=== PATIENT | male | born 1960 | race Caucasian/White ===

== ENCOUNTER 2016-06-12 07:10 | Inpatient (IN) | payer MEDICAID, OTHER ==
[2016-06-12] VITALS (9 sets, daily range): BP systolic 131–153; BP diastolic 70–92; PULSE 83–140; RESP 18–20; TEMP 97–98.1; O2SAT 92–96
[~2016-06-12] VITALS: Ht 170.2 cm; Wt 97.5 kg
[~2016-06-12 07:10] MED LIST: ACET325T PO; ADVA250A INH; AMOX500T2 PO; APIX5TAB PO; ATOR1TAB18 PO; DILT-64 PO; DOXY100C PO; IPRASOL INH; NITR1SUB2 SL; PRED20 PO; QUET1TAB7 PO; SOTA80TA PO
[2016-06-12] MEDS ORDERED: IPRASOL NEB (17:16)
[2016-06-12] MEDS ORDERED: HALO1TAB PO (17:16)
[2016-06-12] MEDS ORDERED: DOCU1CAP39 PO (17:16)
[2016-06-12] MEDS ORDERED: CLON.1 PO (17:16)
[2016-06-12] MEDS ORDERED: ACETAMINOPHEN 325 MG TAB PO PRN (20:15)
[2016-06-12] MEDS ORDERED: SODIUM CHLORIDE 0.9% FLUSH 5 ML FLUSH FLUSH PRN (20:15)
[2016-06-12] MEDS ORDERED: DILTIAZEM INJ 125 MG in SODIUM CHLORIDE 0.9% INJ 100 ML IV SCH (20:15)
[2016-06-12] MEDS ORDERED: ONDANSETRON HCL 4 MG/2 ML VIAL IVP PRN (20:15)
[2016-06-12] MEDS ORDERED: NALOXONE HCL 0.4 MG/ML AMP IV PRN (20:15)
[2016-06-12] MEDS ORDERED: HALOPERIDOL 1 MG TAB PO PRN (20:30)
[2016-06-12] MEDS ORDERED: cloNIDine HCL 0.1 MG TAB PO PRN (20:30)
[2016-06-12] MEDS ORDERED: RESP: ALBUTEROL 2.5 MG/IPRATROPIUM 0.5 MG NEB (PRN) NEB (20:30)
[2016-06-12] MEDS: BUDESONIDE-FORMOTEROL 160/4.5 MCG INHALER INH SCH (21:08)
[2016-06-12] MEDS: SODIUM CHLORIDE 0.9% FLUSH 5 ML FLUSH FLUSH SCH (21:09)
[2016-06-12] MEDS: DOCUSATE SODIUM 100 MG CAP PO SCH (21:10)
[2016-06-12] MEDS: ATORVASTATIN 80 MG TAB PO SCH (21:10)
[2016-06-12] MEDS: SOTALOL HCL 80 MG TAB PO SCH (21:10)
[2016-06-12] MEDS: APIXABAN 5 MG TABLET PO SCH (21:11)
[2016-06-12] MEDS: predniSONE 20 MG TAB PO SCH (21:11)
[2016-06-12] MEDS: QUEtiapine FUMARATE 25 MG TAB PO SCH (21:11)
[2016-06-13] VITALS (9 sets, daily range): BP systolic 124–157; BP diastolic 71–83; PULSE 65–105; RESP 18–20; TEMP 97.4–98.5; O2SAT 92–96
[2016-06-13] MEDS: DILTIAZEM-CD 240 MG CAP ER PO SCH (08:28)
[2016-06-13] MEDS: APIXABAN 5 MG TABLET PO SCH (08:28)
[2016-06-13] MEDS: DOCUSATE SODIUM 100 MG CAP PO SCH ×2 (08:28→21:09)
[2016-06-13] MEDS: QUEtiapine FUMARATE 25 MG TAB PO SCH (08:28)
[2016-06-13] MEDS: SOTALOL HCL 80 MG TAB PO SCH ×2 (08:28→21:09)
[2016-06-13] MEDS: SODIUM CHLORIDE 0.9% FLUSH 5 ML FLUSH FLUSH SCH ×2 (08:28→21:10)
[2016-06-13] MEDS: predniSONE 20 MG TAB PO SCH (08:28)
[2016-06-13] MEDS: BUDESONIDE-FORMOTEROL 160/4.5 MCG INHALER INH SCH ×2 (08:29→21:10)
[2016-06-13] MEDS ORDERED: ZIPRASIDONE MESYLATE 20 MG VIAL IM PRN (10:00)
--- NOTE | 2016-06-13 10:00 | HHI.HP ---
[facility] No Primary Care Physician Admission Diagnosis RVR Diagnoses: Chief Complaint: RVR Travel History International Travel<30 Days: No Contact w/Intl Traveler <30 Da: No Traveled to Known Affected Are: No History of Present Illness Patient is a 50-year-old male who was transferred from [facility] secondary to A. fib with RVR. Patient was noncompliant with by mouth Cardizem. Patient was started on IV Cardizem drip which was discontinued earlier today 2/2 CVR. I got called by RN this am 2/2 agitation pt swinging at nurses. Ordered IM Haldol and Geodon . Also ordered repeat EKG to evaluate QT duration. Patient has history of COPD, obstructive sleep apnea, anxiety, HTN, HLD, CAD, paroxysmal A. fib on Eliquis, recurrent strokes and ITP. Recent acute stroke with distal occlusion of the left middle cerebral artery 03/17/17 with receptive and expressive aphasia and mild right sided weakness he was seen by Dr. Holden and was transferred to [place] [facility]. On 06/01/16, patient was transferred to [facility] in [place] for history of increasing pain in the chest, shortness of breath and disorientation. Chest x-ray showed opacification of the right lower lobe possible pneumonia bilateral pleural effusions. Patient decompensated, requiring use of Ventimask and underwent urgent thoracentesis on 06/02/16, postprocedural chest x-ray without pneumothorax , and pleural effusion. Blood cultures were negative and patient was treated with course of antibiotic for the suspected pneumonia - doxycycline, Augmentin. The patient had several episodes of confusion and agitation which required Haldol PRN. At that time EEG showed mild encephalopathy but otherwise negative. EKG in normal sinus rhythm. 2-D echo showed 60% to 65% ejection fraction. Patient condition improved. He was then transferred to [place] for comprehensive rehabilitation. Patient also developed decrease in hemoglobin and platelets he was seen by hematology oncologist Dr. Andrew Schofield, bone marrow was completed which was negative and the patient was transfused with both 2 units of packed red cells and a unit of platelets. History includes testicular cancer in his late 40s for which she was treated with radiation therapy. Follow-up x-rays and scans have showed lymph nodes of the thoracic and abdominal area but the patient has remained on Eliquis and has not been able to undergo lymph node biopsy due to recurrent strokes. Patient seen today. Awake alert and calm following simple commands on 4 point restraints. Does know his last name Denies pain and discomfort. Denies SOB/ dyspnea. Denies chest pain, palpitations, headaches, dizziness. Denies fevers, chills, n/v/d. He agrees to behave and promises not to swinging at the nurses. Also discussed with hematology regarding thrombocytopenia. It was agreed to hold Eliquis 2/2 critical thrombocytopenia for the aware risk of recurrent CVA. At this time, risk of anticoagulation outweighs benefits. Discussed with Review of Systems Constitutional: DENIES: Diaphoretic episodes, Fatigue, Fever, Weight gain, Weight loss, Chills, Dizziness, Change in appetite, Night Sweats Endocrine: DENIES: Heat/cold intolerance, Polydipsia, Polyuria, Polyphagia Eyes: DENIES: Blurred vision, Diplopia, Vision loss, Photosensitivity Ears, nose, mouth, throat: DENIES: Tinnitus, Vertigo, Throat pain, Hoarseness, Epistaxis, Odynophagia Respiratory: DENIES: Cough, Wheezing, Hemoptysis, Sputum production, Shortness of breath Cardiovascular: DENIES: Chest pain, Palpitations, Syncope, Dyspnea on Exertion , PND, Lower Extremity Edema, Orthopnea, Claudication Gastrointestinal: DENIES: Abdominal pain, Black stools, Bloody stools, Constipation, Diarrhea, Nausea, Vomiting, Difficulty Swallowing, Anorexia Genitourinary: DENIES: Urinary frequency, Urinary incontinence, Urgency, Hematuria, Dysuria, Nocturia, Penile Discharge Integumentary: DENIES: Rash Neurologic: COMPLAINS OF: Speech Problems, DENIES: Headache, Localized weakness, Seizures, Tremor, Poor Balance Psychiatric: COMPLAINS OF: Confusion, Agitation, DENIES: Anxiety, Depression, Hallucinations, Suicidal Ideation, Homicidal Ideation, Delusions As per history of present illness Past Family Social History Past Medical History COPD Obstructive sleep apnea Anxiety Hypertension Hyperlipidemia CAD Paroxysmal A. fib on Eliquis Recurrent strokes Arthritis ITP Previous testicular cancer with radiation Restless leg syndrome Past Surgical History Cardiac catheterization and bone marrow Reported Medications Prednisone 20 mg twice a day Tylenol 650 mg every 4 hours when necessary Apixaban 5 mg by mouth twice a day Quetiapine 25 mg twice a day Advair discus 250/50 g 2 puffs twice a day DuoNeb 4 times a day nebulization Sotalol 80 mg twice a day Diltiazem CD 240 mg by mouth daily Atorvastatin 80 mg daily at bedtime Nitroglycerin 0.3 mg sublingual when necessary for chest pain Doxycycline 100 mg twice a day Allergies: Coded Allergies: No Known Allergies (Unverified , 04/16/16) Family History CAD and CVA Social History Occasional alcohol use Former smoker Denies illicit drug use Physical Exam Vital Signs Vital Signs Date Time Temp Pulse Resp B/P Pulse Ox O2 Delivery O2 Flow Rate FiO2 06/13/16 08:34 98.4 70 19 124/77 96 06/13/16 04:00 65 06/13/16 04:00 97.4 87 20 145/72 92 06/13/16 00:00 87 06/12/16 23:59 98.1 83 18 146/70 94 06/12/16 23:00 86 18 94 06/12/16 22:45 132 18 145/86 94 06/12/16 22:30 130 18 145/88 95 06/12/16 22:00 133 18 131/87 94 06/12/16 21:40 134 18 140/86 96 06/12/16 21:25 137 18 153/85 96 06/12/16 21:10 138 18 138/88 96 06/12/16 20:00 97.0 140 20 136/92 92 06/12/16 20:00 Nasal Cannula 2.00 06/12/16 20:00 97.0 06/12/16 20:00 140 Physical Exam GENERAL: This is a well-nourished, well-developed patient, in no apparent distress. SKIN: No rashes, ecchymoses or lesions. Cool and dry. HEAD: Atraumatic. Normocephalic. No temporal or scalp tenderness. EYES: Pupils equal round and reactive. Extraocular motions intact. No scleral icterus. No injection or drainage. ENT: Nose without bleeding. Throat without erythema. Uvula midline. Airway patent. NECK: Trachea midline. No JVD or lymphadenopathy. Supple, nontender, no meningeal signs. CARDIOVASCULAR: Rapid Ventricular rate without murmurs, gallops, or rubs. RESPIRATORY: Diminished bases right greater than the left. No wheezes, rales, or rhonchi. GASTROINTESTINAL: Abdomen soft, non-tender, nondistended. No hepato-splenomegaly , or palpable masses. No guarding. MUSCULOSKELETAL: Extremities without clubbing, cyanosis, or edema. No joint tenderness, effusion, or edema noted. No calf tenderness. Negative Homans sign bilaterally. Mild right-sided weakness. NEUROLOGICAL: Awake and alert. Expressive and receptive aphasia. Patient is impulsive. Motor and sensory grossly within normal limits. Assessment and Plan Problem List: (1) Idiopathic thrombocytopenia purpura ICD Code: D69.3 Status: Acute (2) Paroxysmal atrial fibrillation ICD Code: I48.0 Status: Chronic (3) Cognitive communication disorder ICD Code: R41.841 Status: Acute Assessment and Plan A. fib with RVR secondary to noncompliance. TSH unremarkable. Now with controlled response discontinue Cardizem drip and continue sotalol and Cardizem. Telemetry monitoring Thrombocytopenia with history of ITP. Discussed with hematology, hold Eliquis. Risk outweigh benefits at this time. Start IV Solu-Medrol. Discussed with . Repeat CBC in the morning. COPD with PNA. Stable status post doxycycline and Augmentin - DuoNeb's every 6 hours scheduled , every 4 hours when necessary - Continue prednisone taper, Symbicort every 12 hours - Monitor respiratory status CAD. Stable continue outpatient medications as appropriate CVA - expressive and receptive aphasia - PT/OT/ST -Consult rehabilitation medicine Agitation. Continue Seroquel. As needed Geodon and Haldol. Consult psychiatry HTN and HLD - Continue sotalol 80mg BID, clonidine when necessary - Continue atorvastatin 80 mg DVT prop -SCD and early ambulation Discussed Condition With Patient Physician Certification 2 Midnight Certification Type: Admission for Inpatient Services Order for Inpatient Services The services are ordered in accordance with Medicare regulations or non- Medicare payer requirements, as applicable. In the case of services not specified as inpatient-only, they are appropriately provided as inpatient services in accordance with the 2-midnight benchmark. Estimated LOS (days): 2 days is the estimated time the patient will need to remain in the hospital, assuming treatment plan goals are met and no additional complications. Post-Hospital Plan: Inpatient Rehab Gurvinder Noguera MD Jun 13, 2016 10:00 Urine pH 5.0 Urine Specific Moro 1.024 Urine Protein 30 Urine Glucose (UA) NEG Urine Ketones NEG Urine Occult Blood NEG Urine Nitrite NEG Urine Bilirubin NEG Urine Urobilinogen LESS THAN 2.0 Urine Leukocyte Esterase NEG Urine RBC 1 Urine WBC 1 Urine Mucus FEW Microscopic Urinalysis Comment CULT NOT INDICATED Imaging Last Impressions Chest X-Ray 06/11/16 0000 Signed Impressions: Service Date/Time: May 16:16 - CONCLUSION: Basilar airspace disease, right greater than left. Differential diagnosis includes asymmetric edema or pneumonia. Tom Hernandez MD Assessment and Plan Problem List: (1) Pneumonia ICD Code: J18.9 Status: Acute (2) Hx of testicular cancer ICD Code: Z85.47 Status: Chronic (3) Hypertension ICD Code: I10 Status: Chronic (4) Hyperlipemia ICD Code: E78.5 Status: Chronic (5) Anxiety ICD Code: F41.9 Status: Chronic (6) COPD (chronic obstructive pulmonary disease) ICD Code: J44.9 Status: Chronic (7) Impaired mobility and activities of daily living ICD Code: Z74.09 Status: Acute Assessment and Plan Patient is a 50-year-old male with primary medical history of COPD, obstructive sleep apnea, anxiety, HTN, HLD, CAD, paroxysmal A. fib on Eliquis, recurrent strokes. Recent acute stroke with distal occlusion of the left middle cerebral artery 03/17/17 with receptive and expressive aphasia and mild right sided weakness he was seen by Dr. villa and was transferred to [place] [facility]. On 06/01/16, patient was transferred to [facility] in [place] for history of increasing pain in the chest, shortness of breath and disorientation. Chest x-ray showed opacification of the right lower lobe possible pneumonia bilateral pleural effusions. Patient decompensated, requiring use of Ventimask and underwent urgent thoracentesis on 06/02/16, postprocedural chest x-ray without pneumothorax, and pleural effusion was greater juice with remaining atelectasis. Blood cultures were negative and patient was treated with course of antibiotic for the suspected pneumonia - doxycycline, Augmentin. The patient had several episodes of confusion and agitation which required Haldol PRN. At that time EEG showed mild encephalopathy but otherwise negative. EKG in normal sinus rhythm. 2-D echo showed 60% to 65% ejection fraction. Patient condition improved. He is now admitted to [place] for comprehensive rehabilitation. Consulted for medical management. COPD with exacerbation, PNA - continue doxycycline and Augmentin - DuoNeb's every 6 hours scheduled , every 4 hours when necessary - Continue prednisone taper, Symbicort every 12 hours - Monitor respiratory status CAD, paroxysmal A. fib - continue Eliquis - Continue Cardizem, sotalol - Monitor if patient taking medication. CVA - expressive and receptive aphasia - Rehabilitation PT/OT/ST by primary team - Consult neuropsych for impulsiveness may need to be on anxiolytics, antipsychotic HTN HLD - Continue sotalol 80mg BID, clonidine when necessary - Continue atorvastatin 80 mg Agitation DVT prop - Eliquis Past Family Social History Allergies: Coded Allergies: No Known Allergies (Unverified , 04/16/16) Physical Exam Vital Signs Vital Signs Date Time Temp Pulse Resp B/P Pulse Ox O2 Delivery O2 Flow Rate FiO2 06/13/16 08:34 98.4 70 19 124/77 96 06/13/16 04:00 65 06/13/16 04:00 97.4 87 20 145/72 92 06/13/16 00:00 87 06/12/16 23:59 98.1 83 18 146/70 94 06/12/16 23:00 86 18 94 06/12/16 22:45 132 18 145/86 94 06/12/16 22:30 130 18 145/88 95 06/12/16 22:00 133 18 131/87 94 06/12/16 21:40 134 18 140/86 96 06/12/16 21:25 137 18 153/85 96 06/12/16 21:10 138 18 138/88 96 06/12/16 20:00 97.0 140 20 136/92 92 06/12/16 20:00 Nasal Cannula 2.00 06/12/16 20:00 97.0 06/12/16 20:00 140 Physical Exam GENERAL: This is a well-nourished, well-developed patient, in no apparent distress. SKIN: No rashes, ecchymoses or lesions. Cool and dry. HEAD: Atraumatic. Normocephalic. No temporal or scalp tenderness. EYES: Pupils equal round and reactive. Extraocular motions intact. No scleral icterus. No injection or drainage. ENT: Nose without bleeding, purulent drainage or septal hematoma. Throat without erythema, tonsillar hypertrophy or exudate. Uvula midline. Airway patent. NECK: Trachea midline. No JVD or lymphadenopathy. Supple, nontender, no meningeal signs. CARDIOVASCULAR: Regular rate and rhythm without murmurs, gallops, or rubs. RESPIRATORY: Clear to auscultation. Breath sounds equal bilaterally. No wheezes , rales, or rhonchi. GASTROINTESTINAL: Abdomen soft, non-tender, nondistended. No hepato-splenomegaly , or palpable masses. No guarding. MUSCULOSKELETAL: Extremities without clubbing, cyanosis, or edema. No joint tenderness, effusion, or edema noted. No calf tenderness. Negative Homans sign bilaterally. NEUROLOGICAL: Awake and alert. Cranial nerves II through XII intact. Motor and sensory grossly within normal limits. Five out of 5 muscle strength in all muscle groups. Normal speech. Physician Certification Order for Inpatient Services The services are ordered in accordance with Medicare regulations or non- Medicare payer requirements, as applicable. In the case of services not specified as inpatient-only, they are appropriately provided as inpatient services in accordance with the 2-midnight benchmark. days is the estimated time the patient will need to remain in the hospital, assuming treatment plan goals are met and no additional complications. Gurvinder Noguera MD Jun 13, 2016 10:00
[2016-06-13 10:50] LABS: AUTOMATED NEUTROPHIL # 12.3 TH/MM3 (1.8-7.7); BASOPHIL % 0.1 % (0.0-2.0); EOSINOPHIL # 0.1 TH/MM3 (0-0.4); EOSINOPHIL % 0.9 % (0.0-4.0); HEMATOCRIT 35.8 % (39.0-51.0); LYMPH % 9.8 % (9.0-44.0); LYMPHOCYTE # 1.5 TH/MM3 (1.0-4.8); MEAN CELL VOLUME 83.3 FL (80.0-100.0); MEAN CORPUSCULAR HEMOGLOBIN 26.7 PG (27.0-34.0); MONO % 6.2 % (0.0-8.0); RED CELL DISTRIBUTION WIDTH 20.1 % (11.6-17.2); WHITE BLOOD COUNT 14.8 TH/MM3 (4.0-11.0)
[2016-06-13 10:56] LABS: HEMO FLAGS AUTO DIFF
[2016-06-13 11:01] LABS: PLATELET COUNT 15 TH/MM3 (150-450)
[2016-06-13 11:07] LABS: BICARBONATE 27.9 MEQ/L (21.0-32.0); MAGNESIUM 2.4 MG/DL (1.5-2.5); POTASSIUM 3.6 MEQ/L (3.5-5.1)
[2016-06-13 12:02] LABS: HELMET CELLS OCC (NORMAL); KERATOCYTES OCC (NORMAL); PLATELET ESTIMATE SMEAR RARE (NORMAL); PLATELET MORPHOLOGY NORMAL (NORMAL); SCAN/DIFF AUTO DIFF CONFIRMED
[2016-06-13 14:36] LABS: TRANSFERRIN IRON PROFILE 178 MG/DL (200-360)
[2016-06-13 15:01] LABS: FERRITIN 488 NG/ML (26-388); LDH SERUM 722 U/L (87-241)
--- NOTE | 2016-06-13 15:09 | MB ---
cc: EMANI AHUJA M.D., JOSE R. MD DATE OF CONSULTATION: 06/13/[address] Noguera. REASON FOR CONSULTATION Hematology consulted to render an opinion regarding a patient with worsening thrombocytopenia and recurrent stroke on anticoagulation. HISTORY OF PRESENT ILLNESS The patient is a 55-year-old male recently admitted to [facility] after a stroke. However, he developed confusion and atrial fibrillation, he was then transferred to the medical floor. The patient is aphasic and the history is obtained from his chart and from his at the bedside. Apparently the patient had recurrent strokes since January of 2016. She stated this is probably his fifth stroke. Around February he also found to have significant thrombocytopenia. He was seen by Dr. Schofield and had a bone marrow biopsy which reportedly was negative. The patient was diagnosed with idiopathic thrombocytopenic purpura. He has been going to Dr. Schofield's office once a week to get an injection which I assume is Nplate. According to his , the patient's platelet count always runs around 45,000. He also has been on Eliquis for the recurrent strokes. In April he was admitted for another stroke. He eventually was discharged to rehab in early May. He was transferred back to [facility] after he developed mental status change and was found to have pneumonia and pleural effusion. He had a thoracentesis. He recently on prednisone 20 mg twice a day. There is no report of bleeding. He denies any headache or visual changes. PAST MEDICAL HISTORY 1. Recurrent strokes. 2. Chronic obstructive pulmonary disease. 3. Obstructive sleep apnea. 4. Anxiety. 5. Hypertension. 6. Hyperlipidemia. 7. Coronary artery disease. 8. Paroxysmal atrial fibrillation. 9. History of testicular cancer treated in his 40s with radiation. 10. Restless leg syndrome. 11. Arthritis. 12. ITP. PAST SURGICAL HISTORY 1. Orchiectomy. 2. Cardiac cath. FAMILY HISTORY Noncontributory. SOCIAL HISTORY He has quit tobacco. He drinks occasionally. ALLERGIES NO KNOWN DRUG ALLERGIES. CURRENT MEDICATIONS 1. Geodon 2. Cardizem. 3. Haldol. 4. Eliquis. 5. Lipitor. 6. Colace. 7. Prednisone. 8. Seroquel. 9. Sotalol. 10. Symbicort. REVIEW OF SYSTEMS CONSTITUTIONAL: No report of weight loss. EYES: Denies any blurry vision, double vision. ENT: No report of sore throat. CARDIOVASCULAR: As above. RESPIRATORY: Denies shortness of breath or cough. GASTROINTESTINAL: No melena, no hematochezia, no abdominal pain. GENITOURINARY: No dysuria or hematuria. MUSCULOSKELETAL: Mild right-sided weakness. HEMATOLOGIC: As above. ENDOCRINE: Negative. DERMATOLOGIC: Negative. PSYCHIATRIC: Negative. NEUROLOGIC: As above. PHYSICAL EXAMINATION VITAL SIGNS: Temperature 98.5, blood pressure 124/76, O2 saturation 96% on 2 liters nasal cannula. GENERAL: He is awake, he is following commands, he is aphasic. HEENT: Atraumatic, normocephalic. Pupils equal, round and reactive to light. Extraocular muscles intact. No scleral icterus. Oropharynx - dry mucosa, no lesion. NECK: No thyromegaly. No palpable mass. LYMPHATICS: No palpable cervical, clavicular, axillary or inguinal lymph nodes. CARDIOVASCULAR: Irregular irregular. S1, S2 normal. LUNGS: Clear to auscultation bilaterally without wheezing or rhonchi. ABDOMEN: Soft, nontender. I could not palpate liver or spleen. EXTREMITIES: No cyanosis, no clubbing, no edema. BACK: No paravertebral tenderness. SKIN: No rash or petechiae. NEUROLOGIC: Nonfocal. LABORATORY DATA Reviewed. ASSESSMENT 1. Thrombocytopenia. Previous workup reportedly showed he has idiopathic thrombocytopenic purpura. Reportedly he had a bone marrow done in February which was unremarkable. He has been seeing Dr. Schofield and is getting an injection in his office once a week, his last injection was around April before he was admitted for stroke. According to his , the patient's platelet count always runs around 45,000. He is also on prednisone 20 mg twice a day. Yesterday his platelet count was down to 23,000, today it was down to 15,000. Clinically he has no bleeding, I do not appreciate any bruising. He however is on Eliquis and he has a high risk of bleeding. i recommend stopping the Eliquis. I am going to start him on Solu-Medrol. If his platelet count continues to drop, I would consider giving him IVIG. We will try not to give him IVIG at this time as there is a potential risk of clotting especially given his history of recurrent stroke. 2. Recurrent stroke. According to his , the patient has at least five strokes since January of last year. He is currently on Eliquis however his platelet count has trended lower and he has a high risk of bleeding, I think the risk outweighs the benefit, at this time I will stop the Eliquis and put him on subcutaneous heparin. Continue to monitor him closely for sign of bleeding. 3. History of testicular cancer treated with radiation when he was in the 40s. Reportedly he has some adenopathy but not able to biopsy due to the thrombocytopenia, he is being followed by Dr. Schofield 4. Chronic obstructive pulmonary disease. 5. Obstructive sleep apnea. 6. Paroxysmal atrial fibrillation. 7. Coronary artery disease. 8. Restless leg syndrome. 9. Osteoarthritis. RECOMMENDATIONS 1. Extensive discussion with the patient and his . They understand that he is in a difficult situation. He has competing needs. He will need anticoagulation given his recurrent stroke however the risk is high at this time given his severe thrombocytopenia. 2. We will stop his Eliquis and start him on subcutaneous heparin. 3. Start him on Solu-Medrol and stop the prednisone. 4. Consider giving him IVIG if his platelet count continues to trend lower. 5. Monitor CBC and sign of bleeding closely. 6. Discussed the case with Dr. Noguera. Thank you Dr. Noguera for asking me to see this patient. MD FELIPE Barnes/RAMY /1:42 PM /2:19 PM MONICA
[2016-06-13] MEDS: methylPREDNISolone SOD SUCC 40 MG/1 ML VIAL IV PUSH SCH ×2 (15:13→21:09)
--- NOTE | 2016-06-13 15:48 | PD.CONS ---
Provisional Diagnosis Admission Date Jun 12, 2016 at 07:10 [place] I. Adjustment disorder with mixed disturbances of emotion and conduct F 43.25,, cognitive communication disorder r 41.841 History of Present Illness Service Psychiatry Consult Requested By Attending Michaela Reason for Consult Assessment irritability Primary Care Physician No Primary Care Physician HPI Patient is a 55 white male with history of multiple strokes multiple medical issues. Asked to see because of patient's inability lability in context of his severe expressive aphasia. Patient seen in his room with soft restraints on with present throughout session giving much of the information. Patient calm to somewhat irritable with me the expressive aphasia severe consistent leading to what appears to be irritability and anger and depression and patient. Patient's verifies the depressive component of this. She denies any prior psychiatric contact hospitalizations or psychotropic medications. States he has been appear drinker but denies other drug use. Verifies his frustration with inability to do activities that he has the past including riding his motorcycle and driving his truck. Patient times is able to nod and verify his statements. We did discuss medication adjustments with them RN has been present throughout the session she states the small dose of Haldol have calmed him. Will suggest increasing scheduled Haldol to 2 mg 3 times a day and adding Remeron 15 mg at at bedtime. Along with discontinuing the Geodon orders and the Seroquel orders. At this time patient is not a candidate for referral to [facility] thanks for the consult consult will continue to follow Review of Systems Except as stated in HPI: all other systems reviewed are Neg Past Family Social History Coded Allergies: No Known Allergies (Unverified , 04/16/16) Past Medical History See medical assessments Active Scripts Haloperidol 1 Mg Tab1 Mg PO Q8HR PRN (AGITATION) 30 Days Prov:Maria T Shepherd 06/12/16 Docusate Sodium (Dok)100 Mg [id number] Mg PO BID 30 Days Prov:Maria T Shepherd 06/12/16 Clonidine (Catapres)0.1 Mg Tab0.1 Mg PO Q6H PRN (SBP> OR = 180, DBP> OR = 100) 30 Days Prov:Maria T Shepherd 06/12/16 Ipratropium-Albuterol Neb (Duoneb)0.5-2.5 Mg/3 Ml Neb1 Ampule NEB Q4HR NEB PRN ( SHORTNESS OF BREATH) 30 Days Prov:Maria T Shepherd 06/12/16 Reported Medications Sotalol 80 Mg Tab80 Mg PO BID #60 TAB Ref 0 06/11/16 Nitroglycerin SL 0.3 Mg Subl0.3 Mg SL DIRECTED PRN (CHEST PAIN) #100 TAB.SL Ref 0 ONE TABLET UNDER THE TONGUE NEEDED FOR CHEST PAIN, MAY REPEAT EVERY FIVE MINUTES FOR A TOTAL OF 3 DOSES OR CALL 911 IF NO RELIEF 06/11/16 Diltiazem CD 24 HR 240 Mg [id number] Mg PO DAILY #30 CAP Ref 0 06/11/16 Apixaban (Eliquis)5 Mg Tab5 Mg PO BID #60 TAB Ref 0 06/11/16 Atorvastatin 80 Mg Tab80 Mg PO HS #30 TAB Ref 0 06/11/16 Acetaminophen 325 Mg [id number] Mg PO Q4H PRN (FEVER) 06/11/16 Quetiapine 25 Mg Tab25 Mg PO BID #60 TAB Ref 0 06/11/16 Prednisone 20 Mg Tab20 Mg PO BID Ref 0 06/11/16 Fluticasone-Salmeterol Inh (Advair Diskus Inh)250-50 Mcg/Blist Aer2 Puff INH BID #1 INHALER Ref 0 Rinse mouth after use. 06/11/16 Discontinued Reported Medications Amoxicillin-Clavulanate 500-125 mg [id number] Mg PO Q8HR 1 Day Ref 0 06/11/16 Ipratropium-Albuterol Neb (Duoneb)0.5-2.5 Mg/3 Ml Neb1 Nebule INH QID NEB #120 NEBULE Ref 0 06/11/16 Doxycycline Hyclate 100 Mg Kon411 Mg PO BID 1 Day Ref 0 06/11/16 Furosemide 20 Mg Tab20 Mg PO BID #60 TAB Ref 0 04/16/16 Apixaban (Eliquis)5 Mg Tab5 Mg PO BID #60 TAB Ref 0 04/16/16 Metoprolol Tartrate 25 Mg Tab25 Mg PO DAILY #30 TAB Ref 0 04/16/16 Simvastatin 20 Mg Tab20 Mg PO HS #30 TAB Ref 0 04/16/16 Prednisone 10 Mg Tab10 Mg PO Sliding Scale Ref 0 04/16/16 Amiodarone 200 Mg [id number] Mg PO BID #60 TAB Ref 0 04/16/16 Isosorbide Mononitrate 20 Mg Tab30 Mg PO DAILY #60 TAB Ref 0 Take 2 doses 7 hours apart. 04/16/16 Current Medications Medications (Trade) Dose Ordered Sig/Brock Route Start Time Stop Time Status Last Admin (NS Flush) 2 ml UNSCH PRN FLUSH 06/12/16 20:15 (NS Flush) 2 ml BID FLUSH 06/12/16 21:00 06/13/16 08:28 (Tylenol) 650 mg Q4H PRN PO 06/12/16 20:15 (Zofran Inj) 4 mg Q6H PRN IVP 06/12/16 20:15 Naloxone HCl 0.4 mg 0.4 mg UNSCH PRN IV 06/12/16 20:15 (Cardizem Inj/NS Inj) 125 ml @ 0 mls/hr TITRATE IV 06/12/16 20:15 06/12/16 21:04 (Lipitor) 80 mg HS PO 06/12/16 21:00 06/12/16 21:10 (Catapres) 0.1 mg Q6H PRN PO 06/12/16 20:30 (Cardizem Cd) 240 mg DAILY PO 06/13/16 09:00 06/13/16 08:28 (Colace) 100 mg BID PO 06/12/16 21:00 06/13/16 08:28 (Haldol) 1 mg Q8HR PRN PO 06/12/16 20:30 06/13/16 08:28 (SEROquel) 25 mg BID PO 06/12/16 21:00 06/13/16 08:28 (Betapace) 80 mg BID PO 06/12/16 21:00 06/13/16 08:28 (Symbicort 160-4.5 Inh) 2 puff BID INH 06/12/16 21:00 06/13/16 08:29 (Haldol Inj) 2 mg Q6H PRN IM 06/13/16 08:45 (Geodon Inj) 10 mg BID PRN IM 06/13/16 10:00 (SoluMEDROL INJ) 40 mg Q6H IV PUSH 06/13/16 14:00 06/13/16 15:13 (Heparin Inj) 5,000 units Q8HR SQ 06/13/16 22:00 Family History History mental health issues Social History Lives with his was quite supportive Patient's Strengths (min. 2) Patient has supportive family, continued to be cooperative with his cognitive ability Physical Exam Please see med surge assessments Vital Signs Vital Signs Date Time Temp Pulse Resp B/P Pulse Ox O2 Delivery O2 Flow Rate FiO2 06/13/16 12:10 98.5 65 20 124/76 96 06/13/16 11:47 Nasal Cannula 2.00 I/O 06/12/16 06/12/16 06/13/16 08:00 16:00 00:00 Intake Total 480 ml Balance 480 ml Mental Status Examination Alert oriented though significantly impaired indicated skills secondary to his expressive aphasia Appearance Clean the Speech: Incoherent, Other (secondary to expressive aphasia) Orientation: Person, Place Memory: Unremarkable (difficult to ascertain due to his expressive aphasia) Thought Process: Logical (difficult to ascertain due to his expressive aphasia) Thought Content: Unremarkable (difficult to ascertain due to his expressive aphasia) Language Impaired by expressive aphasia Hallucination Type: None Attention and Concentration: Other (fair) Suicidal Ideation: No Previous Suicide Attempts: No Homicidal Ideation: No (denies) Previous Homicide Attempts: No Insight: Poor Judgement: Poor Affect: Other (slight increased range and intensity) Mood: Euthymic (2 dysphoric and irritable) Motor Activity: Normal gait (patient in bed with soft restraints) Assessment & Plan Problem List: (1) Adjustment disorder with mixed disturbance of emotions and conduct ICD Code: F43.25 (2) Cognitive communication disorder ICD Code: R41.841 Assessment & Plan Estimated LOS: days patient shows irritability and anger related to his multiple strokes, and cognitive issues. She medication suggestions above. Would agree with referral to a rehabilitation facility once medically cleared and stable. Thanks for consult will continue to follow on a when necessary basis Discharge Planning To be determined Request HC Surrog/Guard Advoc?: No Filiberto Garcia MD Jun 13, 2016 15:48
--- NOTE | 2016-06-13 16:44 | EKG ---
Date Performed: 06/13/2016 Time Performed: 06:36:00 PTAGE: 55 years EKG: Atrial flutter with controlled ventricular response nonspecific T wave change Compared to p revious tracing, overall HR is slightly slower, otherwise no significant change Abnormal ECG PREVIOUS TRACING : 06/13/2016 06.35 DOCTOR: Agus Rucker Interpretating Date/Time 06/13/2016 16:42:28
[2016-06-13] MEDS: HALOPERIDOL 2 MG TAB PO SCH (17:02)
[2016-06-13 17:27] LABS: APTT (PATIENT) 23.6 SEC (24.3-30.1); INTERNATIONAL NORMALIZED RATIO 1.3 RATIO; PROTHROMBIN TIME - PATIENT 14.6 SEC (9.8-11.6)
[2016-06-13] MEDS: MIRTAZAPINE 15 MG TAB PO SCH (21:09)
[2016-06-13] MEDS: ATORVASTATIN 80 MG TAB PO SCH (21:09)
[2016-06-13] MEDS: HEPARIN SODIUM - SQ 10,000 UNITS/ML VIAL SQ SCH (21:09)
[2016-06-14] VITALS (8 sets, daily range): BP systolic 116–145; BP diastolic 58–87; PULSE 77–125; RESP 16–20; TEMP 97.4–98; O2SAT 90–98
[2016-06-14] MEDS: methylPREDNISolone SOD SUCC 40 MG/1 ML VIAL IV PUSH SCH ×4 (02:11→21:30)
[2016-06-14] MEDS: HEPARIN SODIUM - SQ 10,000 UNITS/ML VIAL SQ SCH ×2 (05:18→21:47)
--- NOTE | 2016-06-14 08:41 | PD.ONC.PN ---
Subjective Subjective Remarks Afebrile overnight. Tachycardic overnight. Patient aphasic and difficult to communicate with. No reported overnight events. Objective Data Date Time Temp Pulse Resp B/P Pulse Ox O2 Delivery O2 Flow Rate FiO2 06/14/16 08:26 97.4 115 18 145/82 90 06/14/16 04:42 97.4 125 20 142/77 95 06/14/16 00:34 97.9 123 20 134/74 95 06/13/16 23:00 103 06/13/16 20:00 98.4 105 18 157/83 95 06/13/16 20:00 Nasal Cannula 2.00 06/13/16 16:33 97.9 96 19 135/71 94 06/13/16 12:10 98.5 65 20 124/76 96 06/13/16 11:47 Nasal Cannula 2.00 06/13/16 09:10 95 Nasal Cannula 2.00 06/13/16 08:34 98.4 70 19 124/77 96 06/14/16 06/14/16 06/14/16 07:00 15:00 23:00 Intake Total 500 ml Output Total 200 ml Balance 300 ml Result Diagram: 06/13/16 1025 06/13/16 1025 Laboratory Results Laboratory Tests Test 06/13/16 06/13/16 10:25 16:46 White Blood Count 14.8 TH/MM3 Red Blood Count 4.30 MIL/MM3 Hemoglobin 11.5 GM/DL Hematocrit 35.8 % Mean Corpuscular Volume 83.3 FL Mean Corpuscular Hemoglobin 26.7 PG Mean Corpuscular Hemoglobin 32.0 % Concent Red Cell Distribution Width 20.1 % Platelet Count 15 TH/MM3 Mean Platelet Volume 9.4 FL Neutrophils (%) (Auto) 83.0 % Lymphocytes (%) (Auto) 9.8 % Monocytes (%) (Auto) 6.2 % Eosinophils (%) (Auto) 0.9 % Basophils (%) (Auto) 0.1 % Neutrophils # (Auto) 12.3 TH/MM3 Lymphocytes # (Auto) 1.5 TH/MM3 Monocytes # (Auto) 0.9 TH/MM3 Eosinophils # (Auto) 0.1 TH/MM3 Basophils # (Auto) 0.0 TH/MM3 CBC Comment AUTO DIFF Differential Comment AUTO DIFF CONFIRMED Platelet Estimate RARE Platelet Morphology Comment NORMAL Helmet Cells OCC Keratocytes OCC Sodium Level 145 MEQ/L Potassium Level 3.6 MEQ/L Chloride Level 109 MEQ/L Carbon Dioxide Level 27.9 MEQ/L Anion Gap 8 MEQ/L Blood Urea Nitrogen 25 MG/DL Creatinine 1.13 MG/DL Estimat Glomerular Filtration 67 ML/MIN Rate Random Glucose 110 MG/DL Calcium Level 8.4 MG/DL Magnesium Level 2.4 MG/DL Iron Level 44 MCG/DL Total Iron Binding Capacity 249 MCG/DL Percent Iron Saturation 17.7 % Ferritin 488 NG/ML Lactate Dehydrogenase 722 U/L Vitamin B12 Level 552 PG/ML Folate 10.1 NG/ML Prothrombin Time 14.6 SEC Prothromb Time International 1.3 RATIO Ratio Activated Partial 23.6 SEC Thromboplast Time Fibrinogen 148 mg/dL Administered Medications Medications (Trade) Dose Ordered Sig/Brock Route PRN Reason Start Time Stop Time Status Last Admin Dose Admin IV Flush (NS Flush) 2 ml BID FLUSH 06/12/16 21:00 06/13/16 21:10 Atorvastatin Calcium (Lipitor) 80 mg HS PO 06/12/16 21:00 06/13/16 21:09 Diltiazem HCl (Cardizem Cd) 240 mg DAILY PO 06/13/16 09:00 06/13/16 08:28 Docusate Sodium (Colace) 100 mg BID PO 06/12/16 21:00 06/13/16 21:09 Sotalol HCl (Betapace) 80 mg BID PO 06/12/16 21:00 06/13/16 21:09 Budesonide/ Formoterol Fumarate (Symbicort 160-4.5 Inh) 2 puff BID INH 06/12/16 21:00 06/13/16 21:10 Methylprednisolone Sodium Succinate (SoluMEDROL INJ) 40 mg Q6H IV PUSH 06/13/16 14:00 06/14/16 02:11 Heparin Sodium (Porcine) (Heparin Inj) 5,000 units Q8HR SQ 06/13/16 22:00 06/14/16 05:18 Haloperidol (Haldol) 2 mg TID PO 06/13/16 18:00 06/13/16 17:02 Mirtazapine (Remeron) 15 mg HS PO 06/13/16 21:00 06/13/16 21:09 Objective Remarks GENERAL: Middle aged male, sitting up in bed in nad. SKIN: Warm and dry. ecchymoses noted along bilateral arms. HEAD: Normocephalic. EYES: No scleral icterus. No injection or drainage. NECK: Supple, trachea midline. CARDIAC: + S1/S2, tachy RESPIRATORY: Breath sounds equal bilaterally. No accessory muscle use. GASTROINTESTINAL: Abdomen soft, non-tender, nondistended. EXTREMITIES: No cyanosis NEUROLOGICAL: +aphasia. able to move extremities. able to ambulate independently Assessment/Plan Problem List: (1) Thrombocytopenia Status: Acute Plan: --on solu-medrol 40mg IV q6 for now, may start IVIG if no improvement --reported h/o ITP h/o thrombocytopenia dating back to 2015--[facility]wal patient--neg. BMB --has been going to Dr. Schofield's office weekly for injection ?Nplate. --baseline reportedly around 45K (per ) (2) Acute ischemic left MCA stroke Status: Acute Plan: --Eliquis d/c d/t thrombocytopenia--Patient has competing needs: h/o stroke vs high risk of bleeding d/t thrombocytopenia --on heparin 5000U q 8 only Assessment 55y/o male s/p stroke. Hematology consulted for thrombocytopenia H[facility] and [facility], transferred to the med/surg +recurrent strokes since January of 2016--was on Eliquis Chronic obstructive pulmonary disease. Obstructive sleep apnea. Hypertension. Hyperlipidemia. Coronary artery disease--h/o cardiac cath Paroxysmal atrial fibrillation. History of testicular cancer treated in his 40s with radiation and orchiectomy Restless leg syndrome. Arthritis. ITP. Plan 1. await CBC today 2. continue solu-medrol Attending Statement The exam, history, and the medical decision-making described in the above note were completed with the assistance of the mid-level provider. I reviewed and agree with the findings presented. I attest that I had a [id number] encounter with the patient on the same day, and personally performed and documented my assessment and findings in the medical record. Patient refused blood draw. No report of bleeding. + bruises. No headache. Still has aphasia. When we talked to him, he agrees to have blood draw. Continue solumedrol and heparin subQ. Restart Eliquis when platelet closer to 50K. Michelle Jerez Jun 14, 2016 08:41 Skyler Limon MD Jun 14, 2016 11:52
[2016-06-14] MEDS: BUDESONIDE-FORMOTEROL 160/4.5 MCG INHALER INH SCH ×2 (09:08→21:00)
[2016-06-14] MEDS: SOTALOL HCL 80 MG TAB PO SCH ×2 (09:08→21:00)
[2016-06-14] MEDS: DILTIAZEM-CD 240 MG CAP ER PO SCH (09:08)
[2016-06-14] MEDS: HALOPERIDOL 2 MG TAB PO SCH ×3 (09:08→18:01)
[2016-06-14] MEDS: DOCUSATE SODIUM 100 MG CAP PO SCH ×2 (09:08→21:30)
--- NOTE | 2016-06-14 09:39 | HHI.PR ---
Subjective Remarks Follow-up for atrial fibrillation, COPD, thrombocytopenia Discussed with RN, no bleeding. Patient still aphasic, very poor historian. No overnight events, afebrile. Appears to be comfortable, not short of breath. Objective Vitals Vital Signs Date Time Temp Pulse Resp B/P Pulse Ox O2 Delivery O2 Flow Rate FiO2 06/14/16 08:26 97.4 115 18 145/82 90 06/14/16 04:42 97.4 125 20 142/77 95 06/14/16 00:34 97.9 123 20 134/74 95 06/13/16 23:00 103 06/13/16 20:00 98.4 105 18 157/83 95 06/13/16 20:00 Nasal Cannula 2.00 06/13/16 16:33 97.9 96 19 135/71 94 06/13/16 12:10 98.5 65 20 124/76 96 06/13/16 11:47 Nasal Cannula 2.00 I/O 06/13/16 06/13/16 06/13/16 06/14/16 06/14/16 06/14/16 07:00 15:00 23:00 07:00 15:00 23:00 Intake Total 120 ml 240 ml 600 ml 500 ml Output Total 150 ml 200 ml Balance 120 ml 90 ml 600 ml 300 ml Intake Oral 120 ml 240 ml 600 ml 500 ml Output Urine Total 150 ml 200 ml # Voids 2 1 3 # Bowel Movements 1 1 0 Result Diagram: 06/13/16 1025 06/13/16 1025 Objective Remarks GENERAL: This is a well-nourished, well-developed patient, in no apparent distress. SKIN: No rash of generalized distribution HEAD: Atraumatic. Normocephalic. No temporal or scalp tenderness. EYES: Pupils equal round and reactive. No scleral icterus. No injection or drainage. ENT: Nose without bleeding. NECK: Trachea midline. CARDIOVASCULAR: Irregular rhythm, borderline tachycardic, no murmurs. RESPIRATORY: Diminished bases right greater than the left. No wheezes, rales, or rhonchi. Poor effort. GASTROINTESTINAL: Abdomen soft, non-tender, obese, nondistended. No hepato- splenomegaly, or palpable masses. No guarding. MUSCULOSKELETAL: Extremities without clubbing, cyanosis, or edema. NEUROLOGICAL: Awake and alert.? Orientation, mild right-sided weakness. Expressive and receptive aphasia. Patient is impulsive. Motor and sensory grossly within normal limits. A/P Problem List: (1) Idiopathic thrombocytopenia purpura ICD Code: D69.3 Status: Acute (2) Paroxysmal atrial fibrillation ICD Code: I48.0 Status: Chronic (3) Cognitive communication disorder ICD Code: R41.841 Status: Acute Assessment and Plan A. fib with RVR secondary to noncompliance - TSH unremarkable. Continue Cardizem long-acting, start metoprolol. Telemetry monitoring Thrombocytopenia with history of ITP- Discussed with hematology, hold Eliquis. Risk outweigh benefits at this time. No note of bleeding, pending repeat labs today, continue Solu-Medrol. Pending hematology input. CBC and BMP tomorrow. COPD with PNA. Stable status post doxycycline and Augmentin, continue duo nebs , steroids for ITP, continue Symbicort. Stable. CAD. Stable continue outpatient medications as appropriate CVA - expressive and receptive aphasia - PT/OT/ST -Consult rehabilitation medicine Agitation. Continue Seroquel. As needed Danieldon and Haldol. Consulted psychiatry, start restraints today. HTN and HLD - - Continue sotalol 80mg BID, clonidine when necessary, Continue atorvastatin 80 mg DVT prop -SCD and early ambulation, pharmacological prophylaxis contraindicated. Discussed with RN and security. Blane Mckee MD Jun 14, 2016 09:39
[2016-06-14] MEDS: SODIUM CHLORIDE 0.9% FLUSH 5 ML FLUSH FLUSH SCH ×2 (10:00→21:30)
[2016-06-14] MEDS: METOPROLOL TARTRATE 25 MG TAB PO SCH ×2 (11:52→21:30)
[2016-06-14 14:02] LABS: AUTOMATED NEUTROPHIL # 12.6 TH/MM3 (1.8-7.7); BASOPHIL # 0.1 TH/MM3 (0-0.2); BASOPHIL % 0.4 % (0.0-2.0); EOSINOPHIL % 0.1 % (0.0-4.0); HEMATOCRIT 36.4 % (39.0-51.0); LYMPH % 7.3 % (9.0-44.0); LYMPHOCYTE # 1.1 TH/MM3 (1.0-4.8); MEAN CELL VOLUME 83.6 FL (80.0-100.0); MEAN CORPUSCULAR HEMOGLOBIN 26.8 PG (27.0-34.0); MEAN CORPUSCULAR HGB CONC 32.1 % (32.0-36.0); MONO % 4.9 % (0.0-8.0); NEUT % 87.3 % (16.0-70.0); PLATELET COUNT 50 TH/MM3 (150-450); RED BLOOD COUNT 4.36 MIL/MM3 (4.50-5.90); WHITE BLOOD COUNT 14.4 TH/MM3 (4.0-11.0)
[2016-06-14 14:04] LABS: HEMO FLAGS AUTO DIFF
[2016-06-14 14:21] LABS: BICARBONATE 26.9 MEQ/L (21.0-32.0); MAGNESIUM 2.6 MG/DL (1.5-2.5)
[2016-06-14 14:22] LABS: POTASSIUM 4.7 MEQ/L (3.5-5.1)
[2016-06-14 14:47] LABS: HELMET CELLS OCC (NORMAL); OVALOCYTES 1+ (NORMAL); PLATELET ESTIMATE SMEAR LOW (NORMAL); PLATELET MORPHOLOGY NORMAL (NORMAL); SCAN/DIFF AUTO DIFF CONFIRMED; TEARDROP RBCS 1+ (NORMAL)
[2016-06-14] MEDS: ATORVASTATIN 80 MG TAB PO SCH (21:30)
[2016-06-14] MEDS: MIRTAZAPINE 15 MG TAB PO SCH (21:30)
[2016-06-15] VITALS (9 sets, daily range): BP systolic 114–141; BP diastolic 57–83; PULSE 90–128; RESP 17–20; TEMP 93.4–97.5; O2SAT 91–97
[2016-06-15] MEDS: methylPREDNISolone SOD SUCC 40 MG/1 ML VIAL IV PUSH SCH ×4 (02:00→21:45)
[2016-06-15] MEDS: HEPARIN SODIUM - SQ 10,000 UNITS/ML VIAL SQ SCH ×3 (05:47→21:50)
[2016-06-15 08:48] LABS: AUTOMATED NEUTROPHIL # 17.9 TH/MM3 (1.8-7.7); BASOPHIL % 0.1 % (0.0-2.0); LYMPH % 6.6 % (9.0-44.0); LYMPHOCYTE # 1.3 TH/MM3 (1.0-4.8); MEAN CELL VOLUME 84.3 FL (80.0-100.0); MEAN CORPUSCULAR HEMOGLOBIN 27.2 PG (27.0-34.0); MEAN CORPUSCULAR HGB CONC 32.3 % (32.0-36.0); MONO % 3.9 % (0.0-8.0); NEUT % 89.4 % (16.0-70.0); RED BLOOD COUNT 4.51 MIL/MM3 (4.50-5.90); RED CELL DISTRIBUTION WIDTH 20.3 % (11.6-17.2)
[2016-06-15 08:49] LABS: HEMO FLAGS AUTO DIFF
[2016-06-15 08:51] LABS: PLATELET COUNT 15 TH/MM3 (150-450)
[2016-06-15] MEDS: BUDESONIDE-FORMOTEROL 160/4.5 MCG INHALER INH SCH ×2 (09:00→21:47)
[2016-06-15] MEDS: SODIUM CHLORIDE 0.9% FLUSH 5 ML FLUSH FLUSH SCH ×2 (09:00→21:45)
[2016-06-15 09:04] LABS: BICARBONATE 21.1 MEQ/L (21.0-32.0); POTASSIUM 4.1 MEQ/L (3.5-5.1)
--- NOTE | 2016-06-15 09:06 | PD.ONC.PN ---
Subjective Subjective Remarks Afebrile overnight. patient resting comfortably. He has difficulty communicating due to aphasia. Objective Data Date Time Temp Pulse Resp B/P Pulse Ox O2 Delivery O2 Flow Rate FiO2 06/15/16 08:00 Nasal Cannula 2.00 06/15/16 04:00 97.3 103 17 124/83 94 06/15/16 00:00 97.4 119 18 131/76 96 06/14/16 20:00 98.0 99 16 116/58 92 06/14/16 19:57 92 06/14/16 16:14 97.4 77 20 124/64 95 06/14/16 15:07 97 Nasal Cannula 2.00 06/14/16 12:05 97.4 100 18 137/87 98 06/15/16 06/15/16 06/15/16 07:00 15:00 23:00 Intake Total 220 ml Balance 220 ml Result Diagram: 06/14/16 1320 06/14/16 1320 Laboratory Results Laboratory Tests Test 06/14/16 13:20 White Blood Count 14.4 TH/MM3 Red Blood Count 4.36 MIL/MM3 Hemoglobin 11.7 GM/DL Hematocrit 36.4 % Mean Corpuscular Volume 83.6 FL Mean Corpuscular Hemoglobin 26.8 PG Mean Corpuscular Hemoglobin 32.1 % Concent Red Cell Distribution Width 20.0 % Platelet Count 50 TH/MM3 Mean Platelet Volume 10.0 FL Neutrophils (%) (Auto) 87.3 % Lymphocytes (%) (Auto) 7.3 % Monocytes (%) (Auto) 4.9 % Eosinophils (%) (Auto) 0.1 % Basophils (%) (Auto) 0.4 % Neutrophils # (Auto) 12.6 TH/MM3 Lymphocytes # (Auto) 1.1 TH/MM3 Monocytes # (Auto) 0.7 TH/MM3 Eosinophils # (Auto) 0.0 TH/MM3 Basophils # (Auto) 0.1 TH/MM3 CBC Comment AUTO DIFF Differential Comment AUTO DIFF CONFIRMED Platelet Estimate LOW Platelet Morphology Comment NORMAL Tear Drop Cells 1+ Ovalocytes 1+ Helmet Cells OCC Sodium Level 146 MEQ/L Potassium Level 4.7 MEQ/L Chloride Level 110 MEQ/L Carbon Dioxide Level 26.9 MEQ/L Anion Gap 9 MEQ/L Blood Urea Nitrogen 34 MG/DL Creatinine 1.12 MG/DL Estimat Glomerular Filtration 68 ML/MIN Rate Random Glucose 129 MG/DL Calcium Level 8.4 MG/DL Magnesium Level 2.6 MG/DL Administered Medications Medications (Trade) Dose Ordered Sig/Brock Route PRN Reason Start Time Stop Time Status Last Admin Dose Admin IV Flush (NS Flush) 2 ml BID FLUSH 06/12/16 21:00 06/14/16 21:30 Atorvastatin Calcium (Lipitor) 80 mg HS PO 06/12/16 21:00 06/14/16 21:30 Diltiazem HCl (Cardizem Cd) 240 mg DAILY PO 06/13/16 09:00 06/14/16 09:08 Docusate Sodium (Colace) 100 mg BID PO 06/12/16 21:00 06/14/16 21:30 Sotalol HCl (Betapace) 80 mg BID PO 06/12/16 21:00 06/14/16 21:00 Budesonide/ Formoterol Fumarate (Symbicort 160-4.5 Inh) 2 puff BID INH 06/12/16 21:00 06/14/16 21:00 Methylprednisolone Sodium Succinate (SoluMEDROL INJ) 40 mg Q6H IV PUSH 06/13/16 14:00 06/14/16 21:30 Haloperidol (Haldol) 2 mg TID PO 06/13/16 18:00 06/14/16 18:01 Mirtazapine (Remeron) 15 mg HS PO 06/13/16 21:00 06/14/16 21:30 Metoprolol Tartrate (Lopressor) 25 mg Q12HR PO 06/14/16 10:00 06/14/16 21:30 Heparin Sodium (Porcine) (Heparin Inj) 5,000 units Q8HR SQ 06/14/16 22:00 06/15/16 05:47 Objective Remarks GENERAL: Middle aged male, sitting up in bed, fully dressed, in nad. SKIN: Warm and dry. ecchymoses noted along bilateral arms. HEAD: Normocephalic. EYES: No injection or drainage. NECK: Supple, trachea midline. CARDIAC: + S1/S2, tachy RESPIRATORY: Breath sounds equal bilaterally. No accessory muscle use. GASTROINTESTINAL: Abdomen soft, non-tender, nondistended. EXTREMITIES: No cyanosis NEUROLOGICAL: awake and alert. +aphasia. independently ambulatory. Assessment/Plan Problem List: (1) Thrombocytopenia Status: Acute Plan: --continue solu-medrol 40mg IV q6 --reported h/o ITP h/o thrombocytopenia dating back to 2015--[facility] patient--neg. BMB --has been going to Dr. Schofield's office weekly for injection ?Nplate. --baseline reportedly around 45K (per ) (2) Acute ischemic left MCA stroke Status: Acute Plan: --Eliquis d/c d/t thrombocytopenia--Patient has competing needs: h/o stroke vs high risk of bleeding d/t thrombocytopenia --on heparin 5000U q 8 only for now, plan to resume Eliquis once plt remain above 50K Assessment 55y/o male s/p stroke. Hematology consulted for thrombocytopenia H[facility] and afib, transferred to the med/surg +recurrent strokes since January of 2016--was on Eliquis Chronic obstructive pulmonary disease. Obstructive sleep apnea. Hypertension. Hyperlipidemia. Coronary artery disease--h/o cardiac cath Paroxysmal atrial fibrillation. History of testicular cancer treated in his 40s with radiation and orchiectomy Restless leg syndrome. Arthritis. ITP. Plan 1. continue prophylactic dose heparin only for now, will wait until platelet count is closer to 50K before resuming Eliquis 2. continue solu-medrol Attending Statement The exam, history, and the medical decision-making described in the above note were completed with the assistance of the mid-level provider. I reviewed and agree with the findings presented. I attest that I had a [id number] encounter with the patient on the same day, and personally performed and documented my assessment and findings in the medical record. Platelet was 50K yesterday but trended back down. No bleeding noted. Continue solumedrol and consider IVIG if platelet continue to trend down. Continue heparin subq. restart Eliquis when platelet close to 50K. Michelle Jerez Jun 15, 2016 09:05 Skyler Limon MD Jun 15, 2016 15:23
[2016-06-15] MEDS: METOPROLOL TARTRATE 25 MG TAB PO SCH ×2 (09:39→21:49)
[2016-06-15] MEDS: SOTALOL HCL 80 MG TAB PO SCH ×2 (09:39→21:50)
[2016-06-15] MEDS: HALOPERIDOL 2 MG TAB PO SCH ×3 (09:39→16:26)
[2016-06-15] MEDS: DILTIAZEM-CD 240 MG CAP ER PO SCH (09:39)
[2016-06-15] MEDS: DOCUSATE SODIUM 100 MG CAP PO SCH ×2 (09:39→21:50)
[2016-06-15 11:00] LABS: ACANTHOCYTES 1+ (NORMAL); OVALOCYTES 1+ (NORMAL)
[2016-06-15 11:01] LABS: PLATELET ESTIMATE SMEAR LOW (NORMAL); PLATELET MORPHOLOGY NORMAL (NORMAL); SCAN/DIFF AUTO DIFF CONFIRMED
--- NOTE | 2016-06-15 15:41 | HHI.PR ---
Subjective Remarks Follow-up for thrombocytopenia and CVA No bleeding, no chest pain or shortness of breath. No new deficits. Aphasia is stable Objective Vitals Vital Signs Date Time Temp Pulse Resp B/P Pulse Ox O2 Delivery O2 Flow Rate FiO2 06/15/16 12:00 93.4 126 20 141/72 91 06/15/16 10:32 97 Nasal Cannula 21 06/15/16 08:00 97.3 125 20 121/57 92 06/15/16 08:00 Nasal Cannula 2.00 06/15/16 04:00 97.3 103 17 124/83 94 06/15/16 00:00 97.4 119 18 131/76 96 06/14/16 20:00 98.0 99 16 116/58 92 06/14/16 19:57 92 06/14/16 16:14 97.4 77 20 124/64 95 I/O 06/14/16 06/14/16 06/14/16 06/15/16 06/15/16 06/15/16 07:00 15:00 23:00 07:00 15:00 23:00 Intake Total 500 ml 600 ml 240 ml 220 ml 0 ml Output Total 200 ml Balance 300 ml 600 ml 240 ml 220 ml 0 ml Intake Oral 500 ml 600 ml 240 ml 220 ml IV Total 0 ml Output Urine Total 200 ml # Voids 3 2 3 # Bowel Movements 0 0 0 Result Diagram: 06/15/16 0802 06/15/16 0802 Objective Remarks GENERAL: This is a well-nourished, well-developed patient, in no apparent distress. SKIN: No rash of generalized distribution HEAD: Atraumatic. Normocephalic. No temporal or scalp tenderness. EYES: Pupils equal round and reactive. No scleral icterus. No injection or drainage. ENT: Nose without bleeding. NECK: Trachea midline. CARDIOVASCULAR: Irregular rhythm, borderline tachycardic, no murmurs. RESPIRATORY: Diminished bases right greater than the left. No wheezes, rales, or rhonchi. Poor effort. GASTROINTESTINAL: Abdomen soft, non-tender, obese, nondistended. No hepato- splenomegaly, or palpable masses. No guarding. MUSCULOSKELETAL: Extremities without clubbing, cyanosis, or edema. NEUROLOGICAL: Awake and alert.? Orientation, mild right-sided weakness. Expressive and receptive aphasia. Patient is impulsive. Motor and sensory grossly within normal limits. A/P Problem List: (1) Idiopathic thrombocytopenia purpura ICD Code: D69.3 Status: Acute (2) Paroxysmal atrial fibrillation ICD Code: I48.0 Status: Chronic (3) Cognitive communication disorder ICD Code: R41.841 Status: Acute Assessment and Plan A. fib with RVR secondary to noncompliance - TSH unremarkable. Continue Cardizem long-acting, start metoprolol. Telemetry monitoring Thrombocytopenia with history of ITP- discussed with hematology, continue heparin. Risk outweigh benefits at this time. No note of bleeding, pending repeat labs today, continue Solu-Medrol. Pending hematology input. Platelets still in today, recheck CBC tomorrow. Start eliquis ones platelet is more than 50. COPD with PNA. Stable status post doxycycline and Augmentin, continue duo nebs , steroids for ITP, continue Symbicort. Stable. CAD. Stable continue outpatient medications as appropriate CVA - expressive and receptive aphasia - PT/OT/ST -Consult rehabilitation medicine Ag[facility]. Continue Seroquel. As needed [facility]. Consulted psychiatry, start restraints today. HTN and HLD - - Continue sotalol 80mg BID, clonidine when necessary, Continue atorvastatin 80 mg DVT prop -SCD and early ambulation, pharmacological prophylaxis contraindicated. Discussed with hematology. Discharge Planning Discharged back to [facility] when stable Blane Mckee MD Jun 15, 2016 15:41
[2016-06-15] MEDS: ATORVASTATIN 80 MG TAB PO SCH (21:49)
[2016-06-15] MEDS: MIRTAZAPINE 15 MG TAB PO SCH (21:49)
[2016-06-16] VITALS (8 sets, daily range): BP systolic 109–160; BP diastolic 56–113; PULSE 60–93; RESP 18–20; TEMP 97.6–98.2; O2SAT 90–97
[2016-06-16] MEDS: HEPARIN SODIUM - SQ 10,000 UNITS/ML VIAL SQ SCH ×3 (03:11→22:23)
[2016-06-16] MEDS: methylPREDNISolone SOD SUCC 40 MG/1 ML VIAL IV PUSH SCH ×4 (04:07→22:24)
[2016-06-16 07:19] LABS: AUTOMATED NEUTROPHIL # 13.2 TH/MM3 (1.8-7.7); BASOPHIL % 0.2 % (0.0-2.0); HEMATOCRIT 32.5 % (39.0-51.0); LYMPH % 5.7 % (9.0-44.0); LYMPHOCYTE # 0.8 TH/MM3 (1.0-4.8); MEAN CELL VOLUME 83.8 FL (80.0-100.0); MEAN CORPUSCULAR HEMOGLOBIN 26.6 PG (27.0-34.0); MEAN CORPUSCULAR HGB CONC 31.7 % (32.0-36.0); MONO % 2.8 % (0.0-8.0); NEUT % 91.3 % (16.0-70.0); RED BLOOD COUNT 3.87 MIL/MM3 (4.50-5.90); RED CELL DISTRIBUTION WIDTH 20.3 % (11.6-17.2); WHITE BLOOD COUNT 14.5 TH/MM3 (4.0-11.0)
[2016-06-16 07:38] LABS: HEMO FLAGS AUTO DIFF; PLATELET COUNT 17 TH/MM3 (150-450)
[2016-06-16 08:24] LABS: ACANTHOCYTES OCC (NORMAL); HELMET CELLS OCC (NORMAL); PLATELET ESTIMATE SMEAR RARE (NORMAL); PLATELET MORPHOLOGY NORMAL (NORMAL); SCAN/DIFF AUTO DIFF CONFIRMED
[2016-06-16] MEDS: SODIUM CHLORIDE 0.9% FLUSH 5 ML FLUSH FLUSH SCH ×2 (09:00→22:25)
[2016-06-16] MEDS: BUDESONIDE-FORMOTEROL 160/4.5 MCG INHALER INH SCH ×2 (09:00→22:25)
--- NOTE | 2016-06-16 10:00 | PD.ONC.PN ---
Subjective Subjective Remarks Afebrile overnight. Patient did not receive his heparin injection overnight. No bleeding. Aphasia improving but still difficult to communicate. Objective Data Date Time Temp Pulse Resp B/P Pulse Ox O2 Delivery O2 Flow Rate FiO2 06/16/16 08:00 97.6 60 20 128/60 92 06/16/16 04:58 97.9 61 18 116/56 97 06/15/16 23:45 97.3 99 20 120/73 95 06/15/16 20:00 Room Air 06/15/16 19:40 97.5 126 18 114/69 93 06/15/16 17:49 128 06/15/16 16:00 97.4 90 20 117/71 97 06/15/16 12:00 93.4 126 20 141/72 91 06/15/16 10:32 97 Nasal Cannula 21 06/16/16 06/16/16 06/16/16 07:00 15:00 23:00 Intake Total 240 ml Balance 240 ml Result Diagram: 06/16/16 0636 06/15/16 0802 Laboratory Results Laboratory Tests Test 06/16/16 06:36 White Blood Count 14.5 TH/MM3 Red Blood Count 3.87 MIL/MM3 Hemoglobin 10.3 GM/DL Hematocrit 32.5 % Mean Corpuscular Volume 83.8 FL Mean Corpuscular Hemoglobin 26.6 PG Mean Corpuscular Hemoglobin 31.7 % Concent Red Cell Distribution Width 20.3 % Platelet Count 17 TH/MM3 Mean Platelet Volume 10.3 FL Neutrophils (%) (Auto) 91.3 % Lymphocytes (%) (Auto) 5.7 % Monocytes (%) (Auto) 2.8 % Eosinophils (%) (Auto) 0.0 % Basophils (%) (Auto) 0.2 % Neutrophils # (Auto) 13.2 TH/MM3 Lymphocytes # (Auto) 0.8 TH/MM3 Monocytes # (Auto) 0.4 TH/MM3 Eosinophils # (Auto) 0.0 TH/MM3 Basophils # (Auto) 0.0 TH/MM3 CBC Comment AUTO DIFF Differential Comment AUTO DIFF CONFIRMED Platelet Estimate RARE Platelet Morphology Comment NORMAL Helmet Cells OCC Acanthocytes OCC Administered Medications Medications (Trade) Dose Ordered Sig/Brock Route PRN Reason Start Time Stop Time Status Last Admin Dose Admin IV Flush (NS Flush) 2 ml BID FLUSH 06/12/16 21:00 06/15/16 21:45 Atorvastatin Calcium (Lipitor) 80 mg HS PO 06/12/16 21:00 06/15/16 21:49 Diltiazem HCl (Cardizem Cd) 240 mg DAILY PO 06/13/16 09:00 06/15/16 09:39 Docusate Sodium (Colace) 100 mg BID PO 06/12/16 21:00 06/15/16 21:50 Sotalol HCl (Betapace) 80 mg BID PO 06/12/16 21:00 06/15/16 21:50 Budesonide/ Formoterol Fumarate (Symbicort 160-4.5 Inh) 2 puff BID INH 06/12/16 21:00 06/15/16 21:47 Methylprednisolone Sodium Succinate (SoluMEDROL INJ) 40 mg Q6H IV PUSH 06/13/16 14:00 06/16/16 04:07 Haloperidol (Haldol) 2 mg TID PO 06/13/16 18:00 06/15/16 16:26 Mirtazapine (Remeron) 15 mg HS PO 06/13/16 21:00 06/15/16 21:49 Metoprolol Tartrate (Lopressor) 25 mg Q12HR PO 06/14/16 10:00 06/15/16 21:49 Heparin Sodium (Porcine) (Heparin Inj) 5,000 units Q8HR SQ 06/14/16 22:00 06/15/16 05:47 Objective Remarks GENERAL: Middle aged male, sitting up on side of bed in NAD SKIN: Warm and dry. HEAD: Normocephalic. EYES: No injection or drainage. NECK: Supple, trachea midline. CARDIO: + S1/S2, tachy RESPIRATORY: Breath sounds equal bilaterally. No accessory muscle use. GASTROINTESTINAL: Abdomen soft, non-tender, nondistended. EXTREMITIES: No cyanosis NEUROLOGICAL: +aphasia. moving extremities. awake and alert. Assessment/Plan Problem List: (1) Thrombocytopenia Status: Acute Plan: --continue solu-medrol 40mg IV q6 --reported h/o ITP --h/o thrombocytopenia dating back to 2015--[facility] patient--neg. BMB --has been going to Dr. Schofield's office weekly for injection ?Nplate. --baseline reportedly around 45K (per ) (2) Acute ischemic left MCA stroke Status: Acute Plan: --Eliquis d/c d/t thrombocytopenia--Patient has competing needs: h/o stroke vs high risk of bleeding d/t thrombocytopenia --on heparin 5000U q 8 only for now, plan to resume Eliquis once plt remain above 50K Assessment 55y/o male s/p stroke. Hematology consulted for thrombocytopenia HPI: recently admitted to [facility] stroke, developed confusion and afib, transferred to the med/surg +recurrent strokes since January of 2016--was on Eliquis Chronic obstructive pulmonary disease. Obstructive sleep apnea. Hypertension. Hyperlipidemia. Coronary artery disease--h/o cardiac cath Paroxysmal atrial fibrillation. History of testicular cancer treated in his 40s with radiation and orchiectomy Restless leg syndrome. Arthritis. ITP. Plan 1. continue prophylactic dose heparin. d/w nurse ok to give heparin injection as long as platelet count 15K or greater. We plan to resume Eliquis when platelet count is closer to 50K. 2. continue solu-medrol. may give IVIG if platelet count does not improve. Attending Statement The exam, history, and the medical decision-making described in the above note were completed with the assistance of the mid-level provider. I reviewed and agree with the findings presented. I attest that I had a [id number] encounter with the patient on the same day, and personally performed and documented my assessment and findings in the medical record. No new symptoms, no report of bleeding. Platelet still low despite solumedrol. Plan to give IVIG tomorrow if platelet does not trend up. Michelle Jerez Jun 16, 2016 10:00 Skyler Limon MD Jun 16, 2016 17:02
[2016-06-16] MEDS: DILTIAZEM-CD 240 MG CAP ER PO SCH (10:16)
[2016-06-16] MEDS: HALOPERIDOL 2 MG TAB PO SCH ×3 (10:16→16:54)
[2016-06-16] MEDS: DOCUSATE SODIUM 100 MG CAP PO SCH ×2 (10:17→22:22)
[2016-06-16] MEDS: SOTALOL HCL 80 MG TAB PO SCH ×2 (10:17→22:19)
[2016-06-16] MEDS: METOPROLOL TARTRATE 25 MG TAB PO SCH ×2 (10:17→22:20)
--- NOTE | 2016-06-16 14:37 | HHI.PR ---
Subjective Remarks Follow-up for trauma cytopenia Platelets are low again today, 17, no bleeding, no chest pain or shortness of breath, afebrile. No new neurologic deficits. Objective Vitals Vital Signs Date Time Temp Pulse Resp B/P Pulse Ox O2 Delivery O2 Flow Rate FiO2 06/16/16 11:51 93 Nasal Cannula 06/16/16 11:39 97.9 61 18 118/70 90 06/16/16 08:00 97.6 60 20 128/60 92 06/16/16 04:58 97.9 61 18 116/56 97 06/15/16 23:45 97.3 99 20 120/73 95 06/15/16 20:00 Room Air 06/15/16 19:40 97.5 126 18 114/69 93 06/15/16 17:49 128 06/15/16 16:00 97.4 90 20 117/71 97 I/O 06/15/16 06/15/16 06/15/16 06/16/16 06/16/16 06/16/16 06:59 14:59 22:59 06:59 14:59 22:59 Intake Total 220 ml 480 ml 240 ml 240 ml Balance 220 ml 480 ml 240 ml 240 ml Intake Oral 220 ml 480 ml 240 ml 240 ml IV Total 0 ml # Voids 3 2 4 2 # Bowel Movements 2 0 0 Result Diagram: 06/16/16 0636 06/15/16 0802 Objective Remarks GENERAL: This is a well-nourished, well-developed patient, in no apparent distress. EYES: Pupils equal round and reactive. No scleral icterus. No injection or drainage. ENT: Nose without bleeding. NECK: Trachea midline. CARDIOVASCULAR: Irregular rhythm, borderline tachycardic, no murmurs. RESPIRATORY: Diminished bases right greater than the left. No wheezes, rales, or rhonchi. Poor effort. GASTROINTESTINAL: Abdomen soft, non-tender, obese, nondistended. No hepato- splenomegaly, or palpable masses. No guarding. MUSCULOSKELETAL: Extremities without clubbing, cyanosis, or edema. NEUROLOGICAL: Awake and alert.? Orientation, mild right-sided weakness. Expressive and receptive aphasia. Patient is impulsive. Motor and sensory grossly within normal limits. A/P Problem List: (1) Idiopathic thrombocytopenia purpura ICD Code: D69.3 Status: Acute (2) Paroxysmal atrial fibrillation ICD Code: I48.0 Status: Chronic (3) Cognitive communication disorder ICD Code: R41.841 Status: Acute Assessment and Plan A. fib with RVR secondary to noncompliance - TSH unremarkable. Continue Cardizem long-acting, start metoprolol. Telemetry monitoring Thrombocytopenia with history of ITP- discussed with hematology, may continue heparin. Risk outweigh benefits at this time. No note of bleeding, continue Solu-Medrol. Platelets still low today, might need IVIG, recheck tomorrow. Hold off on eliquis, start eliquis ones platelet is more than 50. COPD with PNA. Stable status post doxycycline and Augmentin, continue duo nebs , steroids for ITP, continue Symbicort. Stable. CAD. Stable continue outpatient medications as appropriate CVA - expressive and receptive aphasia - PT/OT/ST -Consult rehabilitation medicine Agitation- psychiatry was consulted, continue Haldol and Remeron for now. Geodon and Seroquel were discontinued. HTN and HLD - - Continue sotalol 80mg BID, clonidine when necessary, Continue atorvastatin 80 mg DVT prop -SCD and early ambulation, on heparin. Discharge Planning Discharged back to [place] when stable Blane Mckee MD Jun 16, 2016 14:37 Blane Mckee MD Jun 16, 2016 14:37
[2016-06-16] MEDS: MIRTAZAPINE 15 MG TAB PO SCH (22:21)
[2016-06-16] MEDS: ATORVASTATIN 80 MG TAB PO SCH (22:22)
[2016-06-17] VITALS (8 sets, daily range): BP systolic 110–148; BP diastolic 53–105; PULSE 59–96; RESP 16–20; TEMP 97.1–98.1; O2SAT 53–98
[2016-06-17] MEDS: methylPREDNISolone SOD SUCC 40 MG/1 ML VIAL IV PUSH SCH ×4 (01:25→20:26)
[2016-06-17] MEDS: HEPARIN SODIUM - SQ 10,000 UNITS/ML VIAL SQ SCH ×3 (06:02→20:25)
[2016-06-17] MEDS: DOCUSATE SODIUM 100 MG CAP PO SCH ×2 (09:46→20:22)
[2016-06-17] MEDS: HALOPERIDOL 2 MG TAB PO SCH ×3 (09:47→17:57)
[2016-06-17] MEDS: SOTALOL HCL 80 MG TAB PO SCH ×2 (09:47→20:22)
[2016-06-17] MEDS: METOPROLOL TARTRATE 25 MG TAB PO SCH ×2 (09:47→20:22)
[2016-06-17] MEDS: DILTIAZEM-CD 240 MG CAP ER PO SCH (09:47)
[2016-06-17] MEDS: SODIUM CHLORIDE 0.9% FLUSH 5 ML FLUSH FLUSH SCH ×2 (09:47→20:32)
[2016-06-17] MEDS: BUDESONIDE-FORMOTEROL 160/4.5 MCG INHALER INH SCH ×2 (09:51→20:32)
--- NOTE | 2016-06-17 10:28 | PD.ONC.PN ---
Subjective Subjective Remarks Afebrile overnight. Patient sleeping on approach. No reported overnight events. Objective Data Date Time Temp Pulse Resp B/P Pulse Ox O2 Delivery O2 Flow Rate FiO2 06/17/16 10:07 96 06/17/16 04:00 97.3 89 20 142/71 94 06/17/16 00:00 97.1 81 18 147/105 94 06/16/16 22:45 Nasal Cannula 2.00 06/16/16 20:00 97.6 92 18 109/58 92 06/16/16 20:00 97.6 93 18 160/113 92 06/16/16 19:23 64 06/16/16 15:51 98.2 64 18 118/57 96 06/16/16 11:51 93 Nasal Cannula 06/16/16 11:39 97.9 61 18 118/70 90 Result Diagram: 06/16/16 0636 06/15/16 0802 Administered Medications Medications (Trade) Dose Ordered Sig/Brock Route PRN Reason Start Time Stop Time Status Last Admin Dose Admin IV Flush (NS Flush) 2 ml BID FLUSH 06/12/16 21:00 06/17/16 09:47 Atorvastatin Calcium (Lipitor) 80 mg HS PO 06/12/16 21:00 06/16/16 22:22 Diltiazem HCl (Cardizem Cd) 240 mg DAILY PO 06/13/16 09:00 06/17/16 09:47 Docusate Sodium (Colace) 100 mg BID PO 06/12/16 21:00 06/17/16 09:46 Sotalol HCl (Betapace) 80 mg BID PO 06/12/16 21:00 06/17/16 09:47 Budesonide/ Formoterol Fumarate (Symbicort 160-4.5 Inh) 2 puff BID INH 06/12/16 21:00 06/17/16 09:51 Methylprednisolone Sodium Succinate (SoluMEDROL INJ) 40 mg Q6H IV PUSH 06/13/16 14:00 06/17/16 09:47 Haloperidol (Haldol) 2 mg TID PO 06/13/16 18:00 06/17/16 09:47 Mirtazapine (Remeron) 15 mg HS PO 06/13/16 21:00 06/16/16 22:21 Metoprolol Tartrate (Lopressor) 25 mg Q12HR PO 06/14/16 10:00 06/17/16 09:47 Heparin Sodium (Porcine) (Heparin Inj) 5,000 units Q8HR SQ 06/14/16 22:00 06/17/16 06:02 Objective Remarks GENERAL: Middle aged male, sitting up in bed in nad. SKIN: Warm and dry. HEAD: Normocephalic. EYES: No injection or drainage. NECK: Supple, trachea midline. CARDIO: + S1/S2, tachy RESPIRATORY: Breath sounds equal bilaterally. No accessory muscle use. GASTROINTESTINAL: Abdomen soft, non-tender, nondistended. EXTREMITIES: No cyanosis NEUROLOGICAL: awake and alert, anaphasic speech. Assessment/Plan Problem List: (1) Thrombocytopenia Status: Acute Plan: --continue solu-medrol 40mg IV q6 --reported h/o ITP --h/o thrombocytopenia dating back to 2015--[facility] patient--neg. BMB --has been going to Dr. Schofield's office weekly for injection ?Nplate. --baseline reportedly around 45K (per ) (2) Acute ischemic left MCA stroke Status: Acute Plan: --Eliquis d/c d/t thrombocytopenia--Patient has competing needs: h/o stroke vs high risk of bleeding d/t thrombocytopenia --on heparin 5000U q 8 only for now, plan to resume Eliquis once plt remain above 50K Assessment 55y/o male s/p stroke. Hematology consulted for thrombocytopenia HPI: [facility], developed confusion and afib, transferred to the med/surg +recurrent strokes since January of 2016--was on Eliquis Chronic obstructive pulmonary disease. Obstructive sleep apnea. Hypertension. Hyperlipidemia. Coronary artery disease--h/o cardiac cath Paroxysmal atrial fibrillation. History of testicular cancer treated in his 40s with radiation and orchiectomy Restless leg syndrome. Arthritis. ITP. Plan 1. continue prophylactic dose heparin. 2. continue solu-medrol 3. may give IVIG depending on platelet count today. Attending Statement The exam, history, and the medical decision-making described in the above note were completed with the assistance of the mid-level provider. I reviewed and agree with the findings presented. I attest that I had a [id number] encounter with the patient on the same day, and personally performed and documented my assessment and findings in the medical record. No bleeding. noted. Platelet trended up slightly. Continue solumedrol. IVIG tomorrow if platelet is still low. Michelle Jerez Jun 17, 2016 10:27 Skyler Limon MD Jun 17, 2016 18:20
[2016-06-17 12:34] LABS: AUTOMATED NEUTROPHIL # 13.2 TH/MM3 (1.8-7.7); BASOPHIL % 0.1 % (0.0-2.0); HEMATOCRIT 36.3 % (39.0-51.0); LYMPH % 3.9 % (9.0-44.0); LYMPHOCYTE # 0.6 TH/MM3 (1.0-4.8); MEAN CELL VOLUME 83.6 FL (80.0-100.0); MEAN CORPUSCULAR HEMOGLOBIN 26.4 PG (27.0-34.0); MEAN CORPUSCULAR HGB CONC 31.5 % (32.0-36.0); MONO % 3.4 % (0.0-8.0); NEUT % 92.6 % (16.0-70.0); PLATELET COUNT 29 TH/MM3 (150-450); RED BLOOD COUNT 4.35 MIL/MM3 (4.50-5.90); RED CELL DISTRIBUTION WIDTH 20.2 % (11.6-17.2); WHITE BLOOD COUNT 14.2 TH/MM3 (4.0-11.0)
[2016-06-17 12:35] LABS: HEMO FLAGS AUTO DIFF
[2016-06-17 13:39] LABS: ACANTHOCYTES OCC (NORMAL); PLATELET ESTIMATE SMEAR LOW (NORMAL); PLATELET MORPHOLOGY NORMAL (NORMAL); SCAN/DIFF AUTO DIFF CONFIRMED
--- NOTE | 2016-06-17 16:48 | HHI.PR ---
Subjective Remarks Patient is confused and talking about cars and license plates. Objective Vitals Vital Signs Date Time Temp Pulse Resp B/P Pulse Ox O2 Delivery O2 Flow Rate FiO2 06/17/16 12:01 97.3 84 16 110/53 53 06/17/16 10:07 96 06/17/16 08:05 97.5 92 16 148/85 92 06/17/16 08:00 96 06/17/16 08:00 95 Nasal Cannula 2.00 21 06/17/16 04:00 97.3 89 20 142/71 94 06/17/16 00:00 97.1 81 18 147/105 94 06/16/16 22:45 Nasal Cannula 2.00 06/16/16 20:00 97.6 92 18 109/58 92 06/16/16 20:00 97.6 93 18 160/113 92 06/16/16 19:23 64 I/O 06/16/16 06/16/16 06/16/16 06/17/16 06/17/16 06/17/16 07:00 15:00 23:00 07:00 15:00 23:00 Intake Total 240 ml 360 ml 720 ml Output Total 350 ml Balance 240 ml 360 ml 370 ml Intake Oral 240 ml 360 ml Oral Supplement 720 ml Output Urine Total 350 ml # Voids 2 0 1 5 # Bowel Movements 0 3 0 3 Result Diagram: 06/17/16 1149 06/15/16 0802 Objective Remarks GENERAL: Well-nourished, well-developed pleasant obese male patient. SKIN: Warm and dry. HEAD: Normocephalic. EYES: No scleral icterus. No injection or drainage. NECK: Supple, trachea midline. No JVD or lymphadenopathy. CARDIOVASCULAR: Regular rate and rhythm without murmurs, gallops, or rubs. RESPIRATORY: Breath sounds equal bilaterally. No accessory muscle use. GASTROINTESTINAL: Abdomen soft, non-tender, nondistended. EXTREMITIES: 1+ pedal edema of the feet. NEUROLOGICAL: Awake, alert. 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 Speech is pressured, at times word salad. A/P Problem List: (1) Idiopathic thrombocytopenia purpura ICD Code: D69.3 Status: Acute (2) Paroxysmal atrial fibrillation ICD Code: I48.0 Status: Chronic (3) Cognitive communication disorder ICD Code: R41.841 Status: Acute Assessment and Plan A. fib with RVR secondary to noncompliance - TSH unremarkable. Continue Cardizem long-acting, start metoprolol. Telemetry monitoring. off eliquis for the worsening thrombocytopenia Thrombocytopenia with history of ITP- discussed with hematology john mcclelland, IVIG if platelets decrease. continue Solu-Medrol. Platelets still low today, might need IVIG, recheck tomorrow. COPD -stable. continue duo nebs, Symbicort. CAD. Stable continue outpatient medications as appropriate CVA - expressive and receptive aphasia - PT/OT/ST -Consult rehabilitation medicine Ag[facility]- psychiatry was consulted, continue Haldol and Remeron for now. Geodon and Seroquel were discontinued. HTN - Continue sotalol 80mg BID, clonidine when necessary DVT prop - heparin sq. Shawna Marie MD Jun 17, 2016 16:48
[2016-06-17] MEDS: ATORVASTATIN 80 MG TAB PO SCH (20:22)
[2016-06-17] MEDS: MIRTAZAPINE 15 MG TAB PO SCH (20:23)
[2016-06-18] VITALS (16 sets, daily range): BP systolic 102–158; BP diastolic 55–98; PULSE 66–127; RESP 16–20; TEMP 97.2–98; O2SAT 84–97
[2016-06-18] MEDS: methylPREDNISolone SOD SUCC 40 MG/1 ML VIAL IV PUSH SCH ×4 (03:55→21:39)
[2016-06-18] MEDS: HEPARIN SODIUM - SQ 10,000 UNITS/ML VIAL SQ SCH ×3 (05:27→21:51)
[2016-06-18 08:39] LABS: BASOPHIL % 0.1 % (0.0-2.0); HEMATOCRIT 34.7 % (39.0-51.0); LYMPH % 3.6 % (9.0-44.0); LYMPHOCYTE # 0.5 TH/MM3 (1.0-4.8); MEAN CELL VOLUME 84.8 FL (80.0-100.0); MEAN CORPUSCULAR HEMOGLOBIN 26.8 PG (27.0-34.0); MEAN CORPUSCULAR HGB CONC 31.6 % (32.0-36.0); MONO % 2.6 % (0.0-8.0); NEUT % 93.7 % (16.0-70.0); PLATELET COUNT 27 TH/MM3 (150-450); RED CELL DISTRIBUTION WIDTH 20.4 % (11.6-17.2); WHITE BLOOD COUNT 12.9 TH/MM3 (4.0-11.0)
[2016-06-18 08:46] LABS: HEMO FLAGS AUTO DIFF
[2016-06-18] MEDS: METOPROLOL TARTRATE 25 MG TAB PO SCH ×2 (09:14→21:38)
[2016-06-18] MEDS: DOCUSATE SODIUM 100 MG CAP PO SCH ×2 (09:14→21:38)
[2016-06-18] MEDS: HALOPERIDOL 2 MG TAB PO SCH ×3 (09:14→18:45)
[2016-06-18] MEDS: DILTIAZEM-CD 240 MG CAP ER PO SCH (09:14)
[2016-06-18] MEDS: SOTALOL HCL 80 MG TAB PO SCH ×2 (09:14→21:38)
[2016-06-18] MEDS: SODIUM CHLORIDE 0.9% FLUSH 5 ML FLUSH FLUSH SCH ×2 (09:15→21:39)
[2016-06-18] MEDS: BUDESONIDE-FORMOTEROL 160/4.5 MCG INHALER INH SCH ×2 (09:15→21:39)
[2016-06-18 09:44] LABS: ROULEAUX PRESENT (NORMAL)
[2016-06-18 09:45] LABS: KERATOCYTES OCC (NORMAL)
[2016-06-18 09:46] LABS: PLATELET ESTIMATE SMEAR LOW (NORMAL); PLATELET MORPHOLOGY NORMAL (NORMAL); SCAN/DIFF AUTO DIFF CONFIRMED
[2016-06-18] MEDS ORDERED: SODIUM CHLORID 0.9% 500 ML INJ 500 ML IV ONE (10:45)
[2016-06-18] MEDS ORDERED: diphenhydrAMINE HCL 25 MG CAP PO ONE (10:45)
[2016-06-18] MEDS ORDERED: ACETAMINOPHEN 325 MG TAB PO ONE (10:45)
--- NOTE | 2016-06-18 10:46 | PD.ONC.PN ---
Subjective Subjective Remarks Afebrile overnight. Patient resting comfortably without complaint. No bleeding. Objective Data Date Time Temp Pulse Resp B/P Pulse Ox O2 Delivery O2 Flow Rate FiO2 06/18/16 08:00 97.8 105 20 131/74 84 06/18/16 04:58 84 06/18/16 04:00 97.6 93 18 133/65 97 06/18/16 00:00 98.0 99 18 134/79 96 06/17/16 20:25 Nasal Cannula 2.00 06/17/16 20:01 97.9 94 18 134/55 98 06/17/16 16:00 98.1 59 20 148/65 96 06/17/16 12:01 97.3 84 16 110/53 53 06/18/16 06/18/16 06/18/16 07:00 15:00 23:00 Intake Total 122 ml Balance 122 ml Result Diagram: 06/18/16 0734 06/15/16 0802 Laboratory Results Laboratory Tests Test 06/17/16 06/18/16 11:49 07:34 White Blood Count 14.2 TH/MM3 12.9 TH/MM3 Red Blood Count 4.35 MIL/MM3 4.10 MIL/MM3 Hemoglobin 11.5 GM/DL 11.0 GM/DL Hematocrit 36.3 % 34.7 % Mean Corpuscular Volume 83.6 FL 84.8 FL Mean Corpuscular Hemoglobin 26.4 PG 26.8 PG Mean Corpuscular Hemoglobin 31.5 % 31.6 % Concent Red Cell Distribution Width 20.2 % 20.4 % Platelet Count 29 TH/MM3 27 TH/MM3 Mean Platelet Volume 9.1 FL 8.4 FL Neutrophils (%) (Auto) 92.6 % 93.7 % Lymphocytes (%) (Auto) 3.9 % 3.6 % Monocytes (%) (Auto) 3.4 % 2.6 % Eosinophils (%) (Auto) 0.0 % 0.0 % Basophils (%) (Auto) 0.1 % 0.1 % Neutrophils # (Auto) 13.2 TH/MM3 12.0 TH/MM3 Lymphocytes # (Auto) 0.6 TH/MM3 0.5 TH/MM3 Monocytes # (Auto) 0.5 TH/MM3 0.3 TH/MM3 Eosinophils # (Auto) 0.0 TH/MM3 0.0 TH/MM3 Basophils # (Auto) 0.0 TH/MM3 0.0 TH/MM3 CBC Comment AUTO DIFF AUTO DIFF Differential Comment AUTO DIFF AUTO DIFF CONFIRMED CONFIRMED Platelet Estimate LOW LOW Platelet Morphology Comment NORMAL NORMAL Acanthocytes OCC Rouleau PRESENT Keratocytes OCC Administered Medications Medications (Trade) Dose Ordered Sig/Brock Route PRN Reason Start Time Stop Time Status Last Admin Dose Admin IV Flush (NS Flush) 2 ml BID FLUSH 06/12/16 21:00 06/18/16 09:15 Atorvastatin Calcium (Lipitor) 80 mg HS PO 06/12/16 21:00 06/17/16 20:22 Diltiazem HCl (Cardizem Cd) 240 mg DAILY PO 06/13/16 09:00 06/18/16 09:14 Docusate Sodium (Colace) 100 mg BID PO 06/12/16 21:00 06/18/16 09:14 Sotalol HCl (Betapace) 80 mg BID PO 06/12/16 21:00 06/18/16 09:14 Budesonide/ Formoterol Fumarate (Symbicort 160-4.5 Inh) 2 puff BID INH 06/12/16 21:00 06/18/16 09:15 Methylprednisolone Sodium Succinate (SoluMEDROL INJ) 40 mg Q6H IV PUSH 06/13/16 14:00 06/18/16 09:15 Haloperidol (Haldol) 2 mg TID PO 06/13/16 18:00 06/18/16 09:14 Mirtazapine (Remeron) 15 mg HS PO 06/13/16 21:00 06/17/16 20:23 Metoprolol Tartrate (Lopressor) 25 mg Q12HR PO 06/14/16 10:00 06/18/16 09:14 Heparin Sodium (Porcine) (Heparin Inj) 5,000 units Q8HR SQ 06/14/16 22:00 06/18/16 05:27 Objective Remarks GENERAL: Middle aged male, sitting upright in chair next to bed watching TV SKIN: Warm and dry. HEAD: Normocephalic. EYES: No injection or drainage. NECK: Supple, trachea midline. CARDIO: + S1/S2, tachy RESPIRATORY: Breath sounds equal bilaterally. No accessory muscle use. GASTROINTESTINAL: Abdomen soft, non-tender, nondistended. EXTREMITIES: No cyanosis NEUROLOGICAL: awake and alert, +aphasia Assessment/Plan Problem List: (1) Thrombocytopenia Status: Acute Plan: --continue solu-medrol 40mg IV q6 --reported h/o ITP --h/o thrombocytopenia dating back to 2015--[facility] patient--neg. BMB --has been going to Dr. Schofield's office weekly for injection ?Nplate. --baseline reportedly around 45K (per ) (2) Acute ischemic left MCA stroke Status: Acute Plan: --Eliquis d/c d/t thrombocytopenia--Patient has competing needs: h/o stroke vs high risk of bleeding d/t thrombocytopenia --on heparin 5000U q 8 only for now, plan to resume Eliquis once plt remain above 50K Assessment 55y/o male s/p stroke. Hematology consulted for thrombocytopenia HPI: [facility], developed confusion and afib, transferred to the med/surg +recurrent strokes since January of 2016--was on Eliquis Chronic obstructive pulmonary disease. Obstructive sleep apnea. Hypertension. Hyperlipidemia. Coronary artery disease--h/o cardiac cath Paroxysmal atrial fibrillation. History of testicular cancer treated in his 40s with radiation and orchiectomy Restless leg syndrome. Arthritis. ITP. Plan 1. continue prophylactic dose heparin. 2. continue solu-medrol, start IVIG 400mg/kg x 1 dose today. will reassess with platelet count tomorrow 3. most recent progress note from Dr. Schofield's office obtained and placed in chart. Attending Statement The exam, history, and the medical decision-making described in the above note were completed with the assistance of the mid-level provider. I reviewed and agree with the findings presented. I attest that I had a [id number] encounter with the patient on the same day, and personally performed and documented my assessment and findings in the medical record. No new complaints. No bleeding noted. Platelet still 27k, no good response to steroid. Plan to give IVIG today and monitor him I have reviewed 's note. Michelle Jerez Jun 18, 2016 10:46 Skyler Limon MD Jun 18, 2016 14:59
[2016-06-18] MEDS ORDERED: DEXTROSE 5% IN WATE 500 ML INJ 500 ML OTHER ONE (11:32)
[2016-06-18] MEDS ORDERED: diphenhydrAMINE HCL 50 MG/ML VIAL IV PUSH PRN (11:45)
[2016-06-18] MEDS ORDERED: EPINEPHrine HCL (1:1000) 1 MG/ML VIAL OTHER PRN (11:45)
--- NOTE | 2016-06-18 11:53 | HHI.PR ---
Subjective Remarks resting. Objective Vitals Vital Signs Date Time Temp Pulse Resp B/P Pulse Ox O2 Delivery O2 Flow Rate FiO2 06/18/16 08:00 97.8 105 20 131/74 84 06/18/16 08:00 74 06/18/16 08:00 96 Nasal Cannula 2.00 21 06/18/16 04:58 84 06/18/16 04:00 97.6 93 18 133/65 97 06/18/16 00:00 98.0 99 18 134/79 96 06/17/16 20:25 Nasal Cannula 2.00 06/17/16 20:01 97.9 94 18 134/55 98 06/17/16 16:00 98.1 59 20 148/65 96 06/17/16 12:01 97.3 84 16 110/53 53 I/O 06/17/16 06/17/16 06/17/16 06/18/16 06/18/16 06/18/16 07:00 15:00 23:00 07:00 15:00 23:00 Intake Total 720 ml 240 ml 122 ml Output Total 350 ml Balance 370 ml 240 ml 122 ml Intake Oral 240 ml 120 ml Oral Supplement 720 ml IV Total 2 ml Output Urine Total 350 ml # Voids 5 3 2 1 # Bowel Movements 3 1 0 0 Result Diagram: 06/18/16 0734 06/15/16 0802 Objective Remarks GENERAL: Well-nourished, well-developed pleasant obese male patient. SKIN: Warm and dry. HEAD: Normocephalic. EYES: No scleral icterus. No injection or drainage. NECK: Supple, trachea midline. No JVD or lymphadenopathy. CARDIOVASCULAR: Regular rate and rhythm without murmurs, gallops, or rubs. RESPIRATORY: Breath sounds equal bilaterally. No accessory muscle use. GASTROINTESTINAL: Abdomen soft, non-tender, nondistended. EXTREMITIES: 1+ pedal edema of the feet. NEUROLOGICAL: sleeping A/P Problem List: (1) Idiopathic thrombocytopenia purpura ICD Code: D69.3 Status: Acute (2) Paroxysmal atrial fibrillation ICD Code: I48.0 Status: Chronic (3) Cognitive communication disorder ICD Code: R41.841 Status: Acute Assessment and Plan A. fib with RVR secondary to noncompliance - TSH unremarkable. Continue Cardizem long-acting, metoprolol. Telemetry monitoring. off eliquis for the worsening thrombocytopenia Thrombocytopenia with history of ITP- discussed with hematology john mcclelland, IVIG if platelets decrease. continue Solu-Medrol. Platelets still low today, might need IVIG, recheck tomorrow. COPD -stable. continue duo nebs, Symbicort. CAD. Stable continue outpatient medications as appropriate CVA - expressive and receptive aphasia - PT/OT/ST -Consult rehabilitation medicine Agitation- psychiatry was consulted, continue Haldol and Remeron for now. Geodon and Seroquel were discontinued. HTN - Continue sotalol 80mg BID, clonidine when necessary DVT prop - heparin sq. Shawna Marie MD Jun 18, 2016 11:53
[2016-06-18] MEDS ORDERED: IMMUNE GLOBULIN INJ 35 GM in SYRINGE/BAG 1 EA IV SCH (12:00)
[2016-06-18] MEDS: PANTOPRAZOLE SODIUM 40 MG VIAL IV PUSH SCH (13:26)
[2016-06-18] MEDS: ATORVASTATIN 80 MG TAB PO SCH (21:38)
[2016-06-18] MEDS: MIRTAZAPINE 15 MG TAB PO SCH (21:38)
[2016-06-19] VITALS (9 sets, daily range): BP systolic 126–178; BP diastolic 61–93; PULSE 101–130; RESP 17–20; TEMP 97.5–98.2; O2SAT 93–98
[2016-06-19] MEDS: methylPREDNISolone SOD SUCC 40 MG/1 ML VIAL IV PUSH SCH ×4 (02:52→21:28)
[2016-06-19] MEDS: HEPARIN SODIUM - SQ 10,000 UNITS/ML VIAL SQ SCH ×2 (05:38→13:21)
[2016-06-19] MEDS: PANTOPRAZOLE SODIUM 40 MG VIAL IV PUSH SCH (08:15)
[2016-06-19] MEDS: DOCUSATE SODIUM 100 MG CAP PO SCH ×2 (08:16→21:28)
[2016-06-19] MEDS: METOPROLOL TARTRATE 25 MG TAB PO SCH ×2 (08:16→21:28)
[2016-06-19] MEDS: SODIUM CHLORIDE 0.9% FLUSH 5 ML FLUSH FLUSH SCH ×2 (08:16→21:33)
[2016-06-19] MEDS: BUDESONIDE-FORMOTEROL 160/4.5 MCG INHALER INH SCH ×2 (08:16→21:29)
[2016-06-19] MEDS: SOTALOL HCL 80 MG TAB PO SCH ×2 (08:16→21:27)
[2016-06-19] MEDS: DILTIAZEM-CD 240 MG CAP ER PO SCH (08:16)
[2016-06-19] MEDS: HALOPERIDOL 2 MG TAB PO SCH ×3 (08:16→17:14)
--- NOTE | 2016-06-19 11:03 | PD.ONC.PN ---
Subjective Subjective Remarks Afebrile overnight. Patient resting comfortably. He continues to have aphasia and difficulty communicating. Objective Data Date Time Temp Pulse Resp B/P Pulse Ox O2 Delivery O2 Flow Rate FiO2 06/19/16 10:22 Nasal Cannula 2.00 21 06/19/16 08:18 97.5 128 20 141/84 94 06/19/16 04:00 98.2 112 20 146/83 95 06/19/16 01:00 97.9 124 20 161/88 95 06/19/16 00:00 98.0 125 20 168/93 95 06/18/16 22:00 97.6 126 20 158/89 96 06/18/16 21:00 97.7 127 20 152/98 96 06/18/16 21:00 97.7 127 20 152/98 96 06/18/16 20:15 Nasal Cannula 2.00 06/18/16 20:00 97.5 113 20 157/86 97 06/18/16 18:25 97.6 87 16 119/55 96 06/18/16 17:25 97.7 66 16 138/65 96 06/18/16 16:25 97.2 69 18 115/59 96 06/18/16 16:00 97.7 74 16 132/60 96 06/18/16 15:25 97.6 74 16 132/60 95 06/18/16 15:10 97.5 66 16 102/72 96 06/18/16 14:55 97.6 96 16 112/55 95 06/18/16 14:40 97.4 122 16 119/71 92 06/18/16 12:00 97.4 67 16 110/56 96 Result Diagram: 06/18/16 0734 06/15/16 0802 Administered Medications Medications (Trade) Dose Ordered Sig/Brock Route PRN Reason Start Time Stop Time Status Last Admin Dose Admin IV Flush (NS Flush) 2 ml BID FLUSH 06/12/16 21:00 06/19/16 08:16 Atorvastatin Calcium (Lipitor) 80 mg HS PO 06/12/16 21:00 06/18/16 21:38 Diltiazem HCl (Cardizem Cd) 240 mg DAILY PO 06/13/16 09:00 06/19/16 08:16 Docusate Sodium (Colace) 100 mg BID PO 06/12/16 21:00 06/19/16 08:16 Sotalol HCl (Betapace) 80 mg BID PO 06/12/16 21:00 06/19/16 08:16 Budesonide/ Formoterol Fumarate (Symbicort 160-4.5 Inh) 2 puff BID INH 06/12/16 21:00 06/19/16 08:16 Methylprednisolone Sodium Succinate (SoluMEDROL INJ) 40 mg Q6H IV PUSH 06/13/16 14:00 06/19/16 08:15 Haloperidol (Haldol) 2 mg TID PO 06/13/16 18:00 06/19/16 08:16 Mirtazapine (Remeron) 15 mg HS PO 06/13/16 21:00 06/18/16 21:38 Metoprolol Tartrate (Lopressor) 25 mg Q12HR PO 06/14/16 10:00 06/19/16 08:16 Heparin Sodium (Porcine) (Heparin Inj) 5,000 units Q8HR SQ 06/14/16 22:00 06/19/16 05:38 Pantoprazole Sodium (Protonix Inj) 40 mg DAILY IV PUSH 06/18/16 11:00 06/19/16 08:15 Objective Remarks GENERAL: Middle aged male, lying supine in bed SKIN: Warm and dry. HEAD: Normocephalic. EYES: No injection or drainage. NECK: Supple, trachea midline. CARDIO: + S1/S2 RESPIRATORY: Breath sounds equal bilaterally. No accessory muscle use. GASTROINTESTINAL: Abdomen soft, non-tender, nondistended. EXTREMITIES: No cyanosis NEUROLOGICAL: sleeping on approach but easily awakened. +expressive aphasia Assessment/Plan Problem List: (1) Thrombocytopenia Status: Acute Plan: --continue solu-medrol 40mg IV q6 --reported h/o ITP --h/o thrombocytopenia dating back to 2015--[facility] patient--neg. BMB --has been going to Dr. Schofield's office weekly for injection ?Nplate. --baseline reportedly around 45K (per ) (2) Acute ischemic left MCA stroke Status: Acute Plan: --Eliquis d/c d/t thrombocytopenia--Patient has competing needs: h/o stroke vs high risk of bleeding d/t thrombocytopenia --on heparin 5000U q 8 only for now, plan to resume Eliquis once plt remain above 50K Assessment 55y/o male s/p stroke. Hematology consulted for thrombocytopenia HPI: [facility] developed confusion and afib, transferred to the med/surg +recurrent strokes since January of 2016--was on Eliquis Chronic obstructive pulmonary disease. Obstructive sleep apnea. Hypertension. Hyperlipidemia. Coronary artery disease--h/o cardiac cath Paroxysmal atrial fibrillation. History of testicular cancer treated in his 40s with radiation and orchiectomy Restless leg syndrome. Arthritis. ITP. Plan 1. UPDATE: platelet count 80K today. will give 1 more dose of IVIG 35G (400mg/kg ). 2. stop heparin and resume Eliquis 5mg PO BID tonight. Attending Statement The exam, history, and the medical decision-making described in the above note were completed with the assistance of the mid-level provider. I reviewed and agree with the findings presented. I attest that I had a [id number] encounter with the patient on the same day, and personally performed and documented my assessment and findings in the medical record. No bleeding noted. Tolerated IVIG well yesterday. Platelet up to 80K and he seems to have a good response. Will give another IVIG today. Resume the Eliquis give h/o recurrent stroke. Stop the heparin. Continue solumedrol and consider switching to prednisone if platelet continue to trend up. Michelle Jerez Jun 19, 2016 11:03 Skyler Limon MD Jun 19, 2016 18:07
--- NOTE | 2016-06-19 11:06 | HHI.PR ---
Subjective Remarks Follow up for Atrial flutter with RVR, thrombocytopenia. Mr. Muhammad is not able to communicate effectively. Resting comfortably. No acute concerns. Objective Vitals Vital Signs Date Time Temp Pulse Resp B/P Pulse Ox O2 Delivery O2 Flow Rate FiO2 06/19/16 10:22 Nasal Cannula 2.00 21 06/19/16 08:18 97.5 128 20 141/84 94 06/19/16 04:00 98.2 112 20 146/83 95 06/19/16 01:00 97.9 124 20 161/88 95 06/19/16 00:00 98.0 125 20 168/93 95 06/18/16 22:00 97.6 126 20 158/89 96 06/18/16 21:00 97.7 127 20 152/98 96 06/18/16 21:00 97.7 127 20 152/98 96 06/18/16 20:15 Nasal Cannula 2.00 06/18/16 20:00 97.5 113 20 157/86 97 06/18/16 18:25 97.6 87 16 119/55 96 06/18/16 17:25 97.7 66 16 138/65 96 06/18/16 16:25 97.2 69 18 115/59 96 06/18/16 16:00 97.7 74 16 132/60 96 06/18/16 15:25 97.6 74 16 132/60 95 06/18/16 15:10 97.5 66 16 102/72 96 06/18/16 14:55 97.6 96 16 112/55 95 06/18/16 14:40 97.4 122 16 119/71 92 06/18/16 12:00 97.4 67 16 110/56 96 I/O 06/18/16 06/18/16 06/18/16 06/19/16 06/19/16 06/19/16 06:59 14:59 22:59 06:59 14:59 22:59 Intake Total 122 ml 840 ml 720 ml Balance 122 ml 840 ml 720 ml Intake Oral 120 ml 840 ml 720 ml IV Total 2 ml # Voids 1 1 2 # Bowel Movements 0 1 1 Result Diagram: 06/18/16 0734 06/15/16 0802 Objective Remarks GENERAL: AOx3, NAD. SKIN: Warm and dry. HEAD: Normocephalic. EYES: No scleral icterus. No injection or drainage. NECK: Supple, trachea midline. No JVD or lymphadenopathy. CARDIOVASCULAR: Tachycardic, regularly irregular without murmurs, gallops, or rubs. RESPIRATORY: Breath sounds equal bilaterally. No accessory muscle use. GASTROINTESTINAL: Abdomen soft, non-tender, nondistended. MUSCULOSKELETAL: No cyanosis, or edema. BACK: Nontender without obvious deformity. No CVA tenderness. Procedures None. A/P Problem List: (1) Atrial flutter with rapid ventricular response ICD Code: I48.92 Status: Acute (2) Idiopathic thrombocytopenia purpura ICD Code: D69.3 Status: Acute (3) Cognitive communication disorder ICD Code: R41.841 Status: Acute Assessment and Plan Mr. Muhammad is a 55 year old male with a history of recurrent stroke, ITP who was transferred from [facility] to medical floor due to confusion and atrial flutter with RVR on 06/13/2016. - Atrial flutter with RVR - Currently on Diltiazem 240mg CD Qday, Metoprolol 25mg BID, sotalol 80mg BID. - Was on Apixaban. However, now on hold due to thrombocytopenia - RF ablation may be indicated for this patients Atrial flutter - Discussed with Dr. Duggan (EP) who will evaluate patient on Wednesday. Will place a consult. - Will keep patient NPO midnight on 06/21/2016 for possible Ablation on 2016. - Thrombocytopenia - Platelet count improved from 27K --> 80K. - Hematology is following. No significant response to steroid. IVIG started on 06/18/2016. - History of recurrent CVA - Patient has expressive and receptive aphasia - Continue PT/OT/ST - Continue Heparin SQ 5000 units Q8hrs per hematology recommendations. - COPD Continue DuoNebs, Symbicort - Agitation - On Haloperidol 2mg PO TID and PRN 2mg Q6hrs via IM. Full code. Heparin 5000 units Q8hrs SQ. Fernando West DO Jun 19, 2016 11:06 am
[2016-06-19 12:27] LABS: AUTOMATED NEUTROPHIL # 12.6 TH/MM3 (1.8-7.7); BASOPHIL % 0.2 % (0.0-2.0); EOSINOPHIL % 0.2 % (0.0-4.0); HEMATOCRIT 39.6 % (39.0-51.0); LYMPH % 4.2 % (9.0-44.0); LYMPHOCYTE # 0.6 TH/MM3 (1.0-4.8); MEAN CELL VOLUME 87.4 FL (80.0-100.0); MEAN CORPUSCULAR HEMOGLOBIN 27.4 PG (27.0-34.0); MEAN CORPUSCULAR HGB CONC 31.4 % (32.0-36.0); MONO % 3.6 % (0.0-8.0); NEUT % 91.8 % (16.0-70.0); PLATELET COUNT 80 TH/MM3 (150-450); RED BLOOD COUNT 4.54 MIL/MM3 (4.50-5.90); RED CELL DISTRIBUTION WIDTH 20.6 % (11.6-17.2); WHITE BLOOD COUNT 13.8 TH/MM3 (4.0-11.0)
[2016-06-19 13:01] LABS: HEMO FLAGS AUTO DIFF
[2016-06-19 13:04] LABS: BANDS 1 % (0-6); NEUTROPHIL # MANUAL DIFF 13.4 TH/MM3 (1.8-7.7); POLYS (SEG NEUTROPHILS) 96 % (16-70); WBC DIFF SAMPLE 100
[2016-06-19 13:06] LABS: ACANTHOCYTES 1+ (NORMAL); OVALOCYTES 1+ (NORMAL); PLATELET ESTIMATE SMEAR LOW (NORMAL); PLATELET MORPHOLOGY NORMAL (NORMAL); SCAN/DIFF FINAL DIFF MANUAL
[2016-06-19 13:07] LABS: HYPERSEGMENTED POLYS 1+ (NORMAL)
[2016-06-19] MEDS ORDERED: SODIUM CHLORID 0.9% 500 ML INJ 500 ML IV ONE (13:30)
[2016-06-19] MEDS ORDERED: diphenhydrAMINE HCL 25 MG CAP PO ONE (13:30)
[2016-06-19] MEDS ORDERED: ACETAMINOPHEN 325 MG TAB PO ONE (13:30)
[2016-06-19] MEDS ORDERED: DEXTROSE 5% IN WATE 500 ML INJ 500 ML OTHER ONE (14:27)
[2016-06-19] MEDS ORDERED: EPINEPHrine HCL (1:1000) 1 MG/ML VIAL OTHER PRN (14:30)
[2016-06-19] MEDS ORDERED: diphenhydrAMINE HCL 50 MG/ML VIAL IV PUSH PRN (14:30)
[2016-06-19] MEDS ORDERED: IMMUNE GLOBULIN INJ 35 GM in SYRINGE/BAG 1 EA IV SCH (16:00)
[2016-06-19] MEDS: ATORVASTATIN 80 MG TAB PO SCH (21:27)
[2016-06-19] MEDS: APIXABAN 5 MG TABLET PO SCH (21:28)
[2016-06-19] MEDS: MIRTAZAPINE 15 MG TAB PO SCH (21:28)
[2016-06-20] VITALS (7 sets, daily range): BP systolic 114–164; BP diastolic 56–99; PULSE 51–130; RESP 17–28; TEMP 96.9–98.4; O2SAT 94–97
[2016-06-20] MEDS: methylPREDNISolone SOD SUCC 40 MG/1 ML VIAL IV PUSH SCH ×4 (03:42→20:56)
[2016-06-20] MEDS: DILTIAZEM INJ 125 MG in SODIUM CHLORIDE 0.9% INJ 100 ML IV PRN (05:19)
[2016-06-20 06:11] LABS: AUTOMATED NEUTROPHIL # 8.8 TH/MM3 (1.8-7.7); BASOPHIL % 0.1 % (0.0-2.0); HEMATOCRIT 32.2 % (39.0-51.0); LYMPH % 3.5 % (9.0-44.0); LYMPHOCYTE # 0.3 TH/MM3 (1.0-4.8); MEAN CELL VOLUME 84.1 FL (80.0-100.0); MEAN CORPUSCULAR HEMOGLOBIN 27.6 PG (27.0-34.0); MEAN CORPUSCULAR HGB CONC 32.7 % (32.0-36.0); MONO % 2.9 % (0.0-8.0); NEUT % 93.5 % (16.0-70.0); PLATELET COUNT 45 TH/MM3 (150-450); RED BLOOD COUNT 3.83 MIL/MM3 (4.50-5.90); RED CELL DISTRIBUTION WIDTH 20.5 % (11.6-17.2); WHITE BLOOD COUNT 9.5 TH/MM3 (4.0-11.0)
[2016-06-20 06:18] LABS: HEMO FLAGS AUTO DIFF
--- NOTE | 2016-06-20 08:38 | HHI.PR ---
Subjective Remarks Follow up for Atrial flutter with RVR, thrombocytopenia. Patient is doing well. However, no coherent speech. Resting comfortably. Objective Vitals Vital Signs Date Time Temp Pulse Resp B/P Pulse Ox O2 Delivery O2 Flow Rate FiO2 06/20/16 07:53 97.2 128 20 143/92 95 06/20/16 04:00 98.4 126 18 149/80 96 06/20/16 00:00 98.3 128 17 164/99 97 06/19/16 20:15 Nasal Cannula 2.00 06/19/16 20:03 130 06/19/16 20:00 97.8 130 17 178/84 98 06/19/16 16:02 97.8 101 20 126/61 93 06/19/16 12:02 97.6 126 20 147/86 93 06/19/16 10:22 Nasal Cannula 2.00 21 I/O 06/19/16 06/19/16 06/19/16 06/20/16 06/20/16 06/20/16 07:00 15:00 23:00 07:00 15:00 23:00 Intake Total 720 ml 240 ml 180 ml Output Total 200 ml 100 ml 100 ml Balance 520 ml 140 ml 80 ml Intake Oral 720 ml 240 ml 180 ml Output Urine Total 200 ml 100 ml 100 ml # Bowel Movements 1 0 Result Diagram: 06/20/16 0508 Objective Remarks GENERAL: AOx3, NAD. SKIN: Warm and dry. HEAD: Normocephalic. EYES: No scleral icterus. No injection or drainage. NECK: Supple, trachea midline. No JVD or lymphadenopathy. CARDIOVASCULAR: Tachycardic, regularly irregular without murmurs, gallops, or rubs. RESPIRATORY: Breath sounds equal bilaterally. No accessory muscle use. GASTROINTESTINAL: Abdomen soft, non-tender, nondistended. MUSCULOSKELETAL: No cyanosis, or edema. BACK: Nontender without obvious deformity. No CVA tenderness. Procedures None. A/P Problem List: (1) Atrial flutter with rapid ventricular response ICD Code: I48.92 Status: Acute (2) Idiopathic thrombocytopenia purpura ICD Code: D69.3 Status: Acute (3) Cognitive communication disorder ICD Code: R41.841 Status: Acute Assessment and Plan Mr. Muhammad is a 55 year old male with a history of recurrent stroke, ITP who was transferred from [facility] to medical floor due to confusion and atrial flutter with RVR on 06/13/2016. - Atrial flutter with RVR - Currently on Diltiazem 240mg CD Qday, Metoprolol 50mg BID (Increased today) , sotalol 80mg BID. - Was on Apixaban. However, now on hold due to thrombocytopenia - RF ablation may be indicated for this patients Atrial flutter - Discussed with Dr. Duggan (EP) who will evaluate patient on Wednesday. Will place a consult. - Will keep patient NPO midnight on 06/21/2016 for possible Ablation on 2016. - Thrombocytopenia - Platelet count improved from 27K --> 80K --> 45K - Hematology is following. No significant response to steroid. IVIG started on 06/18/2016. - History of recurrent CVA - Patient has expressive and receptive aphasia - Continue PT/OT/ST - Continue Heparin SQ 5000 units Q8hrs per hematology recommendations. - COPD Continue DuoNebs, Symbicort - Agitation - On Haloperidol 2mg PO TID and PRN 2mg Q6hrs via IM. Full code. Heparin 5000 units Q8hrs SQ. Fernando West DO Jun 20, 2016 8:38 am
[2016-06-20] MEDS: METOPROLOL TARTRATE 25 MG TAB PO SCH (09:35)
[2016-06-20] MEDS: APIXABAN 5 MG TABLET PO SCH (09:35)
[2016-06-20] MEDS: DOCUSATE SODIUM 100 MG CAP PO SCH ×2 (09:35→20:56)
[2016-06-20] MEDS: PANTOPRAZOLE SODIUM 40 MG VIAL IV PUSH SCH (09:35)
[2016-06-20] MEDS: HALOPERIDOL 2 MG TAB PO SCH ×3 (09:35→17:57)
[2016-06-20] MEDS: SOTALOL HCL 80 MG TAB PO SCH ×2 (09:35→20:56)
[2016-06-20] MEDS: DILTIAZEM-CD 240 MG CAP ER PO SCH (09:35)
[2016-06-20] MEDS: SODIUM CHLORIDE 0.9% FLUSH 5 ML FLUSH FLUSH SCH ×2 (09:35→21:00)
[2016-06-20] MEDS: BUDESONIDE-FORMOTEROL 160/4.5 MCG INHALER INH SCH ×2 (09:36→21:00)
[2016-06-20] MEDS ORDERED: METOPROLOL TARTRATE 25 MG TAB PO ONE (11:00)
[2016-06-20 11:06] LABS: ACANTHOCYTES 1+ (NORMAL); OVALOCYTES 1+ (NORMAL); PLATELET ESTIMATE SMEAR LOW (NORMAL); PLATELET MORPHOLOGY NORMAL (NORMAL); SCAN/DIFF AUTO DIFF CONFIRMED
--- NOTE | 2016-06-20 14:53 | PD.ONC.PN ---
Subjective Subjective Remarks Afebrile overnight. Pt resting in bed asleep with at bedside. Per spouse, he has just received some haldol. He awakens easily but falls back to sleep. Objective Data Date Time Temp Pulse Resp B/P Pulse Ox O2 Delivery O2 Flow Rate FiO2 06/20/16 12:30 Nasal Cannula 2.00 21 06/20/16 12:00 97.4 65 28 114/60 94 06/20/16 07:53 97.2 128 20 143/92 95 06/20/16 04:00 98.4 126 18 149/80 96 06/20/16 00:00 98.3 128 17 164/99 97 06/19/16 20:15 Nasal Cannula 2.00 06/19/16 20:03 130 06/19/16 20:00 97.8 130 17 178/84 98 06/19/16 16:02 97.8 101 20 126/61 93 06/20/16 06/20/16 06/20/16 07:00 15:00 23:00 Intake Total 180 ml Output Total 100 ml Balance 80 ml Result Diagram: 06/20/16 0508 Laboratory Results Laboratory Tests Test 06/20/16 05:08 White Blood Count 9.5 TH/MM3 Red Blood Count 3.83 MIL/MM3 Hemoglobin 10.5 GM/DL Hematocrit 32.2 % Mean Corpuscular Volume 84.1 FL Mean Corpuscular Hemoglobin 27.6 PG Mean Corpuscular Hemoglobin 32.7 % Concent Red Cell Distribution Width 20.5 % Platelet Count 45 TH/MM3 Mean Platelet Volume 10.7 FL Neutrophils (%) (Auto) 93.5 % Lymphocytes (%) (Auto) 3.5 % Monocytes (%) (Auto) 2.9 % Eosinophils (%) (Auto) 0.0 % Basophils (%) (Auto) 0.1 % Neutrophils # (Auto) 8.8 TH/MM3 Lymphocytes # (Auto) 0.3 TH/MM3 Monocytes # (Auto) 0.3 TH/MM3 Eosinophils # (Auto) 0.0 TH/MM3 Basophils # (Auto) 0.0 TH/MM3 CBC Comment AUTO DIFF Differential Comment AUTO DIFF CONFIRMED Platelet Estimate LOW Platelet Morphology Comment NORMAL Ovalocytes 1+ Acanthocytes 1+ Administered Medications Medications (Trade) Dose Ordered Sig/Brock Route PRN Reason Start Time Stop Time Status Last Admin Dose Admin IV Flush (NS Flush) 2 ml BID FLUSH 06/12/16 21:00 06/20/16 09:35 Atorvastatin Calcium (Lipitor) 80 mg HS PO 06/12/16 21:00 06/19/16 21:27 Diltiazem HCl (Cardizem Cd) 240 mg DAILY PO 06/13/16 09:00 06/20/16 09:35 Docusate Sodium (Colace) 100 mg BID PO 06/12/16 21:00 06/20/16 09:35 Sotalol HCl (Betapace) 80 mg BID PO 06/12/16 21:00 06/20/16 09:35 Budesonide/ Formoterol Fumarate (Symbicort 160-4.5 Inh) 2 puff BID INH 06/12/16 21:00 06/20/16 09:36 Methylprednisolone Sodium Succinate (SoluMEDROL INJ) 40 mg Q6H IV PUSH 06/13/16 14:00 06/20/16 14:27 Haloperidol (Haldol) 2 mg TID PO 06/13/16 18:00 06/20/16 11:33 Mirtazapine 15 mg 15 mg HS PO 06/13/16 21:00 06/19/16 21:28 Diltiazem HCl/ Sodium Chloride (Cardizem Inj/NS Inj) 125 ml @ 0 mls/hr TITRATE PRN IV RVR > 120 for 20 mins 06/13/16 16:00 06/20/16 05:19 Pantoprazole Sodium (Protonix Inj) 40 mg DAILY IV PUSH 06/18/16 11:00 06/20/16 09:35 Apixaban (Eliquis) 5 mg BID PO 06/19/16 21:00 Hold 06/20/16 09:35 Objective Remarks GENERAL: Overweight male, lying in bed asleep. SKIN: Warm and dry. Multiple bruises noted to BUE. HEAD: Normocephalic. EYES: No injection or drainage. NECK: Supple, trachea midline. CARDIOVASCULAR: +S1/S2. RESPIRATORY: Lungs clear anteriorly. GASTROINTESTINAL: Abdomen soft, non-tender, nondistended. EXTREMITIES: No cyanosis. NEUROLOGICAL: Lethargic. Awakens to verbal stimuli. Moves all extremities. Assessment/Plan Problem List: (1) Thrombocytopenia Status: Acute Plan: --continue solu-medrol 40mg IV q6 -- Hold Eliquis due to worsened thrombocytopenia. 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 BMB --has been going to Dr. Schofield's office weekly for injection ?Nplate. --baseline reportedly around 45K (per ) (2) Acute ischemic left MCA stroke Status: Acute Plan: --Eliquis d/c d/t thrombocytopenia--Patient has competing needs: h/o stroke vs high risk of bleeding d/t thrombocytopenia --on heparin 5000U q 8 only for now, plan to resume Eliquis once plt remain above 50K Assessment 55y/o male s/p stroke. Hematology consulted for thrombocytopenia HPI: [facility], developed confusion and afib, transferred to the med/surg +recurrent strokes since January of 2016--was on Eliquis Chronic obstructive pulmonary disease. Obstructive sleep apnea. Hypertension. Hyperlipidemia. Coronary artery disease--h/o cardiac cath Paroxysmal atrial fibrillation. History of testicular cancer treated in his 40s with radiation and orchiectomy Restless leg syndrome. Arthritis. ITP. Plan 1. Platelets down today to 45k. Will hold Eliquis. 2. Pt with high risk of recurrent CVA, will place back on SQ heparin for now. 3. Labs in am. Attending Statement The exam, history, and the medical decision-making described in the above note were completed with the assistance of the mid-level provider. I reviewed and agree with the findings presented. I attest that I had a [id number] encounter with the patient on the same day, and personally performed and documented my assessment and findings in the medical record. Pt seen and examined. at bedside. Noted decreased platelet, hold Eliquis, monitor for bleeding. SQ heparin for DVt prophylaxis. Repeat LDH. Diamond Avendano Jun 20, 2016 14:53 Melinda Perdomo MD Jun 20, 2016 17:00 Diamond Avendano Jun 20, 2016 14:53 Melinda Perdomo MD Jun 20, 2016 17:00
[2016-06-20] MEDS: HEPARIN SODIUM - SQ 10,000 UNITS/ML VIAL SQ SCH (20:55)
[2016-06-20] MEDS: ATORVASTATIN 80 MG TAB PO SCH (20:56)
[2016-06-20] MEDS: MIRTAZAPINE 15 MG TAB PO SCH (20:56)
[2016-06-20] MEDS: METOPROLOL TARTRATE 50 MG TAB PO SCH (20:56)
[2016-06-21] VITALS (8 sets, daily range): BP systolic 120–161; BP diastolic 59–92; PULSE 63–131; RESP 18–22; TEMP 96–98; O2SAT 94–98
[2016-06-21] MEDS: methylPREDNISolone SOD SUCC 40 MG/1 ML VIAL IV PUSH SCH ×4 (01:10→21:14)
[2016-06-21] MEDS: DILTIAZEM INJ 125 MG in SODIUM CHLORIDE 0.9% INJ 100 ML IV PRN ×3 (03:27→21:00)
[2016-06-21] MEDS: HALOPERIDOL LACTATE 5 MG/ML AMP IM PRN (03:42)
[2016-06-21] MEDS: HEPARIN SODIUM - SQ 10,000 UNITS/ML VIAL SQ SCH ×3 (05:57→21:13)
[2016-06-21] MEDS: PANTOPRAZOLE SODIUM 40 MG VIAL IV PUSH SCH (08:07)
[2016-06-21] MEDS: SODIUM CHLORIDE 0.9% FLUSH 5 ML FLUSH FLUSH SCH ×2 (08:07→21:00)
--- NOTE | 2016-06-21 08:10 | HHI.PR ---
Subjective Remarks Follow up for Atrial flutter with RVR, thrombocytopenia. Mr. Muhammad does not say much but his answers appear to be appropriate. Denies any acute concerns. His heart rate remains in the 120s range. Objective Vitals Vital Signs Date Time Temp Pulse Resp B/P Pulse Ox O2 Delivery O2 Flow Rate FiO2 06/21/16 04:00 97.5 127 22 120/70 94 06/21/16 00:00 96.0 67 18 136/63 98 06/21/16 00:00 96.0 67 18 136/63 98 06/20/16 20:00 96.9 61 20 115/56 94 06/20/16 20:00 51 06/20/16 20:00 Nasal Cannula 2.00 06/20/16 16:00 97.3 63 20 140/63 94 06/20/16 12:30 Nasal Cannula 2.00 21 06/20/16 12:00 97.4 65 28 114/60 94 I/O 06/20/16 06/20/16 06/20/16 06/21/16 06/21/16 06/21/16 07:00 15:00 23:00 07:00 15:00 23:00 Intake Total 180 ml 600 ml 240 ml 198 ml Output Total 100 ml 400 ml 250 ml Balance 80 ml 200 ml 240 ml -52 ml Intake Oral 180 ml 600 ml 240 ml 50 ml IV Total 148 ml Output Urine Total 100 ml 400 ml 250 ml # Voids 60 # Bowel Movements 0 1 Result Diagram: 06/20/16 0508 Objective Remarks GENERAL: AOx3, NAD. SKIN: Warm and dry. HEAD: Normocephalic. EYES: No scleral icterus. No injection or drainage. NECK: Supple, trachea midline. No JVD or lymphadenopathy. CARDIOVASCULAR: Tachycardic, regularly irregular without murmurs, gallops, or rubs. RESPIRATORY: Breath sounds equal bilaterally. No accessory muscle use. GASTROINTESTINAL: Abdomen soft, non-tender, nondistended. MUSCULOSKELETAL: No cyanosis, or edema. BACK: Nontender without obvious deformity. No CVA tenderness. Procedures None. A/P Problem List: (1) Atrial flutter with rapid ventricular response ICD Code: I48.92 Status: Acute (2) Idiopathic thrombocytopenia purpura ICD Code: D69.3 Status: Acute (3) Cognitive communication disorder ICD Code: R41.841 Status: Acute Assessment and Plan Mr. Muhammad is a 55 year old male with a history of recurrent stroke, ITP who was transferred from [facility] to medical floor due to confusion and atrial flutter with RVR on 06/13/2016. - Atrial flutter with RVR - Currently on Metoprolol 50mg BID, sotalol 80mg BID. - Patient is also on Cardizem drip. Will d/c Cardizem 240mg CD and start on short acting PO Cardizem - 90mg QID. - Was on Apixaban. However, now on hold due to thrombocytopenia - RF ablation may be indicated for this patients Atrial flutter - Discussed with Dr. Duggan (EP) who will evaluate patient on Wednesday. Will place a consult. - Will keep patient NPO midnight on 06/21/2016 for possible Ablation on 2016. - Thrombocytopenia - Platelet count improved from 27K --> 80K --> 45K. CBC pending this AM. - Hematology is following. No significant response to steroid. IVIG started on 06/18/2016. - History of recurrent CVA - Patient has expressive and receptive aphasia - Continue PT/OT/ST - Continue Heparin SQ 5000 units Q8hrs per hematology recommendations. - COPD Continue DuoNebs, Symbicort - Agitation - On Haloperidol 2mg PO TID and PRN 2mg Q6hrs via IM. Full code. Heparin 5000 units Q8hrs SQ. Fernando West DO Jun 21, 2016 8:10 am
[2016-06-21] MEDS: DOCUSATE SODIUM 100 MG CAP PO SCH ×2 (08:11→21:14)
[2016-06-21] MEDS: HALOPERIDOL 2 MG TAB PO SCH ×3 (08:11→17:07)
[2016-06-21] MEDS: BUDESONIDE-FORMOTEROL 160/4.5 MCG INHALER INH SCH ×2 (08:11→21:00)
[2016-06-21] MEDS: METOPROLOL TARTRATE 50 MG TAB PO SCH ×2 (08:12→21:14)
[2016-06-21] MEDS: SOTALOL HCL 80 MG TAB PO SCH ×2 (08:12→21:14)
[2016-06-21] MEDS: DILTIAZEM HCL 90 MG TAB PO SCH ×4 (08:18→21:14)
[2016-06-21 10:42] LABS: AUTOMATED NEUTROPHIL # 8.8 TH/MM3 (1.8-7.7); HEMATOCRIT 33.3 % (39.0-51.0); LYMPH % 3.2 % (9.0-44.0); LYMPHOCYTE # 0.3 TH/MM3 (1.0-4.8); MEAN CELL VOLUME 84.8 FL (80.0-100.0); MEAN CORPUSCULAR HEMOGLOBIN 27.1 PG (27.0-34.0); MEAN CORPUSCULAR HGB CONC 31.9 % (32.0-36.0); MONO % 3.4 % (0.0-8.0); NEUT % 93.4 % (16.0-70.0); PLATELET COUNT 43 TH/MM3 (150-450); RED BLOOD COUNT 3.93 MIL/MM3 (4.50-5.90); RED CELL DISTRIBUTION WIDTH 20.1 % (11.6-17.2); WHITE BLOOD COUNT 9.4 TH/MM3 (4.0-11.0)
[2016-06-21 10:55] LABS: HEMO FLAGS AUTO DIFF
[2016-06-21] MEDS ORDERED: ZIPRASIDONE MESYLATE 20 MG VIAL IM ONE ×2 (11:00→14:00)
[2016-06-21] MEDS ORDERED: ZIPRASIDONE HCL 40 MG CAP PO ONE (13:45)
[2016-06-21] MEDS ORDERED: HALOPERIDOL LACTATE 5 MG/ML AMP IM PRN (14:00)
--- NOTE | 2016-06-21 14:14 | PD.ONC.PN ---
Subjective Subjective Remarks Afebrile overnight. Pt in 4-pt restraints. He is confused and yelling out. Per RN he pulled out an IV and it took an extended time of holding pressure to get bleeding to stop. Objective Data Date Time Temp Pulse Resp B/P Pulse Ox O2 Delivery O2 Flow Rate FiO2 06/21/16 13:21 115 06/21/16 12:01 97.5 63 22 128/59 95 06/21/16 10:24 95 Nasal Cannula 3.00 06/21/16 08:05 Nasal Cannula 2.00 21 06/21/16 08:01 98.0 128 22 161/82 95 06/21/16 04:00 97.5 127 22 120/70 94 06/21/16 00:00 96.0 67 18 136/63 98 06/21/16 00:00 96.0 67 18 136/63 98 06/20/16 20:00 96.9 61 20 115/56 94 06/20/16 20:00 51 06/20/16 20:00 Nasal Cannula 2.00 06/20/16 16:00 97.3 63 20 140/63 94 06/21/16 06/21/16 06/21/16 07:00 15:00 23:00 Intake Total 198 ml Output Total 250 ml Balance -52 ml Result Diagram: 06/21/16 0944 Laboratory Results Laboratory Tests Test 06/21/16 09:44 White Blood Count 9.4 TH/MM3 Red Blood Count 3.93 MIL/MM3 Hemoglobin 10.6 GM/DL Hematocrit 33.3 % Mean Corpuscular Volume 84.8 FL Mean Corpuscular Hemoglobin 27.1 PG Mean Corpuscular Hemoglobin 31.9 % Concent Red Cell Distribution Width 20.1 % Platelet Count 43 TH/MM3 Mean Platelet Volume 10.4 FL Neutrophils (%) (Auto) 93.4 % Lymphocytes (%) (Auto) 3.2 % Monocytes (%) (Auto) 3.4 % Eosinophils (%) (Auto) 0.0 % Basophils (%) (Auto) 0.0 % Neutrophils # (Auto) 8.8 TH/MM3 Lymphocytes # (Auto) 0.3 TH/MM3 Monocytes # (Auto) 0.3 TH/MM3 Eosinophils # (Auto) 0.0 TH/MM3 Basophils # (Auto) 0.0 TH/MM3 CBC Comment AUTO DIFF Lactate Dehydrogenase 547 U/L Administered Medications Medications (Trade) Dose Ordered Sig/Brock Route PRN Reason Start Time Stop Time Status Last Admin Dose Admin IV Flush (NS Flush) 2 ml BID FLUSH 06/12/16 21:00 06/21/16 08:07 Atorvastatin Calcium (Lipitor) 80 mg HS PO 06/12/16 21:00 06/20/16 20:56 Docusate Sodium (Colace) 100 mg BID PO 06/12/16 21:00 06/21/16 08:11 Sotalol HCl (Betapace) 80 mg BID PO 06/12/16 21:00 06/21/16 08:12 Budesonide/ Formoterol Fumarate (Symbicort 160-4.5 Inh) 2 puff BID INH 06/12/16 21:00 06/21/16 08:11 Haloperidol Lactate (Haldol Inj) 2 mg Q6H PRN IM AGITATION 06/13/16 08:45 06/21/16 03:42 Methylprednisolone Sodium Succinate (SoluMEDROL INJ) 40 mg Q6H IV PUSH 06/13/16 14:00 06/21/16 12:20 Haloperidol (Haldol) 2 mg TID PO 06/13/16 18:00 06/21/16 12:20 Mirtazapine 15 mg 15 mg HS PO 06/13/16 21:00 06/20/16 20:56 Diltiazem HCl/ Sodium Chloride (Cardizem Inj/NS Inj) 125 ml @ 0 mls/hr TITRATE PRN IV RVR > 120 for 20 mins 06/13/16 16:00 06/21/16 11:50 Pantoprazole Sodium (Protonix Inj) 40 mg DAILY IV PUSH 06/18/16 11:00 06/21/16 08:07 Apixaban (Eliquis) 5 mg BID PO 06/19/16 21:00 Hold 06/20/16 09:35 Metoprolol Tartrate (Lopressor) 50 mg Q12HR PO 06/20/16 21:00 06/21/16 08:12 Heparin Sodium (Porcine) (Heparin Inj) 5,000 units Q8HR SQ 06/20/16 22:00 06/21/16 05:57 Diltiazem HCl (Cardizem) 90 mg QID PO 06/21/16 09:00 06/21/16 12:20 Ziprasidone (Geodon Inj) 10 mg ONCE ONCE IM 06/21/16 14:00 06/21/16 14:01 06/21/16 13:57 Objective Remarks GENERAL: Older disheveled male lying in bed calling out. SKIN: Warm and dry. Multiple bruises to arms, abdomen. HEAD: Normocephalic. EYES: No injection or drainage. NECK: Supple, trachea midline. No JVD or lymphadenopathy. CARDIOVASCULAR: +S1/S2. RESPIRATORY: Lungs clear anteriorly. GASTROINTESTINAL: Abdomen soft, non-tender, nondistended. EXTREMITIES: No edema. NEUROLOGICAL: Awake, moving all extremities. Speech sometimes unintelligible. Assessment/Plan Problem List: (1) Thrombocytopenia Status: Acute Plan: --continue solu-medrol 40mg IV q6 -- Hold Eliquis due to worsened thrombocytopenia. 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 BMB --has been going to Dr. Schofield's office weekly for injection ?Nplate. --baseline reportedly around 45K (per ) (2) Acute ischemic left MCA stroke Status: Acute Plan: -- Continue to hold Eliquis today; platelets low. -- Multiple bruises to arms. Assessment 55y/o male s/p stroke. Hematology consulted for thrombocytopenia HPI: recently admitted to [facility] stroke, developed confusion and afib, transferred to the med/surg +recurrent strokes since January of 2016--was on Eliquis Chronic obstructive pulmonary disease. Obstructive sleep apnea. Hypertension. Hyperlipidemia. Coronary artery disease--h/o cardiac cath Paroxysmal atrial fibrillation. History of testicular cancer treated in his 40s with radiation and orchiectomy Restless leg syndrome. Arthritis. ITP. Plan 1. Platelets 43k today. Hold Eliquis. 2. Pt with high risk of recurrent CVA; heparin SQ continues. 3. Monitor for bleeding. Attending Statement The exam, history, and the medical decision-making described in the above note were completed with the assistance of the mid-level provider. I reviewed and agree with the findings presented. I attest that I had a [id number] encounter with the patient on the same day, and personally performed and documented my assessment and findings in the medical record. Pt seen and examined, confused today, saying yes to all questions. at bedside. ITP with failure to respond to steroids. Consider pulse dose decadron but pt already confused and in 4 pt restraints. NOAC held due to risk of bleeding. UFH tolerated fairly, nursing notes alot of bleeding, oozing at IV site that was DC'd. advised to stop bleeding first before giving next dose of prophylactic UFH. Bruising R toe with tracts down, consult podiatry, poor pulses, check doppler. notes new bruising L dorsum foot. Consider alternative to tx ITP, consider cyclosporine, colchicine, danazole less favored due to history testicular ca. Defer ultimately to Dr. Limon. Diamond Avendano Jun 21, 2016 14:14 Melinda Perdomo MD Jun 21, 2016 15:17
[2016-06-21 14:18] LABS: ACANTHOCYTES 1+ (NORMAL); OVALOCYTES 1+ (NORMAL); PLATELET ESTIMATE SMEAR LOW (NORMAL); PLATELET MORPHOLOGY NORMAL (NORMAL); SCAN/DIFF FINAL DIFF MANUAL
[2016-06-21] MEDS ORDERED: ZIPRASIDONE MESYLATE 20 MG VIAL IM PRN (21:00)
[2016-06-21 21:01] LABS: BLOOD, URINE LARGE (NEG); COMMENT (UR) CULTURE INDICATED; CULTURE IF INDICATED CULTURE INDICATED; GLUCOSE,URINE NEG (NEG); KETONE, URINE NEG (NEG); MUCUS URINE FEW /lpf (OCC); NITRITE,URINE NEG (NEG); URINE COLOR RED (YELLW/STRAW)
[2016-06-21] MEDS: ATORVASTATIN 80 MG TAB PO SCH (21:14)
[2016-06-21] MEDS: MIRTAZAPINE 15 MG TAB PO SCH (21:14)
[2016-06-22] VITALS (9 sets, daily range): BP systolic 94–143; BP diastolic 50–85; PULSE 52–95; RESP 16–20; TEMP 97.2–98.4; O2SAT 93–96
[2016-06-22] MEDS: methylPREDNISolone SOD SUCC 40 MG/1 ML VIAL IV PUSH SCH ×4 (01:27→21:24)
[2016-06-22] MEDS: HALOPERIDOL LACTATE 5 MG/ML AMP IM PRN (02:00)
[2016-06-22] MEDS: HEPARIN SODIUM - SQ 10,000 UNITS/ML VIAL SQ SCH ×3 (05:26→21:24)
[2016-06-22 07:40] LABS: AUTOMATED NEUTROPHIL # 11.5 TH/MM3 (1.8-7.7); BASOPHIL % 0.1 % (0.0-2.0); HEMATOCRIT 34.8 % (39.0-51.0); LYMPH % 2.2 % (9.0-44.0); LYMPHOCYTE # 0.3 TH/MM3 (1.0-4.8); MEAN CELL VOLUME 84.5 FL (80.0-100.0); MEAN CORPUSCULAR HEMOGLOBIN 26.8 PG (27.0-34.0); MEAN CORPUSCULAR HGB CONC 31.7 % (32.0-36.0); MONO % 2.8 % (0.0-8.0); NEUT % 94.9 % (16.0-70.0); PLATELET COUNT 46 TH/MM3 (150-450); RED BLOOD COUNT 4.12 MIL/MM3 (4.50-5.90); RED CELL DISTRIBUTION WIDTH 20.2 % (11.6-17.2); WHITE BLOOD COUNT 12.1 TH/MM3 (4.0-11.0)
[2016-06-22 07:46] LABS: HEMO FLAGS AUTO DIFF
[2016-06-22 08:02] LABS: APTT (PATIENT) 23.4 SEC (24.3-30.1); INTERNATIONAL NORMALIZED RATIO 1.3 RATIO; PROTHROMBIN TIME - PATIENT 14.8 SEC (9.8-11.6)
[2016-06-22 09:07] LABS: ACANTHOCYTES OCC (NORMAL); HELMET CELLS OCC (NORMAL)
[2016-06-22 09:08] LABS: OVALOCYTES 1+ (NORMAL); PLATELET ESTIMATE SMEAR LOW (NORMAL); PLATELET MORPHOLOGY NORMAL (NORMAL); SCAN/DIFF AUTO DIFF CONFIRMED
[2016-06-22] MEDS: SOTALOL HCL 80 MG TAB PO SCH (09:23)
[2016-06-22] MEDS: HALOPERIDOL 2 MG TAB PO SCH ×2 (09:23→12:38)
[2016-06-22] MEDS: DOCUSATE SODIUM 100 MG CAP PO SCH ×2 (09:23→21:24)
[2016-06-22] MEDS: DILTIAZEM HCL 90 MG TAB PO SCH ×4 (09:23→21:24)
[2016-06-22] MEDS: PANTOPRAZOLE SODIUM 40 MG VIAL IV PUSH SCH (09:23)
[2016-06-22] MEDS: METOPROLOL TARTRATE 50 MG TAB PO SCH ×2 (09:23→21:24)
[2016-06-22] MEDS: SODIUM CHLORIDE 0.9% FLUSH 5 ML FLUSH FLUSH SCH ×2 (09:24→21:25)
[2016-06-22] MEDS: BUDESONIDE-FORMOTEROL 160/4.5 MCG INHALER INH SCH ×2 (09:24→21:24)
[2016-06-22 10:11] LABS: BICARBONATE 25.6 MEQ/L (21.0-32.0)
--- NOTE | 2016-06-22 10:36 | PD.ONC.PN ---
Subjective Subjective Remarks Afebrile overnight. Patient in restraints. + aphasia. difficulty communicating. Objective Data Date Time Temp Pulse Resp B/P Pulse Ox O2 Delivery O2 Flow Rate FiO2 06/22/16 08:16 97.2 95 20 99/68 93 06/22/16 04:00 97.6 63 20 142/82 93 06/22/16 00:00 98.4 66 20 133/67 96 06/21/16 20:00 97.8 129 22 155/92 94 06/21/16 20:00 131 06/21/16 20:00 96 Nasal Cannula 2.00 21 06/21/16 16:01 97.8 64 20 159/69 95 06/21/16 13:21 115 06/21/16 12:01 97.5 63 22 128/59 95 06/22/16 06/22/16 06/22/16 07:00 15:00 23:00 Intake Total 287 ml Balance 287 ml Result Diagram: 06/22/16 0659 06/22/16 0935 Laboratory Results Laboratory Tests Test 06/21/16 06/22/16 06/22/16 20:24 06:59 09:35 Urine Color RED Urine Turbidity CLOUDY Urine pH 5.0 Urine Specific [place] 1.024 Urine Protein 30 mg/dL Urine Glucose (UA) NEG mg/dL Urine Ketones NEG mg/dL Urine Occult Blood LARGE Urine Nitrite NEG Urine Bilirubin NEG Urine Urobilinogen LESS THAN 2.0 MG/DL Urine Leukocyte Esterase TRACE Urine RBC /hpf Urine WBC 62 /hpf Urine WBC Clumps FEW Urine Mucus FEW /lpf Microscopic Urinalysis Comment CULTURE INDICATED White Blood Count 12.1 TH/MM3 Red Blood Count 4.12 MIL/MM3 Hemoglobin 11.0 GM/DL Hematocrit 34.8 % Mean Corpuscular Volume 84.5 FL Mean Corpuscular Hemoglobin 26.8 PG Mean Corpuscular Hemoglobin 31.7 % Concent Red Cell Distribution Width 20.2 % Platelet Count 46 TH/MM3 Mean Platelet Volume 10.3 FL Neutrophils (%) (Auto) 94.9 % Lymphocytes (%) (Auto) 2.2 % Monocytes (%) (Auto) 2.8 % Eosinophils (%) (Auto) 0.0 % Basophils (%) (Auto) 0.1 % Neutrophils # (Auto) 11.5 TH/MM3 Lymphocytes # (Auto) 0.3 TH/MM3 Monocytes # (Auto) 0.3 TH/MM3 Eosinophils # (Auto) 0.0 TH/MM3 Basophils # (Auto) 0.0 TH/MM3 CBC Comment AUTO DIFF Differential Comment AUTO DIFF CONFIRMED Platelet Estimate LOW Platelet Morphology Comment NORMAL Ovalocytes 1+ Helmet Cells OCC Acanthocytes OCC Prothrombin Time 14.8 SEC Prothromb Time International 1.3 RATIO Ratio Activated Partial 23.4 SEC Thromboplast Time Fibrinogen 55 mg/dL Sodium Level 145 MEQ/L Potassium Level 4.0 MEQ/L Chloride Level 111 MEQ/L Carbon Dioxide Level 25.6 MEQ/L Anion Gap 8 MEQ/L Blood Urea Nitrogen 48 MG/DL Creatinine 1.23 MG/DL Estimat Glomerular Filtration 61 ML/MIN Rate Random Glucose 123 MG/DL Calcium Level 8.0 MG/DL Culture Results Microbiology Date/Time Procedure Status Source Growth 06/21/16 20:24 Urine Culture Received Urine Clean Catch Pending Administered Medications Medications (Trade) Dose Ordered Sig/Brock Route PRN Reason Start Time Stop Time Status Last Admin Dose Admin IV Flush (NS Flush) 2 ml BID FLUSH 06/12/16 21:00 06/22/16 09:24 Atorvastatin Calcium (Lipitor) 80 mg HS PO 06/12/16 21:00 06/21/16 21:14 Docusate Sodium (Colace) 100 mg BID PO 06/12/16 21:00 06/22/16 09:23 Sotalol HCl (Betapace) 80 mg BID PO 06/12/16 21:00 06/22/16 09:23 Budesonide/ Formoterol Fumarate (Symbicort 160-4.5 Inh) 2 puff BID INH 06/12/16 21:00 06/22/16 09:24 Haloperidol Lactate (Haldol Inj) 2 mg Q6H PRN IM AGITATION 06/13/16 08:45 06/22/16 02:00 Methylprednisolone Sodium Succinate (SoluMEDROL INJ) 40 mg Q6H IV PUSH 06/13/16 14:00 06/22/16 09:24 Haloperidol (Haldol) 2 mg TID PO 06/13/16 18:00 06/22/16 09:23 Mirtazapine 15 mg 15 mg HS PO 06/13/16 21:00 06/21/16 21:14 Diltiazem HCl/ Sodium Chloride (Cardizem Inj/NS Inj) 125 ml @ 0 mls/hr TITRATE PRN IV RVR > 120 for 20 mins 06/13/16 16:00 06/21/16 21:00 Pantoprazole Sodium (Protonix Inj) 40 mg DAILY IV PUSH 06/18/16 11:00 06/22/16 09:23 Apixaban (Eliquis) 5 mg BID PO 06/19/16 21:00 Hold 06/20/16 09:35 Metoprolol Tartrate (Lopressor) 50 mg Q12HR PO 06/20/16 21:00 06/22/16 09:23 Heparin Sodium (Porcine) (Heparin Inj) 5,000 units Q8HR SQ 06/20/16 22:00 06/22/16 05:26 Diltiazem HCl (Cardizem) 90 mg QID PO 06/21/16 09:00 06/22/16 09:23 Objective Remarks GENERAL: Middle aged male, lying in bed in restraints. SKIN: Warm and dry. ecchymoses noted on abdomen and a few on arms HEAD: Normocephalic. EYES: No injection or drainage. NECK: Supple, trachea midline. CARDIO: + S1/S2 RESPIRATORY: Breath sounds equal bilaterally. No accessory muscle use. GASTROINTESTINAL: Abdomen soft, non-tender, nondistended. EXTREMITIES: No cyanosis NEUROLOGICAL: awake and alert. +expressive aphasia. Assessment/Plan Problem List: (1) Thrombocytopenia Status: Acute Plan: --continue solu-medrol 40mg IV q6 -- Hold Eliquis due to worsened thrombocytopenia. 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 BMB --has been going to Dr. Schofield's office weekly for injection ?Nplate. --baseline reportedly around 45K (per ) (2) Acute ischemic left MCA stroke Status: Acute Plan: -- hold Eliquis, continue heparin prophylaxis -- Multiple bruises to arms. Assessment 55y/o male s/p stroke. Hematology consulted for thrombocytopenia HPI: [facility], developed confusion and afib, transferred to the med/surg +recurrent strokes since January of 2016--was on Eliquis Chronic obstructive pulmonary disease. Obstructive sleep apnea. Hypertension. Hyperlipidemia. Coronary artery disease--h/o cardiac cath Paroxysmal atrial fibrillation. History of testicular cancer treated in his 40s with radiation and orchiectomy Restless leg syndrome. Arthritis. ITP. Plan 1. continue solu-medrol 2. may consider giving Rituxan 3. monitor CBC Attending Statement The exam, history, and the medical decision-making described in the above note were completed with the assistance of the mid-level provider. I reviewed and agree with the findings presented. I attest that I had a [id number] encounter with the patient on the same day, and personally performed and documented my assessment and findings in the medical record. Platelet trended down to around 40K. +bruises but no bleeding. Eliquis was d/c. Fibrinogen trended lower, likely has DIC. Continue to monitor and transfuse cryoprecipitate. Michelle eJrez Jun 22, 2016 10:36 Skyler Limon MD Jun 22, 2016 15:03
--- NOTE | 2016-06-22 10:57 | HHI.PR ---
Subjective Remarks Follow up for Atrial flutter with RVR, thrombocytopenia. Mr. Muhammad appears to be calm at the time of this interview. He gives appropriate short answers. But often times he says incoherent stuff. He was extremely agitated yesterday and today he is on restraints. Objective Vitals Vital Signs Date Time Temp Pulse Resp B/P Pulse Ox O2 Delivery O2 Flow Rate FiO2 06/22/16 08:16 97.2 95 20 99/68 93 06/22/16 04:00 97.6 63 20 142/82 93 06/22/16 00:00 98.4 66 20 133/67 96 06/21/16 20:00 97.8 129 22 155/92 94 06/21/16 20:00 131 06/21/16 20:00 96 Nasal Cannula 2.00 21 06/21/16 16:01 97.8 64 20 159/69 95 06/21/16 13:21 115 06/21/16 12:01 97.5 63 22 128/59 95 I/O 06/21/16 06/21/16 06/21/16 06/22/16 06/22/16 06/22/16 07:00 15:00 23:00 07:00 15:00 23:00 Intake Total 198 ml 696 ml 240 ml 287 ml Output Total 250 ml 250 ml 500 ml Balance -52 ml 446 ml -260 ml 287 ml Intake Oral 50 ml 600 ml 240 ml 120 ml IV Total 148 ml 96 ml 167 ml Output Urine Total 250 ml 250 ml 500 ml # Voids 1 0 # Bowel Movements 1 0 0 Result Diagram: 06/22/16 0659 06/22/16 0935 Objective Remarks GENERAL: AOx3, NAD. SKIN: Warm and dry. HEAD: Normocephalic. EYES: No scleral icterus. No injection or drainage. NECK: Supple, trachea midline. No JVD or lymphadenopathy. CARDIOVASCULAR: Tachycardic, regularly irregular without murmurs, gallops, or rubs. RESPIRATORY: Breath sounds equal bilaterally. No accessory muscle use. GASTROINTESTINAL: Abdomen soft, non-tender, nondistended. MUSCULOSKELETAL: No cyanosis, or edema. BACK: Nontender without obvious deformity. No CVA tenderness. Procedures None. A/P Problem List: (1) Atrial flutter with rapid ventricular response ICD Code: I48.92 Status: Acute (2) Idiopathic thrombocytopenia purpura ICD Code: D69.3 Status: Acute (3) Cognitive communication disorder ICD Code: R41.841 Status: Acute Assessment and Plan Mr. Muhammad is a 55 year old male with a history of recurrent stroke, ITP who was transferred from [facility] to medical floor due to confusion and atrial flutter with RVR on 06/13/2016. - Atrial flutter with RVR - Currently on Metoprolol 50mg BID, sotalol 80mg BID. - Patient is also on Cardizem drip. Continue Cardizem - 90mg QID. - Was on Apixaban. However, now on hold due to thrombocytopenia - Discussed with Dr. Duggan (EP) today. Patient has been agitated and currently restraints. - Will maintain medical management for now. Once more stable, we can consider Ablation. - Thrombocytopenia - Platelet count improved from 27K --> 80K --> 43K --> 46K. - Hematology is following. No significant response to steroid. IVIG started on 06/18/2016. - History of recurrent CVA - Patient has expressive and receptive aphasia - Continue PT/OT/ST - Continue Heparin SQ 5000 units Q8hrs per hematology recommendations. - COPD Continue DuoNebs, Symbicort - Agitation - Psychiatry service evaluated patient today. Cont Haldol 2mg PO TID, Geodon 10mg IM Q12hrs PRN. Full code. Heparin 5000 units Q8hrs SQ. Fernando West DO Jun 22, 2016 10:57 am
--- NOTE | 2016-06-22 12:25 | MB ---
cc: LESLIE SEGURA HANSCY M.D. DATE OF CONSULTATION 06/22/2016 REASON FOR CONSULTATION Atrial flutter, unable to control with medication. HISTORY OF PRESENT ILLNESS Mr. Muhammad is a 55-year-old gentleman with history of recurrent stroke, COPD, anxiety, hyperlipidemia, coronary artery disease, testicular cancer in his 40s, arthritis, recently admitted from [facility] due to a possible stroke and atrial flutter with fast biventricular response. During hospitalization he was found to be in thrombocytopenia. That was addressed by Hematology. He was also on anticoagulation. He has bruises all over his body. His atrial flutter is very difficult to control. I was consulted for evaluation and management and possible ablation. The chart was reviewed. The patient was evaluated. I discussed the case extensively with Dr. West. ALLERGIES None. SOCIAL HISTORY The gentleman currently drinks occasionally. Quit smoking previously. FAMILY HISTORY Noncontributory to his current medical condition. MEDICATIONS Mr. Muhammad on is currently taking - 1. Cardizem IV. 2. He is on Eliquis at 5 mg twice. That was put on hold. 3. Lipitor. 4. Cardizem p.o. 90 mg 4 x per day. 5. He is on Haldol. He is on methylprednisone. 6. He is on metoprolol 50 mg twice a day. 7. He is on Reglan. 8. Protonix. 9. Sotalol. REVIEW OF SYSTEMS Review of systems cannot be performed. The patient is disoriented and combative. PHYSICAL EXAMINATION GENERAL: Disoriented, combative, in four extremity restraints. SKIN: The patient has bruises on the abdomen and the legs and the chest, all over the body. VITAL SIGNS: Blood pressure 99/68, pulse around 130 when I was there. Respiratory rate is around 20. LUNGS: Ventilated. CARDIOVASCULAR: S1-S2, tachycardiac. ABDOMEN: Obese. No mass. No bruit. As mentioned before, there area bruises all over the abdomen. EXTREMITIES: No edema. ELECTROCARDIOGRAM EKG showed atrial flutter. LABORATORY DATA Hemoglobin is 11, white blood cell 12.1, platelet count coming down; it was on admission 27, kristine to around 80 on the 24th and since then coming down, currently stable at 46. Potassium 4.0, creatinine 1.23. INR is 1.3. Fibrinogen is 55. APTT is 23.4. ASSESSMENT AND RECOMMENDATIONS Mr. Muhammad has atrial flutter, very difficult to control. The patient is on sotalol, Cardizem, metoprolol and in spite of all of those, heart rate very difficult to control. His blood pressure is very low. He has somewhat of a coagulation issue. Platelets 46. Eliquis was held and Lovenox subcu was discontinued. He has a previous history of thrombocytopenia. He is completely disoriented. The patient has to be restrained. At this point my recommendation is to continue with medical management. When the patient is stable and also cleared by Hematology, then I will consider ablation. The gentleman's condition is critical. His prognosis is of care. I will monitor him during hospitalization. As mentioned before, medical management for now. MD CHENCHO Keating/SSB /11:41 AM /12:07 PM
--- NOTE | 2016-06-22 13:35 | EKG ---
Date Performed: 06/21/2016 Time Performed: 14:31:56 PTAGE: 55 years EKG: ATRIAL FLUTTER/TACHYCARDIA WITH ABERRANT CONDUCTION OR VENTRICULAR PREMATURE COMPLEXES ST D EVIATION AND MODERATE T-WAVE ABNORMALITY, CONSIDER INFERIOR ISCHEMIA ABNORMAL ECG Compared to prior t racing no significant change PREVIOUS TRACING : 06/13/2016 06.36 DOCTOR: Ken Huizar Interpretating Date/Time 06/22/2016 13:32:45
--- NOTE | 2016-06-22 13:58 | HHI.PYPN ---
Subjective Remarks Patient was seen for psychiatric reevaluation today, he was found restrained in 4 points in bed, he was not agitated, not aggressive, but very perseverant and disorganized, he would answer to all the questions "yesterday". As per nurse in charge and primary physician, patient has been very aggressive, difficult to manage in the floor, but at the same time there have been some fear to be aggressive with antipsychotics due to QTC prolongation issues, however QTc interval is within the normal limits at this moment. Review of Systems ROS Limitations: Uncooperative Objective Alert: Yes [place]: Person Mood: Agitated Affect: Labile Memory Intact: Comment (impaired) Hallucinations: Other (none) Delusions: No Delusion Type: Other (none) Suicidal: Ideation (no voiced ) Homicidal: Ideation (no voiced ) Insight/Judgement poor Labs Test 06/21/16 06/22/16 06/22/16 20:24 06:59 09:35 Urine Color RED Urine Turbidity CLOUDY Urine pH 5.0 Urine Specific [place] 1.024 Urine Protein 30 mg/dL Urine Glucose (UA) NEG mg/dL Urine Ketones NEG mg/dL Urine Occult Blood LARGE Urine Nitrite NEG Urine Bilirubin NEG Urine Urobilinogen LESS THAN 2.0 MG/DL Urine Leukocyte Esterase TRACE Urine RBC /hpf Urine WBC 62 /hpf Urine WBC Clumps FEW Urine Mucus FEW /lpf Microscopic Urinalysis Comment CULTURE INDICATED White Blood Count 12.1 TH/MM3 Red Blood Count 4.12 MIL/MM3 Hemoglobin 11.0 GM/DL Hematocrit 34.8 % Mean Corpuscular Volume 84.5 FL Mean Corpuscular Hemoglobin 26.8 PG Mean Corpuscular Hemoglobin 31.7 % Concent Red Cell Distribution Width 20.2 % Platelet Count 46 TH/MM3 Mean Platelet Volume 10.3 FL Neutrophils (%) (Auto) 94.9 % Lymphocytes (%) (Auto) 2.2 % Monocytes (%) (Auto) 2.8 % Eosinophils (%) (Auto) 0.0 % Basophils (%) (Auto) 0.1 % Neutrophils # (Auto) 11.5 TH/MM3 Lymphocytes # (Auto) 0.3 TH/MM3 Monocytes # (Auto) 0.3 TH/MM3 Eosinophils # (Auto) 0.0 TH/MM3 Basophils # (Auto) 0.0 TH/MM3 CBC Comment AUTO DIFF Differential Comment AUTO DIFF CONFIRMED Platelet Estimate LOW Platelet Morphology Comment NORMAL Ovalocytes 1+ Helmet Cells OCC Acanthocytes OCC Prothrombin Time 14.8 SEC Prothromb Time International 1.3 RATIO Ratio Activated Partial 23.4 SEC Thromboplast Time Fibrinogen 55 mg/dL Sodium Level 145 MEQ/L Potassium Level 4.0 MEQ/L Chloride Level 111 MEQ/L Carbon Dioxide Level 25.6 MEQ/L Anion Gap 8 MEQ/L Blood Urea Nitrogen 48 MG/DL Creatinine 1.23 MG/DL Estimat Glomerular Filtration 61 ML/MIN Rate Random Glucose 123 MG/DL Calcium Level 8.0 MG/DL Date/Time Procedure Status Source Growth 06/21/16 20:24 Urine Culture - Preliminary Resulted Urine Clean Catch Gram Negative Dequan Vitals/IOs Vital Signs Date Time Temp Pulse Resp B/P Pulse Ox O2 Delivery O2 Flow Rate FiO2 06/22/16 12:00 98.0 64 20 135/85 94 06/22/16 08:00 Nasal Cannula 2.00 06/21/16 20:00 21 Intake and Output 06/21/16 06/21/16 06/22/16 08:00 16:00 00:00 Intake Total 198 ml 696 ml 240 ml Output Total 250 ml 250 ml 500 ml Balance -52 ml 446 ml -260 ml Assessment & Plan Problem List: (1) Adjustment disorder with mixed disturbance of emotions and conduct Assessment & Plan: Patient continues to be agitated, difficult to manage in the floor, disoriented, confused, he has to remain restrained. Will increase Haldol to 5 mg IM every 8 hours when necessary aggressive behavior and agitation , also will increase Haldol to 5 mg twice a day by mouth every 12 hours for better impulse control. Continue mirtazapine 30 mg for sleep. We will discontinue Geodon IM . We'll follow-up ICD Code: F43.25 (2) Cognitive communication disorder ICD Code: R41.841 Assessment & Plan Estimated LOS: days Justification for Cont. Inpt. Patient does not meet criteria for psychiatric admission Request HC Surrog/Guard Advoc?: Yevgeniy Crouch MD Jun 22, 2016 13:57
[2016-06-22] MEDS ORDERED: HALOPERIDOL LACTATE 5 MG/ML AMP IM PRN (15:00)
[2016-06-22] MEDS ORDERED: ACETAMINOPHEN 325 MG TAB PO PRN (15:15)
[2016-06-22] MEDS ORDERED: SODIUM CHLOR 0.9% 250 ML INJ 250 ML IV ONE (15:15)
[2016-06-22] MEDS ORDERED: diphenhydrAMINE HCL 25 MG CAP PO PRN (15:15)
--- NOTE | 2016-06-22 16:57 | RADRPT ---
EXAM DATE/TIME: 06/22/2016 11:21 [facility] COMPARISON: No previous studies available for comparison. INDICATIONS : Right foot pain. MEDICAL HISTORY : Chronic obstructive pulmonary disease. Hypercholesterolemia. Gastroesophageal reflux disease. Cerebro vascular accident. Migraines. Myocardial infarction. Atrial fibrillation. Coronary artery disease. Hy pertension. Sleep apnea. Testicular cancer. Restless leg syndrome. Arthritis. Thrombocytopenia. SURGICAL HISTORY : Heart catheterization. Bone marrow biopsy ENCOUNTER: Initial ACUITY: 1 day PAIN SCORE: Non-responsive LOCATION: Right foot. FINDINGS: The examination is severely limited because the patient is uncooperative. There is no fluid collecti on. Generalized soft tissue swelling is evident. CONCLUSION: Soft-tissue swelling evident without fluid collection to suggest an abscess. Sheldon Mccrary MD FACR on June 22, 2016 at 16:17 Board Certified Radiologist. This report was verified electronically.
[2016-06-22] MEDS: SODIUM CHLOR 0.9% 1000 ML INJ 1,000 ML IV SCH (18:35)
[2016-06-22] MEDS: DILTIAZEM INJ 125 MG in SODIUM CHLORIDE 0.9% INJ 100 ML IV PRN (21:23)
[2016-06-22] MEDS: ATORVASTATIN 80 MG TAB PO SCH (21:24)
[2016-06-22] MEDS: HALOPERIDOL 5 MG TAB PO SCH (21:24)
[2016-06-22] MEDS: MIRTAZAPINE 15 MG TAB PO SCH (21:24)
[2016-06-23] VITALS (8 sets, daily range): BP systolic 119–165; BP diastolic 66–88; PULSE 61–131; RESP 18–22; TEMP 96–97.8; O2SAT 91–100
[2016-06-23] MEDS: methylPREDNISolone SOD SUCC 40 MG/1 ML VIAL IV PUSH SCH ×3 (01:18→21:53)
[2016-06-23] MEDS: SODIUM CHLOR 0.9% 1000 ML INJ 1,000 ML IV SCH ×3 (03:05→18:31)
[2016-06-23] MEDS: HEPARIN SODIUM - SQ 10,000 UNITS/ML VIAL SQ SCH ×3 (05:20→21:53)
--- NOTE | 2016-06-23 08:11 | MB ---
cc: DEYSI CELAYA DATE OF CONSULTATION 06/22/2016 HISTORY OF PRESENT ILLNESS The patient was admitted on June 12 of this year after being transferred from a rehab facility for atrial fibrillation. He was treated with Eliquis outpatient. He apparently became violent and agitated in his facility. He was also noted to have decrease in hemoglobin and platelets. I was consulted for possible bruising versus embolic events on the right foot. The patient was seen at bedside in restraints. Minimally verbal at this time but denies any pain. States that he never walks barefoot. States that feet do not feel cold. States that he has no complaints at this time. PAST MEDICAL HISTORY 1. COPD. 2. Obstructive sleep apnea. 3. Anxiety. 4. Hypertension. 5. Hyperlipidemia. 6. Coronary artery disease. 7. A-fib. 8. Recurrent strokes. 9. Arthritis. 10. Previous testicular cancer with radiation. 11. Restless leg syndrome. PAST SURGICAL HISTORY Cardiac catheterization. MEDICATIONS Please see list. ALLERGIES No known drug allergies. FAMILY HISTORY Non-contributory. SOCIAL HISTORY The patient denies illicit drug use. Former smoker. Current alcohol user. PHYSICAL EXAMINATION The patient's feet are very cool to touch with no appreciable palpable pulses despite having an abundance of leg hair and pedal hair. The patient does not appear to have good circulation to distal extremities. On the right foot on the dorsal first metatarsal head and along the medial column of the foot and the medial ankle there are several small areas of purpura. Very cool to touch. No pain with palpation. One is also noted on the distal tip of the hallux. There are several similar purpura noted on the left foot. Gross sensation is intact. Cap fill time is less than 3 seconds. No biomechanical abnormalities. ASSESSMENT AND PLAN 1. Bilateral foot lesions -These are not consistent with bruises as they are not on pressure points and not painful. Being that they are cool to touch, most likely they are indicative of an embolic event. -Suggest vascular consultation pending results of ABIs/PVRs. -No podiatric intervention needed at this time as the skin integrity is not compromised. -We will check patient periodically while in house. Thank you for this consultation. Deysi Celaya LMW/SSB /5:15 PM /8:11 AM MONICA
[2016-06-23] MEDS: DILTIAZEM HCL 90 MG TAB PO SCH ×4 (08:45→21:53)
[2016-06-23] MEDS: SODIUM CHLORIDE 0.9% FLUSH 5 ML FLUSH FLUSH SCH ×2 (08:45→21:54)
[2016-06-23] MEDS: HALOPERIDOL 5 MG TAB PO SCH ×2 (08:45→21:53)
[2016-06-23] MEDS: METOPROLOL TARTRATE 50 MG TAB PO SCH ×2 (08:45→18:15)
[2016-06-23] MEDS: PANTOPRAZOLE SODIUM 40 MG VIAL IV PUSH SCH (08:45)
[2016-06-23] MEDS: DOCUSATE SODIUM 100 MG CAP PO SCH ×2 (08:45→21:53)
[2016-06-23] MEDS: BUDESONIDE-FORMOTEROL 160/4.5 MCG INHALER INH SCH ×2 (08:45→21:54)
[2016-06-23 09:10] LABS: AUTOMATED NEUTROPHIL # 10.2 TH/MM3 (1.8-7.7); BASOPHIL % 0.1 % (0.0-2.0); HEMATOCRIT 33.8 % (39.0-51.0); LYMPH % 2.7 % (9.0-44.0); LYMPHOCYTE # 0.3 TH/MM3 (1.0-4.8); MEAN CELL VOLUME 84.2 FL (80.0-100.0); MEAN CORPUSCULAR HEMOGLOBIN 27.4 PG (27.0-34.0); MEAN CORPUSCULAR HGB CONC 32.6 % (32.0-36.0); MONO % 2.7 % (0.0-8.0); NEUT % 94.5 % (16.0-70.0); PLATELET COUNT 38 TH/MM3 (150-450); RED BLOOD COUNT 4.01 MIL/MM3 (4.50-5.90); RED CELL DISTRIBUTION WIDTH 20.3 % (11.6-17.2); WHITE BLOOD COUNT 10.8 TH/MM3 (4.0-11.0)
[2016-06-23 09:20] LABS: HEMO FLAGS AUTO DIFF
--- NOTE | 2016-06-23 09:31 | PD.ONC.PN ---
Subjective Subjective Remarks Afebrile overnight. No bleeding events. Patient resting without outburst this AM. Remains in restraints. Objective Data Date Time Temp Pulse Resp B/P Pulse Ox O2 Delivery O2 Flow Rate FiO2 06/23/16 08:00 97.8 128 20 159/88 93 06/23/16 07:29 98 Nasal Cannula 2.00 06/23/16 01:54 Nasal Cannula 2.00 06/23/16 00:00 97.6 88 18 155/81 100 06/22/16 23:05 98.1 65 20 134/59 06/22/16 23:01 98.1 64 20 143/65 95 06/22/16 20:00 60 06/22/16 20:00 98.0 64 16 128/59 93 06/22/16 16:00 98.1 52 20 94/50 94 06/22/16 12:00 98.0 64 20 135/85 94 Result Diagram: 06/23/16 0820 06/22/16 0935 Laboratory Results Laboratory Tests Test 06/22/16 06/22/16 06/23/16 09:35 19:40 08:20 Sodium Level 145 MEQ/L Potassium Level 4.0 MEQ/L Chloride Level 111 MEQ/L Carbon Dioxide Level 25.6 MEQ/L Anion Gap 8 MEQ/L Blood Urea Nitrogen 48 MG/DL Creatinine 1.23 MG/DL Estimat Glomerular Filtration 61 ML/MIN Rate Random Glucose 123 MG/DL Calcium Level 8.0 MG/DL Blood Type O POSITIVE Blood Bank Comment White Blood Count 10.8 TH/MM3 Red Blood Count 4.01 MIL/MM3 Hemoglobin 11.0 GM/DL Hematocrit 33.8 % Mean Corpuscular Volume 84.2 FL Mean Corpuscular Hemoglobin 27.4 PG Mean Corpuscular Hemoglobin 32.6 % Concent Red Cell Distribution Width 20.3 % Platelet Count 38 TH/MM3 Mean Platelet Volume 9.3 FL Neutrophils (%) (Auto) 94.5 % Lymphocytes (%) (Auto) 2.7 % Monocytes (%) (Auto) 2.7 % Eosinophils (%) (Auto) 0.0 % Basophils (%) (Auto) 0.1 % Neutrophils # (Auto) 10.2 TH/MM3 Lymphocytes # (Auto) 0.3 TH/MM3 Monocytes # (Auto) 0.3 TH/MM3 Eosinophils # (Auto) 0.0 TH/MM3 Basophils # (Auto) 0.0 TH/MM3 CBC Comment AUTO DIFF Culture Results Microbiology Date/Time Procedure Status Source Growth 06/21/16 20:24 Urine Culture - Preliminary Resulted Urine Clean Catch Gram Negative Dequan Administered Medications Medications (Trade) Dose Ordered Sig/Brock Route PRN Reason Start Time Stop Time Status Last Admin Dose Admin IV Flush (NS Flush) 2 ml BID FLUSH 06/12/16 21:00 06/23/16 08:45 Atorvastatin Calcium (Lipitor) 80 mg HS PO 06/12/16 21:00 06/22/16 21:24 Docusate Sodium (Colace) 100 mg BID PO 06/12/16 21:00 06/23/16 08:45 Budesonide/ Formoterol Fumarate (Symbicort 160-4.5 Inh) 2 puff BID INH 06/12/16 21:00 06/23/16 08:45 Mirtazapine 15 mg 15 mg HS PO 06/13/16 21:00 06/22/16 21:24 Diltiazem HCl/ Sodium Chloride (Cardizem Inj/NS Inj) 125 ml @ 0 mls/hr TITRATE PRN IV RVR > 120 for 20 mins 06/13/16 16:00 06/22/16 21:23 Pantoprazole Sodium (Protonix Inj) 40 mg DAILY IV PUSH 06/18/16 11:00 06/23/16 08:45 Apixaban (Eliquis) 5 mg BID PO 06/19/16 21:00 Hold 06/20/16 09:35 Metoprolol Tartrate (Lopressor) 50 mg Q12HR PO 06/20/16 21:00 06/23/16 08:45 Heparin Sodium (Porcine) (Heparin Inj) 5,000 units Q8HR SQ 06/20/16 22:00 06/23/16 05:20 Diltiazem HCl (Cardizem) 90 mg QID PO 06/21/16 09:00 06/23/16 08:45 Haloperidol Lactate (Haldol Inj) 5 mg Q6H PRN IM AGITATION 06/22/16 15:00 06/23/16 00:43 Haloperidol 5 mg 5 mg BID PO 06/22/16 21:00 06/23/16 08:45 Sodium Chloride (NS 1000 ml Inj) 1,000 ml @ 125 mls/hr Q8H IV 06/22/16 19:00 06/23/16 08:46 Objective Remarks GENERAL: Middle aged male, sitting upright in bed. In restraints. On 2L O2 via nc. SKIN: Warm and dry. bruising noted on bilateral arms. HEAD: Normocephalic. EYES: No injection or drainage. NECK: Supple, trachea midline. CARDIO: + S1/S2 RESPIRATORY: Breath sounds equal bilaterally. No accessory muscle use. GASTROINTESTINAL: Abdomen soft, non-tender, nondistended. EXTREMITIES: No cyanosis NEUROLOGICAL: awake and alert. + aphasia. able to move extremities. Assessment/Plan Problem List: (1) Thrombocytopenia Status: Acute Plan: --reduce solu-medrol 40mg IV to q8 -- Hold Eliquis due to worsened thrombocytopenia. 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 BMB --baseline reportedly around 45K (per ) (2) Acute ischemic left MCA stroke Status: Acute Plan: -- hold Eliquis, continue heparin prophylaxis -- Multiple bruises to arms. (3) Consumption coagulopathy Status: Acute Plan: --monitor coags --check antiphospholipid antibodies, MMA Assessment 55y/o male s/p stroke. Hematology consulted for thrombocytopenia HPI: [facility], developed confusion and afib, transferred to the med/surg +recurrent strokes since January of 2016--was on Eliquis Chronic obstructive pulmonary disease. Obstructive sleep apnea. Hypertension. Hyperlipidemia. Coronary artery disease--h/o cardiac cath Paroxysmal atrial fibrillation. History of testicular cancer treated in his 40s with radiation and orchiectomy Restless leg syndrome. Arthritis. ITP. Plan 1. reduce solu-medrol to 40mg IV q 8 hours instead of 6 2. check antiphospholipid antibodies 3. check u/s liver 4. pathologist smear review Attending Statement The exam, history, and the medical decision-making described in the above note were completed with the assistance of the mid-level provider. I reviewed and agree with the findings presented. I attest that I had a [id number] encounter with the patient on the same day, and personally performed and documented my assessment and findings in the medical record. No bleeding noted. +bruising. Appear to have DIC maybe due to UTI. Had cryoprecipitate 2/ 27. Clinical course is unusual for ITP. Will check liver disease/ splenomegaly. Get abdominal US. Check antiphospholipid antibody. Monitor coags and CBC. Taper Steroid. Continue heparin subq. Michelle Jerez Jun 23, 2016 09:31 Skyler Limon MD Jun 23, 2016 17:25
[2016-06-23 09:35] LABS: APTT (PATIENT) 24.1 SEC (24.3-30.1); INTERNATIONAL NORMALIZED RATIO 1.1 RATIO
[2016-06-23 09:44] LABS: INDIRECT BILIRUBIN 0.8 MG/DL (0.0-0.8); TOTAL BILIRUBIN ADULT 1.1 MG/DL (0.2-1.0)
[2016-06-23 09:51] LABS: ACANTHOCYTES OCC (NORMAL); KERATOCYTES OCC (NORMAL)
[2016-06-23 09:52] LABS: HELMET CELLS OCC (NORMAL); PLATELET ESTIMATE SMEAR LOW (NORMAL); PLATELET MORPHOLOGY NORMAL (NORMAL); SCAN/DIFF AUTO DIFF CONFIRMED
--- NOTE | 2016-06-23 13:22 | RADRPT ---
EXAM DATE/TIME: 06/23/2016 10:19 [facility] COMPARISON: No previous studies available for comparison. INDICATIONS : Abnormal labs. MEDICAL HISTORY : Hypercholesterolemia. Myocardial infarction. Chronic obstructive pulmonary disease. CVA. A-Fib. GERD. Sleep apnea. Arthritis. Testicular cancer. Thrombocytopenia. SURGICAL HISTORY : None. ENCOUNTER: Initial ACUITY: 1 day PAIN SCORE: 10/10 LOCATION: Right upper quadrant MEASUREMENTS: LIVER: 14.4 cm length COMMON DUCT: Non-visualized RIGHT KIDNEY: 10.1 x 5.4 x 6.9 cm SPLEEN: Not visualized. FINDINGS: Limited study as patient became agitated and combative. LIVER: Slightly nodular without focal lesion or ductal dilatation. COMMON DUCT: Nonvisualized. GALLBLADDER: Contains no stones, demonstrates no wall thickening or pericholecystic fluid. PANCREAS: The visualized portions are within normal limits. RIGHT KIDNEY: No hydronephrosis, stone or mass. SPLEEN: Not visualized. CONCLUSION: 1. Limited right upper quadrant sonogram. 2. Liver is slightly nodular could be related to early cirrhosis. 3. Spleen and common bile duct not seen. 4. Small right pleural effusion. sonogram. Johnathon Monterroso MD on June 23, 2016 at 13:17 Board Certified Radiologist. This report was verified electronically.
--- NOTE | 2016-06-23 13:43 | RADRPT ---
EXAM DATE/TIME: 06/22/2016 00:00 [facility] COMPARISON: No previous studies available for comparison. INDICATIONS : Restless leg syndrome, hypertension, bilateral foot lesions TECHNIQUE: Five-station segmental examination of the lower extremities was performed. Pulsed-cuff waveform tracings and pressures were recorded. Ankle-brachial indices and toe-brachial indices were calculated. PRESSURES (mmHg): Brachial (arm): Right IV SITE Left 146 Lower Thigh: Right 179 Left 155 Calf: Right 183 Left 125 Ankle: Right 142 Left 85 Toe: Right 46 Left 0 DEVAUGHN: Right 0.97 Left 0.58 TBI: Right 0.32 Left 0 PULSED CUFF WAVEFORMS: There is blunting of the waveform at the level of the left ankle. CONCLUSION: Findings of moderate disease on the left. Diminished toe brachial indices bilaterally characteristic of small vessel disease. CT angiography of the abdominal aorta and lower extremities is recommended f or further evaluation if clinically indicated. Ken Bradford MD on June 23, 2016 at 13:41 Board Certified Radiologist. This report was verified electronically.
--- NOTE | 2016-06-23 15:37 | PD.CARD.PN ---
Subjective Subjective Remarks Sitting up in bed, eating, confused. Objective Medications Current Medications Medications (Trade) Dose Ordered Sig/Brock Route Start Time Stop Time Status Last Admin (NS Flush) 2 ml UNSCH PRN FLUSH 06/12/16 20:15 (NS Flush) 2 ml BID FLUSH 06/12/16 21:00 06/23/16 08:45 (Tylenol) 650 mg Q4H PRN PO 06/12/16 20:15 (Zofran Inj) 4 mg Q6H PRN IVP 06/12/16 20:15 (Narcan Inj) 0.4 mg UNSCH PRN IV 06/12/16 20:15 (Lipitor) 80 mg HS PO 06/12/16 21:00 06/22/16 21:24 (Catapres) 0.1 mg Q6H PRN PO 06/12/16 20:30 (Colace) 100 mg BID PO 06/12/16 21:00 06/23/16 08:45 (Symbicort 160-4.5 Inh) 2 puff BID INH 06/12/16 21:00 06/23/16 08:45 Mirtazapine 15 mg 15 mg HS PO 06/13/16 21:00 06/22/16 21:24 (Cardizem Inj/NS Inj) 125 ml @ 0 mls/hr TITRATE PRN IV 06/13/16 16:00 06/22/16 21:23 (Protonix Inj) 40 mg DAILY IV PUSH 06/18/16 11:00 06/23/16 08:45 (Eliquis) 5 mg BID PO 06/19/16 21:00 Hold 06/20/16 09:35 (Heparin Inj) 5,000 units Q8HR SQ 06/20/16 22:00 06/23/16 14:21 (Cardizem) 90 mg QID PO 06/21/16 09:00 06/23/16 14:21 (Haldol Inj) 5 mg Q6H PRN IM 06/22/16 15:00 06/23/16 00:43 Haloperidol 5 mg 5 mg BID PO 06/22/16 21:00 06/23/16 08:45 (NS 1000 ml Inj) 1,000 ml @ 125 mls/hr Q8H IV 06/22/16 19:00 06/23/16 08:46 (SoluMEDROL INJ) 40 mg Q8HR IV PUSH 06/23/16 14:00 06/23/16 14:22 (Lopressor) 50 mg Q8H PO 06/23/16 17:00 Vital Signs / I&O Vital Signs Date Time Temp Pulse Resp B/P Pulse Ox O2 Delivery O2 Flow Rate FiO2 06/23/16 12:00 97.6 121 22 165/87 91 06/23/16 11:35 97.6 131 20 165/87 06/23/16 08:00 97.8 128 20 159/88 93 06/23/16 07:29 98 Nasal Cannula 2.00 06/23/16 01:54 Nasal Cannula 2.00 06/23/16 00:00 97.6 88 18 155/81 100 06/22/16 23:05 98.1 65 20 134/59 06/22/16 23:01 98.1 64 20 143/65 95 06/22/16 20:00 60 06/22/16 20:00 98.0 64 16 128/59 93 06/22/16 16:00 98.1 52 20 94/50 94 I/O 06/22/16 06/22/16 06/22/16 06/23/16 06/23/16 06/23/16 07:00 15:00 23:00 07:00 15:00 23:00 Intake Total 287 ml 240 ml 966 ml Output Total 700 ml Balance 287 ml -460 ml 966 ml Intake Oral 120 ml 240 ml IV Total 167 ml 966 ml Output Urine Total 700 ml # Voids 0 # Bowel Movements 0 Physical Exam GENERAL: Well-nourished, obese, well-developed patient. SKIN: Warm and dry. HEAD: Normocephalic. EYES: No scleral icterus. No injection or drainage. NECK: Supple, trachea midline. No JVD or lymphadenopathy. CARDIOVASCULAR: Irregular rhythm, tachycardic rate without murmurs, gallops, or rubs. RESPIRATORY: Breath sounds with scattered rhonchi. No accessory muscle use. GASTROINTESTINAL: Abdomen obese, soft, non-tender, nondistended. EXTREMITIES: No cyanosis, or edema. NEUROLOGICAL: Awake, alert, not oriented. Laboratory Laboratory Tests Test 06/22/16 06/23/16 06/23/16 19:40 08:10 08:20 Blood Type O POSITIVE Blood Bank Comment Blood Smear Pathologist Review White Blood Count 10.8 TH/MM3 Red Blood Count 4.01 MIL/MM3 Hemoglobin 11.0 GM/DL Hematocrit 33.8 % Mean Corpuscular Volume 84.2 FL Mean Corpuscular Hemoglobin 27.4 PG Mean Corpuscular Hemoglobin 32.6 % Concent Red Cell Distribution Width 20.3 % Platelet Count 38 TH/MM3 Mean Platelet Volume 9.3 FL Neutrophils (%) (Auto) 94.5 % Lymphocytes (%) (Auto) 2.7 % Monocytes (%) (Auto) 2.7 % Eosinophils (%) (Auto) 0.0 % Basophils (%) (Auto) 0.1 % Neutrophils # (Auto) 10.2 TH/MM3 Lymphocytes # (Auto) 0.3 TH/MM3 Monocytes # (Auto) 0.3 TH/MM3 Eosinophils # (Auto) 0.0 TH/MM3 Basophils # (Auto) 0.0 TH/MM3 CBC Comment AUTO DIFF Differential Comment AUTO DIFF CONFIRMED Platelet Estimate LOW Platelet Morphology Comment NORMAL Helmet Cells OCC Acanthocytes OCC Keratocytes OCC Prothrombin Time 12.0 SEC Prothromb Time International 1.1 RATIO Ratio Activated Partial 24.1 SEC Thromboplast Time Fibrinogen 170 mg/dL Total Bilirubin 1.1 MG/DL Direct Bilirubin 0.3 MG/DL Indirect Bilirubin 0.8 MG/DL Aspartate Amino Transf 45 U/L (AST/SGOT) Alanine Aminotransferase 124 U/L (ALT/SGPT) Alkaline Phosphatase 74 U/L Total Protein 6.6 GM/DL Albumin 3.0 GM/DL Imaging Last Impressions Liver Ultrasound 06/23/16 0000 Signed Impressions: Service Date/Time: Thursday, June 23, 2016 10:19 - CONCLUSION: 1. Limited right upper quadrant sonogram. 2. Liver is slightly nodular could be related to early cirrhosis. 3. Spleen and common bile duct not seen. 4. Small right pleural effusion. sonogram. Johnathon Monterroso MD Soft Tissue Ultrasound 06/22/16 0600 Signed Impressions: Service Date/Time: Wednesday, June 22, 2016 11:21 - CONCLUSION: Soft-tissue swelling evident without fluid collection to suggest an abscess. Sheldon Mccrary MD FACR Assessment and Plan Problem List: (1) Aphasia Assessment and Plan: Speaks with difficulty, no clear words. (2) Atrial flutter with rapid ventricular response Assessment and Plan: On cardizem, metoprolol. HR 88-130. Continue medical management for now. (3) Idiopathic thrombocytopenia purpura Assessment and Plan: Hematology following, history of ITP. Eliquis stopped. Assessment and Plan Continue with medical management per my d/w Dr. Duggan. Destiny De Los Santos Jun 23, 2016 15:37
[2016-06-23] MEDS: DILTIAZEM INJ 125 MG in SODIUM CHLORIDE 0.9% INJ 100 ML IV PRN (18:16)
--- NOTE | 2016-06-23 18:27 | HHI.PR ---
Subjective Remarks Follow up for Atrial flutter with RVR, thrombocytopenia. Mr. Muhammad has been on two point soft restraints. His speech is very incoherent and no clear words. However, short answers are appropriate. He requested to take the restraints off. We took it off and he was thankful and cooperative. Short time later, he tried to get up but he was not combative. We talked to him and he went back to bed. Objective Vitals Vital Signs Date Time Temp Pulse Resp B/P Pulse Ox O2 Delivery O2 Flow Rate FiO2 06/23/16 16:00 96.0 116 22 145/72 95 06/23/16 12:00 97.6 121 22 165/87 91 06/23/16 11:35 97.6 131 20 165/87 06/23/16 08:00 97.8 128 20 159/88 93 06/23/16 08:00 Nasal Cannula 2.00 06/23/16 08:00 128 06/23/16 07:29 98 Nasal Cannula 2.00 06/23/16 01:54 Nasal Cannula 2.00 06/23/16 00:00 97.6 88 18 155/81 100 06/22/16 23:05 98.1 65 20 134/59 06/22/16 23:01 98.1 64 20 143/65 95 06/22/16 20:00 60 06/22/16 20:00 98.0 64 16 128/59 93 I/O 06/22/16 06/22/16 06/22/16 06/23/16 06/23/16 06/23/16 06:59 14:59 22:59 06:59 14:59 22:59 Intake Total 287 ml 240 ml 966 ml 240 ml Output Total 700 ml Balance 287 ml -460 ml 966 ml 240 ml Intake Oral 120 ml 240 ml 240 ml IV Total 167 ml 966 ml Output Urine Total 700 ml # Voids 0 3 # Bowel Movements 0 0 Result Diagram: 06/23/16 0820 06/22/16 0935 Imaging Last Impressions Liver Ultrasound 06/23/16 0000 Signed Impressions: Service Date/Time: Thursday, June 23, 2016 10:19 - CONCLUSION: 1. Limited right upper quadrant sonogram. 2. Liver is slightly nodular could be related to early cirrhosis. 3. Spleen and common bile duct not seen. 4. Small right pleural effusion. sonogram. Johnathon Monterroso MD Soft Tissue Ultrasound 06/22/16 0600 Signed Impressions: Service Date/Time: Wednesday, June 22, 2016 11:21 - CONCLUSION: Soft-tissue swelling evident without fluid collection to suggest an abscess. Sheldon Mccrary MD FACR Objective Remarks GENERAL: AOx3, NAD. SKIN: Warm and dry. HEAD: Normocephalic. EYES: No scleral icterus. No injection or drainage. NECK: Supple, trachea midline. No JVD or lymphadenopathy. CARDIOVASCULAR: Tachycardic, regularly irregular without murmurs, gallops, or rubs. RESPIRATORY: Breath sounds equal bilaterally. No accessory muscle use. GASTROINTESTINAL: Abdomen soft, non-tender, nondistended. MUSCULOSKELETAL: No cyanosis, or edema. BACK: Nontender without obvious deformity. No CVA tenderness. Procedures None. A/P Problem List: (1) Atrial flutter with rapid ventricular response ICD Code: I48.92 Status: Acute (2) Idiopathic thrombocytopenia purpura ICD Code: D69.3 Status: Acute (3) Cognitive communication disorder ICD Code: R41.841 Status: Acute Assessment and Plan Mr. Muhammad is a 55 year old male with a history of recurrent stroke, ITP who was transferred from [facility] to medical floor due to confusion and atrial flutter with RVR on 06/13/2016. - Atrial flutter with RVR - Currently on Metoprolol 50mg BID - will increase to 50mg Q8hrs - Patient is on Cardizem drip. Continue Cardizem - 90mg QID. - Was on Apixaban. However, now on hold due to thrombocytopenia - Discussed with Dr. Duggan (EP). Patient has been agitated and currently on restraints. - Will maintain medical management for now. Once more stable, we can consider Ablation. - Thrombocytopenia - Platelet count improved from 27K --> 80K --> 43K --> 46K --> 38K - Hematology is following. No significant response to steroid. IVIG started on 06/18/2016. - History of recurrent CVA - Patient has expressive and receptive aphasia - Continue PT/OT/ST - Continue Heparin SQ 5000 units Q8hrs per hematology recommendations. - COPD Continue DuoNebs, Symbicort - Agitation - Psychiatry service evaluated pt. Continue Haldol and Seroquel. Full code. Heparin 5000 units Q8hrs SQ. Fernando West DO Jun 23, 2016 18:27
[2016-06-23] MEDS: MIRTAZAPINE 15 MG TAB PO SCH (21:53)
[2016-06-23] MEDS: ATORVASTATIN 80 MG TAB PO SCH (21:53)
[2016-06-24] VITALS (9 sets, daily range): BP systolic 117–144; BP diastolic 60–81; PULSE 62–131; RESP 16–20; TEMP 97.3–97.8; O2SAT 94–97
[2016-06-24] MEDS: DILTIAZEM INJ 125 MG in SODIUM CHLORIDE 0.9% INJ 100 ML IV PRN (00:52)
[2016-06-24] MEDS: SODIUM CHLOR 0.9% 1000 ML INJ 1,000 ML IV SCH ×3 (00:53→18:07)
[2016-06-24] MEDS: METOPROLOL TARTRATE 50 MG TAB PO SCH ×3 (00:53→18:07)
[2016-06-24] MEDS: methylPREDNISolone SOD SUCC 40 MG/1 ML VIAL IV PUSH SCH ×3 (05:06→21:15)
[2016-06-24] MEDS: HEPARIN SODIUM - SQ 10,000 UNITS/ML VIAL SQ SCH ×3 (05:06→21:16)
[2016-06-24 07:48] LABS: AUTOMATED NEUTROPHIL # 10.8 TH/MM3 (1.8-7.7); HEMATOCRIT 32.3 % (39.0-51.0); LYMPH % 2.1 % (9.0-44.0); LYMPHOCYTE # 0.2 TH/MM3 (1.0-4.8); MEAN CELL VOLUME 85.6 FL (80.0-100.0); MEAN CORPUSCULAR HGB CONC 31.6 % (32.0-36.0); MONO % 2.7 % (0.0-8.0); NEUT % 95.2 % (16.0-70.0); PLATELET COUNT 43 TH/MM3 (150-450); RED BLOOD COUNT 3.78 MIL/MM3 (4.50-5.90); RED CELL DISTRIBUTION WIDTH 20.3 % (11.6-17.2); WHITE BLOOD COUNT 11.3 TH/MM3 (4.0-11.0)
[2016-06-24 07:53] LABS: APTT (PATIENT) 24.7 SEC (24.3-30.1); HEMO FLAGS AUTO DIFF; INTERNATIONAL NORMALIZED RATIO 1.1 RATIO; PROTHROMBIN TIME - PATIENT 12.2 SEC (9.8-11.6)
[2016-06-24] MEDS: SODIUM CHLORIDE 0.9% FLUSH 5 ML FLUSH FLUSH SCH ×2 (09:00→21:00)
[2016-06-24] MEDS: BUDESONIDE-FORMOTEROL 160/4.5 MCG INHALER INH SCH ×2 (09:00→21:15)
[2016-06-24 09:22] LABS: PLATELET ESTIMATE SMEAR LOW (NORMAL); PLATELET MORPHOLOGY NORMAL (NORMAL); SCAN/DIFF AUTO DIFF CONFIRMED
[2016-06-24] MEDS: PANTOPRAZOLE SODIUM 40 MG VIAL IV PUSH SCH (09:31)
[2016-06-24] MEDS: DOCUSATE SODIUM 100 MG CAP PO SCH ×2 (09:32→21:14)
[2016-06-24] MEDS: HALOPERIDOL 5 MG TAB PO SCH ×2 (09:32→21:14)
[2016-06-24] MEDS: DILTIAZEM HCL 90 MG TAB PO SCH ×4 (09:32→21:14)
[2016-06-24] MEDS ORDERED: IOHEXOL 350 MG/ML 10 ML VIAL (for RAD DIAG) IV ONE (10:26)
--- NOTE | 2016-06-24 10:53 | HHI.PR ---
Subjective Remarks Follow up for Atrial flutter with RVR, thrombocytopenia. Mr. Muhammad is sleeping. Wakes up on verbal commands. No acute concerns. Objective Vitals Vital Signs Date Time Temp Pulse Resp B/P Pulse Ox O2 Delivery O2 Flow Rate FiO2 06/24/16 08:22 97.7 86 16 144/74 96 06/24/16 04:00 97.3 93 18 139/81 94 06/24/16 00:00 97.5 62 18 144/62 97 06/23/16 20:10 Nasal Cannula 2.00 06/23/16 20:10 63 06/23/16 20:00 97.1 61 18 119/66 96 06/23/16 16:00 96.0 116 22 145/72 95 06/23/16 12:00 97.6 121 22 165/87 91 06/23/16 11:35 97.6 131 20 165/87 I/O 06/23/16 06/23/16 06/23/16 06/24/16 06/24/16 06/24/16 06:59 14:59 22:59 06:59 14:59 22:59 Intake Total 240 ml 360 ml 1100 ml Balance 240 ml 360 ml 1100 ml Intake Oral 240 ml 360 ml 100 ml IV Total 1000 ml # Voids 3 1 1 # Bowel Movements 0 0 0 Result Diagram: 06/24/16 0720 06/22/16 0935 Imaging Last Impressions Abdomen/Pelvis CT 06/24/16 0000 Signed Impressions: Service Date/Time: Friday, June 24, 2016 10:13 - CONCLUSION: 1. Bilateral effusions larger on the right than the left with dense consolidation in the right lower lobe and middle lobe concerning for pneumonia. CT imaging of the thorax is warranted for further assessment. 2. Small, lobulated spleen with areas of decreased attenuation suggesting prior splenic infarcts. 3. No free air or free fluid seen within the abdomen. Didier Mccarry MD Liver Ultrasound 06/23/16 0000 Signed Impressions: Service Date/Time: Thursday, June 23, 2016 10:19 - CONCLUSION: 1. Limited right upper quadrant sonogram. 2. Liver is slightly nodular could be related to early cirrhosis. 3. Spleen and common bile duct not seen. 4. Small right pleural effusion. sonogram. Johnathon Monterroso MD Soft Tissue Ultrasound 06/22/16 0600 Signed Impressions: Service Date/Time: Wednesday, June 22, 2016 11:21 - CONCLUSION: Soft-tissue swelling evident without fluid collection to suggest an abscess. Sheldon Mccrary MD FACR Objective Remarks GENERAL: AOx3, NAD. SKIN: Warm and dry. HEAD: Normocephalic. EYES: No scleral icterus. No injection or drainage. NECK: Supple, trachea midline. No JVD or lymphadenopathy. CARDIOVASCULAR: Tachycardic, regularly irregular without murmurs, gallops, or rubs. RESPIRATORY: Breath sounds equal bilaterally. No accessory muscle use. GASTROINTESTINAL: Abdomen soft, non-tender, nondistended. MUSCULOSKELETAL: No cyanosis, or edema. BACK: Nontender without obvious deformity. No CVA tenderness. Procedures None. A/P Problem List: (1) Atrial flutter with rapid ventricular response ICD Code: I48.92 Status: Acute (2) Idiopathic thrombocytopenia purpura ICD Code: D69.3 Status: Acute (3) Cognitive communication disorder ICD Code: R41.841 Status: Acute Assessment and Plan Mr. Muhammad is a 55 year old male with a history of recurrent stroke, ITP who was transferred from [facility] to medical floor due to confusion and atrial flutter with RVR on 06/13/2016. - Atrial flutter with RVR - Currently on Metoprolol 50mg Q8hrs. Currently HR < 100 - Patient is on Cardizem drip. Continue Cardizem - 90mg QID. Will try to wean off Cardizem drip. - Was on Apixaban. However, now on hold due to thrombocytopenia - Currently on restraints. Once patient is more cooperative, Cardioversion or Ablation may be considered. - Thrombocytopenia - Platelet count improved from 27K --> 80K --> 43K --> 46K --> 38K -- 43K. - Hematology is following. - History of recurrent CVA - Patient has expressive and receptive aphasia - Continue PT/OT/ST - Continue Heparin SQ 5000 units Q8hrs per hematology recommendations. - COPD Continue DuoNebs, Symbicort - Agitation - Psychiatry service evaluated pt. Continue Haldol and Seroquel. Full code. Heparin 5000 units Q8hrs SQ. Fernando West DO Jun 24, 2016 10:53 am
--- NOTE | 2016-06-24 10:55 | RADRPT ---
EXAM DATE/TIME: 06/24/2016 10:13 [place] COMPARISON: No previous studies available for comparison. INDICATIONS : Liver disease, splenomegaly. IV CONTRAST: 96 cc Omnipaque 350 (iohexol) IV ORAL CONTRAST: No oral contrast ingested. RADIATION DOSE: 17.6 CTDIvol (mGy) MEDICAL HISTORY : Cardiovascular disease. Hypertension. SURGICAL HISTORY : None. ENCOUNTER: Initial ACUITY: 1 day PAIN SCALE: Non-responsive LOCATION: abdomen TECHNIQUE: Volumetric scanning of the abdomen and pelvis was performed. Using automated exposure control and ad justment of the mA and/or kV according to patient size, radiation dose was kept as low as reasonably achievable to obtain optimal diagnostic quality images. FINDINGS: The limited portion of the lung base visualized demonstrate a moderate-sized effusion on the right an d minimal effusion on the left. There is a sizable area of consolidation in the right middle right lo wer lobe. This is only partially visualized but is concerning for a pneumonia. CT imaging of the thor ax would be of benefit for further assessment. The appearance of the liver, pancreas, adrenal glands and kidneys is within normal limits. The spleen is lobulated in appearance with areas of decreased attenuation consistent with old areas of splenic infarct. The abdominal aorta is normal in caliber. There is diffuse atherosclerotic plaquing. There is no retr operitoneal adenopathy. The visualized loops of small and large bowel in the upper abdomen are unremarkable. Graft there is n o free fluid within the pelvis. No iliac or inguinal adenopathy is seen. The visualized bony structures demonstrate degenerative changes but are otherwise intact. CONCLUSION: 1. Bilateral effusions larger on the right than the left with dense consolidation in the right lower lobe and middle lobe concerning for pneumonia. CT imaging of the thorax is warranted for further asse ssment. 2. Small, lobulated spleen with areas of decreased attenuation suggesting prior splenic infarcts. 3. No free air or free fluid seen within the abdomen. Didier Mccrary MD on June 24, 2016 at 10:45 Board Certified Radiologist. This report was verified electronically.
--- NOTE | 2016-06-24 15:21 | PD.ONC.PN ---
Subjective Subjective Remarks Afebrile overnight. Patient resting comfortably. at bedside. Objective Data Date Time Temp Pulse Resp B/P Pulse Ox O2 Delivery O2 Flow Rate FiO2 06/24/16 11:07 97.8 95 18 143/65 96 06/24/16 08:22 97.7 86 16 144/74 96 06/24/16 04:00 97.3 93 18 139/81 94 06/24/16 00:00 97.5 62 18 144/62 97 06/23/16 20:10 Nasal Cannula 2.00 06/23/16 20:10 63 06/23/16 20:00 97.1 61 18 119/66 96 06/23/16 16:00 96.0 116 22 145/72 95 06/24/16 06/24/16 06/24/16 07:00 15:00 23:00 Intake Total 1100 ml Balance 1100 ml Result Diagram: 06/24/16 0720 06/22/16 0935 Laboratory Results Laboratory Tests Test 06/24/16 07:20 White Blood Count 11.3 TH/MM3 Red Blood Count 3.78 MIL/MM3 Hemoglobin 10.2 GM/DL Hematocrit 32.3 % Mean Corpuscular Volume 85.6 FL Mean Corpuscular Hemoglobin 27.0 PG Mean Corpuscular Hemoglobin 31.6 % Concent Red Cell Distribution Width 20.3 % Platelet Count 43 TH/MM3 Mean Platelet Volume 10.3 FL Neutrophils (%) (Auto) 95.2 % Lymphocytes (%) (Auto) 2.1 % Monocytes (%) (Auto) 2.7 % Eosinophils (%) (Auto) 0.0 % Basophils (%) (Auto) 0.0 % Neutrophils # (Auto) 10.8 TH/MM3 Lymphocytes # (Auto) 0.2 TH/MM3 Monocytes # (Auto) 0.3 TH/MM3 Eosinophils # (Auto) 0.0 TH/MM3 Basophils # (Auto) 0.0 TH/MM3 CBC Comment AUTO DIFF Differential Comment AUTO DIFF CONFIRMED Platelet Estimate LOW Platelet Morphology Comment NORMAL Prothrombin Time 12.2 SEC Prothromb Time International 1.1 RATIO Ratio Activated Partial 24.7 SEC Thromboplast Time Fibrinogen 145 mg/dL Culture Results Microbiology Date/Time Procedure Status Source Growth 06/21/16 20:24 Urine Culture - Final Complete Urine Clean Catch Kluyvera Cryocrescens Proteus Mirabilis Imaging Studies Last 24 hours Impressions Abdomen/Pelvis CT 06/24/16 0000 Signed Impressions: Service Date/Time: Friday, June 24, 2016 10:13 - CONCLUSION: 1. Bilateral effusions larger on the right than the left with dense consolidation in the right lower lobe and middle lobe concerning for pneumonia. CT imaging of the thorax is warranted for further assessment. 2. Small, lobulated spleen with areas of decreased attenuation suggesting prior splenic infarcts. 3. No free air or free fluid seen within the abdomen. Didier Mccrary MD Administered Medications Medications (Trade) Dose Ordered Sig/Brock Route PRN Reason Start Time Stop Time Status Last Admin Dose Admin IV Flush (NS Flush) 2 ml BID FLUSH 06/12/16 21:00 06/24/16 09:00 Atorvastatin Calcium (Lipitor) 80 mg HS PO 06/12/16 21:00 06/23/16 21:53 Docusate Sodium (Colace) 100 mg BID PO 06/12/16 21:00 06/24/16 09:32 Budesonide/ Formoterol Fumarate (Symbicort 160-4.5 Inh) 2 puff BID INH 06/12/16 21:00 06/24/16 09:00 Mirtazapine 15 mg 15 mg HS PO 06/13/16 21:00 06/23/16 21:53 Diltiazem HCl/ Sodium Chloride (Cardizem Inj/NS Inj) 125 ml @ 0 mls/hr TITRATE PRN IV RVR > 120 for 20 mins 06/13/16 16:00 06/24/16 00:52 Pantoprazole Sodium (Protonix Inj) 40 mg DAILY IV PUSH 06/18/16 11:00 06/24/16 09:31 Apixaban (Eliquis) 5 mg BID PO 06/19/16 21:00 Hold 06/20/16 09:35 Heparin Sodium (Porcine) (Heparin Inj) 5,000 units Q8HR SQ 06/20/16 22:00 06/24/16 12:59 Diltiazem HCl (Cardizem) 90 mg QID PO 06/21/16 09:00 06/24/16 12:59 Haloperidol Lactate (Haldol Inj) 5 mg Q6H PRN IM AGITATION 06/22/16 15:00 06/23/16 00:43 Haloperidol 5 mg 5 mg BID PO 06/22/16 21:00 06/24/16 09:32 Sodium Chloride (NS 1000 ml Inj) 1,000 ml @ 125 mls/hr Q8H IV 06/22/16 19:00 06/24/16 10:31 Methylprednisolone Sodium Succinate (SoluMEDROL INJ) 40 mg Q8HR IV PUSH 06/23/16 14:00 06/24/16 12:59 Metoprolol Tartrate (Lopressor) 50 mg Q8H PO 06/23/16 17:00 06/24/16 09:32 Objective Remarks GENERAL: Middle aged male, sitting up in bed in nad. SKIN: Warm and dry. occasional bruising noted on arms and legs HEAD: Normocephalic. EYES: No injection or drainage. NECK: Supple, trachea midline. CARDIO: + S1/S2 RESPIRATORY: Breath sounds equal bilaterally. No accessory muscle use. GASTROINTESTINAL: Abdomen soft, non-tender, nondistended. EXTREMITIES: No cyanosis NEUROLOGICAL: awake and alert. expressive aphasia noted. Assessment/Plan Problem List: (1) Thrombocytopenia Status: Acute Plan: --continue colu-medrol 40mg IV to q8 --awaiting APA panel, CT ab/pelvis, ceruloplasmin --reported h/o ITP --h/o thrombocytopenia dating back to 2015--[facility] patient--neg. BMB --baseline reportedly around 45K (per ) (2) Acute ischemic left MCA stroke Status: Acute Plan: -- hold Eliquis, continue heparin prophylaxis -- Multiple bruises to arms. (3) Consumption coagulopathy Status: Acute Plan: --monitor coags --await antiphospholipid antibody panel Assessment 55y/o male s/p stroke. Hematology consulted for thrombocytopenia HPI: [facility] developed confusion and afib, transferred to the med/surg +recurrent strokes since January of 2016--was on Eliquis Chronic obstructive pulmonary disease. Obstructive sleep apnea. Hypertension. Hyperlipidemia. Coronary artery disease--h/o cardiac cath Paroxysmal atrial fibrillation. History of testicular cancer treated in his 40s with radiation and orchiectomy Restless leg syndrome. Arthritis. ITP. Plan 1. check CT ab/pelvis today 2. continue solu-medrol 3. monitor CBC, coags Attending Statement The exam, history, and the medical decision-making described in the above note were completed with the assistance of the mid-level provider. I reviewed and agree with the findings presented. I attest that I had a [id number] encounter with the patient on the same day, and personally performed and documented my assessment and findings in the medical record. No bleeding noted. Platelet are stable. US showed nodular liver. Get CT to evaluate liver and spleen. Check hepatitis panel and ceruloplasmin. Slowly taper steroid. Continue heparin. Michelle Jerez Jun 24, 2016 15:21 Skyler Limon MD Jun 24, 2016 16:45
[2016-06-24] MEDS: MIRTAZAPINE 15 MG TAB PO SCH (21:14)
[2016-06-24] MEDS: ATORVASTATIN 80 MG TAB PO SCH (21:14)
[2016-06-25] VITALS (7 sets, daily range): BP systolic 144–153; BP diastolic 67–78; PULSE 124–134; RESP 20–24; TEMP 97–98.3; O2SAT 93–94
[2016-06-25] MEDS: METOPROLOL TARTRATE 50 MG TAB PO SCH ×3 (00:14→18:05)
[2016-06-25] MEDS: SODIUM CHLOR 0.9% 1000 ML INJ 1,000 ML IV SCH ×3 (00:15→18:05)
[2016-06-25] MEDS: DILTIAZEM INJ 125 MG in SODIUM CHLORIDE 0.9% INJ 100 ML IV PRN (00:18)
[2016-06-25] MEDS: methylPREDNISolone SOD SUCC 40 MG/1 ML VIAL IV PUSH SCH ×3 (06:23→21:13)
[2016-06-25] MEDS: HEPARIN SODIUM - SQ 10,000 UNITS/ML VIAL SQ SCH ×3 (06:24→21:13)
[2016-06-25 07:56] LABS: AUTOMATED NEUTROPHIL # 12.8 TH/MM3 (1.8-7.7); BASOPHIL % 0.1 % (0.0-2.0); EOSINOPHIL % 0.1 % (0.0-4.0); HEMATOCRIT 33.4 % (39.0-51.0); LYMPH % 2.1 % (9.0-44.0); LYMPHOCYTE # 0.3 TH/MM3 (1.0-4.8); MEAN CELL VOLUME 86.9 FL (80.0-100.0); MEAN CORPUSCULAR HEMOGLOBIN 27.7 PG (27.0-34.0); MEAN CORPUSCULAR HGB CONC 31.9 % (32.0-36.0); MONO % 3.4 % (0.0-8.0); NEUT % 94.3 % (16.0-70.0); PLATELET COUNT 46 TH/MM3 (150-450); RED BLOOD COUNT 3.85 MIL/MM3 (4.50-5.90); RED CELL DISTRIBUTION WIDTH 20.1 % (11.6-17.2); WHITE BLOOD COUNT 13.6 TH/MM3 (4.0-11.0)
[2016-06-25 08:03] LABS: APTT (PATIENT) 24.4 SEC (24.3-30.1); INTERNATIONAL NORMALIZED RATIO 1.1 RATIO; PROTHROMBIN TIME - PATIENT 11.9 SEC (9.8-11.6)
[2016-06-25 08:06] LABS: HEMO FLAGS AUTO DIFF
[2016-06-25] MEDS: DILTIAZEM HCL 90 MG TAB PO SCH ×4 (08:35→21:14)
[2016-06-25] MEDS: HALOPERIDOL 5 MG TAB PO SCH ×2 (08:35→21:14)
[2016-06-25] MEDS: SODIUM CHLORIDE 0.9% FLUSH 5 ML FLUSH FLUSH SCH ×2 (08:36→21:16)
[2016-06-25] MEDS: PANTOPRAZOLE SODIUM 40 MG VIAL IV PUSH SCH (08:36)
[2016-06-25] MEDS: BUDESONIDE-FORMOTEROL 160/4.5 MCG INHALER INH SCH ×2 (08:36→21:14)
[2016-06-25] MEDS: DOCUSATE SODIUM 100 MG CAP PO SCH ×2 (08:36→21:14)
[2016-06-25 09:22] LABS: HELMET CELLS OCC (NORMAL)
[2016-06-25 09:23] LABS: ACANTHOCYTES OCC (NORMAL); BURR CELLS 1+ (NORMAL); KERATOCYTES OCC (NORMAL); OVALOCYTES 1+ (NORMAL)
[2016-06-25 09:24] LABS: PLATELET ESTIMATE SMEAR LOW (NORMAL); PLATELET MORPHOLOGY NORMAL (NORMAL); SCAN/DIFF AUTO DIFF CONFIRMED
--- NOTE | 2016-06-25 10:29 | PD.ONC.PN ---
Subjective Subjective Remarks Afebrile overnight. patient resting upright in bed, watching TV. No family members at bedside. Objective Data Date Time Temp Pulse Resp B/P Pulse Ox O2 Delivery O2 Flow Rate FiO2 06/25/16 09:00 Nasal Cannula 2.00 06/25/16 08:00 97.0 130 20 153/77 94 06/25/16 04:07 97.4 131 24 153/71 94 06/24/16 23:32 97.5 71 18 137/64 95 06/24/16 21:23 Nasal Cannula 2.00 06/24/16 20:20 88 06/24/16 19:25 97.5 100 18 117/61 95 06/24/16 16:00 97.3 63 20 127/60 95 06/24/16 11:07 97.8 95 18 143/65 96 06/25/16 06/25/16 06/25/16 07:00 15:00 23:00 Intake Total 0 ml Balance 0 ml Result Diagram: 06/25/16 0620 06/22/16 0935 Laboratory Results Laboratory Tests Test 06/24/16 06/25/16 11:41 06:20 Hepatitis A IgM Antibody NEGATIVE Hepatitis B Surface Antigen NEGATIVE Hepatitis B Core IgM Antibody NEGATIVE Hepatitis C Antibody NEGATIVE White Blood Count 13.6 TH/MM3 Red Blood Count 3.85 MIL/MM3 Hemoglobin 10.7 GM/DL Hematocrit 33.4 % Mean Corpuscular Volume 86.9 FL Mean Corpuscular Hemoglobin 27.7 PG Mean Corpuscular Hemoglobin 31.9 % Concent Red Cell Distribution Width 20.1 % Platelet Count 46 TH/MM3 Mean Platelet Volume 10.4 FL Neutrophils (%) (Auto) 94.3 % Lymphocytes (%) (Auto) 2.1 % Monocytes (%) (Auto) 3.4 % Eosinophils (%) (Auto) 0.1 % Basophils (%) (Auto) 0.1 % Neutrophils # (Auto) 12.8 TH/MM3 Lymphocytes # (Auto) 0.3 TH/MM3 Monocytes # (Auto) 0.5 TH/MM3 Eosinophils # (Auto) 0.0 TH/MM3 Basophils # (Auto) 0.0 TH/MM3 CBC Comment AUTO DIFF Differential Comment AUTO DIFF CONFIRMED Platelet Estimate LOW Platelet Morphology Comment NORMAL Ovalocytes 1+ Helmet Cells OCC Nicky Cells 1+ Acanthocytes OCC Keratocytes OCC Prothrombin Time 11.9 SEC Prothromb Time International 1.1 RATIO Ratio Activated Partial 24.4 SEC Thromboplast Time Fibrinogen 146 mg/dL Administered Medications Medications (Trade) Dose Ordered Sig/Brock Route PRN Reason Start Time Stop Time Status Last Admin Dose Admin IV Flush (NS Flush) 2 ml BID FLUSH 06/12/16 21:00 06/24/16 09:00 Atorvastatin Calcium (Lipitor) 80 mg HS PO 06/12/16 21:00 06/24/16 21:14 Docusate Sodium (Colace) 100 mg BID PO 06/12/16 21:00 06/25/16 08:36 Budesonide/ Formoterol Fumarate (Symbicort 160-4.5 Inh) 2 puff BID INH 06/12/16 21:00 06/25/16 08:36 Mirtazapine 15 mg 15 mg HS PO 06/13/16 21:00 06/24/16 21:14 Diltiazem HCl/ Sodium Chloride (Cardizem Inj/NS Inj) 125 ml @ 0 mls/hr TITRATE PRN IV RVR > 120 for 20 mins 06/13/16 16:00 06/25/16 00:18 Pantoprazole Sodium (Protonix Inj) 40 mg DAILY IV PUSH 06/18/16 11:00 06/25/16 08:36 Apixaban (Eliquis) 5 mg BID PO 06/19/16 21:00 Hold 06/20/16 09:35 Heparin Sodium (Porcine) (Heparin Inj) 5,000 units Q8HR SQ 06/20/16 22:00 06/25/16 06:24 Diltiazem HCl (Cardizem) 90 mg QID PO 06/21/16 09:00 06/25/16 08:35 Haloperidol Lactate (Haldol Inj) 5 mg Q6H PRN IM AGITATION 06/22/16 15:00 06/23/16 00:43 Haloperidol 5 mg 5 mg BID PO 06/22/16 21:00 06/25/16 08:35 Sodium Chloride (NS 1000 ml Inj) 1,000 ml @ 125 mls/hr Q8H IV 06/22/16 19:00 06/25/16 08:41 Methylprednisolone Sodium Succinate (SoluMEDROL INJ) 40 mg Q8HR IV PUSH 06/23/16 14:00 06/25/16 06:23 Metoprolol Tartrate (Lopressor) 50 mg Q8H PO 06/23/16 17:00 06/25/16 08:35 Objective Remarks GENERAL: MIddle aged male, sitting up in bed in nad SKIN: Warm and dry. HEAD: Normocephalic. EYES: No scleral icterus. No injection or drainage. NECK: Supple, trachea midline. CARDIOVASCULAR: Regular rate and rhythm RESPIRATORY: anterior garcia clear. GASTROINTESTINAL: Abdomen soft, non-tender, nondistended. EXTREMITIES: No cyanosis NEUROLOGICAL: awake. expressive aphasia. able to move extremities. Assessment/Plan Problem List: (1) Thrombocytopenia Status: Acute Plan: --continue solu-medrol 40mg IV to q8--will consider decreasing this tomorrow if no bleeding/symptoms and platelet count remaining around baseline --awaiting APA panel, ceruloplasmin --reported h/o ITP --h/o thrombocytopenia dating back to 2015--[facility] patient--neg. BMB --baseline reportedly around 45K (per ) (2) Acute ischemic left MCA stroke Status: Acute Plan: -- hold Eliquis, continue heparin prophylaxis -- Multiple bruises to arms. (3) Consumption coagulopathy Status: Acute Plan: --monitor coags --await antiphospholipid antibody panel Assessment 55y/o male s/p stroke. Hematology consulted for thrombocytopenia H[facility] developed [facility] and af[facility], transferred to the med/surg +recurrent strokes since January of 2016--was on Eliquis Chronic obstructive pulmonary disease. Obstructive sleep apnea. Hypertension. Hyperlipidemia. Coronary artery disease--h/o cardiac cath Paroxysmal atrial fibrillation. History of testicular cancer treated in his 40s with radiation and orchiectomy Restless leg syndrome. Arthritis. ITP. Plan 1. continue solu-medrol 2. monitor CBC, coags Attending Statement The exam, history, and the medical decision-making described in the above note were completed with the assistance of the mid-level provider. I reviewed and agree with the findings presented. I attest that I had a [id number] encounter with the patient on the same day, and personally performed and documented my assessment and findings in the medical record. CT did not show splenomegaly or cirrhosis. Platelet is stable. Fibrinogen trended up after the transfusion. Get CT chest. Continue heparin. Monitor CBC. Slowly taper solumedrol Michelle Jerez Jun 25, 2016 10:29 Skyler Limon MD Jun 25, 2016 17:22
--- NOTE | 2016-06-25 17:14 | HHI.PR ---
Subjective Remarks Follow up for Atrial flutter with RVR, thrombocytopenia. Mr. Muhammad gets frustrated, understandably, while trying to communicate. He mumbles words but extremely difficult to understand. Remains afebrile. Heart rate has been higher than 110 again. Objective Vitals Vital Signs Date Time Temp Pulse Resp B/P Pulse Ox O2 Delivery O2 Flow Rate FiO2 06/25/16 16:00 98.3 130 22 144/67 94 06/25/16 12:00 97.0 130 20 146/67 94 06/25/16 09:00 124 06/25/16 09:00 Nasal Cannula 2.00 06/25/16 08:00 97.0 130 20 153/77 94 06/25/16 04:07 97.4 131 24 153/71 94 06/24/16 23:32 97.5 71 18 137/64 95 06/24/16 21:23 Nasal Cannula 2.00 06/24/16 20:20 88 06/24/16 19:25 97.5 100 18 117/61 95 I/O 06/24/16 06/24/16 06/24/16 06/25/16 06/25/16 06/25/16 07:00 15:00 23:00 07:00 15:00 23:00 Intake Total 1100 ml 1223 ml 240 ml 0 ml 240 ml Balance 1100 ml 1223 ml 240 ml 0 ml 240 ml Intake Oral 100 ml 120 ml 240 ml 0 ml 240 ml IV Total 1000 ml 1103 ml # Voids 1 2 2 3 3 # Bowel Movements 0 0 0 0 0 Result Diagram: 06/25/16 0620 06/22/16 0935 Imaging Last Impressions Abdomen/Pelvis CT 06/24/16 0000 Signed Impressions: Service Date/Time: Friday, June 24, 2016 10:13 - CONCLUSION: 1. Bilateral effusions larger on the right than the left with dense consolidation in the right lower lobe and middle lobe concerning for pneumonia. CT imaging of the thorax is warranted for further assessment. 2. Small, lobulated spleen with areas of decreased attenuation suggesting prior splenic infarcts. 3. No free air or free fluid seen within the abdomen. Didier Mccrary MD Liver Ultrasound 06/23/16 0000 Signed Impressions: Service Date/Time: Thursday, June 23, 2016 10:19 - CONCLUSION: 1. Limited right upper quadrant sonogram. 2. Liver is slightly nodular could be related to early cirrhosis. 3. Spleen and common bile duct not seen. 4. Small right pleural effusion. sonogram. Johnathon Monterroso MD Soft Tissue Ultrasound 06/22/16 0600 Signed Impressions: Service Date/Time: Wednesday, June 22, 2016 11:21 - CONCLUSION: Soft-tissue swelling evident without fluid collection to suggest an abscess. Sheldon Mccrary MD FACR Objective Remarks GENERAL: AOx3, NAD. SKIN: Warm and dry. HEAD: Normocephalic. EYES: No scleral icterus. No injection or drainage. NECK: Supple, trachea midline. No JVD or lymphadenopathy. CARDIOVASCULAR: Tachycardic, regularly irregular without murmurs, gallops, or rubs. RESPIRATORY: Breath sounds equal bilaterally. No accessory muscle use. GASTROINTESTINAL: Abdomen soft, non-tender, nondistended. MUSCULOSKELETAL: No cyanosis, or edema. BACK: Nontender without obvious deformity. No CVA tenderness. Procedures None. A/P Problem List: (1) Atrial flutter with rapid ventricular response ICD Code: I48.92 Status: Acute (2) Idiopathic thrombocytopenia purpura ICD Code: D69.3 Status: Acute (3) Cognitive communication disorder ICD Code: R41.841 Status: Acute Assessment and Plan Mr. Muhammad is a 55 year old male with a history of recurrent stroke, ITP who was transferred from [facility] to medical floor due to confusion and atrial flutter with RVR on 06/13/2016. - Atrial flutter with RVR - Currently on Metoprolol 50mg Q8hrs. Currently HR < 100 - Patient is on Cardizem drip. Continue Cardizem - 90mg QID. Will try to wean off Cardizem drip. - Will discuss with Dr. Duggan to see if digoxin can be introduced to control heart rate. - Was on Apixaban. However, now on hold due to thrombocytopenia - Currently on restraints. Once patient is more cooperative, Cardioversion or Ablation may be considered. - Thrombocytopenia - Platelet count improved from 27K --> 80K --> 43K --> 46K --> 38K -- 43K -- > 46K. - Hematology is following. - History of recurrent CVA - Patient has expressive and receptive aphasia - Continue PT/OT/ST - Continue Heparin SQ 5000 units Q8hrs per hematology recommendations. - COPD Continue DuoNebs, Symbicort - Agitation - Psychiatry service evaluated pt. Continue Haldol and Seroquel. Patient is still requiring bilateral wrist restraints. Full code. Heparin 5000 units Q8hrs SQ. Fernando West DO Jun 25, 2016 5:14 pm
[2016-06-25] MEDS: ATORVASTATIN 80 MG TAB PO SCH (21:13)
[2016-06-25] MEDS: MIRTAZAPINE 15 MG TAB PO SCH (21:14)
[2016-06-26] VITALS (8 sets, daily range): BP systolic 117–143; BP diastolic 67–88; PULSE 128–134; RESP 16–20; TEMP 97.1–97.9; O2SAT 91–94
[2016-06-26] MEDS: METOPROLOL TARTRATE 50 MG TAB PO SCH ×3 (01:45→17:27)
[2016-06-26] MEDS: SODIUM CHLOR 0.9% 1000 ML INJ 1,000 ML IV SCH ×2 (01:50→11:00)
[2016-06-26] MEDS: methylPREDNISolone SOD SUCC 40 MG/1 ML VIAL IV PUSH SCH ×2 (05:59→17:27)
[2016-06-26] MEDS: HEPARIN SODIUM - SQ 10,000 UNITS/ML VIAL SQ SCH ×3 (06:02→21:25)
[2016-06-26 08:03] LABS: AUTOMATED NEUTROPHIL # 11.3 TH/MM3 (1.8-7.7); BASOPHIL % 0.1 % (0.0-2.0); HEMATOCRIT 32.9 % (39.0-51.0); LYMPH % 1.8 % (9.0-44.0); LYMPHOCYTE # 0.2 TH/MM3 (1.0-4.8); MEAN CORPUSCULAR HEMOGLOBIN 27.4 PG (27.0-34.0); MEAN CORPUSCULAR HGB CONC 32.2 % (32.0-36.0); MONO % 2.6 % (0.0-8.0); NEUT % 95.5 % (16.0-70.0); PLATELET COUNT 43 TH/MM3 (150-450); RED BLOOD COUNT 3.87 MIL/MM3 (4.50-5.90); RED CELL DISTRIBUTION WIDTH 20.9 % (11.6-17.2); WHITE BLOOD COUNT 11.8 TH/MM3 (4.0-11.0)
[2016-06-26 08:04] LABS: HEMO FLAGS AUTO DIFF
[2016-06-26 08:07] LABS: ANION GAP 11 MEQ/L (5-15); AST (GOT) 54 U/L (15-37); BICARBONATE 22.5 MEQ/L (21.0-32.0); BLOOD UREA NITROGEN 35 MG/DL (7-18); CHLORIDE 117 MEQ/L (98-107); GLOMERULAR FILTRATION RATE 89 ML/MIN (>89); POTASSIUM 3.6 MEQ/L (3.5-5.1); SODIUM (NA) 150 MEQ/L (136-145)
[2016-06-26 08:10] LABS: ALKALINE PHOSPHATASE 93 U/L (45-117); ALT (GPT) 193 U/L (12-78)
[2016-06-26 09:00] LABS: KERATOCYTES OCC (NORMAL)
[2016-06-26] MEDS: BUDESONIDE-FORMOTEROL 160/4.5 MCG INHALER INH SCH ×2 (09:00→21:26)
[2016-06-26] MEDS: SODIUM CHLORIDE 0.9% FLUSH 5 ML FLUSH FLUSH SCH ×2 (09:00→21:26)
[2016-06-26 09:01] LABS: OVALOCYTES 1+ (NORMAL); PLATELET ESTIMATE SMEAR LOW (NORMAL); PLATELET MORPHOLOGY NORMAL (NORMAL); SCAN/DIFF AUTO DIFF CONFIRMED
[2016-06-26] MEDS: DOCUSATE SODIUM 100 MG CAP PO SCH ×2 (09:41→21:25)
[2016-06-26] MEDS: PANTOPRAZOLE SODIUM 40 MG VIAL IV PUSH SCH (09:41)
[2016-06-26] MEDS: HALOPERIDOL 5 MG TAB PO SCH ×2 (09:41→21:25)
[2016-06-26] MEDS: DILTIAZEM HCL 90 MG TAB PO SCH ×4 (09:41→21:25)
--- NOTE | 2016-06-26 11:10 | HHI.PR ---
Objective Vitals Vital Signs Date Time Temp Pulse Resp B/P Pulse Ox O2 Delivery O2 Flow Rate FiO2 06/26/16 10:20 93 Nasal Cannula 4.00 06/26/16 09:00 133 06/26/16 08:00 Nasal Cannula 4.00 06/26/16 08:00 97.1 134 20 143/88 93 06/26/16 04:00 97.9 132 20 136/85 92 06/26/16 00:00 97.3 134 20 136/84 92 06/25/16 20:00 97.1 133 20 144/78 93 06/25/16 20:00 Nasal Cannula 4.00 06/25/16 19:59 134 06/25/16 16:00 98.3 130 22 144/67 94 06/25/16 12:00 97.0 130 20 146/67 94 I/O 06/25/16 06/25/16 06/25/16 06/26/16 06/26/16 06/26/16 07:00 15:00 23:00 07:00 15:00 23:00 Intake Total 0 ml 1205 ml 240 ml 240 ml Balance 0 ml 1205 ml 240 ml 240 ml Intake Oral 0 ml 240 ml 240 ml 240 ml IV Total 965 ml # Voids 3 3 2 2 # Bowel Movements 0 0 0 Result Diagram: 06/26/16 0727 06/26/16726 Imaging Last Impressions Chest CT 06/26/16 0000 Signed Impressions: Service Date/Time: Sunday, June 26, 2016 11:53 - CONCLUSION: 1. Bilateral pleural effusions larger on the right than the left. 2. Patchy air space disease in the right lower lobe. Sheldon Mccrary MD FACR Abdomen/Pelvis CT 06/24/16 0000 Signed Impressions: Service Date/Time: Friday, June 24, 2016 10:13 - CONCLUSION: 1. Bilateral effusions larger on the right than the left with dense consolidation in the right lower lobe and middle lobe concerning for pneumonia. CT imaging of the thorax is warranted for further assessment. 2. Small, lobulated spleen with areas of decreased attenuation suggesting prior splenic infarcts. 3. No free air or free fluid seen within the abdomen. Didier Mccrary MD Liver Ultrasound 06/23/16 0000 Signed Impressions: Service Date/Time: Thursday, June 23, 2016 10:19 - CONCLUSION: 1. Limited right upper quadrant sonogram. 2. Liver is slightly nodular could be related to early cirrhosis. 3. Spleen and common bile duct not seen. 4. Small right pleural effusion. sonogram. Johnathon Monterroso MD Soft Tissue Ultrasound 06/22/16 0600 Signed Impressions: Service Date/Time: Wednesday, June 22, 2016 11:21 - CONCLUSION: Soft-tissue swelling evident without fluid collection to suggest an abscess. Sheldon Mccrary MD FACR Objective Remarks GENERAL: AOx3, NAD. SKIN: Warm and dry. HEAD: Normocephalic. EYES: No scleral icterus. No injection or drainage. NECK: Supple, trachea midline. No JVD or lymphadenopathy. CARDIOVASCULAR: Tachycardic, regularly irregular without murmurs, gallops, or rubs. RESPIRATORY: Breath sounds equal bilaterally. No accessory muscle use. GASTROINTESTINAL: Abdomen soft, non-tender, nondistended. MUSCULOSKELETAL: No cyanosis, or edema. BACK: Nontender without obvious deformity. No CVA tenderness. Procedures None. A/P Problem List: (1) Atrial flutter with rapid ventricular response ICD Code: I48.92 Status: Acute (2) Idiopathic thrombocytopenia purpura ICD Code: D69.3 Status: Acute (3) Cognitive communication disorder ICD Code: R41.841 Status: Acute (4) Pneumonia ICD Code: J18.9 Status: Acute Assessment and Plan Mr. Muhammad is a 55 year old male with a history of recurrent stroke, ITP who was transferred from [facility] to medical floor due to confusion and atrial flutter with RVR on 06/13/2016. - Atrial flutter with RVR - Currently on Metoprolol 50mg Q8hrs. Currently HR < 100 - Patient is on Cardizem drip. Continue Cardizem - 90mg QID. Will try to wean off Cardizem drip. - Discussed with Dr. Duggan - will start patient on Amiodarone 400mg BID. - Was on Apixaban. However, now on hold due to thrombocytopenia - Currently on restraints. Once patient is more cooperative, Cardioversion or Ablation may be considered. - Possible aspiration pneumonia. - CT chest reviewed by me. Shows bilateral pleural effusion R>L. Right sided consolidation. - Will start patient on IV Clindamycin 600mg Q8hrs and Levaquin 750mg Qday. - Hypernatremia - Na 150 today. - D/C NS and start D5W @84cc/hour. - CBC, BMP in the AM. - Thrombocytopenia - Platelet count improved from 27K --> 80K --> 43K --> 46K --> 38K -- 43K -- > 46K. - Hematology is following. - History of recurrent CVA - Patient has expressive and receptive aphasia - Continue PT/OT/ST - Continue Heparin SQ 5000 units Q8hrs per hematology recommendations. - COPD Continue DuoNebs, Symbicort - Agitation - Psychiatry service evaluated pt. Continue Haldol and Seroquel. Patient is still requiring bilateral wrist restraints. Full code. Heparin 5000 units Q8hrs SQ. Fernando West DO Jun 26, 2016 11:10 am
--- NOTE | 2016-06-26 11:24 | PD.ONC.PN ---
Subjective Subjective Remarks Afebrile overnight. Patient resting in bed. No bleeding. No reported overnight events. Objective Data Date Time Temp Pulse Resp B/P Pulse Ox O2 Delivery O2 Flow Rate FiO2 06/26/16 10:20 93 Nasal Cannula 4.00 06/26/16 09:00 133 06/26/16 08:00 Nasal Cannula 4.00 06/26/16 08:00 97.1 134 20 143/88 93 06/26/16 04:00 97.9 132 20 136/85 92 06/26/16 00:00 97.3 134 20 136/84 92 06/25/16 20:00 97.1 133 20 144/78 93 06/25/16 20:00 Nasal Cannula 4.00 06/25/16 19:59 134 06/25/16 16:00 98.3 130 22 144/67 94 06/25/16 12:00 97.0 130 20 146/67 94 06/26/16 06/26/16 06/26/16 07:00 15:00 23:00 Intake Total 240 ml Balance 240 ml Result Diagram: 06/26/1672606/26/16 0727 Laboratory Results Laboratory Tests Test 06/26/16 07:27 White Blood Count 11.8 TH/MM3 Red Blood Count 3.87 MIL/MM3 Hemoglobin 10.6 GM/DL Hematocrit 32.9 % Mean Corpuscular Volume 85.0 FL Mean Corpuscular Hemoglobin 27.4 PG Mean Corpuscular Hemoglobin 32.2 % Concent Red Cell Distribution Width 20.9 % Platelet Count 43 TH/MM3 Mean Platelet Volume 10.4 FL Neutrophils (%) (Auto) 95.5 % Lymphocytes (%) (Auto) 1.8 % Monocytes (%) (Auto) 2.6 % Eosinophils (%) (Auto) 0.0 % Basophils (%) (Auto) 0.1 % Neutrophils # (Auto) 11.3 TH/MM3 Lymphocytes # (Auto) 0.2 TH/MM3 Monocytes # (Auto) 0.3 TH/MM3 Eosinophils # (Auto) 0.0 TH/MM3 Basophils # (Auto) 0.0 TH/MM3 CBC Comment AUTO DIFF Differential Comment AUTO DIFF CONFIRMED Platelet Estimate LOW Platelet Morphology Comment NORMAL Ovalocytes 1+ Keratocytes OCC Haptoglobin 196 MG/DL Fibrinogen 147 mg/dL Sodium Level 150 MEQ/L Potassium Level 3.6 MEQ/L Chloride Level 117 MEQ/L Carbon Dioxide Level 22.5 MEQ/L Anion Gap 11 MEQ/L Blood Urea Nitrogen 35 MG/DL Creatinine 0.88 MG/DL Estimat Glomerular Filtration 89 ML/MIN Rate Random Glucose 124 MG/DL Calcium Level 7.6 MG/DL Total Bilirubin 1.0 MG/DL Aspartate Amino Transf 54 U/L (AST/SGOT) Alanine Aminotransferase 193 U/L (ALT/SGPT) Alkaline Phosphatase 93 U/L Total Protein 5.9 GM/DL Albumin 2.7 GM/DL Imaging Studies Last Impressions Abdomen/Pelvis CT 06/24/16 0000 Signed Impressions: Service Date/Time: Friday, June 24, 2016 10:13 - CONCLUSION: 1. Bilateral effusions larger on the right than the left with dense consolidation in the right lower lobe and middle lobe concerning for pneumonia. CT imaging of the thorax is warranted for further assessment. 2. Small, lobulated spleen with areas of decreased attenuation suggesting prior splenic infarcts. 3. No free air or free fluid seen within the abdomen. Didier Mccrary MD Liver Ultrasound 06/23/16 0000 Signed Impressions: Service Date/Time: Thursday, June 23, 2016 10:19 - CONCLUSION: 1. Limited right upper quadrant sonogram. 2. Liver is slightly nodular could be related to early cirrhosis. 3. Spleen and common bile duct not seen. 4. Small right pleural effusion. sonogram. Johnathon Monterroso MD Soft Tissue Ultrasound 06/22/16 0600 Signed Impressions: Service Date/Time: Wednesday, June 22, 2016 11:21 - CONCLUSION: Soft-tissue swelling evident without fluid collection to suggest an abscess. Sheldon Mccrary MD FACR Administered Medications Medications (Trade) Dose Ordered Sig/Brock Route PRN Reason Start Time Stop Time Status Last Admin Dose Admin IV Flush (NS Flush) 2 ml BID FLUSH 06/12/16 21:00 06/26/16 09:00 Acetaminophen (Tylenol) 650 mg Q4H PRN PO TEMP > 100.4 06/12/16 20:15 06/25/16 12:44 Atorvastatin Calcium (Lipitor) 80 mg HS PO 06/12/16 21:00 06/25/16 21:13 Docusate Sodium (Colace) 100 mg BID PO 06/12/16 21:00 06/26/16 09:41 Budesonide/ Formoterol Fumarate (Symbicort 160-4.5 Inh) 2 puff BID INH 06/12/16 21:00 06/26/16 09:00 Mirtazapine 15 mg 15 mg HS PO 06/13/16 21:00 06/25/16 21:14 Diltiazem HCl/ Sodium Chloride (Cardizem Inj/NS Inj) 125 ml @ 0 mls/hr TITRATE PRN IV RVR > 120 for 20 mins 06/13/16 16:00 06/25/16 00:18 Pantoprazole Sodium (Protonix Inj) 40 mg DAILY IV PUSH 06/18/16 11:00 06/26/16 09:41 Apixaban (Eliquis) 5 mg BID PO 06/19/16 21:00 Hold 06/20/16 09:35 Heparin Sodium (Porcine) (Heparin Inj) 5,000 units Q8HR SQ 06/20/16 22:00 06/26/16 06:02 Diltiazem HCl (Cardizem) 90 mg QID PO 06/21/16 09:00 06/26/16 09:41 Haloperidol Lactate (Haldol Inj) 5 mg Q6H PRN IM AGITATION 06/22/16 15:00 06/23/16 00:43 Haloperidol 5 mg 5 mg BID PO 06/22/16 21:00 06/26/16 09:41 Sodium Chloride (NS 1000 ml Inj) 1,000 ml @ 125 mls/hr Q8H IV 06/22/16 19:00 06/26/16 11:00 Metoprolol Tartrate (Lopressor) 50 mg Q8H PO 06/23/16 17:00 06/26/16 09:41 Objective Remarks GENERAL: Chronically ill male, sitting upright in bed in [facility]. SKIN: Warm and dry. scattered bruising on lower extremities. HEAD: Normocephalic. EYES: No injection or drainage. NECK: Supple, trachea midline. CARDIOVASCULAR: Regular rate and rhythm RESPIRATORY: anterior garcia clear. GASTROINTESTINAL: Abdomen soft, non-tender, nondistended. EXTREMITIES: No cyanosis NEUROLOGICAL: awake and alert. continues to have expressive aphasia. 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 BMB --baseline reportedly around 45K (per ) (2) Acute ischemic left MCA stroke Status: Acute Plan: -- hold Eliquis, continue heparin prophylaxis -- Multiple bruises to arms. (3) Consumption coagulopathy Status: Acute Plan: --monitor coags --await antiphospholipid antibody panel Assessment 55y/o male s/p stroke. Hematology consulted for thrombocytopenia HPI: [facility], developed confusion and afib, transferred to the med/surg +recurrent strokes since January of 2016--was on Eliquis Chronic obstructive pulmonary disease. Obstructive sleep apnea. Hypertension. Hyperlipidemia. Coronary artery disease--h/o cardiac cath Paroxysmal atrial fibrillation. History of testicular cancer treated in his 40s with radiation and orchiectomy Restless leg syndrome. Arthritis. ITP. Plan 1. reduce solu-medrol to BID 2. monitor CBC, coags 3. CT chest today Attending Statement The exam, history, and the medical decision-making described in the above note were completed with the assistance of the mid-level provider. I reviewed and agree with the findings presented. I attest that I had a [id number] encounter with the patient on the same day, and personally performed and documented my assessment and findings in the medical record. No bleeding noted. Platelet is stable. May have ITP and DIC. Ct showed possible PNA which maybe the cause for DIC. Recommend treatment. Taper solumedrol. Continue to monitor platelet and coags. Michelle Jerez Jun 26, 2016 11:24 Skyler Limon MD Jun 26, 2016 15:44
[2016-06-26] MEDS ORDERED: IOHEXOL 350 MG/ML 10 ML VIAL (for RAD DIAG) IV ONE (12:14)
--- NOTE | 2016-06-26 12:37 | RADRPT ---
EXAM DATE/TIME: 06/26/2016 11:53 [place] COMPARISON: No previous studies available for comparison. INDICATIONS: Pleural effusions. IV CONTRAST: 71 cc Omnipaque 350 (iohexol) IV RADIATION DOSE: 8.36 CTDIvol (mGy) MEDICAL HISTORY: Chronic obstructive pulmonary disease. Cerebrovascular disease. Hypertension. Testicular cancer SURGICAL HISTORY: None. ENCOUNTER: Initial ACUITY: 1 day PAIN SCALE: 0/10 LOCATION: Bilateral chest TECHNIQUE: Volumetric scanning of the chest was performed. Using automated exposure control and adjustment of t he mA and/or kV according to patient size, radiation dose was kept as low as reasonably achievable to obtain optimal diagnostic quality images. FINDINGS: There are small bilateral pleural effusions larger on the right than the left. Patchy air space dise ase is seen in the right lung. Left lung is reasonably clear. Minimal nonspecific mediastinal adenopathy is present. Heart is enlarged. There is no axillary adenopathy. There is no central pulmonary emboli. Portion of liver and spleen identified are free of focal defects. CONCLUSION: 1. Bilateral pleural effusions larger on the right than the left. 2. Patchy air space disease in the right lower lobe. Sheldon Mccrary MD FACR on June 26, 2016 at 12:20 Board Certified Radiologist. This report was verified electronically.
[2016-06-26] MEDS: AMIODARONE 200 MG TAB PO SCH ×2 (12:51→21:25)
[2016-06-26] MEDS ORDERED: LEVOFLOXACIN 750 MG PREMIX INJ 150 ML IV SCH (15:00)
[2016-06-26] MEDS: DILTIAZEM INJ 125 MG in SODIUM CHLORIDE 0.9% INJ 100 ML IV PRN (15:08)
[2016-06-26] MEDS ORDERED: CLINDAMYCIN INJ 300 MG in SODIUM CHLORIDE 0.9% INJ 100 ML IV SCH (16:00)
[2016-06-26] MEDS: DEXTROSE 5% IN WATE 1000ML INJ 1,000 ML IV SCH (16:21)
[2016-06-26 17:51] LABS: THROMBIN TIME FOR LA ND sec (13-19)
[2016-06-26] MEDS: MIRTAZAPINE 15 MG TAB PO SCH (21:25)
[2016-06-26] MEDS: ATORVASTATIN 80 MG TAB PO SCH (21:25)
[2016-06-27] VITALS (14 sets, daily range): BP systolic 72–134; BP diastolic 48–79; PULSE 45–129; RESP 18–22; TEMP 97.4–98.3; O2SAT 76–100
[2016-06-27] MEDS: CLINDAMYCIN INJ 600 MG in SODIUM CHLORIDE 0.9% INJ 100 ML IV SCH ×2 (00:43→08:56)
[2016-06-27] MEDS: METOPROLOL TARTRATE 50 MG TAB PO SCH ×2 (00:44→08:55)
[2016-06-27] MEDS: DILTIAZEM INJ 125 MG in SODIUM CHLORIDE 0.9% INJ 100 ML IV PRN (01:25)
[2016-06-27] MEDS: DEXTROSE 5% IN WATE 1000ML INJ 1,000 ML IV SCH (01:28)
[2016-06-27] MEDS: HEPARIN SODIUM - SQ 10,000 UNITS/ML VIAL SQ SCH ×3 (05:35→21:22)
[2016-06-27] MEDS: methylPREDNISolone SOD SUCC 40 MG/1 ML VIAL IV PUSH SCH ×2 (05:35→18:14)
[2016-06-27 07:02] LABS: AUTOMATED NEUTROPHIL # 11.4 TH/MM3 (1.8-7.7); BASOPHIL % 0.2 % (0.0-2.0); HEMATOCRIT 30.3 % (39.0-51.0); LYMPH % 1.8 % (9.0-44.0); LYMPHOCYTE # 0.2 TH/MM3 (1.0-4.8); MEAN CELL VOLUME 85.5 FL (80.0-100.0); MEAN CORPUSCULAR HEMOGLOBIN 27.8 PG (27.0-34.0); MEAN CORPUSCULAR HGB CONC 32.5 % (32.0-36.0); MONO % 3.5 % (0.0-8.0); NEUT % 94.5 % (16.0-70.0); PLATELET COUNT 41 TH/MM3 (150-450); RED BLOOD COUNT 3.54 MIL/MM3 (4.50-5.90)
[2016-06-27 07:05] LABS: HEMO FLAGS AUTO DIFF; WHITE BLOOD COUNT 12.1 TH/MM3 (4.0-11.0)
[2016-06-27 07:06] LABS: BICARBONATE 16.9 MEQ/L (21.0-32.0); POTASSIUM 3.9 MEQ/L (3.5-5.1)
[2016-06-27 07:39] LABS: PLATELET ESTIMATE SMEAR LOW (NORMAL); PLATELET MORPHOLOGY ENLARGED (NORMAL); SCAN/DIFF AUTO DIFF CONFIRMED
[2016-06-27] MEDS: DILTIAZEM HCL 90 MG TAB PO SCH (08:54)
[2016-06-27] MEDS: HALOPERIDOL 5 MG TAB PO SCH (08:54)
[2016-06-27] MEDS: BUDESONIDE-FORMOTEROL 160/4.5 MCG INHALER INH SCH ×2 (08:55→21:00)
[2016-06-27] MEDS: DOCUSATE SODIUM 100 MG CAP PO SCH ×2 (08:55→21:00)
[2016-06-27] MEDS: PANTOPRAZOLE SODIUM 40 MG VIAL IV PUSH SCH (08:55)
[2016-06-27] MEDS: AMIODARONE 200 MG TAB PO SCH (08:55)
[2016-06-27] MEDS: SODIUM CHLORIDE 0.9% FLUSH 5 ML FLUSH FLUSH SCH ×2 (08:56→21:23)
--- NOTE | 2016-06-27 11:30 | HHI.PR ---
Subjective Remarks Follow up for Atrial flutter with RVR, thrombocytopenia, pneumonia. Mr. Muhammad resting in bed. Very difficult to communicate. No fever, chills. This morning, his heart rate is better controlled. He has been off any restraints since 7PM 06/26/2016. Objective Vitals Vital Signs Date Time Temp Pulse Resp B/P Pulse Ox O2 Delivery O2 Flow Rate FiO2 06/27/16 08:00 97.5 81 18 134/70 93 06/27/16 04:00 127 06/27/16 04:00 97.4 127 20 119/79 93 06/27/16 00:00 97.4 128 20 126/73 95 06/27/16 00:00 129 06/26/16 20:45 Nasal Cannula 4.00 06/26/16 20:00 97.4 128 20 117/67 94 06/26/16 16:00 97.5 132 16 130/74 94 06/26/16 12:00 97.2 130 20 124/73 91 I/O 06/26/16 06/26/16 06/26/16 06/27/16 06/27/16 06/27/16 07:00 15:00 23:00 07:00 15:00 23:00 Intake Total 240 ml 2014 ml 240 ml 100 ml Balance 240 ml 2014 ml 240 ml 100 ml Intake Oral 240 ml 780 ml 240 ml 100 ml IV Total 1234 ml # Voids 2 2 1 2 # Bowel Movements 0 1 0 0 Result Diagram: 06/27/16 0615 06/27/16 0615 Imaging Last Impressions Chest CT 06/26/16 0000 Signed Impressions: Service Date/Time: Sunday, June 26, 2016 11:53 - CONCLUSION: 1. Bilateral pleural effusions larger on the right than the left. 2. Patchy air space disease in the right lower lobe. Sheldon Mccrary MD FACR Abdomen/Pelvis CT 06/24/16 0000 Signed Impressions: Service Date/Time: Friday, June 24, 2016 10:13 - CONCLUSION: 1. Bilateral effusions larger on the right than the left with dense consolidation in the right lower lobe and middle lobe concerning for pneumonia. CT imaging of the thorax is warranted for further assessment. 2. Small, lobulated spleen with areas of decreased attenuation suggesting prior splenic infarcts. 3. No free air or free fluid seen within the abdomen. Didier Mccrary MD Liver Ultrasound 06/23/16 0000 Signed Impressions: Service Date/Time: Thursday, June 23, 2016 10:19 - CONCLUSION: 1. Limited right upper quadrant sonogram. 2. Liver is slightly nodular could be related to early cirrhosis. 3. Spleen and common bile duct not seen. 4. Small right pleural effusion. sonogram. Johnathon Monterroso MD Soft Tissue Ultrasound 06/22/16 0600 Signed Impressions: Service Date/Time: Wednesday, June 22, 2016 11:21 - CONCLUSION: Soft-tissue swelling evident without fluid collection to suggest an abscess. Sheldon Mccrary MD FACR Objective Remarks GENERAL: AOx3, NAD. SKIN: Warm and dry. HEAD: Normocephalic. EYES: No scleral icterus. No injection or drainage. NECK: Supple, trachea midline. No JVD or lymphadenopathy. CARDIOVASCULAR: Tachycardic, regularly irregular without murmurs, gallops, or rubs. RESPIRATORY: Breath sounds equal bilaterally. No accessory muscle use. GASTROINTESTINAL: Abdomen soft, non-tender, nondistended. MUSCULOSKELETAL: No cyanosis, or edema. BACK: Nontender without obvious deformity. No CVA tenderness. Procedures None. A/P Problem List: (1) Atrial flutter with rapid ventricular response ICD Code: I48.92 Status: Acute (2) Idiopathic thrombocytopenia purpura ICD Code: D69.3 Status: Acute (3) Cognitive communication disorder ICD Code: R41.841 Status: Acute (4) Pneumonia ICD Code: J18.9 Status: Acute Assessment and Plan Mr. Muhammad is a 55 year old male with a history of recurrent stroke, ITP who was transferred from [facility] to medical floor due to confusion and atrial flutter with RVR on 06/13/2016. - Atrial flutter with RVR - Currently on Metoprolol 50mg Q8hrs. Currently HR < 100 - Patient is on Cardizem drip. Continue Cardizem - 90mg QID. Will try to wean off Cardizem drip. - Discussed with Dr. Duggan on 06/26/2016 - Continue Amiodarone 400mg BID. - Was on Apixaban. However, now on hold due to thrombocytopenia - Currently on restraints. Once patient is more cooperative, Cardioversion or Ablation may be considered. - Possible aspiration pneumonia. - CT chest reviewed by me on 06/26/2016. Shows bilateral pleural effusion R>L. Right sided consolidation. - Continue IV Clindamycin 600mg Q8hrs and Levaquin 750mg Qday. - Labs today --> WBC 12.1, Neutrophil 94.5%. - Hypernatremia - Continue D5W @84cc/hour. - Sodium 150 --> 147. Continue D5W. - Thrombocytopenia - Platelet count 41K today. - Hematology is following. - History of recurrent CVA - Patient has expressive and receptive aphasia - Continue PT/OT/ST - Continue Heparin SQ 5000 units Q8hrs per hematology recommendations. - COPD Continue DuoNebs, Symbicort - Agitation - Psychiatry service evaluated pt. Continue Haldol and Seroquel. Full code. Heparin 5000 units Q8hrs SQ. Fernando West DO Jun 27, 2016 11:30 am
[2016-06-27] MEDS ORDERED: ATROPINE SULFATE 1 MG/ML VIAL ONE ×2 (12:06→12:07)
[2016-06-27] MEDS ORDERED: GLUCAGON 1 MG/ML VIAL ONE (12:09)
[2016-06-27] MEDS ORDERED: EPINEPHrine HCL (1:1000) 1 MG/ML VIAL ONE (12:13)
[2016-06-27 12:28] LABS: BLOOD GAS BASE EXCESS -14.5 mmol/L (-2-2); BLOOD GAS CARBOXYHEMOGLOBIN 1.6 % (0-4); BLOOD GAS HCO3 10 mmol/L (22-26); BLOOD GAS METHEMOGLOBIN 1.4 % (0-2); BLOOD GAS O2 HGB SATURATION 89 % (90-100); BLOOD GAS OXYGEN CONTENT 11.8 Vol % (12.0-20.0); BLOOD GAS PCO2 19 mmHg (38-42); BLOOD GAS PO2 77 mmHg (61-120); BLOOD GAS TOTAL HGB 9.3 G/DL (12.0-16.0); TEMP CORR TO 98.6
[2016-06-27 12:29] LABS: CRITICAL VALUE YES; DRAW SITE LT RADIAL; FIO2 100 %; LITER FLOW 15 L/M; NUMBER OF ARTERIAL PUNCTURES 2; STAT YES; ULNAR PULSE PRESENT
[2016-06-27] MEDS ORDERED: SODIUM BICARBONATE 8.4% INJ 50 ML ONE (12:29)
[2016-06-27] MEDS ORDERED: ATROPINE SULFATE 1 MG/10 ML SYRINGE ONE (12:29)
[2016-06-27 13:41] LABS: BLOOD GAS BASE EXCESS -10.7 mmol/L (-2-2); BLOOD GAS CARBOXYHEMOGLOBIN 2.1 % (0-4); BLOOD GAS HCO3 13 mmol/L (22-26); BLOOD GAS METHEMOGLOBIN 0.7 % (0-2); BLOOD GAS O2 HGB SATURATION 95 % (90-100); BLOOD GAS OXYGEN CONTENT 12.7 Vol % (12.0-20.0); BLOOD GAS PCO2 22 mmHg (38-42); BLOOD GAS PO2 94 mmHg (61-120); BLOOD GAS TOTAL HGB 9.4 G/DL (12.0-16.0); CRITICAL VALUE YES; DRAW SITE ART LINE; FIO2 100 %; LITER FLOW 15 L/M; STAT YES; TEMP CORR TO 98.6; ULNAR PULSE PRESENT
[2016-06-27 13:44] LABS: HEMATOCRIT 31.2 % (39.0-51.0); MEAN CELL VOLUME 86.6 FL (80.0-100.0); MEAN CORPUSCULAR HEMOGLOBIN 27.5 PG (27.0-34.0); MEAN CORPUSCULAR HGB CONC 31.7 % (32.0-36.0); PLATELET COUNT 29 TH/MM3 (150-450); RED BLOOD COUNT 3.61 MIL/MM3 (4.50-5.90)
[2016-06-27] MEDS ORDERED: Vancomycin Consult Pharmacy 1 EA OTHER SCH (13:45)
[2016-06-27 13:50] LABS: REVIEW FLAG FINAL
[2016-06-27 13:58] LABS: BICARBONATE 16.8 MEQ/L (21.0-32.0); MAGNESIUM 2.7 MG/DL (1.5-2.5); POTASSIUM 3.9 MEQ/L (3.5-5.1)
[2016-06-27] MEDS ORDERED: MAGNESIUM OXIDE 400 MG TAB PO PRN (14:00)
[2016-06-27] MEDS ORDERED: MAGNESIUM SULFATE INJ 2 GM in SODIUM CHLORIDE 0.9% INJ 96 ML IV PRN (14:00)
[2016-06-27] MEDS ORDERED: POTASSIUM PHOSPHATE MONOBASIC 500 MG TAB PO/TUBE PRN (14:00)
[2016-06-27] MEDS ORDERED: POTASSIUM CHLOR 20 MEQ PREMIX 100 ML IV PRN ×2 (14:00)
[2016-06-27] MEDS ORDERED: POTASSIUM CHLOR 40 MEQ PREMIX 100 ML IV PRN ×2 (14:00)
[2016-06-27] MEDS ORDERED: MAGNESIUM SULFATE INJ 4 GM in SODIUM CHLORIDE 0.9% INJ 92 ML IV PRN (14:00)
[2016-06-27] MEDS ORDERED: RESP: ALBUTEROL 2.5 MG/IPRATROPIUM 0.5 MG NEB (PRN) INH (14:00)
[2016-06-27] MEDS ORDERED: POTASSIUM CL 40 MEQ/30 ML LIQ UDC PO/TUBE PRN ×2 (14:00)
[2016-06-27] MEDS ORDERED: SODIUM PHOSPHATE INJ 30 MMOL in SODIUM CHLOR 0.9% 250 ML INJ 240 ML IV PRN (14:00)
[2016-06-27] MEDS ORDERED: DEXTROSE 50% IN WATER 50 ML VIAL(D50) IV PUSH PRN (14:00)
[2016-06-27] MEDS ORDERED: POTASSIUM PHOSPHATE INJ 30 MMOL in SODIUM CHLOR 0.9% 250 ML INJ 250 ML IV PRN (14:00)
[2016-06-27] MEDS ORDERED: DOPamine INJ PREMIX 500 ML IV SCH (14:00)
[2016-06-27] MEDS ORDERED: POTASSIUM PHOSPHATE MONOBASIC 500 MG TAB PO PRN (14:00)
--- NOTE | 2016-06-27 14:00 | PD.CONS ---
[facility] Service Critical Care Medicine Consult Requested By Dr. West Reason for Consult symptomatic bradycardia Primary Care Physician No Primary Care Physician History of Present Illness This is a 50-year-old male who has had a chronic downtrending course since January when he sustained 6 strokes. He was most recently admitted from rehabilitation on 04/11 for worsening agitation, altered mental status, atrial fibrillation with rapid ventricular response. Since that time, his mental status is not improved and to his his declined. This morning he is agitated, pulling off his clothes. His states that he is more cooperative usually. He is also more hypoxic today, requiring increasing FiO2. In discussing the case with Dr. West, his rapid ventricular response is been very difficult to control the last few days. Dr. James has been increasing his AV lissa blocking agents and added amiodarone to his diltiazem and metoprolol. He presents as a rapid response for a HR in the 30s with hypotension. When I evaluated the patient when he arrived in the [facility], he was agitated. His HR was in the 30s. Atropine and epinephrine were given to raise the heart rate and a dopamine drip was started. We also emergently gave glucagon with only mild improvements in HR. At that time we could not obtain a NIBP, so I placed a radial arterial line (please see separate procedure note for details). Critical care medicine is consulted to evaluate and manage his symptomatic bradycardia and acute agitated delirium. Review of Systems ROS Limitations: Clinical Condition, Altered Mental Status, Uncooperative, Combative Past Family Social History Allergies: Coded Allergies: No Known Allergies (Unverified , 04/16/16) Past Medical History Patient is unable to provide a past medical history. Per chart review: COPD Obstructive sleep apnea Anxiety Hypertension Hyperlipidemia CAD Paroxysmal A. fib on Eliquis Recurrent strokes Arthritis ITP Previous testicular cancer with radiation Restless leg syndrome Past Surgical History Patient is unable to provide a past surgical history. Per chart review: Cardiac catheterization and bone marrow Reported Medications Patient is unable to provide a list of home medications. Per chart review: Prednisone 20 mg twice a day Tylenol 650 mg every 4 hours when necessary Apixaban 5 mg by mouth twice a day Quetiapine 25 mg twice a day Advair discus 250/50 g 2 puffs twice a day DuoNeb 4 times a day nebulization Sotalol 80 mg twice a day Diltiazem CD 240 mg by mouth daily Atorvastatin 80 mg daily at bedtime Nitroglycerin 0.3 mg sublingual when necessary for chest pain Doxycycline 100 mg twice a day Active Ordered Medications See MAR Family History CAD and CVA Social History Patient is unable to provide past social history. Per chart review: Occasional alcohol use Former smoker Denies illicit drug use Physical Exam Vital Signs Vital Signs Date Time Temp Pulse Resp B/P Pulse Ox O2 Delivery O2 Flow Rate FiO2 06/27/16 13:53 Non-Rebreather 15.00 100 06/27/16 12:05 76 Nasal Cannula 3.00 06/27/16 12:00 90 15.00 100 06/27/16 11:50 45 22 72/48 80 06/27/16 08:00 110 06/27/16 08:00 115 06/27/16 08:00 93 Nasal Cannula 4.00 21 06/27/16 08:00 97.5 81 18 134/70 93 06/27/16 04:00 127 06/27/16 04:00 97.4 127 20 119/79 93 06/27/16 00:00 97.4 128 20 126/73 95 06/27/16 00:00 129 06/26/16 20:45 Nasal Cannula 4.00 06/26/16 20:00 97.4 128 20 117/67 94 06/26/16 16:00 97.5 132 16 130/74 94 Physical Exam GENERAL: Middle-aged male, lying in bed, severe distress HEENT: Pupils 3 mm, equal, reactive, conjugate. Mucous membranes are moist. NECK: Appeared prevents evaluation of JVD. Trachea is midline. CHEST: Moderate tachypnea. Using some accessory muscles. On partial nonrebreather. Lungs are clear to auscultation. CARDIOVASCULAR: Bradycardic rate irregularly irregular rhythm. No appreciable murmurs. ABDOMEN: Soft, obese, nontender, nondistended. No guarding. Ecchymosis over right lower quadrant. MUSCULOSKELETAL: Distal pulses 1+. 2+ edema. NEUROLOGICAL: RASS +1. Does not follow commands. Will nod his head to some questions with much prompting. Very agitated. Moves all extremities spontaneously. Laboratory Laboratory Tests Test 06/27/16 06/27/16 06/27/16 06/27/16 06:15 12:20 13:00 13:35 White Blood Count 12.1 14.0 Red Blood Count 3.54 3.61 Hemoglobin 9.8 9.9 Hematocrit 30.3 31.2 Mean Corpuscular Volume 85.5 86.6 Mean Corpuscular Hemoglobin 27.8 27.5 Mean Corpuscular Hemoglobin 32.5 31.7 Concent Red Cell Distribution Width 21.0 21.0 Platelet Count 41 29 Mean Platelet Volume 9.1 9.6 Neutrophils (%) (Auto) 94.5 Lymphocytes (%) (Auto) 1.8 Monocytes (%) (Auto) 3.5 Eosinophils (%) (Auto) 0.0 Basophils (%) (Auto) 0.2 Neutrophils # (Auto) 11.4 Lymphocytes # (Auto) 0.2 Monocytes # (Auto) 0.4 Eosinophils # (Auto) 0.0 Basophils # (Auto) 0.0 CBC Comment AUTO DIFF Differential Comment AUTO DIFF CONFIRMED Platelet Estimate LOW Platelet Morphology Comment ENLARGED Sodium Level 147 Potassium Level 3.9 Chloride Level 118 Carbon Dioxide Level 16.9 Anion Gap 12 Blood Urea Nitrogen 40 Creatinine 0.90 Estimat Glomerular Filtration 87 Rate Random Glucose 122 Calcium Level 7.5 Blood Gas Puncture Site LT RADIAL ART LINE Blood Gas Patient Temperature 98.6 98.6 Blood Gas HCO3 10 13 Blood Gas Base Excess -14.5 -10.7 Blood Gas Oxygen Saturation 89 95 Arterial Blood pH 7.35 7.39 Arterial Blood Partial 19 22 Pressure CO2 Arterial Blood Partial 77 94 Pressure O2 Arterial Blood Oxygen Content 11.8 12.7 Arterial Blood 1.6 2.1 Carboxyhemoglobin Arterial Blood Methemoglobin 1.4 0.7 Blood Gas Hemoglobin 9.3 9.4 Oxygen Delivery Device Non-Rebreathing Non-Rebreathing Mask Mask Blood Gas Liter Flow 15 15 Blood Gas Inspired Oxygen 100 100 Result Diagram: 06/27/16 1300 06/27/16 0615 Assessment and Plan Assessment and Plan Assessment: 55yM s/p multiple prior ischemic strokes, now with acute and worsening agitated delirium and symptomatic bradycardia. From a cardiovascular standpoint, it appears that the bradycardia is related to AV lissa blockade. We will hold his AV lissa blockers and continue dopamine as this is adequately improving his HR and BP. From a delirium standpoint, this is likely multifactorial: he could have a new stroke, although he is nonfocal at this time. He is also significantly thrombocytopenic, so could have an ICH. we will order non-contrasted head CT to evaluate. Could also be from sepsis from a probable healthcare associated pneumonia, or from his acute illness in general. I agree with symptomatic control with haldol for the time being and restraints to keep the patient safe. I also had a long discussion with his at bedside. She states that he has previously had expressed that he would not want life-prolonging measures such as intubation, CPR, or permanent feeding tubes, given that his multiple strokes have left him with a quality of life he previously expressed was not optimal. She requests that he be DNR/DNI, which given my understanding of his acute and chronic course, is appropriate given his prior expressed wishes. She also states that he has been out of the hospital for less than 3 weeks since January, given his multiple acute medical problems. I did discuss the option of non-invasive PPV such as BiPAP. He is currently restrained, and I discussed the fact that if we use BiPAP as an alternative to intubation given his wishes to be DNI, he is at an increased risk of aspiration, but it may be a way to mitigate his hypoxia. She expressed understanding of the increased risk of aspiration with BiPAP and accepts that increased risk. Certainly, his multiple medical problems at this point are life-threatening, and though he is DNR/DNI, the overall medical goals remain aggressive. He remains critically ill. Active Problems: Symptomatic Bradycardia Thrombocytopenia Acute Life-threatening Agitated Delirium Acute Encephalopathy Probable Health Care Associated Pneumonia Possible Sepsis Plan: -- CT head -- 2 amps bicarb for significant metabolic acidosis with respiratory compensation and respiratory distress -- repeat ABG -- DNR/DNI -- wean o2 for goal spo2 > 90% -- broaden abx to Vanc, Cefepime, Flagyl -- send sputum, urine, blood cultures -- place gallo catheter -- send stat cbc, bmp, coags, lactate -- continue dopamine for goal HR > 60, map > 65 -- stat 2d echo to eval global function and for valvular pathology. -- hold all av lissa blocking agents. -- haldol 5mg iv q1h prn for agitation. -- avoid benzos and sedating medications as this may worsen his respiratory status. -- will not transfuse platelets unless we have a new intracerebral hemorrhage or other signs of bleeding. follow up cbc. appreciate hematology consult. This patient remains critically ill with one or more organ systems which are or may become a threat to life. I have spent in excess of 52 minutes discontinuously in the care and management of this patient. This time is exclusive of procedures, and includes, but is not limited to, evaluation of the patient, review of the medical record, discussions with family, consultants, nursing staff, or respiratory therapy, and documentation in the medical record. Code Status DNR/DNI Discussed Condition With at bedside, Dr. West, bedside RN. Rufino Stearns MD Jun 27, 2016 14:00
--- NOTE | 2016-06-27 14:07 | EC ---
Study Study Date:06/27/2016 STUDY CONCLUSIONS SUMMARY - Left ventricle: The cavity size was normal. Wall thickness was normal. Systolic function was mildly reduced. The estimated ejection fraction was in the range of 45% to 50%. Wall motion was normal; there were no regional wall motion abnormalities. - Aortic valve: Mild regurgitation. Valve area: 1.38cm^2(VTI). Valve area: 1.54cm^2 (Vmax). - Tricuspid valve: Mild regurgitation. - Pulmonary arteries: PA peak pressure: 70mm Hg (S). If LV function is below 40, please consider prescribing an ACEI or ARB or document rationale for non-use. PROCEDURE DATA STUDY STATUS: Elective. Procedure: Transthoracic echocardiography. Image quality was good. Scanning was performed from the parasternal, apical, and subcostal acoustic windows. Study completion: The patient tolerated the procedure well. Transthoracic echocardiography. M-mode, complete 2D, complete spectral Doppler, and color Doppler. Patient status: Inpatient. CARDIAC ANATOMY LEFT VENTRICLE: The cavity size was normal. Wall thickness was normal. Systolic function was mildly reduced. The estimated ejection fraction was in the range of 45% to 50%. Wall motion was normal; there were no regional wall motion abnormalities. AORTIC VALVE: mean gradient = 13 mm hg c/w mild aortic valve stenosis Trileaflet; mildly thickened, mildly calcified leaflets. Doppler: Transvalvular velocity was within the normal range. There was no stenosis. Mild regurgitation. Valve area: 1.38cm^2(VTI). Valve area: 1.54cm^2 (Vmax). Mean gradient: 17mm Hg (S). Peak gradient: 28mm Hg (S). AORTA: Aortic root: The aortic root was normal in size. MITRAL VALVE: Structurally normal valve. Doppler: Transvalvular velocity was within the normal range. There was no evidence for stenosis. Trace regurgitation. LEFT ATRIUM: The atrium was normal in size. RIGHT VENTRICLE: The cavity size was normal. Wall thickness was normal. PULMONIC VALVE: Doppler: Transvalvular velocity was within the normal range. There was no evidence for stenosis. No regurgitation. TRICUSPID VALVE: Structurally normal valve. Doppler: Transvalvular velocity was within the normal range. Mild regurgitation. PULMONARY ARTERY: The main pulmonary artery was normal-sized. Systolic pressure was within the normal range. RIGHT ATRIUM: The atrium was normal in size. PERICARDIUM: There was no pericardial effusion. SYSTEMIC VEINS: Inferior vena cava: The vessel was normal in size. BASIC MEASUREMENTS ADULT Normal Left ventricle LV internal dimension, ED, chordal level, 51.5 mm 43-52 PLAX LV internal dimension, ES, chordal level, *41.1 mm 23-38 PLAX Fractional shortening, chordal level, PLAX *20 % >29 LV posterior wall thickness, ED 13.6 mm IVS/LVPW ratio, ED 1.05 <1.3 Ventricular septum Septal thickness, ED 14.3 mm Aortic valve Leaflet separation 23 mm 15-26 Right ventricle RV internal dimension, ED, PLAX 31 mm 19-38 BASIC MEASUREMENTS ADULT Normal Aortic valve Leaflet separation 23 mm 15-26 Aorta Root diameter, ED 30 mm 20-37 Left atrium Anterior-posterior dimension, ES 37 mm 19-40 LA/aortic root ratio 1.23 DOPPLER MEASUREMENTS ADULT Normal Main pulmonary artery Pressure, S *70 mm Hg =30 Aortic valve Peak velocity, S 265 cm/s Mean velocity, S 192 cm/s VTI, S 46.8 cm Mean gradient, S 17 mm Hg Peak gradient, S 28 mm Hg Valve area, VTI 1.38 cm^2 Valve area, Vmax 1.54 cm^2 Regurgitant velocity, ED 349 cm/s Regurgitant deceleration 2290 cm/s^2 Regurgitant pressure half-time 446 ms Regurgitant gradient, ED 49 mm Hg Tricuspid valve Regurgitant peak velocity 352 cm/s Peak RV-RA gradient, S 50 mm Hg Maximal regurgitant velocity 352 cm/s Systemic veins Estimated CVP 10 mm Hg Right ventricle RV pressure, S *70 mm Hg <30 LEGEND: Mean values are shown as u=mean value. Asterisk (*) smith values outside specified normal range. Prepared and signed by Juma Flynn [id number]
[2016-06-27 14:10] LABS: BETA-HYDROXYBUTYRATE 0.17 MMOL/L (0.00-0.39); CALCIUM-PROTEIN CORRECTED 8.2 MG/DL (8.5-10.1)
[2016-06-27] MEDS ORDERED: SODIUM BICARBONATE 8.4% INJ 50 MEQ/50 ML SYR IV PUSH ONE (14:15)
--- NOTE | 2016-06-27 14:15 | PD.ONC.PN ---
Subjective Subjective Remarks Afebrile overnight. Pt currently under [facility]. Critical care team at bedside. Per RN his O2 sats and HR dropped. HR in the 30-40's and O2 sats in the 70's. BP 70/50. He is being transferred to [facility]. Objective Data Date Time Temp Pulse Resp B/P Pulse Ox O2 Delivery O2 Flow Rate FiO2 06/27/16 13:53 Non-Rebreather 15.00 100 06/27/16 12:05 76 Nasal Cannula 3.00 06/27/16 12:00 90 15.00 100 06/27/16 11:50 45 22 72/48 80 06/27/16 08:00 110 06/27/16 08:00 115 06/27/16 08:00 93 Nasal Cannula 4.00 21 06/27/16 08:00 97.5 81 18 134/70 93 06/27/16 04:00 127 06/27/16 04:00 97.4 127 20 119/79 93 06/27/16 00:00 97.4 128 20 126/73 95 06/27/16 00:00 129 06/26/16 20:45 Nasal Cannula 4.00 06/26/16 20:00 97.4 128 20 117/67 94 06/26/16 16:00 97.5 132 16 130/74 94 06/27/16 06/27/16 06/27/16 07:00 15:00 23:00 Intake Total 100 ml Balance 100 ml Result Diagram: 06/27/16 1300 06/27/16 1300 Laboratory Results Laboratory Tests Test 06/27/16 06/27/16 06/27/16 06/27/16 06:15 12:20 13:00 13:35 White Blood Count 12.1 TH/MM3 14.0 TH/MM3 Red Blood Count 3.54 MIL/MM3 3.61 MIL/MM3 Hemoglobin 9.8 GM/DL 9.9 GM/DL Hematocrit 30.3 % 31.2 % Mean Corpuscular Volume 85.5 FL 86.6 FL Mean Corpuscular Hemoglobin 27.8 PG 27.5 PG Mean Corpuscular Hemoglobin 32.5 % 31.7 % Concent Red Cell Distribution Width 21.0 % 21.0 % Platelet Count 41 TH/MM3 29 TH/MM3 Mean Platelet Volume 9.1 FL 9.6 FL Neutrophils (%) (Auto) 94.5 % Lymphocytes (%) (Auto) 1.8 % Monocytes (%) (Auto) 3.5 % Eosinophils (%) (Auto) 0.0 % Basophils (%) (Auto) 0.2 % Neutrophils # (Auto) 11.4 TH/MM3 Lymphocytes # (Auto) 0.2 TH/MM3 Monocytes # (Auto) 0.4 TH/MM3 Eosinophils # (Auto) 0.0 TH/MM3 Basophils # (Auto) 0.0 TH/MM3 CBC Comment AUTO DIFF Differential Comment AUTO DIFF CONFIRMED Platelet Estimate LOW Platelet Morphology Comment ENLARGED Sodium Level 147 MEQ/L 147 MEQ/L Potassium Level 3.9 MEQ/L 3.9 MEQ/L Chloride Level 118 MEQ/L 115 MEQ/L Carbon Dioxide Level 16.9 MEQ/L 16.8 MEQ/L Anion Gap 12 MEQ/L 15 MEQ/L Blood Urea Nitrogen 40 MG/DL 47 MG/DL Creatinine 0.90 MG/DL 1.78 MG/DL Estimat Glomerular Filtration 87 ML/MIN 40 ML/MIN Rate Random Glucose 122 MG/DL 213 MG/DL Calcium Level 7.5 MG/DL 7.2 MG/DL Blood Gas Puncture Site LT RADIAL ART LINE Blood Gas Patient Temperature 98.6 98.6 Blood Gas HCO3 10 mmol/L 13 mmol/L Blood Gas Base Excess -14.5 mmol/L -10.7 mmol/L Blood Gas Oxygen Saturation 89 % 95 % Arterial Blood pH 7.35 7.39 Arterial Blood Partial 19 mmHg 22 mmHg Pressure CO2 Arterial Blood Partial 77 mmHg 94 mmHg Pressure O2 Arterial Blood Oxygen Content 11.8 Vol % 12.7 Vol % Arterial Blood 1.6 % 2.1 % Carboxyhemoglobin Arterial Blood Methemoglobin 1.4 % 0.7 % Blood Gas Hemoglobin 9.3 G/DL 9.4 G/DL Oxygen Delivery Device Non-Rebreathing Non-Rebreathing Mask Mask Blood Gas Liter Flow 15 L/M 15 L/M Blood Gas Inspired Oxygen 100 % 100 % Magnesium Level 2.7 MG/DL Administered Medications Medications (Trade) Dose Ordered Sig/Brock Route PRN Reason Start Time Stop Time Status Last Admin Dose Admin IV Flush (NS Flush) 2 ml BID FLUSH 06/12/16 21:00 06/27/16 08:56 Acetaminophen (Tylenol) 650 mg Q4H PRN PO TEMP > 100.4 06/12/16 20:15 3/2/17 12:44 Atorvastatin Calcium (Lipitor) 80 mg HS PO 06/12/16 21:00 Hold 06/26/16 21:25 Docusate Sodium (Colace) 100 mg BID PO 06/12/16 21:00 06/27/16 08:55 Budesonide/ Formoterol Fumarate (Symbicort 160-4.5 Inh) 2 puff BID INH 06/12/16 21:00 06/27/16 08:55 Mirtazapine (Remeron) 15 mg HS PO 06/13/16 21:00 Hold 06/26/16 21:25 Pantoprazole Sodium (Protonix Inj) 40 mg DAILY IV PUSH 06/18/16 11:00 06/27/16 08:55 Apixaban (Eliquis) 5 mg BID PO 06/19/16 21:00 Hold 06/20/16 09:35 Heparin Sodium (Porcine) (Heparin Inj) 5,000 units Q8HR SQ 06/20/16 22:00 06/27/16 05:35 Diltiazem HCl (Cardizem) 90 mg QID PO 06/21/16 09:00 Hold 06/27/16 08:54 Haloperidol Lactate (Haldol Inj) 5 mg Q6H PRN IM AGITATION 06/22/16 15:00 Hold 06/23/16 00:43 Haloperidol (Haldol) 5 mg BID PO 06/22/16 21:00 Hold 06/27/16 08:54 Metoprolol Tartrate (Lopressor) 50 mg Q8H PO 06/23/16 17:00 Hold 06/27/16 08:55 Methylprednisolone Sodium Succinate (SoluMEDROL INJ) 40 mg Q12H IV PUSH 06/26/16 18:00 06/27/16 05:35 Amiodarone HCl (Cordarone) 400 mg Q12HR PO 06/26/16 12:00 Hold 06/27/16 08:55 Objective Remarks GENERAL: Acutely ill pt supine in bed. SKIN: Warm and dry. Multiple ecchymoses to BUE. HEAD: Normocephalic. EYES: No injection or drainage. NECK: Supple, trachea midline. CARDIOVASCULAR: Bradycardic RESPIRATORY: Lungs clear, decreased. GASTROINTESTINAL: Abdomen soft, non-tender, nondistended. EXTREMITIES: No cyanosis, or edema. NEUROLOGICAL: Not following commands. Pt being transferred to [facility] under [facility]. 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 BMB --baseline reportedly around 45K (per ) (2) Acute ischemic left MCA stroke Status: Acute Plan: -- hold Eliquis -- Multiple bruises to arms. (3) Consumption coagulopathy Status: Acute Plan: --monitor coags --await antiphospholipid antibody panel Assessment 55y/o male s/p stroke. Hematology consulted for thrombocytopenia HPI[facility] developed confusion and [facility]ib, transferred to the med/surg +recurrent strokes since January of 2016--was on Eliquis Chronic obstructive pulmonary disease. Obstructive sleep apnea. Hypertension. Hyperlipidemia. Coronary artery disease--h/o cardiac cath Paroxysmal atrial fibrillation. History of testicular cancer treated in his 40s with radiation and orchiectomy Restless leg syndrome. Arthritis. ITP. Plan 1. Continue solu-medrol for ITP 2. Monitor CBC, coags 3. No obvious bleeding 4. Supportive care Diamond Avendano Jun 27, 2016 14:14 Florian López MD Jun 28, 2016 13:05
[2016-06-27 14:25] LABS: APTT (PATIENT) 29.9 SEC (24.3-30.1); INTERNATIONAL NORMALIZED RATIO 1.2 RATIO; PROTHROMBIN TIME - PATIENT 13.8 SEC (9.8-11.6)
[2016-06-27] MEDS: CEFEPIME INJ 1,000 MG in SODIUM CHLORIDE 0.9% INJ 100 ML IV SCH ×2 (14:32→21:22)
[2016-06-27] MEDS: metroNIDAZOLE 500 MG INJ 100 ML IV SCH ×2 (14:32→21:23)
[2016-06-27] MEDS ORDERED: VANCOMYCIN INJ 1,950 MG in SODIUM CHLORID 0.9% 500 ML INJ 500 ML IV ONE (15:00)
[2016-06-27] MEDS ORDERED: VANCOMYCIN INJ 2,000 MG in SODIUM CHLORID 0.9% 500 ML INJ 500 ML IV ONE (16:00)
[2016-06-27] MEDS: RESP: ALBUTEROL 2.5 MG/IPRATROPIUM 0.5 MG NEB (SCH) INH ×2 (16:01→21:26)
--- NOTE | 2016-06-27 17:04 | RADRPT ---
EXAM DATE/TIME: 06/27/2016 16:30 [facility] COMPARISON: No previous studies available for comparison. INDICATIONS : Altered mental status. RADIATION DOSE: 69.15 CTDIvol (mGy) MEDICAL HISTORY : Stroke. Cardiovascular disease Carcinoma, testicular. SURGICAL HISTORY : None. ENCOUNTER: Initial ACUITY: 1 day PAIN SCALE: 5/10 LOCATION: cranial TECHNIQUE: Multiple contiguous axial images were obtained of the head. Using automated exposure control and adj ustment of the mA and/or kV according to patient size, radiation dose was kept as low as reasonably a chievable to obtain optimal diagnostic quality images. FINDINGS: There is a remote left frontal, temporal and occipital infarct with encephalomalacia seen. No signs o f acute infarct, hemorrhage or mass. Remote lacunar infarcts in the bilateral centrum semiovale A. No fractures. CONCLUSION: No acute disease. Yao Cordero MD on June 27, 2016 at 17:02 Board Certified Radiologist. This report was verified electronically.
[2016-06-27] MEDS: INSULIN NovoLIN REGULAR SUPPLEMENTAL SCALE SQ SCH (18:00)
[2016-06-27 18:35] LABS: BACTERIA, URINE RARE /hpf; MUCUS URINE MOD /lpf (OCC); SQUAMOUS EPITHELIAL CELL URINE 3 /hpf (0-5)
[2016-06-27 18:41] LABS: BLOOD, URINE MOD (NEG); COMMENT (UR) CATH-CULTURE IND; CULTURE IF INDICATED CATH CULTURE IND; GLUCOSE,URINE TRACE mg/dL (NEG); KETONE, URINE NEG (NEG); NITRITE,URINE NEG (NEG); URINE COLOR YELLOW (YELLW/STRAW)
[2016-06-27] MEDS: HALOPERIDOL LACTATE 5 MG/ML AMP IV PUSH PRN (23:09)
[2016-06-28] VITALS (15 sets, daily range): BP systolic 129–139; BP diastolic 62–71; PULSE 124–132; RESP 15–27; TEMP 97.5–99.1; O2SAT 92–100
[2016-06-28] MEDS: HALOPERIDOL LACTATE 5 MG/ML AMP IV PUSH PRN ×3 (02:07→16:04)
[2016-06-28] MEDS: metroNIDAZOLE 500 MG INJ 100 ML IV SCH ×4 (02:15→20:49)
[2016-06-28] MEDS: RESP: ALBUTEROL 2.5 MG/IPRATROPIUM 0.5 MG NEB (SCH) INH ×4 (04:27→21:10)
[2016-06-28 04:30] LABS: HEMATOCRIT 27.7 % (39.0-51.0); MEAN CORPUSCULAR HEMOGLOBIN 27.9 PG (27.0-34.0); MEAN CORPUSCULAR HGB CONC 32.4 % (32.0-36.0); PLATELET COUNT 30 TH/MM3 (150-450); RED BLOOD COUNT 3.22 MIL/MM3 (4.50-5.90); RED CELL DISTRIBUTION WIDTH 21.5 % (11.6-17.2); WHITE BLOOD COUNT 9.2 TH/MM3 (4.0-11.0)
[2016-06-28 04:33] LABS: REVIEW FLAG FINAL
[2016-06-28 05:30] LABS: BICARBONATE 22.8 MEQ/L (21.0-32.0); POTASSIUM 3.5 MEQ/L (3.5-5.1)
[2016-06-28] MEDS: INSULIN NovoLIN REGULAR SUPPLEMENTAL SCALE SQ SCH ×4 (06:00→18:00)
[2016-06-28] MEDS: methylPREDNISolone SOD SUCC 40 MG/1 ML VIAL IV PUSH SCH ×2 (06:03→18:06)
[2016-06-28] MEDS: CEFEPIME INJ 1,000 MG in SODIUM CHLORIDE 0.9% INJ 100 ML IV SCH ×3 (06:03→21:49)
[2016-06-28] MEDS: HEPARIN SODIUM - SQ 10,000 UNITS/ML VIAL SQ SCH (06:03)
--- NOTE | 2016-06-28 07:29 | HHI.CCPN ---
Subjective Remarks/Hospital Course This is a 50-year-old male who has had a chronic downtrending course since January when he sustained 6 strokes. He was most recently admitted from rehabilitation on 04/11 for worsening agitation, altered mental status, atrial fibrillation with rapid ventricular response. Since that time, his mental status is not improved and to his his declined. This morning he is agitated, pulling off his clothes. His states that he is more cooperative usually. He is also more hypoxic today, requiring increasing FiO2. In discussing the case with Dr. West, his rapid ventricular response is been very difficult to control the last few days. Dr. James has been increasing his AV lissa blocking agents and added amiodarone to his diltiazem and metoprolol. He presents as a rapid response for a HR in the 30s with hypotension. When I evaluated the patient when he arrived in the [facility], he was agitated. His HR was in the 30s. Atropine and epinephrine were given to raise the heart rate and a dopamine drip was started. We also emergently gave glucagon with only mild improvements in HR. At that time we could not obtain a NIBP, so I placed a radial arterial line (please see separate procedure note for details). Critical care medicine is consulted to evaluate and manage his symptomatic bradycardia and acute agitated delirium. Subjective 06/28: Currently on nonrebreather mask saturations 97%. Arousable but does not follow commands. Heart rate currently in the 120s/A. fib with RVR but hemodynamically stable. Objective Vital Signs Date Time Temp Pulse Resp B/P Pulse Ox O2 Delivery O2 Flow Rate FiO2 06/28/16 05:00 126 06/28/16 04:00 97.5 15 129/62 100 06/27/16 21:32 Non-Rebreather 15.00 06/27/16 19:00 100 Intake and Output 06/27/16 06/27/16 06/28/16 08:00 16:00 00:00 Intake Total 100 ml 620 ml 1193 ml Output Total 300 ml Balance 100 ml 620 ml 893 ml Result Diagram: 06/28/16 0420 06/28/16 0420 Other Results Microbiology Date/Time Procedure Status Source Growth 06/27/16 19:28 Aerobic Blood Culture Received Blood Peripheral Pending 06/27/16 19:28 Anaerobic Blood Culture Received Blood Peripheral Pending 06/27/16 18:00 Urine Culture Received Urine Catheterized Urine Pending Imaging Last Impressions Head CT 06/27/16 0000 Signed Impressions: Service Date/Time: Monday, June 27, 2016 16:30 - CONCLUSION: No acute disease. Yao Cordero MD Chest CT 06/26/16 0000 Signed Impressions: Service Date/Time: Sunday, June 26, 2016 11:53 - CONCLUSION: 1. Bilateral pleural effusions larger on the right than the left. 2. Patchy air space disease in the right lower lobe. Sheldon Mccrary MD FACR Abdomen/Pelvis CT 06/24/16 0000 Signed Impressions: Service Date/Time: Friday, June 24, 2016 10:13 - CONCLUSION: 1. Bilateral effusions larger on the right than the left with dense consolidation in the right lower lobe and middle lobe concerning for pneumonia. CT imaging of the thorax is warranted for further assessment. 2. Small, lobulated spleen with areas of decreased attenuation suggesting prior splenic infarcts. 3. No free air or free fluid seen within the abdomen. Didier Mccrary MD Liver Ultrasound 06/23/16 0000 Signed Impressions: Service Date/Time: Thursday, June 23, 2016 10:19 - CONCLUSION: 1. Limited right upper quadrant sonogram. 2. Liver is slightly nodular could be related to early cirrhosis. 3. Spleen and common bile duct not seen. 4. Small right pleural effusion. sonogram. Johnathon Monterroso MD Soft Tissue Ultrasound 06/22/16 0600 Signed Impressions: Service Date/Time: Wednesday, June 22, 2016 11:21 - CONCLUSION: Soft-tissue swelling evident without fluid collection to suggest an abscess. Sheldon Mccrary MD FACR Objective Remarks GENERAL: 55-year-old male, critically ill currently on nonrebreather mask SKIN: Warm and dry. No rash HEAD: Atraumatic. Normocephalic. EYES: Pupils equal and round about 4 mm bilaterally and reactive. No scleral icterus. No injection or drainage. ENT: No nasal bleeding or discharge. Mucous membranes pink and moist. Oropharynx without erythema or exudates NECK: Trachea midline. No JVD. CARDIOVASCULAR: Tachycardia, IR. S1, S2. No S4. Without murmur RESPIRATORY: Tachypnea, diminished breath sounds due to body habitus. No wheezing appreciated. Breath sounds equal bilaterally. GASTROINTESTINAL: Abdomen soft, non-tender, slightly protuberant. Hypoactive bowel sounds are appreciated. Hepatic and splenic margins not palpable. MUSCULOSKELETAL: Extremities with trace lower extremity edema. No obvious deformities. NEUROLOGICAL: A phasic. Upward toes bilaterally. Withdraws to pain right greater than left upper and lower extremity. Protecting airway adequately. Procedures None. A/P Assessment and Plan Neuro/Psych: Acute encephalopathy likely toxic metabolic secondary to underlying infection History of CVA 5 with expressive and receptive aphasia Restless leg syndrome Anxiety CT head 06/27 revealed no acute intracranial findings Received 1 dose of Haldol 5 mg 1 yesterday. Present 1 mg every 8 hours as needed Seen by psychiatrists during this hospitalization. Seroquel currently being held. CV: A. fib with RVR Symptomatic bradycardia likely secondary to AV blocking agents Dyslipidemia NOCAD PVD Will restart Cardizem drip Previously on amiodarone 400 mg twice a day, Cardizem and Lopressor during this hospitalization Home medications are sotalol 80 twice a day, diltiazem 240 mg daily and Lopressor 50 mg by mouth every 8 hours. Holding home medication Lipitor 80 mg a night for dyslipidemia. Resume when clinically indicated 2-D echocardiogram 06/27/16 revealed EF 45%. Mild AR/TR. YULIYA 70 mmHg Gentle diuresis Noted ABIs revealed possible left moderate peripheral vascular disease. Recommended CTA when stable Resp: Acute hypoxic respiratory failure History COPD PIYUSH Chronic right pleural effusion Currently a nonrebreather mask to maintain saturations greater or equal to 92% Not a candidate for BiPAP secondary to AMS Bronchodilator therapy every 6 hours and as needed Currently on Symbicort 160/4.52 puffs twice a day. Solu-Medrol 40 mg IV every 12 hours Not a candidate for thoracentesis due to platelets of 30. GI: Gastroesophageal reflux disease Currently nothing by mouth due to altered mental status Consider tube feedings if continues altered Protonix for GI prophylaxis Dulcolax suppository s as needed for bowel regimen : Carmona will be placed for accurate I's nose any critically ill patient Endo: Sliding-scale insulin with Accu-Cheks to maintain euglycemia/low regimen every 6 hours Renal: Creatinine currently 1.3. Around baseline. Accurate I/os Monitor urine output Heme: ITP Normocytic anemia Heterozygous gene for MTHFR History of testicular cancer On chronic prednisone 20 mg daily for ITP. Currently on Solu-Medrol 40 mg IV every 8 hours Hematology actively following. Currently not bleeding. Eliquis is currently being held in light of severe thrombocytopenia Hypercoagulable workup currently in process ID: Possible HCAP/UTI Day #2 vancomycin, cefepime and Flagyl. Previously on Levaquin. This was discontinued as possible AV blocking agent for symptomatically bradycardic. Pertinent cultures 06/21 - urine culture - Kluyvera Cryoscens/Proteus Mirabillis 06/27 - blood cultures 2 - pending 06/27 - urine culture - pending MSk: Osteoarthritis PT/OT evaluate and treat/range of motion FEN: Hypernatremia Hyper magnesium Hyperphosphatemia Gentle diuresis/D5 water with KCl at 50 cc an hour Recheck labs in a.m. Access - Peripheral IV. Central line if indicated - Left radial arterial line day #2 placed 3 Prophylaxis - GI - Protonix - DVT - heparin subcutaneous okayed by hematology. Off Eliquis due to severe thrombocytopenia from ITP Critical Care: The total critical care time was 35 minutes. Time to perform other separately billable procedures was not included in the critical care time. Agustín Sousa MD Jun 28, 2016 07:29
[2016-06-28] MEDS ORDERED: GLUCAGON 1 MG/ML VIAL OTHER PRN (08:00)
[2016-06-28] MEDS ORDERED: DEXTROSE 50% IN WATER 50 ML VIAL(D50) IV PUSH PRN (08:00)
[2016-06-28] MEDS ORDERED: DILTIAZEM HCL 25 MG/5 ML VIAL IVP ONE (08:00)
[2016-06-28] MEDS: PANTOPRAZOLE SODIUM 40 MG VIAL IV PUSH SCH (08:19)
[2016-06-28] MEDS: FUROSEMIDE 20 MG/2 ML VIAL IV PUSH SCH ×2 (08:21→18:05)
[2016-06-28] MEDS: BISACODYL 10 MG SUPP RECTAL SCH (08:21)
[2016-06-28] MEDS: DOCUSATE SODIUM 100 MG CAP PO SCH ×2 (08:21→20:50)
[2016-06-28] MEDS: SODIUM CHLORIDE 0.9% FLUSH 5 ML FLUSH FLUSH SCH ×2 (08:22→20:50)
[2016-06-28] MEDS: DEXTROSE 5% IV SCH ×2 (08:50)
[2016-06-28] MEDS: WATE IV SCH ×2 (08:50)
[2016-06-28] MEDS: POTASSIUM CHLORIDE IV SCH ×2 (08:50)
[2016-06-28] MEDS: DILTIAZEM INJ 125 MG in SODIUM CHLORIDE 0.9% INJ 100 ML IV SCH ×2 (08:51→16:54)
[2016-06-28] MEDS: POTASSIUM CHLOR 10 MEQ PREMIX 100 ML IV SCH ×3 (08:51→15:51)
[2016-06-28] MEDS: BUDESONIDE-FORMOTEROL 160/4.5 MCG INHALER INH SCH ×2 (09:00→21:00)
--- NOTE | 2016-06-28 11:10 | PD.ONC.PN ---
Subjective Subjective Remarks Afebrile overnight. Pt supine in bed on partial NRB. Sitter at bedside. Per RN they have had difficulty weaning the O2. He mumbles "no" when asked about pain. Objective Data Date Time Temp Pulse Resp B/P Pulse Ox O2 Delivery O2 Flow Rate FiO2 06/28/16 05:00 126 06/28/16 04:00 97.5 125 15 129/62 100 06/28/16 03:00 124 06/28/16 01:00 124 06/27/16 23:00 125 06/27/16 23:00 97.7 125 19 131/66 100 06/27/16 21:32 96 Non-Rebreather 15.00 06/27/16 21:00 125 06/27/16 20:00 125 06/27/16 19:00 98.1 125 20 132/67 06/27/16 19:00 Non-Rebreather 15.00 100 06/27/16 17:00 68 06/27/16 15:00 69 06/27/16 15:00 98.3 68 20 126/58 06/27/16 14:00 79 06/27/16 13:53 Non-Rebreather 15.00 100 06/27/16 12:05 76 Nasal Cannula 3.00 06/27/16 12:00 90 15.00 100 06/27/16 11:50 45 22 72/48 80 06/28/16 06/28/16 06/28/16 07:00 15:00 23:00 Intake Total 808 ml Output Total 450 ml Balance 358 ml Result Diagram: 06/28/16 0420 06/28/16 0420 Laboratory Results Laboratory Tests Test 06/27/16 06/27/16 06/27/16 06/27/16 12:20 13:00 13:35 18:00 Blood Gas Puncture Site LT RADIAL ART LINE Blood Gas Patient Temperature 98.6 98.6 Blood Gas HCO3 10 mmol/L 13 mmol/L Blood Gas Base Excess -14.5 mmol/L -10.7 mmol/L Blood Gas Oxygen Saturation 89 % 95 % Arterial Blood pH 7.35 7.39 Arterial Blood Partial 19 mmHg 22 mmHg Pressure CO2 Arterial Blood Partial 77 mmHg 94 mmHg Pressure O2 Arterial Blood Oxygen Content 11.8 Vol % 12.7 Vol % Arterial Blood 1.6 % 2.1 % Carboxyhemoglobin Arterial Blood Methemoglobin 1.4 % 0.7 % Blood Gas Hemoglobin 9.3 G/DL 9.4 G/DL Oxygen Delivery Device Non-Rebreathing Non-Rebreathing Mask Mask Blood Gas Liter Flow 15 L/M 15 L/M Blood Gas Inspired Oxygen 100 % 100 % White Blood Count 14.0 TH/MM3 Red Blood Count 3.61 MIL/MM3 Hemoglobin 9.9 GM/DL Hematocrit 31.2 % Mean Corpuscular Volume 86.6 FL Mean Corpuscular Hemoglobin 27.5 PG Mean Corpuscular Hemoglobin 31.7 % Concent Red Cell Distribution Width 21.0 % Platelet Count 29 TH/MM3 Mean Platelet Volume 9.6 FL Prothrombin Time 13.8 SEC Prothromb Time International 1.2 RATIO Ratio Activated Partial 29.9 SEC Thromboplast Time Sodium Level 147 MEQ/L Potassium Level 3.9 MEQ/L Chloride Level 115 MEQ/L Carbon Dioxide Level 16.8 MEQ/L Anion Gap 15 MEQ/L Blood Urea Nitrogen 47 MG/DL Creatinine 1.78 MG/DL Estimat Glomerular Filtration 40 ML/MIN Rate Random Glucose 213 MG/DL Lactic Acid Level 6.6 mmol/L Calcium Level 7.2 MG/DL Protein Corrected Calcium 8.2 MG/DL Phosphorus Level 5.4 MG/DL Magnesium Level 2.7 MG/DL Total Protein 5.3 GM/DL B-Hydroxybutyrate 0.17 MMOL/L Urine Color YELLOW Urine Turbidity CLOUDY Urine pH 5.0 Urine Specific [place] 1.023 Urine Protein 30 mg/dL Urine Glucose (UA) TRACE mg/dL Urine Ketones NEG mg/dL Urine Occult Blood MOD Urine Nitrite NEG Urine Bilirubin NEG Urine Urobilinogen 2.0 MG/DL Urine Leukocyte Esterase NEG Urine RBC /hpf Urine WBC 16 /hpf Urine WBC Clumps FEW Urine Squamous Epithelial 3 /hpf Cells Urine Bacteria RARE /hpf Urine Mucus MOD /lpf Microscopic Urinalysis Comment CATH-CULTURE IND Test 06/28/16 04:20 White Blood Count 9.2 TH/MM3 Red Blood Count 3.22 MIL/MM3 Hemoglobin 9.0 GM/DL Hematocrit 27.7 % Mean Corpuscular Volume 86.0 FL Mean Corpuscular Hemoglobin 27.9 PG Mean Corpuscular Hemoglobin 32.4 % Concent Red Cell Distribution Width 21.5 % Platelet Count 30 TH/MM3 Mean Platelet Volume 9.4 FL Sodium Level 152 MEQ/L Potassium Level 3.5 MEQ/L Chloride Level 119 MEQ/L Carbon Dioxide Level 22.8 MEQ/L Anion Gap 10 MEQ/L Blood Urea Nitrogen 52 MG/DL Creatinine 1.26 MG/DL Estimat Glomerular Filtration 59 ML/MIN Rate Random Glucose 109 MG/DL Calcium Level 7.6 MG/DL Random Vancomycin Level 16.3 COMMENT Culture Results Microbiology Date/Time Procedure Status Source Growth 06/27/16 18:00 Urine Culture Received Urine Catheterized Urine Pending 06/27/16 19:20 Aerobic Blood Culture Received Blood Peripheral Pending 06/27/16 19:20 Anaerobic Blood Culture Received Blood Peripheral Pending 06/27/16 19:28 Aerobic Blood Culture Received Blood Peripheral Pending 06/27/16 19:28 Anaerobic Blood Culture Received Blood Peripheral Pending Administered Medications Medications (Trade) Dose Ordered Sig/Brock Route PRN Reason Start Time Stop Time Status Last Admin Dose Admin IV Flush (NS Flush) 2 ml BID FLUSH 06/12/16 21:00 06/28/16 08:22 Acetaminophen (Tylenol) 650 mg Q4H PRN PO TEMP > 100.4 06/12/16 20:15 06/25/16 12:44 Atorvastatin Calcium (Lipitor) 80 mg HS PO 06/12/16 21:00 Hold 06/26/16 21:25 Docusate Sodium (Colace) 100 mg BID PO 06/12/16 21:00 06/28/16 08:21 Budesonide/ Formoterol Fumarate (Symbicort 160-4.5 Inh) 2 puff BID INH 06/12/16 21:00 06/27/16 08:55 Mirtazapine (Remeron) 15 mg HS PO 06/13/16 21:00 Hold 06/26/16 21:25 Pantoprazole Sodium (Protonix Inj) 40 mg DAILY IV PUSH 06/18/16 11:00 06/28/16 08:19 Apixaban (Eliquis) 5 mg BID PO 06/19/16 21:00 Hold 06/20/16 09:35 Heparin Sodium (Porcine) (Heparin Inj) 5,000 units Q8HR SQ 06/20/16 22:00 06/28/16 06:03 Diltiazem HCl (Cardizem) 90 mg QID PO 06/21/16 09:00 Hold 06/27/16 08:54 Haloperidol Lactate (Haldol Inj) 5 mg Q6H PRN IM AGITATION 06/22/16 15:00 Hold 06/23/16 00:43 Haloperidol (Haldol) 5 mg BID PO 06/22/16 21:00 Hold 06/27/16 08:54 Metoprolol Tartrate (Lopressor) 50 mg Q8H PO 06/23/16 17:00 Hold 06/27/16 08:55 Methylprednisolone Sodium Succinate (SoluMEDROL INJ) 40 mg Q12H IV PUSH 06/26/16 18:00 06/28/16 06:03 Amiodarone HCl (Cordarone) 400 mg Q12HR PO 06/26/16 12:00 Hold 06/27/16 08:55 Haloperidol Lactate 5 mg 5 mg Q1H PRN IV PUSH severe agitation 06/27/16 13:45 06/28/16 08:21 Cefepime HCl 1000 mg/Sodium Chloride 100 ml @ 200 mls/hr Q8H IV 06/27/16 14:00 06/28/16 06:03 Metronidazole 100 ml @ 100 mls/hr Q6H IV 06/27/16 15:00 06/28/16 08:20 Potassium Chloride 100 ml @ 100 mls/hr Q1H IV 06/28/16 09:00 06/28/16 11:59 06/28/16 08:51 Diltiazem HCl/ Sodium Chloride (Cardizem Inj/NS Inj) 125 ml @ 0 mls/hr TITRATE IV 06/28/16 09:00 06/28/16 08:51 Bisacodyl 10 mg 10 mg DAILY RECTAL 06/28/16 09:00 06/28/16 08:21 Potassium Chloride/Dextrose (KCl Inj/D5W 1000 ml Inj) 1,005 ml @ 42 mls/hr [id number] IV 06/28/16 08:00 06/28/16 08:50 Furosemide (Lasix Inj) 20 mg BID@09,18 IV PUSH 06/28/16 09:00 06/28/16 08:21 Objective Remarks GENERAL: Obese chronically ill appearing older male. SKIN: Warm and dry. Multiple ecchymoses, purpura noted to BUE, Abdomen. HEAD: Normocephalic. EYES: No injection or drainage. NECK: Supple, trachea midline. LYMPHATIC: No adenopathy. CARDIOVASCULAR: Tachycardic. +S1/S2. RESPIRATORY: Lungs with occasional rhonchi. GASTROINTESTINAL: Abdomen soft, non-tender. EXTREMITIES: SCD's to BLE. NEUROLOGICAL: Lethargic. Pt not following commands. Answers simple yes/no questions. Assessment/Plan Problem List: (1) Thrombocytopenia Status: Acute Plan: --40mg Solumedrol Q12h. --APA positive --reported h/o ITP --h/o thrombocytopenia dating back to 2015--[facility] patient--neg. BMB --baseline reportedly around 45K (per ) (2) Acute ischemic left MCA stroke Status: Acute Plan: -- hold Eliquis -- Multiple ecchymoses to BUE, abdomen -- Hold heparin until platelets greater than 50K. (3) Consumption coagulopathy Status: Acute Plan: --monitor coags (4) Antiphospholipid antibody positive Status: Acute Plan: -- Positive for one copy of the C677T variant and one copy of the [id number] variant. -- Pt with recurrent CVA's. -- Difficult to anticoagulate due to ITP. Assessment 55y/o male s/p stroke. Hematology consulted for thrombocytopenia HPI: [facility], developed confusion and afib, transferred to the med/surg +recurrent strokes since January of 2016--was on Eliquis Chronic obstructive pulmonary disease. Obstructive sleep apnea. Hypertension. Hyperlipidemia. Coronary artery disease--h/o cardiac cath Paroxysmal atrial fibrillation. History of testicular cancer treated in his 40s with radiation and orchiectomy Restless leg syndrome. Arthritis. ITP. Plan 1. Pt with recurrent strokes and ITP. He is noted to have some minor oozing around [place] cath insertion. Transfuse with 1 unit platelets today. 2. Monitor blood counts daily. Check fibrinogen today. 3. We will hold SQ heparin until platelets back in the 50k range. Continue solu- medrol. 4. Supportive care Attending Statement The exam, history, and the medical decision-making described in the above note were completed with the assistance of the mid-level provider. I reviewed and agree with the findings presented. I attest that I had a [id number] encounter with the patient on the same day, and personally performed and documented my assessment and findings in the medical record. Mr. Muhammad was seen and examined, his peripheral blood smear from 06/27/2016 was also reviewed. He has had Afib with with persistent RVR. Oxygen requirements have been increasing. PLT counts are at about 30K today. I have recommended 1 unit PLT transfusion. I would avoid IVIG infusion for management of refractory ITP due to the increased risk of thrombosis. I would avoid the use of rituximab due to it's immunosuppressive nature. His thrombocytopenia may be multifactoral; ITP with a superimposed consumptive process. Continue ongoing care. Diamond Avendano Jun 28, 2016 11:10 Florian López MD Jun 28, 2016 13:03
[2016-06-28] MEDS ORDERED: SODIUM CHLOR 0.9% 250 ML INJ 250 ML IV ONE (11:45)
[2016-06-28] MEDS ORDERED: METOPROLOL TARTRATE 5 MG/5 ML VIAL IV PUSH SCH (12:30)
[2016-06-28] MEDS ORDERED: LABETALOL HCL 100 MG/20 ML VIAL IV PUSH PRN (13:45)
[2016-06-28] MEDS ORDERED: NITROGLYCERIN 2% OINT 1 GM PACKET TOPICAL PRN (14:00)
[2016-06-28] MEDS: VANCOMYCIN INJ 1,500 MG in SODIUM CHLORID 0.9% 500 ML INJ 500 ML IV SCH (15:52)
[2016-06-28] MEDS ORDERED: METOPROLOL TARTRATE 5 MG/5 ML VIAL IV PUSH ONE ×2 (17:45→23:15)
--- NOTE | 2016-06-28 17:53 | EKG ---
Date Performed: 06/27/2016 Time Performed: 12:03:32 PTAGE: 55 years EKG: Atrial fibrillation Inferior/lateral ST-T changes may be due to myocardial ischemia Abnorma l ECG PREVIOUS TRACING : 06/21/2016 14.31 DOCTOR: Juma Flynn Interpretating Date/Time 06/28/2016 17:52:44
[2016-06-28] MEDS: METOPROLOL TARTRATE 5 MG/5 ML VIAL IV PUSH SCH (18:00)
[2016-06-28] MEDS: ARTIFICIAL TEARS OPTH OINT 3.5 APPLIC/3.5 GM TUBO EACH EYE SCH (21:00)
[2016-06-28] MEDS ORDERED: DIGOXIN 0.5 MG/2 ML VIAL IV PUSH ONE (23:15)
[2016-06-29] VITALS (15 sets, daily range): BP systolic 126–148; BP diastolic 50–71; PULSE 70–135; RESP 9–16; TEMP 97.5–99; O2SAT 93–98
[2016-06-29] MEDS: DILTIAZEM INJ 125 MG in SODIUM CHLORIDE 0.9% INJ 100 ML IV SCH ×3 (00:36→21:29)
[2016-06-29] MEDS: metroNIDAZOLE 500 MG INJ 100 ML IV SCH ×4 (03:30→20:06)
[2016-06-29] MEDS: RESP: ALBUTEROL 2.5 MG/IPRATROPIUM 0.5 MG NEB (SCH) INH ×4 (03:37→20:54)
[2016-06-29 04:07] LABS: AUTOMATED NEUTROPHIL # 9.1 TH/MM3 (1.8-7.7); BASOPHIL % 0.2 % (0.0-2.0); HEMATOCRIT 27.9 % (39.0-51.0); LYMPH % 1.9 % (9.0-44.0); LYMPHOCYTE # 0.2 TH/MM3 (1.0-4.8); MEAN CELL VOLUME 86.7 FL (80.0-100.0); MEAN CORPUSCULAR HEMOGLOBIN 28.5 PG (27.0-34.0); MEAN CORPUSCULAR HGB CONC 32.9 % (32.0-36.0); MONO % 2.4 % (0.0-8.0); NEUT % 95.5 % (16.0-70.0); PLATELET COUNT 55 TH/MM3 (150-450); RED BLOOD COUNT 3.22 MIL/MM3 (4.50-5.90); RED CELL DISTRIBUTION WIDTH 21.8 % (11.6-17.2); WHITE BLOOD COUNT 9.6 TH/MM3 (4.0-11.0)
[2016-06-29 04:22] LABS: ANION GAP 10 MEQ/L (5-15); AST (GOT) 79 U/L (15-37); BICARBONATE 24.9 MEQ/L (21.0-32.0); CHLORIDE 118 MEQ/L (98-107); GLOMERULAR FILTRATION RATE 87 ML/MIN (>89); MAGNESIUM 2.5 MG/DL (1.5-2.5); POTASSIUM 3.7 MEQ/L (3.5-5.1); SODIUM (NA) 153 MEQ/L (136-145)
[2016-06-29 04:25] LABS: HEMO FLAGS AUTO DIFF
[2016-06-29 04:34] LABS: ALKALINE PHOSPHATASE 83 U/L (45-117); ALT (GPT) 249 U/L (12-78); BLOOD UREA NITROGEN 40 MG/DL (7-18); TOTAL BILIRUBIN ADULT 1.1 MG/DL (0.2-1.0)
[2016-06-29] MEDS: INSULIN NovoLIN REGULAR SUPPLEMENTAL SCALE SQ SCH ×4 (06:00→18:00)
[2016-06-29 06:44] LABS: PLATELET ESTIMATE SMEAR LOW (NORMAL); PLATELET MORPHOLOGY ENLARGED (NORMAL); SCAN/DIFF AUTO DIFF CONFIRMED
[2016-06-29] MEDS: METOPROLOL TARTRATE 5 MG/5 ML VIAL IV PUSH SCH ×5 (06:52→23:14)
[2016-06-29] MEDS: CEFEPIME INJ 1,000 MG in SODIUM CHLORIDE 0.9% INJ 100 ML IV SCH ×3 (06:52→21:30)
[2016-06-29] MEDS: methylPREDNISolone SOD SUCC 40 MG/1 ML VIAL IV PUSH SCH ×2 (06:52→17:46)
[2016-06-29] MEDS: DEXTROSE 5% IV SCH ×2 (07:56)
[2016-06-29] MEDS: WATE IV SCH ×2 (07:56)
[2016-06-29] MEDS: POTASSIUM CHLORIDE IV SCH ×2 (07:56)
[2016-06-29] MEDS: BUDESONIDE-FORMOTEROL 160/4.5 MCG INHALER INH SCH ×2 (09:00→21:00)
[2016-06-29] MEDS: DOCUSATE SODIUM 100 MG CAP PO SCH ×2 (09:00→20:08)
[2016-06-29] MEDS: BISACODYL 10 MG SUPP RECTAL SCH (09:13)
[2016-06-29] MEDS: VANCOMYCIN INJ 1,500 MG in SODIUM CHLORID 0.9% 500 ML INJ 500 ML IV SCH (09:13)
[2016-06-29] MEDS: FUROSEMIDE 20 MG/2 ML VIAL IV PUSH SCH ×2 (09:13→17:46)
[2016-06-29] MEDS: PANTOPRAZOLE SODIUM 40 MG VIAL IV PUSH SCH (09:13)
[2016-06-29] MEDS: ARTIFICIAL TEARS OPTH OINT 3.5 APPLIC/3.5 GM TUBO EACH EYE SCH ×2 (09:14→20:08)
[2016-06-29] MEDS: SODIUM CHLORIDE 0.9% FLUSH 5 ML FLUSH FLUSH SCH ×2 (09:14→20:07)
--- NOTE | 2016-06-29 11:23 | PD.ONC.PN ---
Subjective Subjective Remarks Afebrile overnight. Patient obtunded this AM. Per nursing staff he has received no sedating medications. He is on partial non-rebreather. Objective Data Date Time Temp Pulse Resp B/P Pulse Ox O2 Delivery O2 Flow Rate FiO2 06/29/16 09:41 94 Partial Rebreather 06/29/16 05:00 75 06/29/16 04:00 99.0 70 10 126/50 94 06/29/16 03:00 75 06/29/16 01:00 79 06/29/16 00:00 98.4 130 12 141/71 94 06/28/16 23:00 132 06/28/16 21:10 94 Partial Rebreather 13.00 06/28/16 21:00 132 06/28/16 20:00 99.1 132 27 132/70 94 06/28/16 19:00 131 06/28/16 19:00 91 Partial Non-Rebreather 13.00 06/28/16 18:00 96 Partial Non-Rebreather 8.00 06/28/16 18:00 131 06/28/16 16:00 98.6 130 20 138/68 92 06/28/16 16:00 96 Partial Non-Rebreather 8.00 06/28/16 16:00 130 06/28/16 16:00 130 06/28/16 14:00 131 06/28/16 14:00 131 06/28/16 14:00 96 Partial Non-Rebreather 8.00 06/28/16 12:00 98.2 129 26 139/71 95 06/28/16 12:00 129 06/28/16 12:00 129 06/28/16 12:00 96 Partial Non-Rebreather 8.00 06/29/16 06/29/16 06/29/16 07:00 15:00 23:00 Intake Total 528 ml Output Total 375 ml Balance 153 ml Result Diagram: 06/29/16 0355 06/29/16 0355 Laboratory Results Laboratory Tests Test 06/28/16 06/28/16 06/28/16 06/29/16 11:47 12:18 12:24 03:55 Blood Bank Comment Blood Type O POSITIVE Fibrinogen 214 mg/dL White Blood Count 9.6 TH/MM3 Red Blood Count 3.22 MIL/MM3 Hemoglobin 9.2 GM/DL Hematocrit 27.9 % Mean Corpuscular Volume 86.7 FL Mean Corpuscular Hemoglobin 28.5 PG Mean Corpuscular Hemoglobin 32.9 % Concent Red Cell Distribution Width 21.8 % Platelet Count 55 TH/MM3 Mean Platelet Volume 10.0 FL Neutrophils (%) (Auto) 95.5 % Lymphocytes (%) (Auto) 1.9 % Monocytes (%) (Auto) 2.4 % Eosinophils (%) (Auto) 0.0 % Basophils (%) (Auto) 0.2 % Neutrophils # (Auto) 9.1 TH/MM3 Lymphocytes # (Auto) 0.2 TH/MM3 Monocytes # (Auto) 0.2 TH/MM3 Eosinophils # (Auto) 0.0 TH/MM3 Basophils # (Auto) 0.0 TH/MM3 CBC Comment AUTO DIFF Differential Comment AUTO DIFF CONFIRMED Platelet Estimate LOW Platelet Morphology Comment ENLARGED Sodium Level 153 MEQ/L Potassium Level 3.7 MEQ/L Chloride Level 118 MEQ/L Carbon Dioxide Level 24.9 MEQ/L Anion Gap 10 MEQ/L Blood Urea Nitrogen 40 MG/DL Creatinine 0.90 MG/DL Estimat Glomerular Filtration 87 ML/MIN Rate Random Glucose 143 MG/DL Calcium Level 7.5 MG/DL Phosphorus Level 2.5 MG/DL Magnesium Level 2.5 MG/DL Total Bilirubin 1.1 MG/DL Aspartate Amino Transf 79 U/L (AST/SGOT) Alanine Aminotransferase 249 U/L (ALT/SGPT) Alkaline Phosphatase 83 U/L Troponin I 0.29 NG/ML Total Protein 5.4 GM/DL Albumin 2.6 GM/DL Thyroid Stimulating Hormone 0.038 uIU/ML 3rd Gen Culture Results Microbiology Date/Time Procedure Status Source Growth 06/27/16 18:00 Urine Culture - Final Complete Urine Catheterized Urine NO GROWTH IN 48 HOURS. 06/27/16 19:20 Aerobic Blood Culture - Preliminary Resulted Blood Peripheral NO GROWTH IN 1 DAY 06/27/16 19:20 Anaerobic Blood Culture - Preliminary Resulted Blood Peripheral NO GROWTH IN 1 DAY 06/27/16 19:28 Aerobic Blood Culture - Preliminary Resulted Blood Peripheral NO GROWTH IN 1 DAY 06/27/16 19:28 Anaerobic Blood Culture - Preliminary Resulted Blood Peripheral NO GROWTH IN 1 DAY Administered Medications Medications (Trade) Dose Ordered Sig/Brock Route PRN Reason Start Time Stop Time Status Last Admin Dose Admin IV Flush (NS Flush) 2 ml BID FLUSH 06/12/16 21:00 06/29/16 09:14 Acetaminophen (Tylenol) 650 mg Q4H PRN PO TEMP > 100.4 06/12/16 20:15 06/25/16 12:44 Atorvastatin Calcium (Lipitor) 80 mg HS PO 06/12/16 21:00 Hold 06/26/16 21:25 Docusate Sodium (Colace) 100 mg BID PO 06/12/16 21:00 06/28/16 08:21 Budesonide/ Formoterol Fumarate (Symbicort 160-4.5 Inh) 2 puff BID INH 06/12/16 21:00 06/27/16 08:55 Mirtazapine (Remeron) 15 mg HS PO 06/13/16 21:00 Hold 06/26/16 21:25 Pantoprazole Sodium (Protonix Inj) 40 mg DAILY IV PUSH 06/18/16 11:00 06/29/16 09:13 Apixaban (Eliquis) 5 mg BID PO 06/19/16 21:00 Hold 06/20/16 09:35 Heparin Sodium (Porcine) (Heparin Inj) 5,000 units Q8HR SQ 06/20/16 22:00 Hold 06/28/16 06:03 Diltiazem HCl (Cardizem) 90 mg QID PO 06/21/16 09:00 Hold 06/27/16 08:54 Haloperidol Lactate (Haldol Inj) 5 mg Q6H PRN IM AGITATION 06/22/16 15:00 Hold 06/23/16 00:43 Haloperidol (Haldol) 5 mg BID PO 06/22/16 21:00 Hold 06/27/16 08:54 Metoprolol Tartrate (Lopressor) 50 mg Q8H PO 06/23/16 17:00 Hold 06/27/16 08:55 Methylprednisolone Sodium Succinate (SoluMEDROL INJ) 40 mg Q12H IV PUSH 06/26/16 18:00 06/29/16 06:52 Amiodarone HCl (Cordarone) 400 mg Q12HR PO 06/26/16 12:00 Hold 06/27/16 08:55 Haloperidol Lactate 5 mg 5 mg Q1H PRN IV PUSH severe agitation 06/27/16 13:45 06/28/16 16:04 Cefepime HCl 1000 mg/Sodium Chloride 100 ml @ 200 mls/hr Q8H IV 06/27/16 14:00 06/29/16 06:52 Metronidazole 100 ml @ 100 mls/hr Q6H IV 06/27/16 15:00 06/29/16 09:14 Diltiazem HCl/ Sodium Chloride (Cardizem Inj/NS Inj) 125 ml @ 0 mls/hr TITRATE IV 06/28/16 09:00 06/29/16 07:18 Bisacodyl 10 mg 10 mg DAILY RECTAL 06/28/16 09:00 06/29/16 09:13 Potassium Chloride/Dextrose (KCl Inj/D5W 1000 ml Inj) 1,005 ml @ 42 mls/hr [id number] IV 06/28/16 08:00 06/28/16 08:50 Furosemide (Lasix Inj) 20 mg BID@09,18 IV PUSH 06/28/16 09:00 06/29/16 09:13 Artificial Tears 1 applic 1 applic Q12HR EACH EYE 06/28/16 21:00 06/29/16 09:14 Vancomycin HCl/ Sodium Chloride (Vancomycin Inj/ NS 500 ml Inj) 515 ml @ 250 mls/hr Q18H IV 06/28/16 16:00 06/29/16 09:13 Metoprolol Tartrate (Lopressor Inj) 5 mg Q6HR IV PUSH 06/28/16 18:00 06/29/16 06:52 Objective Remarks GENERAL: Middle aged male, lying supine in bed, obtunded. SKIN: Warm and dry. HEAD: Normocephalic. EYES: No injection or drainage. NECK: Supple, trachea midline. CARDIOVASCULAR: Regular rate and rhythm RESPIRATORY: anterior garcia with occasional rhonchi. on partial NRB GASTROINTESTINAL: Abdomen soft, non-tender, nondistended. ecchymoses noted on abdomen. EXTREMITIES: No cyanosis NEUROLOGICAL: obtunded. Assessment/Plan Problem List: (1) Thrombocytopenia Status: Acute Plan: --40mg Solumedrol Q12h. --APA positive --reported h/o ITP --h/o thrombocytopenia dating back to 2015--[facility] patient--neg. BMB --baseline reportedly around 45K (per ) (2) Acute ischemic left MCA stroke Status: Acute Plan: -- hold Eliquis -- Multiple ecchymoses to BUE, abdomen -- Hold heparin until platelets greater than 50K. (3) Consumption coagulopathy Status: Acute Plan: --monitor coags (4) Antiphospholipid antibody positive Status: Acute Plan: -- Positive for one copy of the C677T variant and one copy of the [id number] variant. -- Pt with recurrent CVA's. -- Difficult to anticoagulate due to ITP. Assessment 55y/o male s/p stroke. Hematology consulted for thrombocytopenia HPI: recently admitted to [facility] stroke, developed confusion and afib, transferred to the med/surg +recurrent strokes since January of 2016--was on Eliquis Chronic obstructive pulmonary disease. Obstructive sleep apnea. Hypertension. Hyperlipidemia. Coronary artery disease--h/o cardiac cath Paroxysmal atrial fibrillation. History of testicular cancer treated in his 40s with radiation and orchiectomy Restless leg syndrome. Arthritis. ITP. Plan 1. check CT brain re: AMS, patient obtunded 2. will resume SQ heparin if CT brain ok 3. consult GI re: abnormal ceruloplasmin Attending Statement The exam, history, and the medical decision-making described in the above note were completed with the assistance of the mid-level provider. I reviewed and agree with the findings presented. I attest that I had a [id number] encounter with the patient on the same day, and personally performed and documented my assessment and findings in the medical record.Has mental status changed. No bleeding noted. Had platelet transfusion yesterday and platelet is up to 55K. Low ceruloplasmin and elevated LFT, will consult GI. Continue heparin if CT brain showed no bleeding. Michelle Jerez Jun 29, 2016 11:23 Skyler Limon MD Jun 29, 2016 15:42
[2016-06-29 13:51] LABS: PHOSPHATIDYLSERINE AB IGA LESS THAN 20.0 U/mL (()); PHOSPHATIDYLSERINE AB IGM LESS THAN 25.0 U/mL (())
--- NOTE | 2016-06-29 14:25 | PD.CONS ---
Consult Service Palliative Care Consult Requested By Dr. Merry MD. Primary Care Physician No Primary Care Physician Reason for Consultation a. To assist with evaluation and management of symptoms including: debility. b. To assist medical decision maker(s) with: better understanding of current medical conditions; weighing benefits/burdens of medical treatment options; making medical treatment decisions. . HPI History of Present Illness Mr. Muhammad is a 55-year-old male with a medical history significant of multiple CVA since January 2016, COPD, obstructive sleep apnea, anxiety, hypertension, CAD, A. fib on Eliquis, ITP and history of testicular cancer in his late 40's status post radiation therapy. In 06/13/16, patient was transfer from [facility] secondary to A. fib with RVR. Upon arrival, patient was started on IV Cardizem drip. As per medical history, most recent acute stroke on with residual expressive aphasia and right-sided weakness. Patient at that time was transferred to [facility]. On 06/01/16, patient was transferred to [facility] secondary to chest pain, shortness of breath and disorientation. Chest x-ray showed right lower lobe opacification and bilateral pleural effusions likely secondary to pneumonia. Patient continued to decompensate requiring Ventimask and underwent thoracentesis on 06/02. Patient was treated with antibiotic for suspected pneumonia. His condition improved and was subsequently transferred to [facility] for comprehensive rehabilitation. As per medical records, patient with history of decreased hemoglobin and platelets and was seen by hematology oncology. He underwent bone marrow which was negative. Follow-up x-rays and scans have shown lymph nodes of the thoracic and abdominal area but the patient has been unable to undergo lymph node biopsy as he remain on Eliquis secondary to recurrent strokes. Hematology oncology consulted on 06/13/16 -Dr. Limon for evaluation of thrombocytopenia, platelet count of 15,000. 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 Eliquis was stopped and patient was started on subcutaneous heparin. Plan was to resume Eliquis ones platelet remained above 50,000. Psychiatry -Dr. Garcia consulted on 06/12/16 secondary to irritability. Patient showed irritability and anger issues related to his multiple strokes and cognitive issues. He was found to have poor insight and judgment. This hospitalization, patient remained confused. Geodon and Seroquel were discontinued, he was placed on Haldol and Remeron. He continue with aphasia and difficulty communicating and requiring intermittent wrist restraints. Urine culture 06/21/16 growing Kluyvera C. and Proteus Mirabilis. Abdomen/pelvis CT 06/24/16 showing bilateral effusions concerning for pneumonia. Small lobulated spleen with areas of decreased attenuation suggesting prior splenic infarct. EKG 06/21/16 showing atrial flutter/tachycardia. Liver ultrasound 06/15/16 showing slightly nodular liver suggesting early cirrhosis. Cardiology -Dr. Duggan consulted on 06/22/16 secondary to atrial flutter, unable to control and medication. Medical management recommended. Podiatry -Dr. Ramos consulted on 06/22/16 to evaluate her lateral foot lesions. Vascular consultation suggested. Chest CT on 06/26/16 showing bilateral pleural effusions larger on the right than the left. Patient's clinical condition continued to worsen. On 06/27/16, presented as a rapid response for heart rate in the 30s and hypotension. Patient was transfer to ICU secondary bradycardia an acute agitated delirium. Atropine and epinephrine were given, patient was subsequently started on dopamine drip. Lactic acid 6.6 on 06/27/16. Patient was placed on BiPAP secondary to hypoxia with increased oxygen requirement. Echocardiogram 06/27/16 showing EF of 45-50%, mild aortic and tricuspid regurgitation. CT of the head on 06/27/16 negative for acute process. Patient remains in ICU, currently on a nonrebreather mask. Palliative care has been consulted for further clarifications of goals of care given patient's worsening clinical condition. Patient is currently DNR/DNI. Patient seen in ICU. He was resting in bed in no acute distress. Unresponsive to verbal or tactile stimuli, not following any commands. O2 via nonrebreather mask at 8 L. no facial grimacing noted. Patient remains febrile, A. fib for controlled rate in the 70s. Blood pressure stable in the 130s. This morning patient reported as obtunded. Pending CT of the brain to evaluate altered mental status. Currently Eliquis is on hold, heparin on hold until platelets greater than 50,000. Laboratory today showing WBC 9.6, Hgb 9.2, platelet count 55 s/p platelet transfusion 06/28/16. Sodium 153, potassium 3.7, BUN/creatinine 40/0.90. GI has been consulted for evaluation. Pilar at bedside. In this first visit discussed the role of palliative care in advanced illness in regards to symptom management as well as support surrounding goals of care and advance care planning. Reviewed patients general health, functional status, and cognitive changes in the months leading up to the current hospitalization. tells me that prior to December 2015 patient was in a fair state of health. He had and an acute [place] in December followed by acute CVA in February 15, 2016. Patient with multiple hospitalizations and intermittent rehabilitation placement since January 2016. tell me that after the first stroke patient had multiple subsequent strokes leaving him in a worse state of health. with a good understanding of patient's critical condition to include acute hypoxemic respiratory failure, encephalopathy, thrombocytopenia, profound physical deconditioning and multiple acute strokes. also aware CT of the chest results showing enlarged lymph nodes of the thoracic and abdominal area likely representing malignancy. tells me that she knows that patient is "not coming back home". She understands the severity of his illness and has elected for DNR/DNI, no invasive procedures in the setting ecchymoses worsening clinical condition. electing to allow an additional 24-48 hours for clinical improvement, and wish to transition to comfort measures only in the event his condition does not improve or worsen. Ongoing emotional support and active listening provided to . appreciative of this visit. . Function/Cognitive Trajectory Functional decline since NJ in December 2015. Worsening functional decline since first stroke in February 15, 2016 with expressive and receptive aphasia. reports that patient was independent on all ADLs prior to December 2015. . Review of Systems ROS Limitations: Clinical Condition, Intubated, Unresponsive Constitutional: COMPLAINS OF: Generalized weakness Endocrine: DENIES: Heat/cold intolerance Eyes: DENIES: Blurred vision Ears, nose, mouth, throat: DENIES: Hearing loss Respiratory: COMPLAINS OF: Apneas, Shortness of breath Cardiovascular: COMPLAINS OF: Dyspnea on Exertion, Lower Extremity Edema Gastrointestinal: DENIES: Abdominal pain, Nausea, Vomiting Musculoskeletal: COMPLAINS OF: Decreased range of motion Hematologic/Lymphatics: COMPLAINS OF: Bruising, Prolonged bleed w/ proced, History of transfusions Neurologic: COMPLAINS OF: Abnormal gait, Speech Problems, Poor Balance Psychiatric: COMPLAINS OF: Anxiety, Mood changes, Hallucinations, Agitation Other ROS: Limited ROS secondary to clinical condition, patient unresponsive. ROS obtained from medical records, family and clinical observation. Past Family Social History Coded Allergies: No Known Allergies (Unverified , 04/16/16) Past Medical History History of multiple CVA Paroxysmal A. fib on Eliquis COPD Obstructive sleep apnea Anxiety Hypertension Hyperlipidemia CAD Arthritis ITP Previous testicular cancer with radiation Restless leg syndrome . Past Surgical History Orchiectomy Cardiac catheterization Bone marrow . Reported Medications Prednisone 20 mg twice a day Tylenol 650 mg every 4 hours when necessary Apixaban 5 mg by mouth twice a day Quetiapine 25 mg twice a day Advair discus 250/50 g 2 puffs twice a day DuoNeb 4 times a day nebulization Sotalol 80 mg twice a day Diltiazem CD 240 mg by mouth daily Atorvastatin 80 mg daily at bedtime Nitroglycerin 0.3 mg sublingual when necessary for chest pain Doxycycline 100 mg twice a day . Current Medications Medications (Trade) Dose Ordered Sig/Brock Route Start Time Stop Time Status Last Admin (NS Flush) 2 ml UNSCH PRN FLUSH 06/12/16 20:15 (NS Flush) 2 ml BID FLUSH 06/12/16 21:00 06/29/16 09:14 (Tylenol) 650 mg Q4H PRN PO 06/12/16 20:15 06/25/16 12:44 (Zofran Inj) 4 mg Q6H PRN IVP 06/12/16 20:15 (Narcan Inj) 0.4 mg UNSCH PRN IV 06/12/16 20:15 (Lipitor) 80 mg HS PO 06/12/16 21:00 Hold 06/26/16 21:25 (Colace) 100 mg BID PO 06/12/16 21:00 06/28/16 08:21 (Symbicort 160-4.5 Inh) 2 puff BID INH 06/12/16 21:00 06/27/16 08:55 (Remeron) 15 mg HS PO 06/13/16 21:00 Hold 06/26/16 21:25 (Protonix Inj) 40 mg DAILY IV PUSH 06/18/16 11:00 06/29/16 09:13 (Eliquis) 5 mg BID PO 06/19/16 21:00 Hold 06/20/16 09:35 (Heparin Inj) 5,000 units Q8HR SQ 06/20/16 22:00 Hold 06/28/16 06:03 (Cardizem) 90 mg QID PO 06/21/16 09:00 Hold 06/27/16 08:54 (Haldol Inj) 5 mg Q6H PRN IM 06/22/16 15:00 Hold 06/23/16 00:43 (Haldol) 5 mg BID PO 06/22/16 21:00 Hold 06/27/16 08:54 (Lopressor) 50 mg Q8H PO 06/23/16 17:00 Hold 06/27/16 08:55 (SoluMEDROL INJ) 40 mg Q12H IV PUSH 06/26/16 18:00 06/29/16 06:52 (Cordarone) 400 mg Q12HR PO 06/26/16 12:00 Hold 06/27/16 08:55 Haloperidol Lactate 5 mg 5 mg Q1H PRN IV PUSH 06/27/16 13:45 06/28/16 16:04 Pharmacy Profile Note 0 ml @ 0 mls/hr UNSCH OTHER 06/27/16 13:45 Cefepime HCl 1000 mg/Sodium Chloride 100 ml @ 200 mls/hr Q8H IV 06/27/16 14:00 06/29/16 13:27 (Flagyl 500 Mg Inj) 100 ml @ 100 mls/hr Q6H IV 06/27/16 15:00 06/29/16 13:28 Magnesium Oxide 800 mg 800 mg UNSCH PRN PO 06/27/16 14:00 Magnesium Sulfate 4 gm/Sodium Chloride 100 ml @ 50 mls/hr UNSCH PRN IV 06/27/16 14:00 Magnesium Sulfate 2 gm/Sodium Chloride 100 ml @ 50 mls/hr UNSCH PRN IV 06/27/16 14:00 Potassium Chloride 100 ml @ 50 mls/hr Q2H PRN IV 06/27/16 14:00 Potassium Chloride 100 ml @ 50 mls/hr Q2H PRN IV 06/27/16 14:00 Potassium Chloride 100 ml @ 50 mls/hr Q2H PRN IV 06/27/16 14:00 (KCl 40 Meq Premix Inj) 100 ml @ 25 mls/hr UNSCH PRN IV 06/27/16 14:00 (KCl 40 Meq/30 ml Liq) 40 meq UNSCH PRN PO/TUBE 06/27/16 14:00 (KCl 40 Meq/30 ml Liq) 40 meq UNSCH PRN PO/TUBE 06/27/16 14:00 (K-Phos) 2,000 mg Q4H PRN PO 06/27/16 14:00 Potassium Phosphate 2000 mg 2,000 mg UNSCH PRN PO/TUBE 06/27/16 14:00 Potassium Phosphate 30 mmol/ Sodium Chloride 260 ml @ 42 mls/hr UNSCH PRN IV 06/27/16 14:00 Sodium Phosphate 30 mmol/Sodium Chloride 250 ml @ 42 mls/hr UNSCH PRN IV 06/27/16 14:00 (Cardizem Inj/NS Inj) 125 ml @ 0 mls/hr TITRATE IV 06/28/16 09:00 06/29/16 07:18 (Dulcolax Supp) 10 mg DAILY RECTAL 06/28/16 09:00 06/29/16 09:13 (D50w (Vial) Inj) 25 ml UNSCH PRN IV PUSH 06/28/16 08:00 (Glucagon Inj) 1 mg UNSCH PRN OTHER 06/28/16 08:00 Insulin Human Regular 1 1 Q6HR SQ 06/28/16 12:00 06/29/16 12:06 (KCl Inj/D5W 1000 ml Inj) 1,005 ml @ 42 mls/hr [id number] IV 06/28/16 08:00 06/28/16 08:50 (Lasix Inj) 20 mg BID@09,18 IV PUSH 06/28/16 09:00 06/29/16 09:13 Artificial Tears 1 applic 1 applic Q12HR EACH EYE 06/28/16 21:00 06/29/16 09:14 (Vancomycin Inj/ NS 500 ml Inj) 515 ml @ 250 mls/hr Q18H IV 06/28/16 16:00 06/29/16 09:13 Miscellaneous Information SPECIFIC LAB TO BE DRAWN:VANCOMY... ONCE ONCE XX 06/30/16 03:45 06/30/16 03:46 (Trandate Inj) 10 mg Q1HR PRN IV PUSH 06/28/16 13:45 (Nitroglycerin 2% Oint) 2 inch Q6HR PRN TOPICAL 06/28/16 14:00 (Lopressor Inj) 5 mg Q6HR IV PUSH 06/28/16 18:00 06/29/16 06:52 Family History History of psychiatry illnesses. CAD and CVA. . Substance Use Tobacco: Former smoker. Alcohol: Socially. Prescription med abuse: Denies. Illicits: Denies. . Psychosocial History . Resides with prior to hospitalization in February 2016. Spiritual/Cultural Factors No orthodoxy affiliation. . Living Will: Never completed Health Care Surrogate: Never completed Durable Power of Company Secretary: Never completed Health Care Surrogate(s): As per [place] statute, medical decision maker falls to patient's . . Documented care wishes: No living will has been completed. . Family/friends goals: DNR/DNI. Continue aggressive care short of no code/no invasive procedures in order to allow additional 24-48h for clinical improvement. . Ethical and Legal Issues No living will has been completed. . Physical Exam Vital Signs Date Time Temp Pulse Resp B/P Pulse Ox O2 Delivery O2 Flow Rate FiO2 06/29/16 09:41 94 Partial Rebreather 06/29/16 05:00 75 06/29/16 04:00 99.0 70 10 126/50 94 06/29/16 03:00 75 06/29/16 01:00 79 06/29/16 00:00 98.4 130 12 141/71 94 06/28/16 23:00 132 06/28/16 21:10 94 Partial Rebreather 13.00 06/28/16 21:00 132 06/28/16 20:00 99.1 132 27 132/70 94 06/28/16 19:00 131 06/28/16 19:00 91 Partial Non-Rebreather 13.00 06/28/16 18:00 96 Partial Non-Rebreather 8.00 06/28/16 18:00 131 06/28/16 16:00 98.6 130 20 138/68 92 06/28/16 16:00 96 Partial Non-Rebreather 8.00 06/28/16 16:00 130 06/28/16 16:00 130 06/28/16 14:00 131 06/28/16 14:00 131 06/28/16 14:00 96 Partial Non-Rebreather 8.00 06/28/16 06/29/16 19:00 07:00 Intake Total 762 ml 1484 ml Output Total 1850 ml 1825 ml Balance -1088 ml -341 ml IV Total 762 ml 1287 ml Platelets 197 ml Output Urine Total 1850 ml 1825 ml # Bowel Movements 1 1 Exam CONSTITUTIONAL/GENERAL: This is an obese male patient in no acute distress. TUBES/LINES/DRAINS: PIV's, Carmona catheter, SCDs, nonrebreather. SKIN: No jaundice, rashes, or lesions. Large areas of ecchymoses on upper extremities. No wounds seen anteriorly. Skin temperature appropriate. Not diaphoretic. HEAD: Atraumatic. Normocephalic. EYES: Pupils equal and round and reactive. No scleral icterus. No injection or drainage. ENT: Unable to evaluate hearing secondary to clinical condition. Nose without bleeding or purulent drainage. Mouth close. NECK: Trachea midline. Supple. CARDIOVASCULAR: Irregular rate and rhythm. Heart rate in the 70s. Peripheral pulses symmetric. RESPIRATORY/CHEST: Symmetric. Increased work of breathing. Coarse breath sounds bilaterally. O2 via nonrebreather mask. GASTROINTESTINAL: Abdomen large, round. Unable to appreciate hepato- splenomegaly secondary to body habitus. Bowel sounds present. GENITOURINARY: Without palpable bladder distension. Carmona catheter in place. Moderate amount of yellow urinary output in Carmona bag. MUSCULOSKELETAL: Extremities without clubbing, cyanosis. Edema to bilateral lower extremities No mottling or clubbing. NEUROLOGICAL: Obtunded.. Not tracking with eyes. Not following any commands. PSYCHIATRIC: Unable to assess secondary to clinical condition, with on that. Appears calm. . Diagnostic Tests Laboratory Laboratory Tests Test 06/27/16 06/27/16 06/27/16 06/27/16 06:15 12:20 13:00 13:35 White Blood Count 12.1 TH/MM3 14.0 TH/MM3 (4.0-11.0) (4.0-11.0) Red Blood Count 3.54 MIL/MM3 3.61 MIL/MM3 (4.50-5.90) (4.50-5.90) Hemoglobin 9.8 GM/DL 9.9 GM/DL (13.0-17.0) (13.0-17.0) Hematocrit 30.3 % 31.2 % (39.0-51.0) (39.0-51.0) Mean Corpuscular Volume 85.5 FL 86.6 FL (80.0-100.0) (80.0-100.0) Mean Corpuscular Hemoglobin 27.8 PG 27.5 PG (27.0-34.0) (27.0-34.0) Mean Corpuscular Hemoglobin 32.5 % 31.7 % Concent (32.0-36.0) (32.0-36.0) Red Cell Distribution Width 21.0 % 21.0 % (11.6-17.2) (11.6-17.2) Platelet Count 41 TH/MM3 29 TH/MM3 (150-450) (150-450) Mean Platelet Volume 9.1 FL 9.6 FL (7.0-11.0) (7.0-11.0) Neutrophils (%) (Auto) 94.5 % (16.0-70.0) Lymphocytes (%) (Auto) 1.8 % (9.0-44.0) Monocytes (%) (Auto) 3.5 % (0.0-8.0) Eosinophils (%) (Auto) 0.0 % (0.0-4.0) Basophils (%) (Auto) 0.2 % (0.0-2.0) Neutrophils # (Auto) 11.4 TH/MM3 (1.8-7.7) Lymphocytes # (Auto) 0.2 TH/MM3 (1.0-4.8) Monocytes # (Auto) 0.4 TH/MM3 (0-0.9) Eosinophils # (Auto) 0.0 TH/MM3 (0-0.4) Basophils # (Auto) 0.0 TH/MM3 (0-0.2) CBC Comment AUTO DIFF Differential Comment AUTO DIFF CONFIRMED Platelet Estimate LOW (NORMAL) Platelet Morphology Comment ENLARGED (NORMAL) Sodium Level 147 MEQ/L 147 MEQ/L (136-145) (136-145) Potassium Level 3.9 MEQ/L 3.9 MEQ/L (3.5-5.1) (3.5-5.1) Chloride Level 118 MEQ/L 115 MEQ/L (98-107) (98-107) Carbon Dioxide Level 16.9 MEQ/L 16.8 MEQ/L (21.0-32.0) (21.0-32.0) Anion Gap 12 MEQ/L (5-15) 15 MEQ/L (5-15) Blood Urea Nitrogen 40 MG/DL (7-18) 47 MG/DL (7-18) Creatinine 0.90 MG/DL 1.78 MG/DL (0.60-1.30) (0.60-1.30) Estimat Glomerular Filtration 87 ML/MIN (>89) 40 ML/MIN (>89) Rate Random Glucose 122 MG/DL 213 MG/DL (74-106) (74-106) Calcium Level 7.5 MG/DL 7.2 MG/DL (8.5-10.1) (8.5-10.1) Blood Gas Puncture Site LT RADIAL ART LINE Blood Gas Patient Temperature 98.6 98.6 Blood Gas HCO3 10 mmol/L 13 mmol/L (22-26) (22-26) Blood Gas Base Excess -14.5 mmol/L -10.7 mmol/L (-2-2) (-2-2) Blood Gas Oxygen Saturation 89 % (90-100) 95 % (90-100) Arterial Blood pH 7.35 7.39 (7.380-7.420) (7.380-7.420) Arterial Blood Partial 19 mmHg (38-42) 22 mmHg (38-42) Pressure CO2 Arterial Blood Partial 77 mmHg 94 mmHg Pressure O2 (61-120) (61-120) Arterial Blood Oxygen Content 11.8 Vol % 12.7 Vol % (12.0-20.0) (12.0-20.0) Arterial Blood 1.6 % (0-4) 2.1 % (0-4) Carboxyhemoglobin Arterial Blood Methemoglobin 1.4 % (0-2) 0.7 % (0-2) Blood Gas Hemoglobin 9.3 G/DL 9.4 G/DL (12.0-16.0) (12.0-16.0) Oxygen Delivery Device Non-Rebreathing Non-Rebreathing Mask Mask Blood Gas Liter Flow 15 L/M 15 L/M Blood Gas Inspired Oxygen 100 % 100 % Prothrombin Time 13.8 SEC (9.8-11.6) Prothromb Time International 1.2 RATIO Ratio Activated Partial 29.9 SEC Thromboplast Time (24.3-30.1) Lactic Acid Level 6.6 mmol/L (0.4-2.0) Protein Corrected Calcium 8.2 MG/DL (8.5-10.1) Phosphorus Level 5.4 MG/DL (2.5-4.9) Magnesium Level 2.7 MG/DL (1.5-2.5) Total Protein 5.3 GM/DL (6.4-8.2) B-Hydroxybutyrate 0.17 MMOL/L (0.00-0.39) Test 06/27/16 06/28/16 06/28/16 06/28/16 18:00 04:20 11:47 12:18 Urine Color YELLOW (YELLW/STRAW) Urine Turbidity CLOUDY (CLEAR) Urine pH 5.0 (5.0-8.5) Urine Specific Ashley 1.023 (1.002-1.035) Urine Protein 30 mg/dL (NEG-TRACE) Urine Glucose (UA) TRACE mg/dL (NEG) Urine Ketones NEG mg/dL (NEG) Urine Occult Blood MOD (NEG) Urine Nitrite NEG (NEG) Urine Bilirubin NEG (NEG) Urine Urobilinogen 2.0 MG/DL (LESS THAN 2.0) Urine Leukocyte Esterase NEG (NEG) Urine RBC /hpf (0-3) Urine WBC 16 /hpf (0-5) Urine WBC Clumps FEW (NONE) Urine Squamous Epithelial 3 /hpf (0-5) Cells Urine Bacteria RARE /hpf (NONE) Urine Mucus MOD /lpf (OCC) Microscopic Urinalysis Comment CATH-CULTURE IND White Blood Count 9.2 TH/MM3 (4.0-11.0) Red Blood Count 3.22 MIL/MM3 (4.50-5.90) Hemoglobin 9.0 GM/DL (13.0-17.0) Hematocrit 27.7 % (39.0-51.0) Mean Corpuscular Volume 86.0 FL (80.0-100.0) Mean Corpuscular Hemoglobin 27.9 PG (27.0-34.0) Mean Corpuscular Hemoglobin 32.4 % Concent (32.0-36.0) Red Cell Distribution Width 21.5 % (11.6-17.2) Platelet Count 30 TH/MM3 (150-450) Mean Platelet Volume 9.4 FL (7.0-11.0) Sodium Level 152 MEQ/L (136-145) Potassium Level 3.5 MEQ/L (3.5-5.1) Chloride Level 119 MEQ/L (98-107) Carbon Dioxide Level 22.8 MEQ/L (21.0-32.0) Anion Gap 10 MEQ/L (5-15) Blood Urea Nitrogen 52 MG/DL (7-18) Creatinine 1.26 MG/DL (0.60-1.30) Estimat Glomerular Filtration 59 ML/MIN (>89) Rate Random Glucose 109 MG/DL (74-106) Calcium Level 7.6 MG/DL (8.5-10.1) Random Vancomycin Level 16.3 COMMENT Blood Bank Comment Blood Type O POSITIVE Test 06/28/16 06/29/16 12:24 03:55 Fibrinogen 214 mg/dL (181-393) White Blood Count 9.6 TH/MM3 (4.0-11.0) Red Blood Count 3.22 MIL/MM3 (4.50-5.90) Hemoglobin 9.2 GM/DL (13.0-17.0) Hematocrit 27.9 % (39.0-51.0) Mean Corpuscular Volume 86.7 FL (80.0-100.0) Mean Corpuscular Hemoglobin 28.5 PG (27.0-34.0) Mean Corpuscular Hemoglobin 32.9 % Concent (32.0-36.0) Red Cell Distribution Width 21.8 % (11.6-17.2) Platelet Count 55 TH/MM3 (150-450) Mean Platelet Volume 10.0 FL (7.0-11.0) Neutrophils (%) (Auto) 95.5 % (16.0-70.0) Lymphocytes (%) (Auto) 1.9 % (9.0-44.0) Monocytes (%) (Auto) 2.4 % (0.0-8.0) Eosinophils (%) (Auto) 0.0 % (0.0-4.0) Basophils (%) (Auto) 0.2 % (0.0-2.0) Neutrophils # (Auto) 9.1 TH/MM3 (1.8-7.7) Lymphocytes # (Auto) 0.2 TH/MM3 (1.0-4.8) Monocytes # (Auto) 0.2 TH/MM3 (0-0.9) Eosinophils # (Auto) 0.0 TH/MM3 (0-0.4) Basophils # (Auto) 0.0 TH/MM3 (0-0.2) CBC Comment AUTO DIFF Differential Comment AUTO DIFF CONFIRMED Platelet Estimate LOW (NORMAL) Platelet Morphology Comment ENLARGED (NORMAL) Sodium Level 153 MEQ/L (136-145) Potassium Level 3.7 MEQ/L (3.5-5.1) Chloride Level 118 MEQ/L (98-107) Carbon Dioxide Level 24.9 MEQ/L (21.0-32.0) Anion Gap 10 MEQ/L (5-15) Blood Urea Nitrogen 40 MG/DL (7-18) Creatinine 0.90 MG/DL (0.60-1.30) Estimat Glomerular Filtration 87 ML/MIN (>89) Rate Random Glucose 143 MG/DL (74-106) Calcium Level 7.5 MG/DL (8.5-10.1) Phosphorus Level 2.5 MG/DL (2.5-4.9) Magnesium Level 2.5 MG/DL (1.5-2.5) Total Bilirubin 1.1 MG/DL (0.2-1.0) Aspartate Amino Transf 79 U/L (15-37) (AST/SGOT) Alanine Aminotransferase 249 U/L (12-78) (ALT/SGPT) Alkaline Phosphatase 83 U/L (45-117) Troponin I 0.29 NG/ML (0.02-0.05) Total Protein 5.4 GM/DL (6.4-8.2) Albumin 2.6 GM/DL (3.4-5.0) Thyroid Stimulating Hormone 0.038 uIU/ML 3rd Gen (0.358-3.740) Result Diagram: 06/29/16 0355 06/29/16 0355 Microbiology Microbiology Date/Time Procedure Status Source Growth 06/27/16 18:00 Urine Culture - Final Complete Urine Catheterized Urine NO GROWTH IN 48 HOURS. 06/27/16 19:20 Aerobic Blood Culture - Preliminary Resulted Blood Peripheral NO GROWTH IN 2 DAYS 06/27/16 19:20 Anaerobic Blood Culture - Preliminary Resulted Blood Peripheral NO GROWTH IN 2 DAYS 06/27/16 19:28 Aerobic Blood Culture - Preliminary Resulted Blood Peripheral NO GROWTH IN 2 DAYS 06/27/16 19:28 Anaerobic Blood Culture - Preliminary Resulted Blood Peripheral NO GROWTH IN 2 DAYS Imaging Last Impressions Head CT 06/27/16 0000 Signed Impressions: Service Date/Time: Monday, June 27, 2016 16:30 - CONCLUSION: No acute disease. Yao Cordero MD Chest CT 06/26/16 0000 Signed Impressions: Service Date/Time: Sunday, June 26, 2016 11:53 - CONCLUSION: 1. Bilateral pleural effusions larger on the right than the left. 2. Patchy air space disease in the right lower lobe. Sheldon Mccrary MD FACR Abdomen/Pelvis CT 06/24/16 0000 Signed Impressions: Service Date/Time: Friday, June 24, 2016 10:13 - CONCLUSION: 1. Bilateral effusions larger on the right than the left with dense consolidation in the right lower lobe and middle lobe concerning for pneumonia. CT imaging of the thorax is warranted for further assessment. 2. Small, lobulated spleen with areas of decreased attenuation suggesting prior splenic infarcts. 3. No free air or free fluid seen within the abdomen. Didier Mccrary MD Liver Ultrasound 06/23/16 0000 Signed Impressions: Service Date/Time: Thursday, June 23, 2016 10:19 - CONCLUSION: 1. Limited right upper quadrant sonogram. 2. Liver is slightly nodular could be related to early cirrhosis. 3. Spleen and common bile duct not seen. 4. Small right pleural effusion. sonogram. Johnathon Monterroso MD Soft Tissue Ultrasound 06/22/16 0600 Signed Impressions: Service Date/Time: Wednesday, June 22, 2016 11:21 - CONCLUSION: Soft-tissue swelling evident without fluid collection to suggest an abscess. Sheldon Mccrary MD FACR Patient/Family Conference Present at Family Conference: Pilar Muhammad. Family Conference Time (mins): 55 Family Conference Location: Bedside Issues Discussed: * Palliative care role, purpose, approach * Additional medical, psychosocial, and spiritual history * Patients general health, functional status, and cognitive changes in the months leading up to the current hospitalization * Patient/family understanding of the current medical problems * Patient/family understanding of prognosis * Patients goals of care as best understood from advance directives and/or conversations and/or values * Current medical treatment options and benefits/burdens of those options * Likely scenarios comparing ongoing aggressive care with a transition to comfort measures only * Questions answered to the best of my ability * Palliative care contact information provided . Assessment and Plan Disease Oriented Problem List: (1) Acute hypoxemic respiratory failure (2) Acute ischemic left MCA stroke (3) Paroxysmal atrial fibrillation (4) Thrombocytopenia Symptom Scale: (1) Anxiety (2) Debility (3) Dysphagia Pertinent Non-Medical Issues Psychosocial: Spiritual: Legal: Ethical issues impacting care: Important Contacts Pilar Muhammad [phone] and . . Prognosis Mr. Muhammad is a 55-year-old male with a medical history significant of multiple CVA since January 2016, COPD, acute NJ in 2016, obstructive sleep apnea, anxiety , hypertension, CAD, A. fib on Eliquis, ITP and history of testicular cancer in his late 40's status post radiation therapy. Patient presents with acute hypoxemic respiratory failure, is obtunded and not following any commands. Remains thrombocytopenic requiring platelet transfusions. Questionable recurrence of malignancy per CT scan of chest, unable to biopsy secondary to thrombocytopenia. Patient's overall prognosis is poor given her prior CVA history, acute NJ, multiple comorbidities, profound physical deconditioning and acute events. Patient is a high risk for continued decline, further complications and . . Code Status: No Code Plan * CODE STATUS: No code. DNR/DNI. * DECISION-MAKING CAPACITY: Patient incapacitated secondary to clinical condition. Psych consult on 06/12/16, patient was found to have poor insight and judgment. As per [place] statute, medical decision-making falls to patient' s Pilar Muhammad. * GOALS OF CARE: Continue aggressive care short of no code/no invasive procedures/no peg tube and allow an additional 24-48h for clinical improvement. If patient's clinical condition continues to worsen, family electing to transition patient to comfort-directed care given his poor prognosis for a meaningful recovery. with a very good understanding of patient's current critical condition. verbalized "not wanting him to suffer". She feels that patient currently has no quality of life secondary to multiple strokes, profound physical deconditioning and current acute events. * Anticipatory guidance provided. * SYMPTOMS: == Shortness of breath, multifactorial. History of COPD and acute pneumonia. Remains on O2 via nonrebreather. Polysomnographer to manage. == Debility , multifactorial secondary to multiple CVA, prolonged hospitalizations and multiple comorbidities. Likely to worsen. * Case discussed with Dr. Haywood -palliative care and bedside RN. * Spiritual services offered but declined by . Ongoing emotional support and active listening provided. * Palliative care contact information has been provided to patient's family. * Palliative care will continue to follow-up for further clarifications of goals of care as clinical course continues to evolve. . Time Spent Total Floor Time (mins): 120 (Total time to include review and summarization of available medical records to include prior hospitalizations, physical exam, goals of care discussion with , case discussion with Dr. Haywood with palliative care and bedside RN.) >50% Counseling/Coord of Care: Yes Thank you for the opportunity to participate in the care of Mr. Muhammad. Attestation To help prompt me to consider important information that might be impacting today's encounter and assessment, information from prior notes written by myself or my colleagues may have been "brought forward" into today's note. My signature on this note, however, is an attestation that I personally performed the exam, history, and/or decision-making noted today, and, unless otherwise indicated, the interactions with patient, family, and staff as well as the review of records all occurred today. I also attest that the listed assessment and stated plan reflect my best clinical judgment today based on the combination of historical information, prior notes, and today's exam/ interactions. When time spent is documented, it refers only to time spent today by the signer, or if indicated, combined time spent today by collaborating physician/nurse practitioner. Cathy Hurst Jun 29, 2016 14:25
--- NOTE | 2016-06-29 15:21 | PD.CONS ---
HPI History of Present Illness This is a 55 year old male with past medical history significant for heart attack, a total of 6 strokes since last January, A-fib on Eliquis, CAD, who [facility] for a decline in status, becoming more agitated with AMS. He was found to have thrombocytopenia and hematology consulted, work up revealed low ceruloplasmin levels and that promoted GI consult. Patient currently on C-pap, very lethargic, nonverbal, there fore, HPI was obtained from nurse, , and EMR. Ct of abd (06/24/16) showed Bilateral effusions larger on the right than the left with dense consolidation in the right lower lobe and middle lobe concerning for pneumonia. CT imaging of the thorax is warranted for further assessment. 2. Small, lobulated spleen with areas of decreased attenuation suggesting prior splenic infarcts. US (06/23/16) showed Limited right upper quadrant sonogram. 2. Liver is slightly nodular could be related to early cirrhosis. 3. Spleen and common bile duct not seen. 4. Small right pleural effusion. denies previous history of liver cirrhosis, patient doesn't drink alcohol, he used to. States patient has been in good health up till he started having the strokes. AST 79, ALT 249, ALP normal, bili 1.1. Hepatitis panel negative. No nausea, no vomiting, abdomen pain, melena or hematochezia reported. states, patient was passing blood in the stools in April but that has subsided, and was thought secondary to hemorrhoids. Last colonoscopy was with Dr. marvin in 2011. states, patient had a poor appetite lately and wt loss of 30 ibs in one month. PFSH Past Medical History History of multiple CVA Paroxysmal A. fib on Eliquis COPD Obstructive sleep apnea Anxiety Hypertension Hyperlipidemia CAD Arthritis ITP Previous testicular cancer with radiation Restless leg syndrome . Past Surgical History Orchiectomy Cardiac catheterization Bone marrow . Coded Allergies: No Known Allergies (Unverified , 04/16/16) Medications Current Medications Medications (Trade) Dose Ordered Sig/Brock Route Start Time Stop Time Status Last Admin (NS Flush) 2 ml UNSCH PRN FLUSH 06/12/16 20:15 (NS Flush) 2 ml BID FLUSH 06/12/16 21:00 06/29/16 09:14 (Tylenol) 650 mg Q4H PRN PO 06/12/16 20:15 06/25/16 12:44 (Zofran Inj) 4 mg Q6H PRN IVP 06/12/16 20:15 (Narcan Inj) 0.4 mg UNSCH PRN IV 06/12/16 20:15 (Lipitor) 80 mg HS PO 06/12/16 21:00 Hold 06/26/16 21:25 (Colace) 100 mg BID PO 06/12/16 21:00 06/28/16 08:21 (Symbicort 160-4.5 Inh) 2 puff BID INH 06/12/16 21:00 06/27/16 08:55 (Remeron) 15 mg HS PO 06/13/16 21:00 Hold 06/26/16 21:25 (Protonix Inj) 40 mg DAILY IV PUSH 06/18/16 11:00 06/29/16 09:13 (Eliquis) 5 mg BID PO 06/19/16 21:00 Hold 06/20/16 09:35 (Heparin Inj) 5,000 units Q8HR SQ 06/20/16 22:00 Hold 06/28/16 06:03 (Cardizem) 90 mg QID PO 06/21/16 09:00 Hold 06/27/16 08:54 (Haldol Inj) 5 mg Q6H PRN IM 06/22/16 15:00 Hold 06/23/16 00:43 (Haldol) 5 mg BID PO 06/22/16 21:00 Hold 06/27/16 08:54 (Lopressor) 50 mg Q8H PO 06/23/16 17:00 Hold 06/27/16 08:55 (SoluMEDROL INJ) 40 mg Q12H IV PUSH 06/26/16 18:00 06/29/16 06:52 (Cordarone) 400 mg Q12HR PO 06/26/16 12:00 Hold 06/27/16 08:55 Haloperidol Lactate 5 mg 5 mg Q1H PRN IV PUSH 06/27/16 13:45 06/28/16 16:04 Pharmacy Profile Note 0 ml @ 0 mls/hr UNSCH OTHER 06/27/16 13:45 Cefepime HCl 1000 mg/Sodium Chloride 100 ml @ 200 mls/hr Q8H IV 06/27/16 14:00 06/29/16 13:27 (Flagyl 500 Mg Inj) 100 ml @ 100 mls/hr Q6H IV 06/27/16 15:00 06/29/16 13:28 Magnesium Oxide 800 mg 800 mg UNSCH PRN PO 06/27/16 14:00 Magnesium Sulfate 4 gm/Sodium Chloride 100 ml @ 50 mls/hr UNSCH PRN IV 06/27/16 14:00 Magnesium Sulfate 2 gm/Sodium Chloride 100 ml @ 50 mls/hr UNSCH PRN IV 06/27/16 14:00 Potassium Chloride 100 ml @ 50 mls/hr Q2H PRN IV 06/27/16 14:00 Potassium Chloride 100 ml @ 50 mls/hr Q2H PRN IV 06/27/16 14:00 Potassium Chloride 100 ml @ 50 mls/hr Q2H PRN IV 06/27/16 14:00 (KCl 40 Meq Premix Inj) 100 ml @ 25 mls/hr UNSCH PRN IV 06/27/16 14:00 (KCl 40 Meq/30 ml Liq) 40 meq UNSCH PRN PO/TUBE 06/27/16 14:00 (KCl 40 Meq/30 ml Liq) 40 meq UNSCH PRN PO/TUBE 06/27/16 14:00 (K-Phos) 2,000 mg Q4H PRN PO 06/27/16 14:00 Potassium Phosphate 2000 mg 2,000 mg UNSCH PRN PO/TUBE 06/27/16 14:00 Potassium Phosphate 30 mmol/ Sodium Chloride 260 ml @ 42 mls/hr UNSCH PRN IV 06/27/16 14:00 Sodium Phosphate 30 mmol/Sodium Chloride 250 ml @ 42 mls/hr UNSCH PRN IV 06/27/16 14:00 (Cardizem Inj/NS Inj) 125 ml @ 0 mls/hr TITRATE IV 06/28/16 09:00 06/29/16 07:18 (Dulcolax Supp) 10 mg DAILY RECTAL 06/28/16 09:00 06/29/16 09:13 (D50w (Vial) Inj) 25 ml UNSCH PRN IV PUSH 06/28/16 08:00 (Glucagon Inj) 1 mg UNSCH PRN OTHER 06/28/16 08:00 Insulin Human Regular 1 1 Q6HR SQ 06/28/16 12:00 06/29/16 12:06 (KCl Inj/D5W 1000 ml Inj) 1,005 ml @ 42 mls/hr [id number] IV 06/28/16 08:00 06/28/16 08:50 (Lasix Inj) 20 mg BID@09,18 IV PUSH 06/28/16 09:00 06/29/16 09:13 Artificial Tears 1 applic 1 applic Q12HR EACH EYE 06/28/16 21:00 06/29/16 09:14 (Vancomycin Inj/ NS 500 ml Inj) 515 ml @ 250 mls/hr Q18H IV 06/28/16 16:00 06/29/16 09:13 Miscellaneous Information SPECIFIC LAB TO BE DRAWN:VANCOMY... ONCE ONCE XX 06/30/16 03:45 06/30/16 03:46 (Trandate Inj) 10 mg Q1HR PRN IV PUSH 06/28/16 13:45 (Nitroglycerin 2% Oint) 2 inch Q6HR PRN TOPICAL 06/28/16 14:00 (Lopressor Inj) 5 mg Q6HR IV PUSH 06/28/16 18:00 06/29/16 06:52 Family History History of psychiatry illnesses. CAD and CVA. . Social History Occasional alcohol use Former smoker Denies illicit drug use Review of Systems Constitutional: DENIES: Fever, Chills Endocrine: DENIES: Polyuria Eyes: DENIES: Double Vision Ears, nose, mouth, throat: DENIES: Hoarseness Respiratory: COMPLAINS OF: Shortness of breath Cardiovascular: COMPLAINS OF: Lower Extremity Edema Gastrointestinal: DENIES: Abdominal pain, Black stools, Bloody stools, Constipation, Nausea, Vomiting, Difficulty Swallowing, Odynophagia, Swelling of Abdomen, Heartburn, Hematemesis Musculoskeletal: DENIES: Neck pain Integumentary: DENIES: Jaundice Hematologic/lymphatic: DENIES: Bruising Immunologic/allergic: DENIES: Eczema Neurologic: DENIES: Abnormal gait Psychiatric: COMPLAINS OF: Confusion ROS ROS obtained from , patient not verbal GI Exam Vitals I&O Vital Signs Date Time Temp Pulse Resp B/P Pulse Ox O2 Delivery O2 Flow Rate FiO2 06/29/16 14:00 77 06/29/16 12:00 78 06/29/16 10:00 77 06/29/16 09:41 94 Partial Rebreather 06/29/16 08:00 96 Partial Non-Rebreather 8.00 06/29/16 08:00 78 06/29/16 08:00 97.8 72 9 131/57 96 06/29/16 05:00 75 06/29/16 04:00 99.0 70 10 126/50 94 06/29/16 03:00 75 06/29/16 01:00 79 06/29/16 00:00 98.4 130 12 141/71 94 06/28/16 23:00 132 06/28/16 21:10 94 Partial Rebreather 13.00 06/28/16 21:00 132 06/28/16 20:00 99.1 132 27 132/70 94 06/28/16 19:00 131 06/28/16 19:00 91 Partial Non-Rebreather 13.00 06/28/16 18:00 96 Partial Non-Rebreather 8.00 06/28/16 18:00 131 06/28/16 16:00 98.6 130 20 138/68 92 06/28/16 16:00 96 Partial Non-Rebreather 8.00 06/28/16 16:00 130 06/28/16 16:00 130 I/O 06/28/16 06/28/16 06/28/16 06/29/16 06/29/16 06/29/16 07:00 15:00 23:00 07:00 15:00 23:00 Intake Total 808 ml 762 ml 956 ml 528 ml Output Total 450 ml 1850 ml 1450 ml 375 ml Balance 358 ml -1088 ml -494 ml 153 ml IV Total 808 ml 762 ml 759 ml 528 ml Platelets 197 ml Output Urine Total 450 ml 1850 ml 1450 ml 375 ml # Bowel Movements 0 1 1 0 Imaging Last Impressions Head CT 06/27/16 0000 Signed Impressions: Service Date/Time: Monday, June 27, 2016 16:30 - CONCLUSION: No acute disease. Yao Cordero MD Chest CT 06/26/16 0000 Signed Impressions: Service Date/Time: Sunday, June 26, 2016 11:53 - CONCLUSION: 1. Bilateral pleural effusions larger on the right than the left. 2. Patchy air space disease in the right lower lobe. Sheldon Mccrary MD FACR Abdomen/Pelvis CT 06/24/16 0000 Signed Impressions: Service Date/Time: Friday, June 24, 2016 10:13 - CONCLUSION: 1. Bilateral effusions larger on the right than the left with dense consolidation in the right lower lobe and middle lobe concerning for pneumonia. CT imaging of the thorax is warranted for further assessment. 2. Small, lobulated spleen with areas of decreased attenuation suggesting prior splenic infarcts. 3. No free air or free fluid seen within the abdomen. Didier Mccrary MD Liver Ultrasound 06/23/16 0000 Signed Impressions: Service Date/Time: Thursday, June 23, 2016 10:19 - CONCLUSION: 1. Limited right upper quadrant sonogram. 2. Liver is slightly nodular could be related to early cirrhosis. 3. Spleen and common bile duct not seen. 4. Small right pleural effusion. sonogram. Johnathon Monterroso MD Soft Tissue Ultrasound 06/22/16 0600 Signed Impressions: Service Date/Time: Wednesday, June 22, 2016 11:21 - CONCLUSION: Soft-tissue swelling evident without fluid collection to suggest an abscess. Sheldon Mccrary MD FACR Laboratory Test 06/29/16 03:55 White Blood Count 9.6 TH/MM3 Red Blood Count 3.22 MIL/MM3 Hemoglobin 9.2 GM/DL Hematocrit 27.9 % Mean Corpuscular Volume 86.7 FL Mean Corpuscular Hemoglobin 28.5 PG Mean Corpuscular Hemoglobin 32.9 % Concent Red Cell Distribution Width 21.8 % Platelet Count 55 TH/MM3 Mean Platelet Volume 10.0 FL Neutrophils (%) (Auto) 95.5 % Lymphocytes (%) (Auto) 1.9 % Monocytes (%) (Auto) 2.4 % Eosinophils (%) (Auto) 0.0 % Basophils (%) (Auto) 0.2 % Neutrophils # (Auto) 9.1 TH/MM3 Lymphocytes # (Auto) 0.2 TH/MM3 Monocytes # (Auto) 0.2 TH/MM3 Eosinophils # (Auto) 0.0 TH/MM3 Basophils # (Auto) 0.0 TH/MM3 CBC Comment AUTO DIFF Differential Comment AUTO DIFF CONFIRMED Platelet Estimate LOW Platelet Morphology Comment ENLARGED Sodium Level 153 MEQ/L Potassium Level 3.7 MEQ/L Chloride Level 118 MEQ/L Carbon Dioxide Level 24.9 MEQ/L Anion Gap 10 MEQ/L Blood Urea Nitrogen 40 MG/DL Creatinine 0.90 MG/DL Estimat Glomerular Filtration 87 ML/MIN Rate Random Glucose 143 MG/DL Calcium Level 7.5 MG/DL Phosphorus Level 2.5 MG/DL Magnesium Level 2.5 MG/DL Total Bilirubin 1.1 MG/DL Aspartate Amino Transf 79 U/L (AST/SGOT) Alanine Aminotransferase 249 U/L (ALT/SGPT) Alkaline Phosphatase 83 U/L Troponin I 0.29 NG/ML Total Protein 5.4 GM/DL Albumin 2.6 GM/DL Thyroid Stimulating Hormone 0.038 uIU/ML 3rd Gen Date/Time Procedure Status Source Growth 06/27/16 19:28 Aerobic Blood Culture - Preliminary Resulted Blood Peripheral NO GROWTH IN 2 DAYS 06/27/16 19:28 Anaerobic Blood Culture - Preliminary Resulted Blood Peripheral NO GROWTH IN 2 DAYS 06/27/16 18:00 Urine Culture - Final Complete Urine Catheterized Urine NO GROWTH IN 48 HOURS. Physical Examination HEENT: normocephalic; atraumatic; no jaundice. NECK: Neck is supple, no JVD, no lymphadenopathy. CHEST: Diminished breath sounds CARDIAC: Regular rate and rhythm with no murmur gallop or rubs. ABDOMEN: Soft, nondistended, nontender; bowel sounds are present in all four quadrants. EXTREMITIES: Gen. edema. CHECK GRADER: Lethargic Assessment and Plan Plan - Cirrhosis (new diagnosis)- No previous history of this. used to drink, but it has been a while according to . Hepatitis panel negative, Iron sats 17.7, ferritin 488, ceruloplasmin 7 Ct of abd (06/24/16) showed Bilateral effusions larger on the right than the left with dense consolidation in the right lower lobe and middle lobe concerning for pneumonia. CT imaging of the thorax is warranted for further assessment. 2. Small, lobulated spleen with areas of decreased attenuation suggesting prior splenic infarcts. US (06/23/16) showed Limited right upper quadrant sonogram. 2. Liver is slightly nodular could be related to early cirrhosis. 3. Spleen and common bile duct not seen. 4. Small right pleural effusion. denies previous history of liver cirrhosis, patient doesn't drink alcohol, he used to. States patient has been in good health up till he started having the strokes. AST 79, ALT 249, ALP normal, bili 1.1. No nausea , no vomiting, abdomen pain, melena or hematochezia reported. - Low ceruloplasmin of 16 - MARIBETH Anemia 9.2, base line around 11, no bleeding reported. states, patient was passing blood in the stools in April but that has subsided, and was thought secondary to hemorrhoids. Last colonoscopy was with Dr. marvin in 2011. - Thrombocytopenia 55, hematology on the case - Poor appetite/wt loss of 30 ibs in one month - Pleural effusion - Solumedrol, not a candidate for thoracentesis due to low plt. - AMS- CT head 06/27 revealed no acute intracranial findings, blood cx, urine cx no growth. Palliative care on the case - A-fib with RVR per CCM - Acute hypoxic respiratory failure per CCM - hx of CVA X 6, HTN, PIYUSH, COPD per attending Plan: - NPO - ZOHRA, ASMA, AMA, celiac, AFP, ammonia - 24 urine for copper - Copper levels - Pending results above, consider slit lamp test - Will need EGD/colonoscopy once medically stable - Monitor hh - Transfuse as needed - Supportive care - Patient seen and examined by dr. Arreola and myself and this note is written on his behalf. Brendan Sauceda Jun 29, 2016 15:21
--- NOTE | 2016-06-29 17:55 | RADRPT ---
EXAM DATE/TIME: 06/29/2016 16:43 [facility] COMPARISON: CT BRAIN W/O CONTRAST, June 27, 2016, 16:30. INDICATIONS : Altered mental status. RADIATION DOSE: 56.35 CTDIvol (mGy) MEDICAL HISTORY : Hypertension. Stroke Carcinoma, testicular. SURGICAL HISTORY : None. ENCOUNTER: Initial ACUITY: 1 day PAIN SCALE: Non-responsive LOCATION: cranial TECHNIQUE: Multiple contiguous axial images were obtained of the head. Using automated exposure control and adj ustment of the mA and/or kV according to patient size, radiation dose was kept as low as reasonably a chievable to obtain optimal diagnostic quality images. FINDINGS: There is evolving ischemic infarct involving the left temporal and left occipital lobe without signif icant mass effect or midline shift. No acute hemorrhage is seen. Bifrontal atrophy is present. No ext ra-axial fluid collections are identified. Posterior fossa structures are unremarkable. Old left fron benigno infarct is also present. CONCLUSION: 1. Subacute left temporal and left occipital lobe infarct. No acute hemorrhage is identified Ken Bradford MD on June 29, 2016 at 17:50 Board Certified Radiologist. This report was verified electronically.
--- NOTE | 2016-06-29 19:34 | HHI.CCPN ---
Subjective Remarks/Hospital Course This is a 50-year-old male who has had a chronic downtrending course since January when he sustained 6 strokes. He was most recently admitted from rehabilitation on 04/11 for worsening agitation, altered mental status, atrial fibrillation with rapid ventricular response. Since that time, his mental status is not improved and to his his declined. This morning he is agitated, pulling off his clothes. His states that he is more cooperative usually. He is also more hypoxic today, requiring increasing FiO2. In discussing the case with Dr. West, his rapid ventricular response is been very difficult to control the last few days. Dr. James has been increasing his AV lissa blocking agents and added amiodarone to his diltiazem and metoprolol. He presents as a rapid response for a HR in the 30s with hypotension. When I evaluated the patient when he arrived in the [facility], he was agitated. His HR was in the 30s. Atropine and epinephrine were given to raise the heart rate and a dopamine drip was started. We also emergently gave glucagon with only mild improvements in HR. At that time we could not obtain a NIBP, so I placed a radial arterial line (please see separate procedure note for details). Critical care medicine is consulted to evaluate and manage his symptomatic bradycardia and acute agitated delirium. Subjective 06/28: Currently on nonrebreather mask saturations 97%. Arousable but does not follow commands. Heart rate currently in the 120s/A. fib with RVR but hemodynamically stable. 06/29: On partial rebreather. Remains encephalopathic. Cardizem drip for A. fib with RVR. Objective Vital Signs Date Time Temp Pulse Resp B/P Pulse Ox O2 Delivery O2 Flow Rate FiO2 06/29/16 18:00 82 06/29/16 16:00 98.2 16 134/50 93 06/29/16 09:41 Partial Rebreather 06/29/16 08:00 8.00 06/27/16 19:00 100 Intake and Output 06/28/16 06/28/16 06/29/16 08:00 16:00 00:00 Intake Total 808 ml 762 ml 956 ml Output Total 450 ml 1850 ml 1450 ml Balance 358 ml -1088 ml -494 ml Result Diagram: 06/29/16 0355 06/29/16 0355 Other Results Microbiology Date/Time Procedure Status Source Growth 06/27/16 18:00 Urine Culture - Final Complete Urine Catheterized Urine NO GROWTH IN 48 HOURS. Imaging Last Impressions Head CT 06/27/16 0000 Signed Impressions: Service Date/Time: Monday, June 27, 2016 16:30 - CONCLUSION: No acute disease. Yao Cordero MD Chest CT 06/26/16 0000 Signed Impressions: Service Date/Time: Sunday, June 26, 2016 11:53 - CONCLUSION: 1. Bilateral pleural effusions larger on the right than the left. 2. Patchy air space disease in the right lower lobe. Sheldon Mccrary MD FACR Abdomen/Pelvis CT 06/24/16 0000 Signed Impressions: Service Date/Time: Friday, June 24, 2016 10:13 - CONCLUSION: 1. Bilateral effusions larger on the right than the left with dense consolidation in the right lower lobe and middle lobe concerning for pneumonia. CT imaging of the thorax is warranted for further assessment. 2. Small, lobulated spleen with areas of decreased attenuation suggesting prior splenic infarcts. 3. No free air or free fluid seen within the abdomen. Didier Mccrary MD Liver Ultrasound 06/23/16 0000 Signed Impressions: Service Date/Time: Thursday, June 23, 2016 10:19 - CONCLUSION: 1. Limited right upper quadrant sonogram. 2. Liver is slightly nodular could be related to early cirrhosis. 3. Spleen and common bile duct not seen. 4. Small right pleural effusion. sonogram. Johnathon Monterroso MD Soft Tissue Ultrasound 06/22/16 0600 Signed Impressions: Service Date/Time: Wednesday, June 22, 2016 11:21 - CONCLUSION: Soft-tissue swelling evident without fluid collection to suggest an abscess. Sheldon Mccrary MD FACR Objective Remarks GENERAL: 55-year-old male, critically ill currently on partial rebreather mask SKIN: Warm and dry. No rash HEAD: Atraumatic. Normocephalic. EYES: Pupils equal and round about 4 mm bilaterally and reactive. No scleral icterus. No injection or drainage. ENT: No nasal bleeding or discharge. Mucous membranes pink and moist. Oropharynx without erythema or exudates NECK: Trachea midline. No JVD. CARDIOVASCULAR: Tachycardia, IR. S1, S2. No S4. Without murmur RESPIRATORY: Tachypnea, diminished breath sounds due to body habitus. No wheezing appreciated. Breath sounds equal bilaterally. GASTROINTESTINAL: Abdomen soft, non-tender, slightly protuberant. Hypoactive bowel sounds are appreciated. Hepatic and splenic margins not palpable. MUSCULOSKELETAL: Extremities with trace lower extremity edema. No obvious deformities. NEUROLOGICAL: Aphasic. Upward toes bilaterally. Withdraws to pain right greater than left upper and lower extremity. Protecting airway adequately. Procedures None. 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 Seroquel currently being held. CV: A. fib with RVR Symptomatic bradycardia likely secondary to AV blocking agents Dyslipidemia NOCAD PVD Cardizem drip as needed Previously on amiodarone 400 mg twice a day, Cardizem and Lopressor during this hospitalization Home medications are sotalol 80 twice a day, diltiazem 240 mg daily and Lopressor 50 mg by mouth every 8 hours. Holding home medication Lipitor 80 mg a night for dyslipidemia. Resume when clinically indicated 2-D echocardiogram 06/27/16 revealed EF 45%. Mild AR/TR. YULIYA 70 mmHg Gentle diuresis Noted ABIs revealed possible left moderate peripheral vascular disease. Recommended CTA when stable Resp: Acute hypoxic respiratory failure History COPD PIYUSH Chronic right pleural effusion Currently on partial rebreather mask to maintain saturations greater or equal to 92% Not a candidate for BiPAP secondary to AMS Bronchodilator therapy every 6 hours and as needed Currently on Symbicort 160/4.52 puffs twice a day. Solu-Medrol 40 mg IV every 12 hours Not a candidate for thoracentesis due to platelets of 30. DNR/DNI per patient's 's decision GI/ liver: Gastroesophageal reflux disease Currently nothing by mouth due to altered mental status Consider tube feedings if continues altered. GI is evaluating for suspected early cirrhosis Protonix for GI prophylaxis Dulcolax suppository s as needed for bowel regimen : Carmona for accurate I's nose any critically ill patient Endo: Sliding-scale insulin with Accu-Cheks to maintain euglycemia/low regimen every 6 hours Renal: Creatinine currently 1.3. Around baseline. Accurate I/os Monitor urine output Heme: ITP Antiphospholipid antibody syndrome Normocytic anemia Heterozygous gene for MTHFR History of testicular cancer On chronic prednisone 20 mg daily for ITP. Currently on Solu-Medrol 40 mg IV every 8 hours Hematology actively following. Currently not bleeding. Eliquis is currently being held in light of severe thrombocytopenia ID: Possible HCAP/UTI Day #3 vancomycin, cefepime and Flagyl. Previously on Levaquin. This was discontinued as possible AV blocking agent for symptomatically bradycardic. Pertinent cultures 06/21 - urine culture - Kluyvera Cryoscens/Proteus Mirabillis 06/27 - blood cultures 2 - pending 06/27 - urine culture - pending MSk: Osteoarthritis PT/OT evaluate and treat/range of motion FEN: Hypernatremia Hyper magnesium Hyperphosphatemia Gentle diuresis/D5 water with KCl at 50 cc an hour Access - Peripheral IV. Central line if indicated - Left radial arterial line day placed 06/27/16 Prophylaxis - GI - Protonix - DVT - heparin subcutaneous okayed by hematology. Off Eliquis due to severe thrombocytopenia from ITP DNR/DNI status. Palliative care consulted to assist with deciding goals of therapy. Marcello Sierra MD Jun 29, 2016 19:34
[2016-06-30] VITALS (8 sets, daily range): BP systolic 112–135; BP diastolic 54–62; PULSE 86–136; RESP 10–22; TEMP 97.8–98.7; O2SAT 92–98
[2016-06-30] MEDS: DILTIAZEM INJ 125 MG in SODIUM CHLORIDE 0.9% INJ 100 ML IV SCH ×3 (03:25→16:41)
[2016-06-30] MEDS: metroNIDAZOLE 500 MG INJ 100 ML IV SCH ×3 (03:26→15:00)
[2016-06-30] MEDS: RESP: ALBUTEROL 2.5 MG/IPRATROPIUM 0.5 MG NEB (SCH) INH ×3 (03:41→16:28)
[2016-06-30] MEDS ORDERED: PHARMACY ORDERED LAB XX ONE (03:45)
[2016-06-30] MEDS ORDERED: DIGOXIN 0.5 MG/2 ML VIAL IV SCH (03:45)
[2016-06-30] MEDS: DEXTROSE 5% IV SCH ×2 (03:52)
[2016-06-30] MEDS: VANCOMYCIN INJ 1,500 MG in SODIUM CHLORID 0.9% 500 ML INJ 500 ML IV SCH ×2 (03:52→04:00)
[2016-06-30] MEDS: POTASSIUM CHLORIDE IV SCH ×2 (03:52)
[2016-06-30] MEDS: WATE IV SCH ×2 (03:52)
[2016-06-30] MEDS: CEFEPIME INJ 1,000 MG in SODIUM CHLORIDE 0.9% INJ 100 ML IV SCH ×2 (05:36→13:18)
[2016-06-30] MEDS: methylPREDNISolone SOD SUCC 40 MG/1 ML VIAL IV PUSH SCH (05:37)
[2016-06-30] MEDS: METOPROLOL TARTRATE 5 MG/5 ML VIAL IV PUSH SCH ×2 (05:37→11:03)
[2016-06-30] MEDS: INSULIN NovoLIN REGULAR SUPPLEMENTAL SCALE SQ SCH ×3 (05:53→11:27)
[2016-06-30] MEDS: BUDESONIDE-FORMOTEROL 160/4.5 MCG INHALER INH SCH (08:01)
[2016-06-30] MEDS: BISACODYL 10 MG SUPP RECTAL SCH (08:02)
[2016-06-30] MEDS: DOCUSATE SODIUM 100 MG CAP PO SCH (08:02)
--- NOTE | 2016-06-30 08:10 | HHI.CCPN ---
Subjective Remarks/Hospital Course This is a 50-year-old male who has had a chronic downtrending course since January when he sustained 6 strokes. He was most recently admitted from rehabilitation on 04/11 for worsening agitation, altered mental status, atrial fibrillation with rapid ventricular response. Since that time, his mental status is not improved and to his his declined. This morning he is agitated, pulling off his clothes. His states that he is more cooperative usually. He is also more hypoxic today, requiring increasing FiO2. In discussing the case with Dr. West, his rapid ventricular response is been very difficult to control the last few days. Dr. James has been increasing his AV lissa blocking agents and added amiodarone to his diltiazem and metoprolol. He presents as a rapid response for a HR in the 30s with hypotension. When I evaluated the patient when he arrived in the [facility], he was agitated. His HR was in the 30s. Atropine and epinephrine were given to raise the heart rate and a dopamine drip was started. We also emergently gave glucagon with only mild improvements in HR. At that time we could not obtain a NIBP, so I placed a radial arterial line (please see separate procedure note for details). Critical care medicine is consulted to evaluate and manage his symptomatic bradycardia and acute agitated delirium. Subjective 06/28: Currently on nonrebreather mask saturations 97%. Arousable but does not follow commands. Heart rate currently in the 120s/A. fib with RVR but hemodynamically stable. 06/29: On partial rebreather. Remains encephalopathic. Cardizem drip for A. fib with RVR. 06/30: On NRBM facemask. Recieved digoxin last night for Afib with RVR. Objective Vital Signs Date Time Temp Pulse Resp B/P Pulse Ox O2 Delivery O2 Flow Rate FiO2 06/30/16 06:00 86 06/30/16 04:00 98.6 22 135/55 93 06/29/16 20:54 Partial Rebreather 15.00 06/27/16 19:00 100 Intake and Output 06/29/16 06/29/16 06/30/16 08:00 16:00 00:00 Intake Total 528 ml 1136 ml 494 ml Output Total 375 ml 800 ml 1050 ml Balance 153 ml 336 ml -556 ml Result Diagram: 06/29/16 0355 06/30/16 0404 Other Results Microbiology Date/Time Procedure Status Source Growth 06/27/16 18:00 Urine Culture - Final Complete Urine Catheterized Urine NO GROWTH IN 48 HOURS. Imaging Last Impressions Head CT 06/27/16 0000 Signed Impressions: Service Date/Time: Monday, June 27, 2016 16:30 - CONCLUSION: No acute disease. Yao Cordero MD Chest CT 06/26/16 0000 Signed Impressions: Service Date/Time: Sunday, June 26, 2016 11:53 - CONCLUSION: 1. Bilateral pleural effusions larger on the right than the left. 2. Patchy air space disease in the right lower lobe. Sheldon Mccrary MD FACR Abdomen/Pelvis CT 06/24/16 0000 Signed Impressions: Service Date/Time: Friday, June 24, 2016 10:13 - CONCLUSION: 1. Bilateral effusions larger on the right than the left with dense consolidation in the right lower lobe and middle lobe concerning for pneumonia. CT imaging of the thorax is warranted for further assessment. 2. Small, lobulated spleen with areas of decreased attenuation suggesting prior splenic infarcts. 3. No free air or free fluid seen within the abdomen. Didier Mccrary MD Liver Ultrasound 06/23/16 0000 Signed Impressions: Service Date/Time: Thursday, June 23, 2016 10:19 - CONCLUSION: 1. Limited right upper quadrant sonogram. 2. Liver is slightly nodular could be related to early cirrhosis. 3. Spleen and common bile duct not seen. 4. Small right pleural effusion. sonogram. Johnathon Monterroso MD Soft Tissue Ultrasound 06/22/16 0600 Signed Impressions: Service Date/Time: Wednesday, June 22, 2016 11:21 - CONCLUSION: Soft-tissue swelling evident without fluid collection to suggest an abscess. Sheldon Mccrary MD FACR Objective Remarks GENERAL: 55-year-old male, critically ill currently on nonrebreather mask SKIN: Warm and dry. No rash HEAD: Atraumatic. Normocephalic. EYES: Pupils equal and round about 4 mm bilaterally and reactive. No scleral icterus. No injection or drainage. ENT: No nasal bleeding or discharge. Mucous membranes pink and moist. Oropharynx without erythema or exudates NECK: Trachea midline. No JVD. CARDIOVASCULAR: Tachycardia, IR. S1, S2. No S4. Without murmur RESPIRATORY: Tachypnea, diminished breath sounds due to body habitus. No wheezing appreciated. Breath sounds equal bilaterally. GASTROINTESTINAL: Abdomen soft, non-tender, slightly protuberant. Hypoactive bowel sounds are appreciated. Hepatic and splenic margins not palpable. MUSCULOSKELETAL: Extremities with trace lower extremity edema. No obvious deformities. NEUROLOGICAL: Aphasic. Upward toes bilaterally. Withdraws to pain right greater than left upper and lower extremity. Protecting airway adequately. Procedures None. 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 Seroquel currently being held. CV: A. fib with RVR Symptomatic bradycardia likely secondary to AV blocking agents Dyslipidemia NOCAD PVD Cardizem drip as needed Previously on amiodarone 400 mg twice a day, Cardizem and Lopressor during this hospitalization Home medications are sotalol 80 twice a day, diltiazem 240 mg daily and Lopressor 50 mg by mouth every 8 hours. Holding home medication Lipitor 80 mg a night for dyslipidemia. Resume when clinically indicated 2-D echocardiogram 06/27/16 revealed EF 45%. Mild AR/TR. YULIYA 70 mmHg Gentle diuresis Noted ABIs revealed possible left moderate peripheral vascular disease. Recommended CTA when stable Resp: Acute hypoxic respiratory failure History COPD PIYUSH Chronic right pleural effusion Currently on partial rebreather mask to maintain saturations greater or equal to 92% Not a candidate for BiPAP secondary to AMS Bronchodilator therapy every 6 hours and as needed Currently on Symbicort 160/4.52 puffs twice a day. Solu-Medrol 40 mg IV every 12 hours Not a candidate for thoracentesis due to platelets of 30. DNR/DNI per patient's 's decision GI/ liver: Gastroesophageal reflux disease Currently nothing by mouth due to altered mental status Consider tube feedings if continues altered. GI is evaluating for suspected early cirrhosis Protonix for GI prophylaxis Dulcolax suppository s as needed for bowel regimen : Carmona for accurate I's nose any critically ill patient Endo: Sliding-scale insulin with Accu-Cheks to maintain euglycemia/low regimen every 6 hours Renal: Follow BUN/ Cr Accurate I/os Monitor urine output Heme: ITP Antiphospholipid antibody syndrome Normocytic anemia Heterozygous gene for MTHFR History of testicular cancer On chronic prednisone 20 mg daily for ITP. Currently on Solu-Medrol 40 mg IV every 8 hours Hematology actively following. Currently not bleeding. Eliquis is currently being held in light of severe thrombocytopenia ID: Possible HCAP/UTI Day #3 vancomycin, cefepime and Flagyl. Previously on Levaquin. This was discontinued as possible AV blocking agent for symptomatically bradycardic. Pertinent cultures 06/21 - urine culture - Kluyvera Cryoscens/Proteus Mirabillis 06/27 - blood cultures 2 - pending 06/27 - urine culture - pending MSk: Osteoarthritis PT/OT evaluate and treat/range of motion FEN: Hypernatremia Hyper magnesium Hyperphosphatemia Gentle diuresis/D5 water with KCl at 50 cc an hour Access - Peripheral IV. Central line if indicated - Left radial arterial line day placed 06/27/16 Prophylaxis - GI - Protonix - DVT - heparin subcutaneous okayed by hematology. Off Eliquis due to severe thrombocytopenia from ITP DNR/DNI status. Palliative care consulted to assist with deciding goals of therapy. Marcello Sierra MD Jun 30, 2016 08:10
[2016-06-30] MEDS: ARTIFICIAL TEARS OPTH OINT 3.5 APPLIC/3.5 GM TUBO EACH EYE SCH (08:55)
[2016-06-30] MEDS: PANTOPRAZOLE SODIUM 40 MG VIAL IV PUSH SCH (08:56)
[2016-06-30] MEDS: SODIUM CHLORIDE 0.9% FLUSH 5 ML FLUSH FLUSH SCH (08:56)
[2016-06-30] MEDS: FUROSEMIDE 20 MG/2 ML VIAL IV PUSH SCH (08:56)
--- NOTE | 2016-06-30 09:56 | PD.ONC.PN ---
Subjective Subjective Remarks Afebrile overnight. Patient more alert today, but still non-verbal. following commands. Objective Data Date Time Temp Pulse Resp B/P Pulse Ox O2 Delivery O2 Flow Rate FiO2 06/30/16 06:00 86 06/30/16 04:00 94 06/30/16 04:00 98.6 94 22 135/55 93 06/30/16 02:00 136 06/30/16 00:00 97.8 134 10 126/62 95 06/30/16 00:00 134 06/29/16 22:00 135 06/29/16 20:54 98 Partial Rebreather 15.00 06/29/16 20:00 98.2 82 13 148/58 94 06/29/16 20:00 94 Partial Non-Rebreather 14.00 06/29/16 20:00 82 06/29/16 18:00 82 06/29/16 16:00 98.2 80 16 134/50 93 06/29/16 16:00 80 06/29/16 14:00 77 06/29/16 12:00 78 06/29/16 12:00 97.5 78 9 129/51 96 06/29/16 10:00 77 06/30/16 06/30/16 06/30/16 07:00 15:00 23:00 Intake Total 634 ml Output Total 400 ml Balance 234 ml Result Diagram: 06/29/16 0355 06/30/16 0404 Laboratory Results Laboratory Tests Test 06/30/16 04:04 Creatinine 0.94 MG/DL Estimat Glomerular Filtration 83 ML/MIN Rate Ammonia 24 MCMOL/L Tumor Marker Alpha Fetoprotein 1.8 NG/ML Vancomycin Level Trough 29.8 MCG/ML Culture Results Microbiology Date/Time Procedure Status Source Growth 06/27/16 18:00 Urine Culture - Final Complete Urine Catheterized Urine NO GROWTH IN 48 HOURS. 06/27/16 19:20 Aerobic Blood Culture - Preliminary Resulted Blood Peripheral NO GROWTH IN 2 DAYS 06/27/16 19:20 Anaerobic Blood Culture - Preliminary Resulted Blood Peripheral NO GROWTH IN 2 DAYS 06/27/16 19:28 Aerobic Blood Culture - Preliminary Resulted Blood Peripheral NO GROWTH IN 2 DAYS 06/27/16 19:28 Anaerobic Blood Culture - Preliminary Resulted Blood Peripheral NO GROWTH IN 2 DAYS Administered Medications Medications (Trade) Dose Ordered Sig/Brock Route PRN Reason Start Time Stop Time Status Last Admin Dose Admin IV Flush (NS Flush) 2 ml BID FLUSH 06/12/16 21:00 06/30/16 08:56 Acetaminophen (Tylenol) 650 mg Q4H PRN PO TEMP > 100.4 06/12/16 20:15 06/25/16 12:44 Atorvastatin Calcium (Lipitor) 80 mg HS PO 06/12/16 21:00 Hold 06/26/16 21:25 Docusate Sodium (Colace) 100 mg BID PO 06/12/16 21:00 06/28/16 08:21 Budesonide/ Formoterol Fumarate (Symbicort 160-4.5 Inh) 2 puff BID INH 06/12/16 21:00 06/27/16 08:55 Mirtazapine (Remeron) 15 mg HS PO 06/13/16 21:00 Hold 06/26/16 21:25 Pantoprazole Sodium (Protonix Inj) 40 mg DAILY IV PUSH 06/18/16 11:00 06/30/16 08:56 Apixaban (Eliquis) 5 mg BID PO 06/19/16 21:00 Hold 06/20/16 09:35 Heparin Sodium (Porcine) (Heparin Inj) 5,000 units Q8HR SQ 06/20/16 22:00 Hold 06/28/16 06:03 Diltiazem HCl (Cardizem) 90 mg QID PO 06/21/16 09:00 Hold 06/27/16 08:54 Haloperidol Lactate (Haldol Inj) 5 mg Q6H PRN IM AGITATION 06/22/16 15:00 Hold 06/23/16 00:43 Haloperidol (Haldol) 5 mg BID PO 06/22/16 21:00 Hold 06/27/16 08:54 Metoprolol Tartrate (Lopressor) 50 mg Q8H PO 06/23/16 17:00 Hold 06/27/16 08:55 Methylprednisolone Sodium Succinate (SoluMEDROL INJ) 40 mg Q12H IV PUSH 06/26/16 18:00 06/30/16 05:37 Amiodarone HCl (Cordarone) 400 mg Q12HR PO 06/26/16 12:00 Hold 06/27/16 08:55 Haloperidol Lactate 5 mg 5 mg Q1H PRN IV PUSH severe agitation 06/27/16 13:45 06/28/16 16:04 Cefepime HCl 1000 mg/Sodium Chloride 100 ml @ 200 mls/hr Q8H IV 06/27/16 14:00 06/30/16 05:36 Metronidazole 100 ml @ 100 mls/hr Q6H IV 06/27/16 15:00 06/30/16 08:56 Diltiazem HCl/ Sodium Chloride (Cardizem Inj/NS Inj) 125 ml @ 0 mls/hr TITRATE IV 06/28/16 09:00 06/30/16 03:25 Bisacodyl (Dulcolax Supp) 10 mg DAILY RECTAL 06/28/16 09:00 06/29/16 09:13 Insulin Human Regular 1 1 Q6HR SQ 06/28/16 12:00 06/29/16 12:06 Potassium Chloride/Dextrose (KCl Inj/D5W 1000 ml Inj) 1,005 ml @ 42 mls/hr [id number] IV 06/28/16 08:00 06/30/16 03:52 Furosemide (Lasix Inj) 20 mg BID@09,18 IV PUSH 06/28/16 09:00 06/30/16 08:56 Artificial Tears 1 applic 1 applic Q12HR EACH EYE 06/28/16 21:00 06/30/16 08:55 Vancomycin HCl/ Sodium Chloride (Vancomycin Inj/ NS 500 ml Inj) 515 ml @ 250 mls/hr Q18H IV 06/28/16 16:00 06/29/16 09:13 Metoprolol Tartrate (Lopressor Inj) 5 mg Q6HR IV PUSH 06/28/16 18:00 06/30/16 05:37 Objective Remarks GENERAL: chronically ill appearing male, lying in bed in nad. SKIN: Warm and dry. HEAD: Normocephalic. EYES: No injection or drainage. NECK: Supple, trachea midline. CARDIOVASCULAR: +S1/S2 RESPIRATORY: anterior garcia with scattered rhonchi. GASTROINTESTINAL: Abdomen soft, non-tender, nondistended. scattered bruising on abdomen. EXTREMITIES: No cyanosis NEUROLOGICAL: awake, non-verbal. following commands, tracks with eyes. Assessment/Plan Problem List: (1) Thrombocytopenia Status: Acute Plan: --40mg Solu-medrol Q12h. --APA positive --reported h/o ITP --h/o thrombocytopenia dating back to 2015--[facility] patient--neg. BMB --baseline reportedly around 45K (per ) (2) Acute ischemic left MCA stroke Status: Acute Plan: -- hold Eliquis -- Multiple ecchymoses to BUE, abdomen --will resume heparin prophylaxis (3) Consumption coagulopathy Status: Acute Plan: --monitor coags (4) Antiphospholipid antibody positive Status: Acute Plan: -- Positive for one copy of the C677T variant and one copy of the [id number] variant. -- Pt with recurrent CVA's. -- Difficult to anticoagulate due to ITP. Assessment 55y/o male s/p stroke. Hematology consulted for thrombocytopenia HPI: recently admitted [facility], developed confusion and afib, transferred to the med/surg +recurrent strokes since January of 2016--was on Eliquis Chronic obstructive pulmonary disease. Obstructive sleep apnea. Hypertension. Hyperlipidemia. Coronary artery disease--h/o cardiac cath Paroxysmal atrial fibrillation. History of testicular cancer treated in his 40s with radiation and orchiectomy Restless leg syndrome. Arthritis. ITP. Plan 1. check CBC 2. resume prophylactic heparin Attending Statement The exam, history, and the medical decision-making described in the above note were completed with the assistance of the mid-level provider. I reviewed and agree with the findings presented. I attest that I had a [id number] encounter with the patient on the same day, and personally performed and documented my assessment and findings in the medical record. More alert today. No bleeding noted. Platelet stable. Restart low dose heparin. Monitor CBC. W/u for liver disease ongoing. Michelle Jerez Jun 30, 2016 09:56 Skyler Limon MD Jun 30, 2016 14:48
[2016-06-30] MEDS ORDERED: DILTIAZEM HCL 25 MG/5 ML VIAL IV ONE ×2 (12:00→13:00)
[2016-06-30 12:32] LABS: AUTOMATED NEUTROPHIL # 9.5 TH/MM3 (1.8-7.7); BASOPHIL % 0.2 % (0.0-2.0); HEMATOCRIT 30.6 % (39.0-51.0); LYMPH % 1.3 % (9.0-44.0); LYMPHOCYTE # 0.1 TH/MM3 (1.0-4.8); MEAN CELL VOLUME 86.5 FL (80.0-100.0); MEAN CORPUSCULAR HEMOGLOBIN 28.2 PG (27.0-34.0); MEAN CORPUSCULAR HGB CONC 32.6 % (32.0-36.0); NEUT % 96.5 % (16.0-70.0); PLATELET COUNT 43 TH/MM3 (150-450); RED BLOOD COUNT 3.54 MIL/MM3 (4.50-5.90); RED CELL DISTRIBUTION WIDTH 21.4 % (11.6-17.2); WHITE BLOOD COUNT 9.8 TH/MM3 (4.0-11.0)
[2016-06-30 12:44] LABS: HEMO FLAGS AUTO DIFF
[2016-06-30 12:58] LABS: ALKALINE PHOSPHATASE 94 U/L (45-117); ALT (GPT) 255 U/L (12-78); ANION GAP 8 MEQ/L (5-15); AST (GOT) 58 U/L (15-37); BLOOD UREA NITROGEN 39 MG/DL (7-18); CHLORIDE 115 MEQ/L (98-107); GLOMERULAR FILTRATION RATE 86 ML/MIN (>89); POTASSIUM 3.5 MEQ/L (3.5-5.1); SODIUM (NA) 150 MEQ/L (136-145); TOTAL BILIRUBIN ADULT 1.5 MG/DL (0.2-1.0)
[2016-06-30] MEDS ORDERED: DIGOXIN 0.5 MG/2 ML VIAL IV PUSH ONE (13:00)
[2016-06-30 13:18] LABS: ACANTHOCYTES OCC (NORMAL); KERATOCYTES OCC (NORMAL)
[2016-06-30 13:19] LABS: OVALOCYTES 1+ (NORMAL)
[2016-06-30 13:20] LABS: HELMET CELLS OCC (NORMAL); PLATELET ESTIMATE SMEAR LOW (NORMAL); SCAN/DIFF AUTO DIFF CONFIRMED
[2016-06-30 13:21] LABS: PLATELET MORPHOLOGY NORMAL (NORMAL)
[2016-06-30] MEDS: HEPARIN SODIUM - SQ 10,000 UNITS/ML VIAL SQ SCH (14:00)
--- NOTE | 2016-06-30 14:01 | HHI.HCPN ---
Reason for visit a. To assist with evaluation and management of symptoms including: debility. b. To assist medical decision maker(s) with: better understanding of current medical conditions; weighing benefits/burdens of medical treatment options; making medical treatment decisions. . Subjective/Interval History Follow-up for further clarifications of goals of care. Patient remains in ICU, alert but confused. Verbal but not always able to communicate needs secondary to confusion. Restless, agitated at times. Endorsing pain but unable to elaborate in detail. Verbalizing wanting to leave the hospital. Pilar at bedside. Patient remains on nonrebreather mask, at 15L O2. Episode of A. fib with RVR overnight, received digitoxin. Remains in A. fib with RVR with heart rate in the 130s. A febrile, stable blood pressure. CT of brain requests a yesterday for evaluate altered mental status, same showing subacute left temporal and left occipital lobe infarct. Laboratory today showing WBC 9.8 , Hgb 10.0, platelet count 43. Sodium 150, potassium 3.5, BUN/creatinine 39/ 0.91. GI has been consulted and is following. New diagnosis of cirrhosis. Pilar at bedside. Medical update provided by palliative care and Dr. Sierra. with a good understanding of patient's critical condition to include acute hypoxemic respiratory failure, encephalopathy, thrombocytopenia, profound physical deconditioning and multiple acute strokes. aware CT of the chest results showing enlarged lymph nodes of the thoracic and abdominal area likely representing malignancy. tells me that she knows that patient is "not coming back home". She understands the severity of his illness and has elected for DNR/DNI, no invasive procedures in the setting of worsening clinical condition. tells me that she does not feel the patient is having an acceptable quality of life secondary to his clinical condition and current treatment plan. She reports that if patient was able to tell us what he wanted us to do he would've selected comfort directed care in the setting of his poor prognosis for meaningful recovery. At this time electing comfort directed care with hospice services with the goal of transferring to hospice care center for pain and symptom management/allow natural . Ongoing emotional support and active listening provided to . appreciative of this visit. . Family/friend interactions See interval note. . Advance Directives Living Will: Never completed Health Care Surrogate: Never completed Durable Power of Visual Basic Programmer: Never completed Advance Directive Specifics Health Care Surrogate(s): As per [place] statute, medical decision maker falls to patient's . . Documented care wishes: No living will has been completed. . Significant change in goals: No code. DNR/DNI. electing to transition patient to comfort directed care with hospice given his worsening clinical condition and poor prognosis. . Objective Vital Signs Date Time Temp Pulse Resp B/P Pulse Ox O2 Delivery O2 Flow Rate FiO2 06/30/16 10:28 92 Partial Rebreather 15.00 06/30/16 08:00 91 06/30/16 06:00 86 06/30/16 04:00 94 06/30/16 04:00 98.6 94 22 135/55 93 06/30/16 02:00 136 06/30/16 00:00 97.8 134 10 126/62 95 06/30/16 00:00 134 06/29/16 22:00 135 06/29/16 20:54 98 Partial Rebreather 15.00 06/29/16 20:00 98.2 82 13 148/58 94 06/29/16 20:00 94 Partial Non-Rebreather 14.00 06/29/16 20:00 82 06/29/16 18:00 82 06/29/16 16:00 98.2 80 16 134/50 93 06/29/16 16:00 80 06/29/16 14:00 77 Intake & Output 06/30/16 06/30/16 07:00 19:00 Intake Total 1128 ml Output Total 1450 ml Balance -322 ml IV Total 1128 ml Output Urine Total 1450 ml # Bowel Movements 2 Physical Exam CONSTITUTIONAL/GENERAL: This is an obese male patient in moderate distress. Restless, agitated. Verbal but not always able to communicate needs secondary to confusion. TUBES/LINES/DRAINS: PIV's, Carmona catheter, SCDs, nonrebreather. SKIN: No jaundice, rashes, or lesions. Large areas of ecchymoses on upper extremities and abdomen. No wounds seen anteriorly. Skin temperature appropriate. Not diaphoretic. HEAD: Atraumatic. Normocephalic. EYES: Pupils equal and round and reactive. No scleral icterus. No injection or drainage. ENT: Hearing appears normal. Nose without bleeding or purulent drainage. Mouth close. NECK: Trachea midline. Supple. CARDIOVASCULAR: Irregular rate and rhythm. Heart rate in the 130s. Peripheral pulses symmetric. RESPIRATORY/CHEST: Symmetric. Increased work of breathing. Coarse breath sounds bilaterally. O2 via nonrebreather mask at 12 L. GASTROINTESTINAL: Abdomen large, round. Unable to appreciate hepato- splenomegaly secondary to body habitus. Bowel sounds present. GENITOURINARY: Without palpable bladder distension. Carmona catheter in place. Moderate amount of yellow urinary output in Carmona bag. MUSCULOSKELETAL: Extremities without clubbing, cyanosis. Edema to bilateral lower extremities No mottling or clubbing. NEUROLOGICAL: Awake, following some simple commands. Alert to self. Disoriented as to situation and place. PSYCHIATRIC: Agitated, restless. Yelling obscenities at times. . Diagnostic Tests Laboratory Laboratory Tests Test 06/27/16 06/28/16 06/28/16 06/28/16 18:00 04:20 11:47 12:18 Urine Color YELLOW (YELLW/STRAW) Urine Turbidity CLOUDY (CLEAR) Urine pH 5.0 (5.0-8.5) Urine Specific [place] 1.023 (1.002-1.035) Urine Protein 30 mg/dL (NEG-TRACE) Urine Glucose (UA) TRACE mg/dL (NEG) Urine Ketones NEG mg/dL (NEG) Urine Occult Blood MOD (NEG) Urine Nitrite NEG (NEG) Urine Bilirubin NEG (NEG) Urine Urobilinogen 2.0 MG/DL (LESS THAN 2.0) Urine Leukocyte Esterase NEG (NEG) Urine RBC /hpf (0-3) Urine WBC 16 /hpf (0-5) Urine WBC Clumps FEW (NONE) Urine Squamous Epithelial 3 /hpf (0-5) Cells Urine Bacteria RARE /hpf (NONE) Urine Mucus MOD /lpf (OCC) Microscopic Urinalysis Comment CATH-CULTURE IND White Blood Count 9.2 TH/MM3 (4.0-11.0) Red Blood Count 3.22 MIL/MM3 (4.50-5.90) Hemoglobin 9.0 GM/DL (13.0-17.0) Hematocrit 27.7 % (39.0-51.0) Mean Corpuscular Volume 86.0 FL (80.0-100.0) Mean Corpuscular Hemoglobin 27.9 PG (27.0-34.0) Mean Corpuscular Hemoglobin 32.4 % Concent (32.0-36.0) Red Cell Distribution Width 21.5 % (11.6-17.2) Platelet Count 30 TH/MM3 (150-450) Mean Platelet Volume 9.4 FL (7.0-11.0) Sodium Level 152 MEQ/L (136-145) Potassium Level 3.5 MEQ/L (3.5-5.1) Chloride Level 119 MEQ/L (98-107) Carbon Dioxide Level 22.8 MEQ/L (21.0-32.0) Anion Gap 10 MEQ/L (5-15) Blood Urea Nitrogen 52 MG/DL (7-18) Creatinine 1.26 MG/DL (0.60-1.30) Estimat Glomerular Filtration 59 ML/MIN (>89) Rate Random Glucose 109 MG/DL (74-106) Calcium Level 7.6 MG/DL (8.5-10.1) Random Vancomycin Level 16.3 COMMENT Blood Bank Comment Blood Type O POSITIVE Test 06/28/16 06/29/16 06/30/16 06/30/16 12:24 03:55 04:04 12:15 Fibrinogen 214 mg/dL (181-393) White Blood Count 9.6 TH/MM3 9.8 TH/MM3 (4.0-11.0) (4.0-11.0) Red Blood Count 3.22 MIL/MM3 3.54 MIL/MM3 (4.50-5.90) (4.50-5.90) Hemoglobin 9.2 GM/DL 10.0 GM/DL (13.0-17.0) (13.0-17.0) Hematocrit 27.9 % 30.6 % (39.0-51.0) (39.0-51.0) Mean Corpuscular Volume 86.7 FL 86.5 FL (80.0-100.0) (80.0-100.0) Mean Corpuscular Hemoglobin 28.5 PG 28.2 PG (27.0-34.0) (27.0-34.0) Mean Corpuscular Hemoglobin 32.9 % 32.6 % Concent (32.0-36.0) (32.0-36.0) Red Cell Distribution Width 21.8 % 21.4 % (11.6-17.2) (11.6-17.2) Platelet Count 55 TH/MM3 43 TH/MM3 (150-450) (150-450) Mean Platelet Volume 10.0 FL 10.0 FL (7.0-11.0) (7.0-11.0) Neutrophils (%) (Auto) 95.5 % 96.5 % (16.0-70.0) (16.0-70.0) Lymphocytes (%) (Auto) 1.9 % 1.3 % (9.0-44.0) (9.0-44.0) Monocytes (%) (Auto) 2.4 % (0.0-8.0) 2.0 % (0.0-8.0) Eosinophils (%) (Auto) 0.0 % (0.0-4.0) 0.0 % (0.0-4.0) Basophils (%) (Auto) 0.2 % (0.0-2.0) 0.2 % (0.0-2.0) Neutrophils # (Auto) 9.1 TH/MM3 9.5 TH/MM3 (1.8-7.7) (1.8-7.7) Lymphocytes # (Auto) 0.2 TH/MM3 0.1 TH/MM3 (1.0-4.8) (1.0-4.8) Monocytes # (Auto) 0.2 TH/MM3 0.2 TH/MM3 (0-0.9) (0-0.9) Eosinophils # (Auto) 0.0 TH/MM3 0.0 TH/MM3 (0-0.4) (0-0.4) Basophils # (Auto) 0.0 TH/MM3 0.0 TH/MM3 (0-0.2) (0-0.2) CBC Comment AUTO DIFF AUTO DIFF Differential Comment AUTO DIFF AUTO DIFF CONFIRMED CONFIRMED Platelet Estimate LOW (NORMAL) LOW (NORMAL) Platelet Morphology Comment ENLARGED NORMAL (NORMAL) (NORMAL) Sodium Level 153 MEQ/L 150 MEQ/L (136-145) (136-145) Potassium Level 3.7 MEQ/L 3.5 MEQ/L (3.5-5.1) (3.5-5.1) Chloride Level 118 MEQ/L 115 MEQ/L (98-107) (98-107) Carbon Dioxide Level 24.9 MEQ/L 27.0 MEQ/L (21.0-32.0) (21.0-32.0) Anion Gap 10 MEQ/L (5-15) 8 MEQ/L (5-15) Blood Urea Nitrogen 40 MG/DL (7-18) 39 MG/DL (7-18) Creatinine 0.90 MG/DL 0.94 MG/DL 0.91 MG/DL (0.60-1.30) (0.60-1.30) (0.60-1.30) Estimat Glomerular Filtration 87 ML/MIN (>89) 83 ML/MIN (>89) 86 ML/MIN (>89) Rate Random Glucose 143 MG/DL 172 MG/DL (74-106) (74-106) Calcium Level 7.5 MG/DL 7.5 MG/DL (8.5-10.1) (8.5-10.1) Phosphorus Level 2.5 MG/DL (2.5-4.9) Magnesium Level 2.5 MG/DL (1.5-2.5) Total Bilirubin 1.1 MG/DL 1.5 MG/DL (0.2-1.0) (0.2-1.0) Aspartate Amino Transf 79 U/L (15-37) 58 U/L (15-37) (AST/SGOT) Alanine Aminotransferase 249 U/L (12-78) 255 U/L (12-78) (ALT/SGPT) Alkaline Phosphatase 83 U/L (45-117) 94 U/L (45-117) Troponin I 0.29 NG/ML (0.02-0.05) Total Protein 5.4 GM/DL 5.5 GM/DL (6.4-8.2) (6.4-8.2) Albumin 2.6 GM/DL 2.6 GM/DL (3.4-5.0) (3.4-5.0) Thyroid Stimulating Hormone 0.038 uIU/ML 3rd Gen (0.358-3.740) Ammonia 24 MCMOL/L (11-32) Tumor Marker Alpha Fetoprotein 1.8 NG/ML (0.5-8.0) Vancomycin Level Trough 29.8 MCG/ML (5.0-10.0) Ovalocytes 1+ (NORMAL) Helmet Cells OCC (NORMAL) Acanthocytes OCC (NORMAL) Keratocytes OCC (NORMAL) Result Diagram: 06/30/16 1215 06/30/16 1215 Microbiology Microbiology Date/Time Procedure Status Source Growth 06/27/16 18:00 Urine Culture - Final Complete Urine Catheterized Urine NO GROWTH IN 48 HOURS. 06/27/16 19:20 Aerobic Blood Culture - Preliminary Resulted Blood Peripheral NO GROWTH IN 3 DAYS 06/27/16 19:20 Anaerobic Blood Culture - Preliminary Resulted Blood Peripheral NO GROWTH IN 3 DAYS 06/27/16 19:28 Aerobic Blood Culture - Preliminary Resulted Blood Peripheral NO GROWTH IN 3 DAYS 06/27/16 19:28 Anaerobic Blood Culture - Preliminary Resulted Blood Peripheral NO GROWTH IN 3 DAYS Imaging Last [address] 06/29/16 0000 Signed Impressions: Service Date/Time: Wednesday, June 29, 2016 16:43 - CONCLUSION: 1. Subacute left temporal and left occipital lobe infarct. No acute hemorrhage is identified Ken Bradford MD Assessment and Plan Disease Oriented Problem List: (1) Acute hypoxemic respiratory failure (2) Acute ischemic left MCA stroke (3) Paroxysmal atrial fibrillation (4) Thrombocytopenia Symptom Scale: (1) Anxiety 0-10 Scale: Unable to quantify (2) Debility 0-10 Scale: Unable to quantify (3) Dysphagia 0-10 Scale: Unable to quantify Pertinent Non-Medical Issues Psychosocial: Spiritual: Legal: Ethical issues impacting care: Important Contacts Pilar Muhammad [phone] and . . Prognosis Mr. Muhammad is a 55-year-old male with a medical history significant of multiple CVA since January 2016, COPD, acute MA in 2016, obstructive sleep apnea, anxiety , hypertension, CAD, A. fib on Eliquis, ITP and history of testicular cancer in his late 40's status post radiation therapy. Patient presents with acute hypoxemic respiratory failure, is obtunded and not following any commands. Remains thrombocytopenic requiring platelet transfusions. Questionable recurrence of malignancy per CT scan of chest, unable to biopsy secondary to thrombocytopenia. Patient's overall prognosis is poor given her prior CVA history, acute MA, multiple comorbidities, profound physical deconditioning and acute events. Patient is a high risk for continued decline, further complications and . . Code Status: No Code Plan * CODE STATUS: No code. DNR/DNI. * DECISION-MAKING CAPACITY: Patient incapacitated secondary to clinical condition. Psych consult on 06/12/16, patient was found to have poor insight and judgment. As per [place] statute, medical decision-making falls to patient' s Pilar Muhammad. * GOALS OF CARE: No code. DNR/DNI. Patient's electing to transition patient to comfort directed care with hospice given patient's worsening clinical condition and poor prognosis. Goal is to transition to hospice care center for pain and symptom management/allow natural . --Met with Pilar at bedside. Medical update provided by palliative care and Dr. Sierra. with a good understanding of patient's critical condition to include acute hypoxemic respiratory failure, encephalopathy, thrombocytopenia, profound physical deconditioning and multiple acute strokes. aware CT of the chest results showing enlarged lymph nodes of the thoracic and abdominal area likely representing malignancy. tells me that she knows that patient is "not coming back home". She understands the severity of his illness and has elected for DNR/DNI, no invasive procedures in the setting of worsening clinical condition. tells me that she does not feel the patient is having an acceptable quality of life secondary to his clinical condition and current treatment plan. She reports that if patient was able to tell us what he wanted us to do he would've selected comfort directed care in the setting of his poor prognosis for meaningful recovery. At this time electing comfort directed care with hospice services with the goal of transferring to hospice care center for pain and symptom management/allow natural . * Hospice referral has been made. * SYMPTOMS: == Shortness of breath, multifactorial. History of COPD and acute pneumonia. Remains on O2 via nonrebreather. == Debility, multifactorial secondary to multiple CVA, prolonged hospitalizations and multiple comorbidities. Likely to worsen. == Agitation/restlessness, multifactorial likely secondary to hypoxia and encephalopathy. Haldol 5 mg every hour available as needed. Last dose given yesterday. * Case discussed with Dr. Sierra and bedside RN. * Spiritual services offered but declined by . * Anticipatory guidance provided. Ongoing emotional support and active listening provided to . * Palliative care contact information has been provided to patient's family. * Palliative care will continue to follow-up for further clarifications of goals of care as clinical course continues to evolve. . Time Spent Total Floor Time (mins): 46 (Total time to include review and summarization of medical records, physical exam, bedside conversation with patient's , case discussion with bedside RN, and case discussion with authorization coordinator.) >50% Counseling/Coord of Care: Yes Attestation To help prompt me to consider important information that might be impacting today's encounter and assessment, information from prior notes written by myself or my colleagues may have been "brought forward" into today's note. My signature on this note, however, is an attestation that I personally performed the exam, history, and/or decision-making noted today, and, unless otherwise indicated, the interactions with patient, family, and staff as well as the review of records all occurred today. I also attest that the listed assessment and stated plan reflect my best clinical judgment today based on the combination of historical information, prior notes, and today's exam/ interactions. When time spent is documented, it refers only to time spent today by the signer, or if indicated, combined time spent today by collaborating physician/nurse practitioner. Cathy Hurst Jun 30, 2016 14:01
--- NOTE | 2016-06-30 14:24 | HHI.GIFU ---
Subjective Remarks Resting in bed. Mildly labored breathing on NRB mask. C/O some abdominal discomfort, unable to further characterize. at bedside. Objective Vitals I&O Vital Signs Date Time Temp Pulse Resp B/P Pulse Ox O2 Delivery O2 Flow Rate FiO2 06/30/16 10:28 92 Partial Rebreather 15.00 06/30/16 08:00 91 06/30/16 06:00 86 06/30/16 04:00 94 06/30/16 04:00 98.6 94 22 135/55 93 06/30/16 02:00 136 06/30/16 00:00 97.8 134 10 126/62 95 06/30/16 00:00 134 06/29/16 22:00 135 06/29/16 20:54 98 Partial Rebreather 15.00 06/29/16 20:00 98.2 82 13 148/58 94 06/29/16 20:00 94 Partial Non-Rebreather 14.00 06/29/16 20:00 82 06/29/16 18:00 82 06/29/16 16:00 98.2 80 16 134/50 93 06/29/16 16:00 80 I/O 06/29/16 06/29/16 06/29/16 06/30/16 06/30/16 06/30/16 07:00 15:00 23:00 07:00 15:00 23:00 Intake Total 528 ml 1136 ml 494 ml 634 ml Output Total 375 ml 800 ml 1050 ml 400 ml Balance 153 ml 336 ml -556 ml 234 ml IV Total 528 ml 1136 ml 494 ml 634 ml Output Urine Total 375 ml 800 ml 1050 ml 400 ml # Bowel Movements 0 1 1 1 Laboratory Laboratory Tests Test 06/30/16 06/30/16 04:04 12:15 Creatinine 0.94 0.91 Estimat Glomerular Filtration 83 86 Rate Ammonia 24 Tumor Marker Alpha Fetoprotein 1.8 Vancomycin Level Trough 29.8 White Blood Count 9.8 Red Blood Count 3.54 Hemoglobin 10.0 Hematocrit 30.6 Mean Corpuscular Volume 86.5 Mean Corpuscular Hemoglobin 28.2 Mean Corpuscular Hemoglobin 32.6 Concent Red Cell Distribution Width 21.4 Platelet Count 43 Mean Platelet Volume 10.0 Neutrophils (%) (Auto) 96.5 Lymphocytes (%) (Auto) 1.3 Monocytes (%) (Auto) 2.0 Eosinophils (%) (Auto) 0.0 Basophils (%) (Auto) 0.2 Neutrophils # (Auto) 9.5 Lymphocytes # (Auto) 0.1 Monocytes # (Auto) 0.2 Eosinophils # (Auto) 0.0 Basophils # (Auto) 0.0 CBC Comment AUTO DIFF Differential Comment AUTO DIFF CONFIRMED Platelet Estimate LOW Platelet Morphology Comment NORMAL Ovalocytes 1+ Helmet Cells OCC Acanthocytes OCC Keratocytes OCC Sodium Level 150 Potassium Level 3.5 Chloride Level 115 Carbon Dioxide Level 27.0 Anion Gap 8 Blood Urea Nitrogen 39 Random Glucose 172 Calcium Level 7.5 Total Bilirubin 1.5 Aspartate Amino Transf 58 (AST/SGOT) Alanine Aminotransferase 255 (ALT/SGPT) Alkaline Phosphatase 94 Total Protein 5.5 Albumin 2.6 Date/Time Procedure Status Source Growth 06/27/16 19:28 Aerobic Blood Culture - Preliminary Resulted Blood Peripheral NO GROWTH IN 3 DAYS 06/27/16 19:28 Anaerobic Blood Culture - Preliminary Resulted Blood Peripheral NO GROWTH IN 3 DAYS 06/27/16 18:00 Urine Culture - Final Complete Urine Catheterized Urine NO GROWTH IN 48 HOURS. Imaging Last Impressions Head CT 06/29/16 0000 Signed Impressions: Service Date/Time: Wednesday, June 29, 2016 16:43 - CONCLUSION: 1. Subacute left temporal and left occipital lobe infarct. No acute hemorrhage is identified Ken Bradford MD Chest CT 06/26/16 0000 Signed Impressions: Service Date/Time: Sunday, June 26, 2016 11:53 - CONCLUSION: 1. Bilateral pleural effusions larger on the right than the left. 2. Patchy air space disease in the right lower lobe. Sheldon Mccrary MD FACR Abdomen/Pelvis CT 06/24/16 0000 Signed Impressions: Service Date/Time: Friday, June 24, 2016 10:13 - CONCLUSION: 1. Bilateral effusions larger on the right than the left with dense consolidation in the right lower lobe and middle lobe concerning for pneumonia. CT imaging of the thorax is warranted for further assessment. 2. Small, lobulated spleen with areas of decreased attenuation suggesting prior splenic infarcts. 3. No free air or free fluid seen within the abdomen. Didier Mccrary MD Liver Ultrasound 06/23/16 0000 Signed Impressions: Service Date/Time: Thursday, June 23, 2016 10:19 - CONCLUSION: 1. Limited right upper quadrant sonogram. 2. Liver is slightly nodular could be related to early cirrhosis. 3. Spleen and common bile duct not seen. 4. Small right pleural effusion. sonogram. Johnathon Monterroso MD Soft Tissue Ultrasound 06/22/16 0600 Signed Impressions: Service Date/Time: Wednesday, June 22, 2016 11:21 - CONCLUSION: Soft-tissue swelling evident without fluid collection to suggest an abscess. Sheldon Mccrary MD FACR Physical Exam HEENT: Normocephalic; atraumatic CHEST: Resp even/mildly labored. Diminished. NRB Mask. CARDIAC: RRR ABDOMEN: Soft, nondistended, nontender; bowel sounds are present in all four quadrants. EXTREMITIES: Gen. edema. SKIN: Ecchymosis to lower abdomen ASSISTANT DEAN OF STUDENTS: Lethargic, confused. Assessment and Plan Plan ASSESSMENT: - Cirrhosis (new diagnosis)- No previous history of this. used to drink, but it has been a while according to . Ct of abd (06/24/16) showed Bilateral effusions larger on the right than the left with dense consolidation in the right lower lobe and middle lobe concerning for pneumonia. CT imaging of the thorax is warranted for further assessment. 2. Small, lobulated spleen with areas of decreased attenuation suggesting prior splenic infarcts. US (06/23/16) showed Limited right upper quadrant sonogram. 2. Liver is slightly nodular could be related to early cirrhosis. 3. Spleen and common bile duct not seen. 4. Small right pleural effusion. Hepatitis panel negative, Iron sats 17.7, ferritin 488, ceruloplasmin 16. ZOHRA/ASMA/AMA, Alpha 1 Antitrypsin pending. GRIFFITH pending. - Low ceruloplasmin of 16. 24 hour copper urine pending. - MARIBETH. Stable HH 9.2/27.9. - Thrombocytopenia 43, hematology on the case - Poor appetite/wt loss of 30 ibs in one month - Pleural effusion - Solumedrol, not a candidate for thoracentesis due to low plt. - AMS- CT head 06/27 revealed no acute intracranial findings, blood cx, urine cx no growth. Palliative care on the case - A-fib with RVR per CCM - Acute hypoxic respiratory failure per CCM - hx of CVA X 6, HTN, PIYUSH, COPD per attending Plan: - Await liver pending. - 24 urine for copper pending - Palliative care following, now DNR/DNI, elected to transition to comfort measures/hospice. - GI will sign off, please reconsult as needed. - Patient seen and examined by Dr. Arreola and myself and this note is written on his behalf. Glory Jimenez Jun 30, 2016 14:24
[2016-07-02 03:50] LABS: MITOCHONDRIAL ABS LESS THAN 20.0 U (())
--- NOTE | 2016-08-23 19:53 | HHI.DS ---
Discharge Summary Admission Date Jun 12, 2016 at 07:10 Discharge Date: Jun 30, 2016 Admitting Diagnosis RVR (1) Atrial flutter with rapid ventricular response ICD Code: I48.92 (2) Idiopathic thrombocytopenia purpura ICD Code: D69.3 (3) Cognitive communication disorder ICD Code: R41.841 (4) Pneumonia ICD Code: J18.9 Procedures None. Brief History Patient is a 50-year-old male who was transferred from [facility] secondary to A. fib with RVR. Patient was noncompliant with by mouth Cardizem. Patient was started on IV Cardizem drip which was discontinued earlier today 2/2 CVR. I got called by RN this am 2/2 agitation pt swinging at nurses. Ordered IM Haldol and Geodon . Also ordered repeat EKG to evaluate QT duration. Patient has history of COPD, obstructive sleep apnea, anxiety, HTN, HLD, CAD, paroxysmal A. fib on Eliquis, recurrent strokes and ITP. Recent acute stroke with distal occlusion of the left middle cerebral artery 03/17/17 with receptive and expressive aphasia and mild right sided weakness he was seen by Dr. Holden and was transferred to [facility]. On 06/01/16, patient was transferred to [facility] in [place] for history of increasing pain in the chest, shortness of breath and disorientation. Chest x-ray showed opacification of the right lower lobe possible pneumonia bilateral pleural effusions. Patient decompensated, requiring use of Ventimask and underwent urgent thoracentesis on 06/02/16, postprocedural chest x-ray without pneumothorax , and pleural effusion. Blood cultures were negative and patient was treated with course of antibiotic for the suspected pneumonia - doxycycline, Augmentin. The patient had several episodes of confusion and agitation which required Haldol PRN. At that time EEG showed mild encephalopathy but otherwise negative. EKG in normal sinus rhythm. 2-D echo showed 60% to 65% ejection fraction. Patient condition improved. He was then transferred to [place] for comprehensive rehabilitation. Patient also developed decrease in hemoglobin and platelets he was seen by hematology oncologist Dr. Andrew Schofield, bone marrow was completed which was negative and the patient was transfused with both 2 units of packed red cells and a unit of platelets. History includes testicular cancer in his late 40s for which she was treated with radiation therapy. Follow-up x-rays and scans have showed lymph nodes of the thoracic and abdominal area but the patient has remained on Eliquis and has not been able to undergo lymph node biopsy due to recurrent strokes. On day of admission he was awake alert and calm following simple commands on 4 point restraints. Did know his last name Denied pain and discomfort. Denied SOB/ dyspnea. Denied chest pain, palpitations, headaches, dizziness. Denies fevers, chills, n/v/d. He agrees to behave and promises not to swinging at the nurses. Also discussed with hematology regarding thrombocytopenia. It was agreed to hold Eliquis 2/2 critical thrombocytopenia, aware of risk of recurrent CVA. At this time, risk of anticoagulation outweighs benefits. Discussed with . Imaging Last Impressions Head CT 06/29/16 0000 Signed Impressions: Service Date/Time: Wednesday, June 29, 2016 16:43 - CONCLUSION: 1. Subacute left temporal and left occipital lobe infarct. No acute hemorrhage is identified Ken Bradford MD Chest CT 06/26/16 0000 Signed Impressions: Service Date/Time: Sunday, June 26, 2016 11:53 - CONCLUSION: 1. Bilateral pleural effusions larger on the right than the left. 2. Patchy air space disease in the right lower lobe. Sheldon Mccrary MD FACR Abdomen/Pelvis CT 06/24/16 0000 Signed Impressions: Service Date/Time: Friday, June 24, 2016 10:13 - CONCLUSION: 1. Bilateral effusions larger on the right than the left with dense consolidation in the right lower lobe and middle lobe concerning for pneumonia. CT imaging of the thorax is warranted for further assessment. 2. Small, lobulated spleen with areas of decreased attenuation suggesting prior splenic infarcts. 3. No free air or free fluid seen within the abdomen. Didier Mccrary MD Liver Ultrasound 06/23/16 0000 Signed Impressions: Service Date/Time: Thursday, June 23, 2016 10:19 - CONCLUSION: 1. Limited right upper quadrant sonogram. 2. Liver is slightly nodular could be related to early cirrhosis. 3. Spleen and common bile duct not seen. 4. Small right pleural effusion. sonogram. Johnathon Monterroso MD Soft Tissue Ultrasound 06/22/16 0600 Signed Impressions: Service Date/Time: Wednesday, June 22, 2016 11:21 - CONCLUSION: Soft-tissue swelling evident without fluid collection to suggest an abscess. Sheldon Mccrary MD FACR PE at Discharge GENERAL: 55-year-old male, on nonrebreather mask SKIN: Warm and dry. No rash HEAD: Atraumatic. Normocephalic. EYES: Pupils equal and round about 4 mm bilaterally and reactive. No scleral icterus. No injection or drainage. ENT: No nasal bleeding or discharge. Mucous membranes pink and moist. Oropharynx without erythema or exudates NECK: Trachea midline. No JVD. CARDIOVASCULAR: Tachycardia, IR. S1, S2. No S4. Without murmur RESPIRATORY: Tachypnea, diminished breath sounds due to body habitus. No wheezing appreciated. Breath sounds equal bilaterally. GASTROINTESTINAL: Abdomen soft, non-tender, slightly protuberant. Hypoactive bowel sounds are appreciated. Hepatic and splenic margins not palpable. MUSCULOSKELETAL: Extremities with trace lower extremity edema. No obvious deformities. NEUROLOGICAL: Aphasic. Upward toes bilaterally. Withdraws to pain right greater than left upper and lower extremity. Protecting airway adequately Hospital Course This is a 50-year-old male who has had a chronic downtrending course since January when he sustained 6 strokes. He was most recently admitted from rehabilitation on 04/11 for worsening agitation, altered mental status, atrial fibrillation with rapid ventricular response. Since that time, his mental status is not improved and to his his declined. This morning he is agitated, pulling off his clothes. His states that he is more cooperative usually. He is also more hypoxic today, requiring increasing FiO2. In discussing the case with Dr. West, his rapid ventricular response is been very difficult to control the last few days. Dr. James has been increasing his AV lissa blocking agents and added amiodarone to his diltiazem and metoprolol. He presents as a rapid response for a HR in the 30s with hypotension. When I evaluated the patient when he arrived in the [facility], he was agitated. His HR was in the 30s. Atropine and epinephrine were given to raise the heart rate and a dopamine drip was started. We also emergently gave glucagon with only mild improvements in HR. At that time we could not obtain a NIBP, so I placed a radial arterial line (please see separate procedure note for details). Critical care medicine is consulted to evaluate and manage his symptomatic bradycardia and acute agitated delirium. Subjective 3/5: Currently on nonrebreather mask saturations 97%. Arousable but does not follow commands. Heart rate currently in the 120s/A. fib with RVR but hemodynamically stable. 06/29: On partial rebreather. Remains encephalopathic. Cardizem drip for A. fib with RVR. Assessment and Plan Neuro/Psych: Acute encephalopathy likely toxic metabolic secondary to underlying infection History of CVA 5 with expressive and receptive aphasia Restless leg syndrome Anxiety CT head 06/27 revealed no acute intracranial findings Received 1 dose of Haldol 5 mg 1 06/27, 1 mg every 8 hours as needed Seen by psychiatrists during this hospitalization. Seroquel currently being held. CV: A. fib with RVR Symptomatic bradycardia likely secondary to AV blocking agents Dyslipidemia NOCAD PVD Cardizem drip as needed Previously on amiodarone 400 mg twice a day, Cardizem and Lopressor during this hospitalization Home medications are sotalol 80 twice a day, diltiazem 240 mg daily and Lopressor 50 mg by mouth every 8 hours. Holding home medication Lipitor 80 mg a night for dyslipidemia. Resume when clinically indicated 2-D echocardiogram 06/27/16 revealed EF 45%. Mild AR/TR. YULIYA 70 mmHg Gentle diuresis Noted ABIs revealed possible left moderate peripheral vascular disease. Recommended CTA when stable Resp: Acute hypoxic respiratory failure History COPD PIYUSH Chronic right pleural effusion Currently on partial rebreather mask to maintain saturations greater or equal to 92% Not a candidate for BiPAP secondary to AMS Bronchodilator therapy every 6 hours and as needed Currently on Symbicort 160/4.52 puffs twice a day. Solu-Medrol 40 mg IV every 12 hours Not a candidate for thoracentesis due to platelets of 30. DNR/DNI per patient's 's decision GI/ liver: Gastroesophageal reflux disease nothing by mouth due to altered mental status suspected early cirrhosis Protonix for GI prophylaxis Dulcolax suppository s as needed for bowel regimen : Carmona for accurate I's nose any critically ill patient Endo: Sliding-scale insulin with Accu-Cheks to maintain euglycemia/low regimen every 6 hours Renal: Follow BUN/ Cr Accurate I/os Monitor urine output Heme: ITP Antiphospholipid antibody syndrome Normocytic anemia Heterozygous gene for MTHFR History of testicular cancer On chronic prednisone 20 mg daily for ITP. Solu-Medrol 40 mg IV every 8 hours Hematology actively following. Currently not bleeding. Eliquis is currently being held in light of severe thrombocytopenia ID: Possible HCAP/UTI Day #3 vancomycin, cefepime and Flagyl. Previously on Levaquin. This was discontinued as possible AV blocking agent for symptomatically bradycardic. Pertinent cultures 06/21 - urine culture - Kluyvera Cryoscens/Proteus Mirabillis 06/27 - blood cultures 2 - pending 06/27 - urine culture - pending MSk: Osteoarthritis PT/OT FEN: Hypernatremia Hyper magnesium Hyperphosphatemia Gentle diuresis/D5 water with KCl at 50 cc an hour Access - Peripheral IV. Central line if indicated - Left radial arterial line day placed 06/27/16 Prophylaxis - GI - Protonix - DVT - heparin subcutaneous okayed by hematology. Off Eliquis due to severe thrombocytopenia from ITP DNR/DNI status. Palliative care consulted to assist with deciding goals of therapy. 06/30: On NRBM facemask. Recieved digoxin last night for Afib with RVR. Patient remains in ICU, alert but confused. Verbal but not always able to communicate needs secondary to confusion. Restless, agitated at times. Endorsing pain but unable to elaborate in detail. Verbalizing wanting to leave the hospital. Pilar at bedside. Patient remains on nonrebreather mask, at 15L O2. Episode of A. fib with RVR overnight, received digitoxin. Remains in A. fib with RVR with heart rate in the 130s. A febrile, stable blood pressure. CT of brain requests a yesterday for evaluate altered mental status, same showing subacute left temporal and left occipital lobe infarct. Laboratory today showing WBC 9.8, Hgb 10.0, platelet count 43. Sodium 150, potassium 3.5, BUN/ creatinine 39/0.91. GI has been consulted and is following. New diagnosis of cirrhosis. Pilar at bedside. Medical update provided by palliative care and Dr. Sierra. with a good understanding of patient's critical condition to include acute hypoxemic respiratory failure, encephalopathy, thrombocytopenia, profound physical deconditioning and multiple acute strokes. aware CT of the chest results showing enlarged lymph nodes of the thoracic and abdominal area likely representing malignancy. tells me that she knows that patient is "not coming back home". She understands the severity of his illness and has elected for DNR/DNI, no invasive procedures in the setting of worsening clinical condition. tells me that she does not feel the patient is having an acceptable quality of life secondary to his clinical condition and current treatment plan. She reports that if patient was able to tell us what he wanted us to do he would've selected comfort directed care in the setting of his poor prognosis for meaningful recovery. At this time electing comfort directed care with hospice services with the goal of transferring to hospice care center for pain and symptom management/allow natural . Ongoing emotional support and active listening provided to by palliative care team. Patient was discharged to hospice facility on 06/30/2016 Pt Condition on Discharge: Deteriorating Discharge Disposition: Hospice/Med Facility Discharge Instructions DIET: Follow Instructions for: As Tolerated, No Restrictions Speech Therapy-Diet Recommends: Regular Activities you can perform: Continue Bedrest Marcello Sierra MD Aug 23, 2016 19:53
== END 2016-06-30 17:03 | disposition hospice, inpatient (51) | DRG 813 ==
LOC: N04B 07:10 → N03A 06-27 12:27
PROVIDERS: ADMIT Internal Medicine Critical Care Medicine; ATTEND Internal Medicine Critical Care Medicine
PROC: 30233S1 Transfusion of Nonautologous Globulin into Peripheral Vein, Percutaneous Approach (ICD-10-PCS; principal; 2016-06-18)
PROC: 5A09357 Assistance with Respiratory Ventilation, Less than 24 Consecutive Hours, Continuous Positive Airway Pressure (ICD-10-PCS; 2016-06-27)
PROC: 30233R1 Transfusion of Nonautologous Platelets into Peripheral Vein, Percutaneous Approach (ICD-10-PCS; 2016-06-28)
DX: D69.3 Immune thrombocytopenic purpura (principal); I48.92 Unspecified atrial flutter; J96.01 Acute respiratory failure with hypoxia; G93.41 Metabolic encephalopathy; J18.9 Pneumonia, unspecified organism; E87.0 Hyperosmolality and hypernatremia; J90 Pleural effusion, not elsewhere classified; E87.2 Acidosis; D68.61 Antiphospholipid syndrome; J44.0 Chronic obstructive pulmonary disease with (acute) lower respiratory infection; I69.351 Hemiplegia and hemiparesis following cerebral infarction affecting right dominant side; K74.60 Unspecified cirrhosis of liver; I48.0 Paroxysmal atrial fibrillation; I10 Essential (primary) hypertension; G25.81 Restless legs syndrome; R41.841 Cognitive communication deficit; J44.9 Chronic obstructive pulmonary disease, unspecified; Z91.19 Patient's noncompliance with other medical treatment and regimen; I69.320 Aphasia following cerebral infarction; I25.10 Atherosclerotic heart disease of native coronary artery without angina pectoris; G47.33 Obstructive sleep apnea (adult) (pediatric); F41.9 Anxiety disorder, unspecified; E78.5 Hyperlipidemia, unspecified; M19.90 Unspecified osteoarthritis, unspecified site; R59.9 Enlarged lymph nodes, unspecified; F43.25 Adjustment disorder with mixed disturbance of emotions and conduct; L98.9 Disorder of the skin and subcutaneous tissue, unspecified; R00.1 Bradycardia, unspecified; R45.1 Restlessness and agitation; Z66 Do not resuscitate; Y95 Nosocomial condition; I08.2 Rheumatic disorders of both aortic and tricuspid valves; Z51.5 Encounter for palliative care; I25.2 Old myocardial infarction; R63.0 Anorexia; R63.4 Abnormal weight loss; I73.9 Peripheral vascular disease, unspecified; Z79.52 Long term (current) use of systemic steroids; K21.9 Gastro-esophageal reflux disease without esophagitis; E83.39 Other disorders of phosphorus metabolism; Z78.1 Physical restraint status; Z92.3 Personal history of irradiation; Z85.47 Personal history of malignant neoplasm of testis; Z79.02 Long term (current) use of antithrombotics/antiplatelets; Z87.891 Personal history of nicotine dependence
CPT/HCPCS: 36430; 36600; 70450; 71260; 74177; 76705; 76937; 76999; 80048; 80053; 80074; 80076; 80202; 81001; 81240; 81241; 81291; 82010; 82103; 82105; 82140; 82390; 82525; 82565; 82607; 82728; 82746; 82805; 82948; 83010; 83090; 83516; 83520; 83540; 83550; 83605; 83615; 83735; 83921; 84100; 84155; 84443; 84484; 85007; 85025; 85027; 85060; 85240; 85300; 85303; 85306; 85307; 85384; 85610; 85613; 85730; 86038; 86146; 86147; 86148; 86256; 86900; 86901; 86965; 87040; 87077; 87086; 87186; 93005; 93306; 93923; 94003; 94640; 94664; C9113; J0171; J0461; J0692; J1160; J1459; J1610; J1630; J1644; J1940; J1956; J2920; J3370; J3480; J3486; J7030; J7040; J7050; J7060; J7070; J7512; P9035; Q9967